=== PATIENT | female | born 1945 | race Caucasian/White ===

== ENCOUNTER 2016-07-30 09:43 | Emergency (ER) | payer OTHER ==
[~2016-07-30] VITALS: Ht 160 cm; Wt 89.0 kg
[~2016-07-30 09:43] MED LIST: ADVIN25/60 INH; ALBU1AER9 INH; CITA40TA4 PO; CZR50 PO; FLNIN/ NAE; HYDR25TA5 PO; LEVO150T9 PO; SIMV-151 PO; TNR25 PO
[2016-07-30 09:46] VITALS: TEMP 36.9; Ht 160 cm; Wt 89.0 kg
[2016-07-30] MEDS ORDERED: ACETAMINOPHEN 325 MG TAB PO STA (09:55)
--- NOTE | 2016-07-30 09:59 | EMERGENCY ROOM VISIT NOTE ---
History Report prepared by Justa: Vivi Dos Santos Under the Supervision of: Dr. Nino Alanis M.D. First contact with patient: 09:49 Chief Complaint: ABDOMINAL PAIN Stated Complaint: LOWER RIGHT ABDOMEN PAIN History of Present Illness The patient is a 71 year old female who presents to the Emergency Room with complaints of worsening lower right sided abdominal pain beginning almost 2 months prior to arrival. The patient states that the second week in June she was outside pruning when she moved and felt pain in her lower right side of the abdomen radiating into the groin. The patient states that movement worsens her pain. She states that getting out of bed in the mornings is the most painful. She notes that nothing helps to alleviate her pain. The patient also had back pain that only lasted for a few days before it resolved. The patient is having normal bowel movements. She denies urinary symptoms or vaginal discharge. Source of History: patient Onset: about 2 months [employer] Position: abdomen (RLQ) Timing: worsening Associated Symptoms: + back pain, No urinary symptoms Note: The patient is experiencing normal bowel movements. She denies vaginal discharge. Review of Systems All systems have been listed, reviewed, and are negative other than those previously mentioned. Please see Additional Medical History Sheet. Past Medical & Surgical Medical Problems: (1) Hypertension Nos Family History Cancer Social History Smoking Status: Never Smoker Alcohol Use: none Marital Status: Housing Status: lives with significant other Occupation Status: retired Current/Historical Medications Scheduled Atenolol (Atenolol), 25 MG PO DAILY Hydrochlorothiazide (Hydrochlorothiazide), 25 MG PO DAILY Levothyroxine Sodium (Levothyroxine Sodium), 150 MCG PO DAILY Losartan Potassium (Losartan Potassium), 50 MG PO DAILY Simvastatin (Simvastatin), 20 MG PO DAILY Scheduled PRN Albuterol Hfa (Ventolin Hfa), 2 PUFFS INH UD PRN for SOB/Wheezing Fluticasone Prop/Salmeterol (Advair Diskus 250/50 60 Dose), 1 PUFF INH BID PRN for SOB/Wheezing Fluticasone Propionate (Fluticasone Propionate), 2 SPRAYS REAGAN DAILY PRN for ALLERGIES Ibuprofen Tab (Motrin), 600 MG PO Q6H PRN for Pain Allergies Coded Allergies: Iodinated Contrast Media (Verified Allergy, Unknown, ., 07/30/16) Oxycodone (Verified Allergy, Unknown, ., 07/30/16) ABLE TO TAKE TYLENOL Physical Exam Vital Signs Date Time Temp Pulse Resp B/P (MAP) Pulse Ox O2 Delivery O2 Flow Rate FiO2 07/30/16 12:01 62 20 118/65 96 Room Air 07/30/16 11:16 52 20 133/66 98 Room Air 07/30/16 09:46 36.9 79 22 176/81 96 Room Air Physical Exam GENERAL: Patient awake, alert, oriented x 3. Patient follows commands. Patient does not appear toxic. Patient is adequately hydrated and well- nourished. SKIN: No erythema, pallor, cyanosis or rash HEENT: Normal head, pupils equal, reactive to light and accommodation. LUNGS: Clear to auscultation. No wheezes, no rales, no rhonchi. HEART: No murmurs. No gallops. No rubs ABDOMEN: Vague tenderness to right lower quadrant, no hernia palpated. Patient does not have acute abdomen. No masses, no rebound, no hepatomegaly or splenomegaly. BACK: Tender proximally L2-L3 into right perivertebral area. No ecchymosis, no signs of trauma, no deformity seen. EXTREMITIES: Straight leg raise negative bilaterally. Motor sensory circulatory function intact distally. No signs of trauma. No pedal or pretibial edema. No calf or thigh tenderness. NEUROLOGIC: Cranial nerves II-XII within normal limits. No gross motor sensory function deficits. Medical Decision & Procedures ER Provider Diagnostic Interpretation: Radiology results as stated below per my review and radiologist interpretation: Limited abdominal ultrasound ABDOMEN FOR HERNIA CLINICAL HISTORY: RLQ PAIN PAST APPY AND OOPHORECTOMY HYSTERECTOMY TECHNIQUE: Ultrasound COMPARISON STUDY: None FINDINGS: No evidence for hernia. Abdominal wall appears to be intact. IMPRESSION: Negative study. No evidence for hernia. Electronically signed by: Andrzej Mclean M.D. 07/30/2016 10:58 AM Dictated Date/Time: 07/30/2016 10:[address] DOSE: 1053.50 mGy.cm HISTORY: Pain RIGHT SIDED LUMBAR PAIN TECHNIQUE: Multiaxial CT images of the lumbar spine were performed and reformatted in the sagittal and coronal plane without the use of contrast. COMPARISON: None. FINDINGS: No evidence for compression deformity. Degenerative disc change throughout. Degenerative change posterior elements. L1-L2: Moderate multifactorial narrowing of the spinal canal. Moderate narrowing of the neuroforamina bilaterally. L2 L3. Broad-based bulging disc. L3-L4. Mild broad-based bulging disc. L4-L5: Significant multifactorial narrowing of spinal canal. Subtle grade 1 anterolisthesis of L4 and L5 secondary to degenerative changes of posterior elements. L5-S1 probable right posterior disc herniation. Gas containing disc component on a degenerative basis. Moderate narrowing of the neuroforamina bilaterally. IMPRESSION: 1. No acute process. 2. Degenerative changes throughout. 3. Multifactorial narrowing of the spinal canal at L4-L5 and L1-L2. 4. Probable right posterior disc herniation L5-S1 Electronically signed by: Andrzej Mclean M.D. 07/30/2016 10:37 AM Dictated Date/Time: 07/30/2016 10:33 AM Laboratory Results 07/30/16 10:12 Red Blood Count 4.38, Mean Corpuscular Volume 90.6, Mean Corpuscular Hemoglobin 29.5, Mean Corpuscular Hemoglobin Concent 32.5, Mean Platelet Volume 10.6, Neutrophils (%) (Auto) 69.9, Lymphocytes (%) (Auto) 18.6, Monocytes (%) (Auto) 9.8, Eosinophils (%) (Auto) 1.3, Basophils (%) (Auto) 0.2, Neutrophils # (Auto) 3.64, Lymphocytes # (Auto) 0.97, Monocytes # (Auto) 0.51, Eosinophils # (Auto) 0.07, Basophils # (Auto) 0.01 07/30/16 10:12 Test 07/30/16 10:12 07/30/16 11:10 White Blood Count 5.21 K/uL (4.8-10.8) Red Blood Count 4.38 M/uL (4.2-5.4) Hemoglobin 12.9 g/dL (12.0-16.0) Hematocrit 39.7 % (37-47) Mean Corpuscular Volume 90.6 fL (80-100) Mean Corpuscular Hemoglobin 29.5 pg (25-34) Mean Corpuscular Hemoglobin Concent 32.5 g/dl (32-36) Platelet Count 103 K/uL (130-400) Mean Platelet Volume 10.6 fL (7.4-10.4) Neutrophils (%) (Auto) 69.9 % Lymphocytes (%) (Auto) 18.6 % Monocytes (%) (Auto) 9.8 % Eosinophils (%) (Auto) 1.3 % Basophils (%) (Auto) 0.2 % Neutrophils # (Auto) 3.64 K/uL (1.4-6.5) Lymphocytes # (Auto) 0.97 K/uL (1.2-3.4) Monocytes # (Auto) 0.51 K/uL (0.11-0.59) Eosinophils # (Auto) 0.07 K/uL (0-0.5) Basophils # (Auto) 0.01 K/uL (0-0.2) RDW Standard Deviation 46.3 fL (36.4-46.3) RDW Coefficient of Variation 13.9 % (11.5-14.5) Immature Granulocyte % (Auto) 0.2 % Immature Granulocyte # (Auto) 0.01 K/uL (0.00-0.02) Platelet Estimate DECREASED Anion Gap 8.0 mmol/L (3-11) Est Creatinine Clear Calc Drug Dose 65.5 ml/min Estimated GFR () 83.5 Estimated GFR (Non- 72.1 BUN/Creatinine Ratio 23.8 (10-20) Calcium Level 8.9 mg/dl (8.5-10.1) Urine Color YELLOW Urine Appearance CLEAR (CLEAR) Urine pH 6.5 (4.5-7.5) Urine Specific [place] 1.018 (1.000-1.030) Urine Protein NEG (NEG) Urine Glucose (UA) NEG (NEG) Urine Ketones NEG (NEG) Urine Occult Blood NEG (NEG) Urine Nitrite NEG (NEG) Urine Bilirubin NEG (NEG) Urine Urobilinogen NEG (NEG) Urine Leukocyte Esterase SMALL (NEG) Urine WBC (Auto) 1-5 /hpf (0-5) Urine RBC (Auto) 0-4 /hpf (0-4) Urine Hyaline Casts (Auto) 0 /lpf (0-5) Urine Epithelial Cells (Auto) 20-30 /lpf (0-5) Urine Bacteria (Auto) NEG (NEG) Laboratory results as stated above per my review. Medications Administered Medications (Trade) Dose Ordered Sig/Rock Route Start Time Stop Time Status Last Admin Dose Admin Acetaminophen (Tylenol Tab) 1,000 mg STK-MED ONCE PO 07/30/16 10:02 07/30/16 10:03 DC 07/30/16 10:05 1,000 MG Ibuprofen (Motrin Tab) 600 mg NOW STAT PO 07/30/16 12:24 07/30/16 12:25 DC 07/30/16 12:30 600 MG Ibuprofen (Ibuprofen 600mg Home Pack) 1 homepack UD ONCE PO 07/30/16 12:30 07/30/16 12:31 DC 07/30/16 12:30 1 HOMEPACK ED Course 0950: Past medical records reviewed. The patient was evaluated in room A12. A complete history and physical examination was performed. 0955: Tylenol Tab 1,000 mg PO. 1219: I checked on the patient and explained her test results. She would like to go home. 1224: Motrin Tab 600 mg PO. 1230: Ibuprofen 600 mg Home Pack 1 homepack PO. 1232: Upon reevaluation, the patient appeared to have improvement of her symptoms. I discussed today's findings with her. She verbalized agreement of the treatment plan. She was discharged home. Medical Decision Nurses notes reviewed. Medical history sheet reviewed. Differential diagnosis includes but is not limited to: femoral/inguinal hernia, musculoskeletal strain , degenerative joint disease, sciatica. Medication Reconciliation: I attest that I have personally reviewed the patient' s current medication list. Blood pressure Screening: Patient was found to have normal blood pressure on screening and does not require follow up. Patient was here initially complaining of pain over her right lower quadrant of her abdomen. On examination of her back she has point tenderness over the right side of her lumbar spine. Ultrasound of the abdomen does not reveal hernia nor can I feel one on exam. CT of her lumbar spine reveals significant degenerative changes. I believe the pain she is experiencing both in her back and abdomen are from radicular pain from that area. The patient was started on ibuprofen and she will continue that medication at home. She is to follow-up with her family physician within the next 7 days. The patient was encouraged to apply heat intermittently to her back. She was encouraged to avoid any lifting or straining. Impression Primary Impression: Lumbar radiculopathy Scribe Attestation The scribe's documentation has been prepared under my direction and personally reviewed by me in its entirety. I confirm that the note above accurately reflects all work, treatment, procedures, and medical decision making performed by me. Departure Information Dispostion Home / Self-Care Prescriptions Ibuprofen Tab (MOTRIN) 600 Mg Tab 600 MG PO Q6H Y for Pain, #30 TAB Prov: Nino Alanis M.D. 07/30/16 Referrals Tita Harris D.O. (PCP) Forms HOME CARE DOCUMENTATION FORM, IMPORTANT VISIT INFORMATION Patient Instructions My [facility] Additional Instructions 600 mg of ibuprofen every 6 hours until pain has resolved. Avoid any heavy lifting for the next 2 weeks. Apply heat intermittently to your lower back. Follow-up with your family physician this coming week.
[2016-07-30] MEDS ORDERED: ACETAMINOPHEN 500 MG TAB PO ONE (10:02)
[2016-07-30 10:37] LABS: BUN/CREATININE RATIO 23.8 (10-20); CALCIUM 8.9 mg/dl (8.5-10.1); CREATININE 0.81 mg/dl (0.60-1.20); POTASSIUM 3.8 mmol/L (3.5-5.1)
--- NOTE | 2016-07-30 10:39 | DIAGNOSTIC IMAGING REPORT ---
LUMBAR SPINE CT CT DOSE: 1053.50 mGy.cm HISTORY: Pain RIGHT SIDED LUMBAR PAIN TECHNIQUE: Multiaxial CT images of the lumbar spine were performed and reformatted in the sagittal and coronal plane without the use of contrast. COMPARISON: None. FINDINGS: No evidence for compression deformity. Degenerative disc change throughout. Degenerative change posterior elements. L1-L2: Moderate multifactorial narrowing of the spinal canal. Moderate narrowing of the neuroforamina bilaterally. L2 L3. Broad-based bulging disc. L3-L4. Mild broad-based bulging disc. L4-L5: Significant multifactorial narrowing of spinal canal. Subtle grade 1 anterolisthesis of L4 and L5 secondary to degenerative changes of posterior elements. L5-S1 probable right posterior disc herniation. Gas containing disc component on a degenerative basis. Moderate narrowing of the neuroforamina bilaterally. IMPRESSION: 1. No acute process. 2. Degenerative changes throughout. 3. Multifactorial narrowing of the spinal canal at L4-L5 and L1-L2. 4. Probable right posterior disc herniation L5-S1 Electronically signed by: Andrzej Mclean M.D. 07/30/2016 10:37 AM Dictated Date/Time: 07/30/2016 10:33 AM
[2016-07-30 10:54] LABS: HEMATOCRIT 39.7 % (37-47); MEAN CELL VOLUME 90.6 fL (80-100); MEAN CORPUSCULAR HEMOGLOBIN 29.5 pg (25-34); MEAN CORPUSCULAR HGB CONC 32.5 g/dl (32-36); MEAN PLATELET VOLUME 10.6 fL (7.4-10.4); PLATELET COUNT 103 K/uL (130-400); RED BLOOD COUNT 4.38 M/uL (4.2-5.4); WHITE BLOOD COUNT 5.21 K/uL (4.8-10.8)
[2016-07-30 10:55] LABS: BASO % 0.2 %; BASO ABS # 0.01 K/uL (0-0.2); COMPLETE YES; EOS % 1.3 %; IG% 0.2 %; LYMPH % 18.6 %; LYMPH ABS # 0.97 K/uL (1.2-3.4); MONO % 9.8 %; NEUT % 69.9 %; PLT ESTIMATE DECREASED
[2016-07-30] MEDS ORDERED: VNTHFA/IN INH (10:59)
--- NOTE | 2016-07-30 10:59 | DIAGNOSTIC IMAGING REPORT ---
Limited abdominal ultrasound ABDOMEN FOR HERNIA CLINICAL HISTORY: RLQ PAIN PAST APPY AND OOPHORECTOMY HYSTERECTOMY TECHNIQUE: Ultrasound COMPARISON STUDY: None FINDINGS: No evidence for hernia. Abdominal wall appears to be intact. IMPRESSION: Negative study. No evidence for hernia. Electronically signed by: Andrzej Mclean M.D. 07/30/2016 10:58 AM Dictated Date/Time: 07/30/2016 10:57 AM
[2016-07-30 11:34] LABS: URINE APPEARANCE CLEAR (CLEAR); URINE BILIRUBIN NEG (NEG); URINE COLOR YELLOW; URINE EPITHELIAL CELL AUTO 20-30 /lpf (0-5); URINE NITRITE NEG (NEG); URINE PH 6.5 (4.5-7.5); URINE SPECIFIC GRAVITY 1.018 (1.000-1.030); UROBILINOGEN NEG (NEG); ZZUR CULT IF INDIC CLEAN CATCH NO
[2016-07-30 11:44] LABS: MANUAL MICROSCOPIC REQUIRED? NO; REVIEW REQ? NO
[2016-07-30 12:01] VITALS: BP 118/65; PULSE 62; O2SAT 96
[2016-07-30] MEDS ORDERED: IBUPROFEN 600 MG TAB PO STA (12:24)
[2016-07-30] MEDS ORDERED: IBUP-1427 PO (12:28)
[2016-07-30] MEDS ORDERED: MOTRIN HOME PACK 600 MG (4)BTL PO ONE (12:30)
== END 2016-07-30 12:41 | disposition home or self-care (01) ==
LOC: C.EDB 09:44 → C.EDA 12:41
DX: M54.16 Radiculopathy, lumbar region (principal); I10 Essential (primary) hypertension; Z79.899 Other long term (current) drug therapy; Z88.5 Allergy status to narcotic agent; Z91.041 Radiographic dye allergy status; Z80.9 Family history of malignant neoplasm, unspecified

== ENCOUNTER 2023-04-25 11:23 | Inpatient (IN) ==
[2023-04-25 12:17] LABS: Basophils # (auto) 0.01 K/uL (0.00-0.20); Basophils % (auto) 0.2 %; Eosinophils # (auto) 0.02 K/uL (0.00-0.50); Eosinophils % (auto) 0.3 %; Hematocrit (blood only) 35.6 % (37.0-47.0); Hemoglobin 12.8 g/dl (12.0-16.0); Immature Granulocytes # (auto) 0.03 K/uL (0.01-0.20); Immature Granulocytes % (auto) 0.5 %; Lymphocytes # (auto) 0.78 K/uL (1.20-3.40); Lymphocytes % (auto) 11.9 %; Mean Corpuscular Hemoglobin 31.6 pg (25.0-34.0); Mean Corpuscular Volume 87.9 fL (80.0-100.0); Mean Platelet Volume 9.8 fL (9.4-12.4); Monocytes # (auto) 0.49 K/uL (0.11-0.59); Monocytes % (auto) 7.5 %; Neutrophils # (auto) 5.22 K/uL (1.40-6.50); Neutrophils % (auto) 79.6 %; Platelet Count 116 K/uL (130-400); RDW Coefficient of Variation 17.2 % (11.5-14.5); RDW Standard Deviation 55.2 fL (36.4-46.3); Red Blood Count 4.05 M/uL (4.20-5.40); White Blood Count 6.55 K/ul (4.8-10.8)
[2023-04-25 12:32] LABS: Alanine Aminotransferase 17 U/L (7-52); Albumin Globulin Ratio 0.9 (0.9-2); Albumin Level 3.2 gm/dl (3.4-5.0); Alkaline Phosphatase 67 U/L (34-104); Anion Gap 14 (3-11); Aspartate Aminotransferase 29 U/L (13-39); BUN Creatinine Ratio 21.2 (10-20); Bilirubin,Total 1.8 mg/dl (0.2-1.0); Blood Urea Nitrogen 40 mg/dl (6-23); Calcium 8.9 mg/dl (8.6-10.3); Carbon Dioxide 27 mmol/L (21-32); Chloride 91 mmol/L (98-107); Est GFR (African American) 28.7 ml/min; Est GFR (Non-African American) 24.8 ml/min; Globulin 3.5 gm/dl (2.5-4.0); Glucose 168 mg/dl (70-99(Fasting)); Sodium 132 mmol/L (136-145); Total Protein 6.7 gm/dl (6.0-8.3)
[2023-04-25 12:38] LABS: Troponin I High Sensitivity 21.1 pg/ml (0-14)
[2023-04-25 12:45] LABS: INR 1.1 (0.9-1.1); Partial Thromboplastin Time 28 Seconds (21-31)
--- NOTE | 2023-04-25 13:04 | XRay Report ---
XR chest 1V not portable CLINICAL HISTORY: Chest pain, nonspecific TECHNIQUE: Single frontal radiograph of the chest was obtained. Comparison: Comparison is made to chest radiograph 02/15/2022 FINDINGS: No lines and tubes are seen. Calcified aortic knob is seen. The lungs are clear. No evidence of pleur al effusion or pneumothorax. IMPRESSION: No acute chest disease. ACT 112: Negative or not required by law. Electronically signed by: Bubba Cortez M.D. 04/25/2023 1:02 PM
--- NOTE | 2023-04-25 14:14 | Emergency Department Note ---
Impression & Plan BLAYNE (acute kidney injury), Acute dehydration, Acute hypokalemia, Elevated troponin, Acute hypotension ED Provider Note NAME: OPAL JAMES AGE: 77 SEX: F : 1945 ARRIVES VIA: Walk-In INFORMANT: Patient, Daughter ED PROVIDER(S): Timoteo Quinn DO CHIEF COMPLAINT: Weakness HPI: Patient is a 77-year-old female pleasantly demented with a past medical history of cirrhosis and diabetes that presents to the ER for lightheadedness associated with not eating and drinking. She complained of some chest pain today and was referred in by her PCP. Patient denies any headache or change in vision. No chest pain currently. No belly pain, nausea, vomiting, or diarrhea. No dysuria, urgency, or frequency. No other exacerbating or remitting factors. Entire history is obtained from daughter who is present at bedside. ADDITIONAL HISTORY OBTAINED: Per HPI Chronic Medical/Social Conditions Affecting Care: Per HPI PAST MEDICAL HISTORY:See Below PAST SURGICAL HISTORY:See Below FAMILY HISTORY:See Below SOCIAL HISTORY:See Below HOME MEDICATIONS:See Below ALLERGIES:See Below VITALS:See Below PHYSICAL EXAMINATION: GENERAL: Sitting up in bed, alert, well appearing, well nourished, no distress, non-toxic EYE EXAM: normal conjunctiva. PERRL and EOM's grossly intact. OROPHARYNX: no exudate, no erythema, lips, buccal mucosa, and tongue normal and mucous membranes are moist NECK: supple, no nuchal rigidity, no adenopathy, non-tender LUNGS: Clear to auscultation. Normal chest wall mechanics HEART: no murmurs, S1 normal and S2 normal ABDOMEN: abdomen soft, non-tender, normo-active bowel sounds, no masses, no rebound or guarding. UPPER EXTREMITIES: upper extremities are grossly normal. LOWER EXTREMITIES: Faint pitting edema in the lower extremities NEURO EXAM: Normal sensorium, cranial nerves II-XII intact, normal speech, no weakness of arms, no weakness of legs. MEDICAL DECISION MAKING: Patient is a 77-year-old female who presents the ER for the above-stated complaint. IV was established blood was obtained. Labs show no significant leukocytosis or anemia. Mild thrombocytopenia at 116. BMP with a hypokalemia 3.0 and an BLAYNE with creatinine 1.9 up from a baseline of 0.9. Bilirubin was slightly elevated at 1.8. LFTs were unremarkable. Troponin was elevated in the 20s. Patient was hypotensive initially was given IV fluid. She had mild pitting edema with her cirrhosis I do favor she was intravascularly dry. She is updated bedside. Discussed case with her daughter who gives majority of the history at bedside. Discussed with the hospitalist for further evaluation management treatment. Hospitalist did request a CT of the abdomen pelvis which was was performed. Consults/Care Managements Discussions: Per [facility] Triage Nursing notes reviewed. Limited review of prior medical records performed Vital Signs: reviewed and remarkable for hypotension Differential diagnosis: Infection, dehydration, metabolic abnormality, hypo/hyperglycemia, electrolyte disturbance, anemia, hypoxia, cardiac sources, intracerebral event, toxicologic, neurologic, as well as other pathologies. ER treatment provided: See below Diagnostics interpreted by me include EKG and cardiac monitoring as listed below: -Cardiac Monitoring: An order was placed for continuous cardiac monitoring. The monitor shows a rate of 70 with sinus rhythm. -ECG: Sinus rhythm rate 84 Left axis No PVCs QTc 420 -Laboratory studies:Interpreted by me as stated above in MDM and shown below. Imaging studies: Xrays: As interpreted by me: Portable AP upright 1 view of the chest shows no focal infiltrate CTs show: CT abdomen pelvis shows cirrhosis with ascites Procedures:none Critical Care: None Past Med/Surg History Medical History Asthma NO INHALER USE X 2 YRS Bronchitis Chest pain (11/16/13) NO RECENT ISSUES Colon polyps Diabetes mellitus, type 2 Elevated d-dimer Hepatic encephalopathy Hypothyroidism Pneumonia LAST TIME 2 YRS AGO Right foot pain Surgical History H/O: hysterectomy History of total bilateral knee replacement Hx of appendectomy S/P lumpectomy, left breast BENIGN PER PT Family History Father Colorectal cancer Family history of diabetes mellitus Social History Smoking Status: Never smoker Second Hand Exposure: No; Do You Dip or Chew Tobacco: No; Hx Alcohol Use: No Hx Substance Use: No Preferred Language: Luxembourgish Communication Ability: Effective Visual Impairment: No Limitations Hearing Ability: Normal Lei Maker Required: No Beliefs That Will Affect Care: None marital status: Current Living Situation: Spouse current occupational status: retired Other Information That Helps Us Care for You: No Feels Safe at Home: Yes Safety Concerns: Feels Safe At This Time and Afraid for Self Assistive Devices: Glasses Allergies Allergies Allergy/AdvReac Type Severity Reaction Status Date / Time Iodinated Contrast Media Allergy Intermediate Hives Verified 04/25/23 15:23 oxycodone Allergy Unknown CAN'T Verified 04/25/23 15:23 REMEMBER Home Meds Home Medications Medication Instructions Recorded Confirmed losartan 50 mg tablet 25 mg PO QAM 07/15/19 04/25/23 metformin 500 mg tablet 1,000 mg PO BID 07/15/19 04/25/23 clindamycin phosphate 1 % topical 1 applic topical BID PRN AFFECTED 04/25/23 04/25/23 swab SKIN clotrimazole 1 % vaginal cream 1 appful vaginal HS 04/25/23 04/25/23 cyanocobalamin (vitamin B-12) 1,000 mcg PO DAILY 04/25/23 04/25/23 1,000 mcg tablet (Vitamin B-12) donepezil 5 mg tablet 5 mg PO QAM 04/25/23 04/25/23 empagliflozin 25 mg tablet 25 mg PO QAM 04/25/23 04/25/23 (Jardiance) lactulose 10 gram/15 mL oral 30 ml PO BID 04/25/23 04/25/23 solution levothyroxine 150 mcg tablet 150 mcg PO DAILYBB 04/25/23 04/25/23 nutrition tx glu 1 ea PO BIDM 04/25/23 04/25/23 intol,lac-free,soy-fiber 0.04 gram-1 kcal/mL liquid (Glucerna 1 Ezequiel) ondansetron 4 mg disintegrating 4 mg translingual Q12H PRN 04/25/23 04/25/23 tablet NAUSEA/VOMITING pantoprazole 20 mg tablet,delayed 20 mg PO BID 04/25/23 04/25/23 release spironolactone 50 mg tablet 50 mg PO QAM 04/25/23 04/25/23 thiamine HCl (vitamin B1) 100 mg 100 mg PO QAM 04/25/23 04/25/23 tablet (Vitamin B-1) torsemide 20 mg tablet 20 mg PO BID 04/25/23 04/25/23 trazodone 50 mg tablet 50 mg PO HS 04/25/23 04/25/23 Results & Data (ED) Vital Signs Vital Signs - 24 hr 04/25/23 11:26 04/25/23 14:00 04/25/23 14:00 Temperature 36.6 C Temperature Source Temporal Artery Scan Pulse Rate 68 78 Pulse Rate from SpO2 Sensor 76 Respiratory Rate 20 14 Respiratory Effort / Characteristics Non-Labored Respiratory Depth Normal Blood Pressure 90/69 L 102/68 Blood Pressure Mean 76 77 Pulse Oximetry 98 99 Oxygen Delivery Method Room Air Sepsis Recent Fever Within 48 Hours No Sepsis New/Unexplained Change in Mental Status No Sepsis Action Taken by Nursing No Action Required 04/25/23 14:11 Temperature Temperature Source Pulse Rate 75 Pulse Rate from SpO2 Sensor Respiratory Rate Respiratory Effort / Characteristics Respiratory Depth Blood Pressure Blood Pressure Mean Pulse Oximetry Oxygen Delivery Method Sepsis Recent Fever Within 48 Hours Sepsis New/Unexplained Change in Mental Status Sepsis Action Taken by Nursing Laboratory Data 04/25/23 11:40 04/25/23 11:40 Lab Results 04/25/23 04/25/23 Range/Units 11:40 14:08 WBC 6.55 (4.8-10.8) K/ul RBC 4.05 L (4.20-5.40) M/uL Hgb 12.8 (12.0-16.0) g/dl Hct 35.6 L (37.0-47.0) % MCV 87.9 (80.0-100.0) fL MCH 31.6 (25.0-34.0) pg MCHC 36.0 (32.0-36.0) g/dL RDW Std Deviation 55.2 H (36.4-46.3) fL RDW Coeff of [place] 17.2 H (11.5-14.5) % Plt Count 116 L (130-400) K/uL MPV 9.8 (9.4-12.4) fL Immature Gran % (Auto) 0.5 % Neut % (Auto) 79.6 % Lymph % (Auto) 11.9 % [place] % (Auto) 7.5 % Eos % (Auto) 0.3 % Baso % (Auto) 0.2 % Neut # (Auto) 5.22 (1.40-6.50) K/uL Lymph # (Auto) 0.78 L (1.20-3.40) K/uL [place] # (Auto) 0.49 (0.11-0.59) K/uL Eos # (Auto) 0.02 (0.00-0.50) K/uL Baso # (Auto) 0.01 (0.00-0.20) K/uL Immature Gran # (Auto) 0.03 (0.01-0.20) K/uL PT 12.0 (9.0-12.0) Seconds INR 1.1 (0.9-1.1) APTT 28 (21-31) Seconds PTT Ratio 1.0 Sodium 132 L (136-145) mmol/L Potassium 3.0 L (3.5-5.1) mmol/L Chloride 91 L (98-107) mmol/L Carbon Dioxide 27 (21-32) mmol/L Anion Gap 14 H (3-11) BUN 40 H (6-23) mg/dl Creatinine 1.89 H (0.6-1.2) mg/dl Est Cr Clr Drug Dosing Not Reportable Est GFR ( Amer) 28.7 ml/min Est GFR (Non-Af Amer) 24.8 ml/min BUN/Creatinine Ratio 21.2 H (10-20) Glucose 168 H (70-99(Fasting)) mg/dl Calcium 8.9 (8.6-10.3) mg/dl Total Bilirubin 1.8 H (0.2-1.0) mg/dl AST 29 (13-39) U/L ALT 17 (7-52) U/L Alkaline Phosphatase 67 (34-104) U/L Troponin I High Sens 21.1 H 22.2 H (0-14) pg/ml B-Natriuretic Peptide 100 (0-100) pg/ml Total Protein 6.7 (6.0-8.3) gm/dl Albumin 3.2 L (3.4-5.0) gm/dl Globulin 3.5 (2.5-4.0) gm/dl Albumin/Globulin Ratio 0.9 (0.9-2) Administered Medications Discontinued Medications Sodium Chloride (Nss) 500 mls @ 999 mls/hr IV .Q31M ONE Stop: 04/25/23 14:44 Last Infusion: 04/25/23 14:58 Dose: Infused Documented By: Admin: 04/25/23 14:25 Dose: 999 mls/hr Documented By: NANCY Lactulose (Lactulose Syrup 30 Gm/45 Ml Udp) 30 gm PO NOW STA Stop: 04/25/23 15:33 Last Admin: 04/25/23 16:11 Dose: 30 gm Documented By: JO Potassium Chloride (Potassium Chloride Crtab 20 Meq Tabcr) 20 meq PO NOW STA Stop: 04/25/23 14:15 Last Admin: 04/25/23 14:25 Dose: 20 meq Documented By: NANCY Potassium Chloride (Potassium Chloride Crtab 20 Meq Tabcr) 40 meq PO NOW STA Stop: 04/25/23 15:34 Last Admin: 04/25/23 16:14 Dose: 40 meq Documented By: BT Imaging Data Radiologist's Impression: Chest X-Ray 04/25/23 11:29 XR chest 1V not portable CLINICAL HISTORY: Chest pain, nonspecific TECHNIQUE: Single frontal radiograph of the chest was obtained. Comparison: Comparison is made to chest radiograph 02/15/2022 FINDINGS: No lines and tubes are seen. Calcified aortic knob is seen. The lungs are clear. No evidence of pleural effusion or pneumothorax. IMPRESSION: No acute chest disease. ACT 112: Negative or not required by law. Electronically signed by: Bubba Cortez M.D. 04/25/2023 1:02 PM Abdomen/Pelvis CT 04/25/23 14:31 CT abd pelvis wo con CLINICAL HISTORY: per internal medicine request not eating TECHNIQUE: Helical axial images of the abdomen and pelvis were obtained. Automated dose lowering techniques and/or adjustment according to patient size were utilized for this exam. This exam was performed without intravenous contrast. CT DOSE: 618.98 mGy.cm COMPARISON: Comparison is made to CT abdomen pelvis 10/07/2019 FINDINGS: Lower chest: No acute abnormality. Liver: Nodular contour of the liver is seen compatible with cirrhosis. Recanalized umbilical vein is noted. Gallbladder and biliary tree: No calcified gallstones. Normal caliber wall. No intra- or extrahepatic biliary ductal dilation. Pancreas: Unremarkable, no focal lesions. Spleen: Splenomegaly is noted, the spleen measures 14 cm. Splenules are noted. Adrenals: Unremarkable. Kidneys and ureters: Unremarkable. Bladder: Bladder wall thickening is seen. Reproductive organs: Patient is status post hysterectomy. Bowel: There is a small hiatal hernia. Lymph nodes Retroperitoneal: Unremarkable. Pelvic: Unremarkable. Mesenteric: Unremarkable. Peritoneum: Moderate ascites is seen. Vessels: Atherosclerotic calcifications are seen. Perigastric varices are seen. Abdominal wall: Unremarkable. Bones: Degenerative changes in the visualized spine. Stable sclerotic lesion in the right pubic symphysis. IMPRESSION: Cirrhosis with moderate ascites and prominent collaterals compatible with portal hypertension. Splenomegaly is seen. Otherwise no acute abnormalities are seen. ACT 112: Negative or not required by law. Electronically signed by: Bubba Cortez M.D. 04/25/2023 3:21 PM Discharge Plan Visit Data Chief Complaint: Chest Pain Stated Complaint: CHEST PAINS, RETAINING FLUID, WEIGHT LOSS, REF BY ED Provider: Timoteo Quinn Discharge Problem: BLAYNE (acute kidney injury), Acute dehydration, Acute hypokalemia, Elevated troponin, Acute hypotension Patient Disposition: Admitted As Inpatient Discharge Instructions Interventions: ED Discharge Assessment Last Done: 04/25/23 15:58
[2023-04-25] MEDS: SODIUM CHLORIDE 0.9% 500 ML IV ONE (14:25)
[2023-04-25] MEDS: POTASSIUM CHLORIDE CRTAB 20 MEQ TABCR PO STA ×2 (14:25→16:14)
--- NOTE | 2023-04-25 14:35 | History & Physical Report ---
Date of Service April 25, 2023 Assessment & Plan (1) Cirrhosis: (2) Esophageal varices: (3) Hypertension: (4) Hyperlipidemia: (5) Hypothyroidism: (6) Diabetes: Plan: BLAYNE WALSH Cirrhosis Lightheadedness and dizziness - The patient was seen and examined this morning. Patient reports feeling well creatinine of 1.89, impaired to 0.58 baseline, on review of outpatient epic records she was seen about 2 weeks ago by GI. Follows with [email or web address] as outpatient - Volume overload in February, diuretic was changed at that time from furosemide to torsemide 20mg BID, continuing spironolactone 50 mg daily -- hold diuretics today - Taking lactulose 30g daily and titrating for 3-5 bowel movements daily, maybe is having 1-2 daily - Check ammonia, not yet obtained - Lactulose 30 mg PO ordered, if unable to take PO then will need to use lactulose enema Last EGD: 01/202323 grade II esophageal varices, gastritis (no Hpylori, intestinal metaplasia, dysplasia). Hold Nadolol given light headedness. - Last Colonoscopy: 07/23/2019 colon polyp (tubular adenoma), sigmoid diverticulosis, int hemorrhoids. She would like to defer repeat screening colonoscopies. - Decreased po intake like contributing to BLAYNE along with diuretic use - Today MELD score of 16 likely due to BLAYNE, previously was 8 - GI consulted - appreciate recs re consider therapeutic tap if ascites able to be drained - Consult nephrology with BLAYNE and peripheral edema, ascites and bumped Cr. today - Renally reduce meds, avoid nephrotoxins - Coag: INR 1.1, plt 116 - Trend INR daily with coags - Does not appear to have infectious signs, no abd complaints, no leukocytosis, afebrile, not concerned at this time for SBP. HTN HLD - Chronic, stable, BP is borderline low likely due to above - Hold spironolactone and torsemide today DM II - Hold Jardiance and glipizide -ISS with Accu-Cheks ACHS -A1c with a.m. labs Hypokalemia -Potassium 3.6 on admission, given 20 mEq in the ER, will add additional 40 meq po, trend am labs Dementia - Cont aricept (started about 3 weeks ago), can consider addition of zyprexa 2.5 HS if she has worsening sx of ing - Can consider remeron if continue poor po appetite, allow diet DVT ppx: teds, scds Lines: 1 PIV FEN/GI: received 1 L NSS, no further fluids, allow HH diet CODE: DNR/DNI -discussed with the patient and her daughter at bedside Dispo: From home, likely to remain in the hospital x 1-2 days A total of 77 minutes were spent with greater than 50% of that time face to face with the patient, personally reviewing all current laboratories, imaging studies, past medication reconciliation, outpatient chart review, and discussion with specialists to collaborate care for the patient with attending. Please see attending documentation for corrections and/or additions. History of Present Illness Chief Complaint: Lightheadedness and dizziness Primary Care Provider: Tita Harris, This is a 77-year-old female with PMHx of cirrhosis, esophageal varices with history of hepatic encephalopathy, DM type II, HTN, HLD, hypothyroidism who presents to the hospital with worsening lightheadedness and dizziness in the past 2 days. Daughter Joy, at beside supplies the majority of the history. The patient has underlying dementia. Pt has had decreased intake for what appears about 2 weeks, and there was also concern for visual hallucinations. Daughter states due to nausea, she hasn't been able to take her medications quite as well as normal. She is loosing weight recently, about 25 lbs recently. Pt admits to having fluid in her belly, denies any pain in stomach, but does feel bloated. Pt is not urinating much at all, she feels like she needs to go. Visual hallucinations have been worsening in the past 3 weeks. She is having bowel movements about 1-2 x per day, compared to 3-5 per day. Today a nurse say her at home and per [facility] there was concern for detecting ketones on breath today and was asked to come in to the office. Pt has presented to ER after this. She is found to have elevated creatinine at 1.89, compared to her baseline of 0.56. Allergies Allergy/AdvReac Type Severity Reaction Status Date / Time Iodinated Contrast Media Allergy Intermediate Hives Verified 04/25/23 15:23 oxycodone Allergy Unknown CAN'T Verified 04/25/23 15:23 REMEMBER Home Medications Medication Instructions Recorded Confirmed Type losartan 50 mg tablet 25 mg PO QAM 07/15/19 04/25/23 History metformin 500 mg tablet 1,000 mg PO BID 07/15/19 04/25/23 History clindamycin phosphate 1 % topical 1 applic topical BID PRN AFFECTED 04/25/23 04/25/23 History swab SKIN clotrimazole 1 % vaginal cream 1 appful vaginal HS 04/25/23 04/25/23 History cyanocobalamin (vitamin B-12) 1,000 mcg PO DAILY 04/25/23 04/25/23 History 1,000 mcg tablet (Vitamin B-12) donepezil 5 mg tablet 5 mg PO QAM 04/25/23 04/25/23 History empagliflozin 25 mg tablet 25 mg PO QAM 04/25/23 04/25/23 History (Jardiance) lactulose 10 gram/15 mL oral 30 ml PO BID 04/25/23 04/25/23 History solution levothyroxine 150 mcg tablet 150 mcg PO DAILYBB 04/25/23 04/25/23 History nutrition tx glu 1 ea PO BIDM 04/25/23 04/25/23 History intol,lac-free,soy-fiber 0.04 gram-1 kcal/mL liquid (Glucerna 1 Ezequiel) ondansetron 4 mg disintegrating 4 mg translingual Q12H PRN 04/25/23 04/25/23 History tablet NAUSEA/VOMITING pantoprazole 20 mg tablet,delayed 20 mg PO BID 04/25/23 04/25/23 History release spironolactone 50 mg tablet 50 mg PO QAM 04/25/23 04/25/23 History thiamine HCl (vitamin B1) 100 mg 100 mg PO QAM 04/25/23 04/25/23 History tablet (Vitamin B-1) torsemide 20 mg tablet 20 mg PO BID 04/25/23 04/25/23 History trazodone 50 mg tablet 50 mg PO HS 04/25/23 04/25/23 History Past Med/Surg History Medical History Asthma NO INHALER USE X 2 YRS Bronchitis Chest pain (11/16/13) NO RECENT ISSUES Colon polyps Diabetes mellitus, type 2 Elevated d-dimer Hepatic encephalopathy Hypothyroidism Pneumonia LAST TIME 2 YRS AGO Right foot pain Surgical History H/O: hysterectomy History of total bilateral knee replacement Hx of appendectomy S/P lumpectomy, left breast BENIGN PER PT Family History Father Colorectal cancer Family history of diabetes mellitus Social History Smoking Status: Never smoker Second Hand Exposure: No; Do You Dip or Chew Tobacco: No; Hx Alcohol Use: No Hx Substance Use: No Preferred Language: Kazakh Communication Ability: Effective Visual Impairment: No Limitations Hearing Ability: Normal Carbonation Equipment Tender Required: No Beliefs That Will Affect Care: None marital status: Current Living Situation: Spouse current occupational status: retired Other Information That Helps Us Care for You: No Feels Safe at Home: Yes Safety Concerns: Feels Safe At This Time and Afraid for Self Assistive Devices: Glasses Review of Systems Review of Systems: Constitutional: No fever, sweats or chills Eyes: No diplopia, no worsening or blurred vision ENT: normal hearing, no trouble swallowing Respiratory: No cough, sputum, dyspnea at rest or on exertion Cardiovascular: No chest pain, tightness or palpitations Abdomen: No pain, nausea, vomiting, + bloating, no diarrhea or constipation Musculoskeletal: No joint pain, calf pain, + sometimes has swelling in her feet Neurologic: No weakness, numbness/tingling, or balance problems, + visual hallucinations Psychiatric: No anxiety or depression Skin: No rash or itch Physical Exam Physical Exam: General: awake, alert, is looking about the room as if there are things on the ceiling, no apparent distress Head: Normocephalic, atraumatic ENT: PERRL, EOMI, no pharyngeal exudate, mucous membranes moist Chest: Clear to auscultation, on room air, no adventitious breath sounds Cardiac: Regular rate and rhythm, soft systolic murmur, no JVD, normal peripheral pulses, good capillary refill Abdominal: NABS x 4 quadrants, soft, + moderately distended, + fluid wave, nontender to palpation, no rebound or guarding Extremities: Normal inspection, 3+ peripheral edema , no erythema, calfs nontender to palpation Psych: Normal mood and affect Neuro: AAO x 3, cannot recall specific events from earlier today, denies visual hallucinations, strength intact bilaterally and rated 5/5, no motor deficits, speech is clear, no peripheral sensory deficits Results & Data Results & Data Vital Signs (Past 12 Hours) Vital Signs Temp Pulse Resp BP Pulse Ox O2 Del Method 04/25/23 14:11 75 04/25/23 14:00 78 14 99 04/25/23 14:00 102/68 04/25/23 11:26 36.6 C 68 20 90/69 L 98 Room Air Laboratory Results 04/25/23 11:40 WBC 6.55 RBC 4.05 L Hgb 12.8 Hct 35.6 L MCV 87.9 MCH 31.6 MCHC 36.0 RDW Std Deviation 55.2 H RDW Coeff of Col[place] 17.2 H Plt Count 116 L MPV 9.8 Immature Gran % (Auto) 0.5 Neut % (Auto) 79.6 Lymph % (Auto) 11.9 [place] % (Auto) 7.5 Eos % (Auto) 0.3 Baso % (Auto) 0.2 Neut # (Auto) 5.22 Lymph # (Auto) 0.78 L [place] # (Auto) 0.49 Eos # (Auto) 0.02 Baso # (Auto) 0.01 Immature Gran # (Auto) 0.03 PT 12.0 INR 1.1 APTT 28 PTT Ratio 1.0 Sodium 132 L Potassium 3.0 L Chloride 91 L Carbon Dioxide 27 Anion Gap 14 H BUN 40 H Creatinine 1.89 H Est Cr Clr Drug Dosing Not Reportable Est GFR ( Amer) 28.7 Est GFR (Non-Af Amer) 24.8 BUN/Creatinine Ratio 21.2 H Glucose 168 H Calcium 8.9 Total Bilirubin 1.8 H AST 29 ALT 17 Alkaline Phosphatase 67 Troponin I High Sens 21.1 H B-Natriuretic Peptide 100 Total Protein 6.7 Albumin 3.2 L Globulin 3.5 Albumin/Globulin Ratio 0.9 Diagnostic Findings Chest X-Ray 04/25/23 11:29 XR chest 1V not portable CLINICAL HISTORY: Chest pain, nonspecific TECHNIQUE: Single frontal radiograph of the chest was obtained. Comparison: Comparison is made to chest radiograph 02/15/2022 FINDINGS: No lines and tubes are seen. Calcified aortic knob is seen. The lungs are clear. No evidence of pleural effusion or pneumothorax. IMPRESSION: No acute chest disease. ACT 112: Negative or not required by law. Electronically signed by: Bubba Cortez M.D. 04/25/2023 1:02 PM Code Status & VTE Plan Code Status DNR/DNI Supervising Physician Co-Signing Physician Notes I have seen and discussed the case with the collaborating advanced practitioner. I agree with the above H&P. I have reviewed and confirmed the patients medical history, the findings on physical examination, and the patients diagnosis and treatment plan with Irina CORRALES and agree with the information documented. In short, Ms.Donna Rehana Kennedy is a 77 year old female w hx of WALSH vs cryptogenic cirrhosis, complicated by hx of Grade II esophageal varices , hepatic encephalopathy, ascites and edema who is admitted for BLAYNE and signs of decompensated cirrhosis. Per OP records, "Patient had volume overload in February. Diuretics changed from furosemide to torsemide. Still taking spironolactone. She is complaining of nausea. States that Remeron is discontinued, switched to trazodone but she has still not sleeping. Appetite is low, losing weight. Given her nausea she has not taking her nighttime lactulose, having about 1-2 bowel movements a day. Denies any dark tarry stools or rectal bleeding." However, over course of last 3 weeks patient with poor intake, worsening abdominal swelling, and notable edema in lower extremities. This has been accompanied by hallucinations and delirium. Denies any bleeding or other acute concerns. Reports hesitancy with lactulose. GENERAL APPEARANCE: AxOx2, pleasantly delirious woman, redirectable, but notably confused about details of last few weeks, no acute distress. HEENT: NC, AT. MMM. EOMI, clear conjunctiva, oropharynx clear. NECK: Supple without lymphadenopathy. No stiffness or restricted ROM. HEART: Normal rate and regular rhythm, ALETA LUNGS: CTAB, moving air well. No crackles or wheezes are heard. ABDOMEN: distended, fluid shift noted BACK: No CVAT, no obvious deformity. EXTREMITIES: Without cyanosis, clubbing. 3+ pitting edema of BLE up to knees NEUROLOGICAL: Grossly nonfocal. Alert and oriented, moving all 4 extremities. CN not formally tested but appear grossly intact Skin: Warm and dry without any rash. #BLAYNE on CKD II - Cr 1.86 on admission (baseline Cr:0.5) - Suspect dehydration and medication induced, kidneys unremarkable on CT - s/p 1 L of IVF, f/u repeat Cr - No recent contrast or offending medications - Strict I/Os, monitor UOP - Renal dose med, avoid nephrotoxins #Cirrhosis 2/2 WALSH, decompensated - History of decompensation:, hepatic encephalopathy/varices/ascites - MELD-Na: 16 on admission - Last EGD 01/202323 grade II esophageal varices, gastritis (no H pylori, intestinal metaplasia, dysplasia). Nadolol held historically given light headedness. -Last Colonoscopy: 07/23/2019 colon polyp (tubular adenoma), sigmoid diverticulosis, int hemorrhoids. She would like to defer repeat screening colonoscopies. - PSE: No evidence of HE on exam, c/w lactulose (titrated to 3-4BM / day) - Ascites: c/w home Torsemide 20 BID, Ozzie 50 daily - Coag: INR 1.1, plt 116 - SBP: start Rocephin ppx iso elevated Cr, hyponatremia, moderate ascites - EV: No evidence of GIB presently, close monitoring - on pantoprazole for PPx at home, will continue - Daily CMP + INR to calculate MELD; low Na diet - GI consult and Nephrology consult - Hold diuretics Spironolactone 50mg and Torsemide 20mg bid - Ammonia 18 I spent a total of 35 minutes coordinating, documenting, and providing care for this patient excluding time spent in the performance of separately billed services. All of the aforementioned completed outside of collaborating with the assigned advanced practitioner for a full treatment plan. I have reviewed the advanced practitioner's documentation, and I agree with, and take responsibility for the plan of care
--- NOTE | 2023-04-25 15:23 | CT Scan Report ---
CT abd pelvis wo con CLINICAL HISTORY: per internal medicine request not eating TECHNIQUE: Helical axial images of the abdomen and pelvis were obtained. Automated dose lowering tech niques and/or adjustment according to patient size were utilized for this exam. This exam was perfor med without intravenous contrast. CT DOSE: 618.98 mGy.cm COMPARISON: Comparison is made to CT abdomen pelvis 10/07/2019 FINDINGS: Lower chest: No acute abnormality. Liver: Nodular contour of the liver is seen compatible with cirrhosis. Recanalized umbilical vein is noted. Gallbladder and biliary tree: No calcified gallstones. Normal caliber wall. No intra- or extrahepatic biliary ductal dilation. Pancreas: Unremarkable, no focal lesions. Spleen: Splenomegaly is noted, the spleen measures 14 cm. Splenules are noted. Adrenals: Unremarkable. Kidneys and ureters: Unremarkable. Bladder: Bladder wall thickening is seen. Reproductive organs: Patient is status post hysterectomy. Bowel: There is a small hiatal hernia. Lymph nodes Retroperitoneal: Unremarkable. Pelvic: Unremarkable. Mesenteric: Unremarkable. Peritoneum: Moderate ascites is seen. Vessels: Atherosclerotic calcifications are seen. Perigastric varices are seen. Abdominal wall: Unremarkable. Bones: Degenerative changes in the visualized spine. Stable sclerotic lesion in the right pubic symph ysis. IMPRESSION: Cirrhosis with moderate ascites and prominent collaterals compatible with portal hypertension. Spleno megaly is seen. Otherwise no acute abnormalities are seen. ACT 112: Negative or not required by law. Electronically signed by: Bubba Cortez M.D. 04/25/2023 3:21 PM
[2023-04-25] MEDS ORDERED: CARBOHYDRATES FOR HYPOGLYCEMIA PO PRN (16:01)
[2023-04-25] MEDS ORDERED: DEXTROSE 50% 50 ML SYRINGE IV PRN (16:01)
[2023-04-25] MEDS ORDERED: ONDANSETRON INJ 2 MG/ML 2 ML VIAL IV PRN (16:01)
[2023-04-25] MEDS ORDERED: GLUCOSE 40% GEL 15 GM TUBE PO PRN (16:01)
[2023-04-25] MEDS ORDERED: GLUCOSE 10 TAB/TUBE PO PRN (16:01)
[2023-04-25] MEDS ORDERED: GLUCAGON FOR INJ 1 MG VIAL SQ PRN (16:01)
[2023-04-25] MEDS: LACTULOSE SYRUP 30 GM/45 ML UDP PO STA (16:11)
--- NOTE | 2023-04-25 16:51 | Electrocardiogram Report ---
Test Reason : Blood Pressure : / mmHG Vent. Rate : 084 BPM Atrial Rate : 084 BPM P-R Int : 140 ms QRS Dur : 088 ms QT Int : 356 ms P-R-T Axes : 038 -15 115 degrees QTc Int : 420 ms Sinus rhythm with Premature atrial complexes Poor R wave progression, consider anterior OK vs. lead placement vs. LVH Abnormal ECG When compared with ECG of 15-FEB-2022 08:58, Premature atrial complexes are now Present QRS duration has decreased QT has shortened Confirmed by Wiley Butt ([id number]) on 04/25/2023 4:50:47 PM Referred By: Confirmed By:Anmol Butt
[2023-04-25] MEDS ORDERED: OLANZAPINE 2.5 MG TAB PO PRN (17:04)
[2023-04-25] MEDS: DONEPEZIL HCL 5 MG TAB PO SCH (17:43)
[2023-04-25] MEDS: INSULIN ASPART PER UNIT CHARGE SC SCH (17:43)
[2023-04-25] MEDS: cefTRIAXone SODIUM 1,000 MG in DEXTROSE 5 % MINI-B 50 ML IV SCH (17:48)
[2023-04-25] MEDS: LACTULOSE 200GM/700ML WTR ENEMA PR SCH (20:19)
[2023-04-25] MEDS: CLOTRIMAZOLE VAGINAL CR 7 APPLN/45 GM TUBE PV SCH (21:47)
[2023-04-25] MEDS: PANTOprazole 40 MG TAB PO SCH (21:48)
[2023-04-25] MEDS: LACTULOSE SYRUP 20 GM/30 ML UDC PO SCH (21:48)
[2023-04-25] MEDS: traZODone HCL 50 MG TAB PO SCH (21:50)
[2023-04-25 23:30] LABS: Appearance Urine Clear (Clear); Bilirubin Urine Negative (Negative); Blood Urine Negative (Negative); Color Urine Dark Yellow; Glucose Urine UA 3+ (Negative); Ketones Urine Trace (Negative); Leukocyte Esterase Urine Negative (Negative); Nitrite Urine Negative (Negative); Protein Urine Negative (Negative); Specific Gravity Urine 1.016 (1.000-1.030); Urobilinogen Urine Negative (Negative)
--- OUTSIDE RECORDS SUMMARY | 2023-04-26 | External Medical Summary | Summary of Care ---
Author Name Unknown Organization [facility] Address [address] [facility] [place] [address] Phone [phone] Care Team Providers Care Sprinkler Installer Name Role Phone Tita Harris DO Primary Care Provider + [phone] Reason for Visit * Reason Comments Follow Up Follow up appt. Pt i s having nausea which is causing her weight loss, bowels are not moving as often as before, pt is refusing to drink lactulose. Encounter Details Date Type Department Care Team (Late st Contact Info) Description 04/13/2023 10:30 AM EST Office Visit Gastroenterology, [facility] [address] [place] [id number] Eda Mobley CRNP [address] [place] [address] WALSH (nonalcoholic steatohepatitis)*; Other cirrhosis of liver (HCC) Allergies Active Allergy Reactions Criticality Noted Date Comments Iodinated Contrast Media 04/16/1997 Levofloxacin In D5w Other (Please comment) 05/06 Seeing things Oxycodone-Acetaminophe n Neuro complications (Please comment) 02/29/2012 Nightmares, hearing and seeing things. documented as of this encounter (statuses as of 04/13/2023) Medications Medication Sig Dispensed Refills Start Date End Date Status zoster vac recomb adjuvanted (SHINGRIX) 50 MCG/0.5ML injectionIndications :Need for vaccination for zoster Inject 0.5 mL into a large muscle now and repeat dose in 60 to 180 days 1 Each 1 02/20/2019 Active SnacksquareTouch Verio Flex System w/Device Kit Use as directed . To test BG once daily. Dx. e11.9 1 Kit 3 05/23/2021 Active Premarin 0.625 MG/GM Vaginal Cream (Estrogens, Conjugated)Indicatio ns:Postmenopausal atrophic vaginitis Administer into the vagina 0.5 g before bedtime. As directed.. 42.5 g 5 08/04/2021 Active Additional Information Patient not taking.Reported on 03/26/2023 Lactulose 10 GM/15ML Oral Solution (Constulose) Take 30 mL by mouth in the morning and 30 mL before bedtime. 5400 mL 3 02/22/2022 Active Losartan Potassium 50 MG Oral Tablet (Cozaar)Indications: HTN, goal below 130/80 Take 0.5 Tablets by mouth in the morning. 90 Tablet 3 05/17/2022 Active Sn[employer] UltraSoft LancetsIndications:T ype 2 diabetes mellitus with hemoglobin A1c goal of less than 7.0% ([facility]) Use once daily to check blood sugar. E11.9 100 Each 5 07/26/2022 Active SnacksquareTouch Delica Lancets 33G Use once daily to check blood sugar. E11.9 100 Each 3 07/31/2022 Active Clotrimazole 1 % Vaginal CreamIndications:Vag inal itching Apply to external vulva at bedtime x 7 days 45 g 0 08/28/2022 Active Additional Information Patient not taking.Reported on 02/08/2023 Levothyroxine Sodium 150 MCG Oral Tablet (Levoxyl) Take 1 Tablet by mouth in the morning. (at least 30 min prior to breakfast or other meds). 30 Tablet 11 09/08/2022 Active SnacksquareTouch Verio In Vitro Strip (Glucose Blood)Indications:Ty pe 2 diabetes mellitus with hemoglobin A1c goal of less than 7.0% ([facility]),Type 2 diabetes mellitus without complication, without long-term current use of insulin ([facility]) USE TO CHECK GLUCOSE ONCE DAILY 150 Strip 3 09/22/2022 Active Pantoprazole Sodium 20 MG Oral Tablet Delayed Release (Protonix)Indication s:Gastrointestinal hemorrhage associated with gastritis, unspecified gastritis type TAKE 1 TABLET BY MOUTH TWICE DAILY every morning and before bedtime 60 Tablet 5 12/10/2022 Active Clindamycin Phosphate 1 % External SwabIndications:Scal p lesion Apply topically to affected area 2 times a day. To affected area of skin. 60 Each 11 01/12/2023 Active Vitamin B-1 100 MG Oral Tablet Take 1 Tablet by mouth in the morning. 0 Active metFORMIN HCl ER 500 MG Oral Tablet Extended Release 24 Hour (Glucophage XR)Indications:Type 2 diabetes mellitus with hemoglobin A1c goal of less than 7.0% (HCC) TAKE 2 TABLETS BY MOUTH TWICE DAILY WITH FOODS 360 Tablet 3 02/07/2023 Active Jardiance 25 MG Oral Tablet (Empagliflozin)Indic ations:Type 2 diabetes mellitus with hemoglobin A1c goal of less than 7.0% (HCC) TAKE ONE TABLET BY MOUTH IN THE MORNING 90 Tablet 3 02/07/2023 Active Torsemide 20 MG Oral Tablet (Demadex) Take 1 Tablet by mouth in the morning and 1 Tablet in the evening. 60 Tablet 5 02/08/2023 Active traZODone HCl 50 MG Oral Tablet (Desyrel) Take 1 Tablet by mouth at bedtime. 30 Tablet 5 02/22/2023 Active Additional Information Patient not taking.Reported on 04/13/2023 Spironolactone 50 MG Oral Tablet (Aldactone) TAKE 1 TABLET BY MOUTH EVERY MORNING 90 Tablet 1 03/05/2023 Active Vitamin B-12 1000 MCG Oral Tablet (Cyanocobalamin) TAKE 1 TABLET BY MOUTH ONCE DAILY 90 Tablet 2 03/19/2023 Active Donepezil HCl 5 MG Oral Tablet (Aricept) Take 1 Tablet by mouth in the morning. Take with largest meal of the day.. 90 Tablet 5 03/19/2023 Active Glucerna 1.0 Ezequiel Oral Liquid 1 bottle (240mL) as meal supplement twice daily by mouth 1500 mL 6 04/13/2023 Active Ondansetron 4 MG Oral Tablet Disintegrating (Zofran) Place 1 Tablet on tongue every 12 hours as needed for Nausea. dissolve on tongue. 60 Tablet 1 04/13/2023 Active documented as of this encounter (statuses as of 04/13/2023) Active Problems Problem Noted Date Diagnosed Date Protein-calorie malnutrition 02/22/2023 Cirrhosis of liver 02/12/2023 Dementia of the Alzheimer's type, with late onset, uncomplicated 02/08/2023 Hepatic encephalopathy 09/22/2022 Asthma, non-allergic 01/03/2018 Reactive airway disease that is not asthma 06/26 Mild episode of recurrent major depressive disor ronaldo 12/24/2016 Thrombocytopenia 11/03/2016 Type 2 diabetes mellitus wit h hemoglobin A1c goal of less than 7.0% 01/26/2016 Other specified hypothyroidism 01/14/2016 HTN, goal below 140/90 04/21/2014 Spinal stenosis of lumbar region 03/27/2012 S/P BILATERAL TKA- DJD, BILATERAL KNEES 10/18/19 07 Other chronic nonalcoholic liver disease 995 Overview: Fatty infiltration of liver on CT Dyslipidemia, goal LDL below 100 Degeneration of thoracic intervertebral disc documented as of this encounter (statuses as of 04/13/2023) Resolved Problems Problem Noted Date Diagnosed Date Resolved Date Otalgia 03/17/2015 08/01/2016 Dysfunction of eustachian tube 03/17/2015 08/01/2016 Viral URI with cough 03/17/2015 017 Asthma, moderate persistent 03/17/2015 06/26/2017 HTN, goal below 150/90 04/21/201408/01 Osteoarthritis of foot 01/27/201311/03 Lumbar disc herniation with radiculopathy 03/27/2012 11/03/2016 Knee pain, right 03/14/2012 08/01/2016 Cellulitis of knee, right 03/14/2012 S/P revision of total knee 03/14/2012 0 08/01/2016 Hypothyroidism 02/19/2012 08/01/2016 Severe obesity with body mas s index (BMI) of 35.0 to 39.9 with serious comorbidity 01/04/2012 Overview: bmi= 37.05 01/04/12 ICD-10 update of inactive diagnosis Routine medical exam 01/04/2012 017 LVH (left ventricular hypertrophy) 01/04/2012 08/03/2016 Chronic rhinitis 01/04/2012 03/17/2015 Snoring 09/18/2011 08/01/2016 Overview: ICD-10 update of inactive term Chronic rhinitis 09/18/2011 08/01/2016 Esophageal reflux 09/18/2011 11/03/2016 Pharyngitis, chronic 09/18/2011 017 TMJ (temporomandibular joint disorder) 09/18/2011 11/03/2016 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11/03 Recurrent sinusitis 09/18/2011 08/02/19 17 Chronic headaches 09/18/2011 08/01/2016 PND (post-nasal drip) 09/18/20112016 Congenital pit, 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/18/2011 11/03/2016 Need for shingles vaccine 08/22/2011 Pituitary microadenoma 06/26/201112/26 Pituitary microadenoma 02/27/201101/03 HTN, goal below 130/80 08/23/200904/21 Dyslipidemia, goal LDL below 100 08/23/2009 01/03/2018 OBESITY, BMI 30-34 (SEE ACTUAL BMI) 04/29/2009 08/01/2016 Overview: Per Obesity Taxonomy Benign neoplasm of colon 09/09/2008 Overview: benign/repeat colonoscopy in 10 yrs Benign neoplasm of colon 09/09/2008 Overview: benign/repeat colonoscopy in 10 yrs MORBID OBESITY, BMI= 40.03 06/22/08 06/22/2008 08/01/2016 [facility] BEHAV BLAYNE SKIN, LEFT SHOULDER 06/22/2008 01/04/2012 Other seborrheic keratosis 06/22/2008 1 03/05/2011 Actinic keratosis 06/22/2008 01/04/2012 DJD, BILATERAL KNEES, L>R 07/17/2006 INT DERANGEMENT KNEE, RIGHT 07/17/2006 01/04/2012 DEQUERVAIN'S TENOSYNOVITIS, LEFT 07/17/2006 11/03/2016 LVH (LEFT VENTRICULAR HYPERTROPHY) 10/23/2005 01/04/2012 PAIN IN LIMB, BILATERAL FEET 12/19/2004 01/04/2012 SKIN SENSATION DISTURB 12/19/200401/03 OBESITY, UNSPECIFIED 12/19/2004 010 Overview: Per Obesity Taxonomy PROPHY. VACCINATION AGAINST STREPTOCOCCUS PNEUMONIAE 09/16/2003 01/04/2012 TETANUS-DIPTHERIA (TD), (DT) 09/16/2003 01/04/2012 Menopause 09/16/2003 01/04/2012 Major depressive disorder 09/16/2003 Overview: ICD-10 update of inactive term Major depressive disorder 11/20/2002 Overview: ICD-10 update of inactive term CARPAL TUNNEL SYNDROME- BILA TERAL, S/P SURGERY 11/20/2002 01/04/2012 Hyperpotassemia 11/20/2002 01/04/2012 Need for influenza vaccination 11/20/2002 01/04/2012 CARPAL TUNNEL SYNDROME- BILATERAL 08/26/2002 01/04/2012 Allergic rhinitis 07/16/2002 01/04/2012 DYSFUNCT EUSTACHIAN TUBE 07/16/2002 Cough 07/16/2002 01/04/2012 NUBMNESS AT NIGHT, BILATERAL ARMS 07/16/2002 01/04/2012 ROUTINE MEDICAL EXAM 07/16/2002 012 Screening for malignant neoplasm of breast 07/16/2002 04/15/2008 Overview: Resolved per Screening Diagnosis Protocol #6 SCREEN MAL NEOP-RECTUM 07/16/200204/15 Overview: Resolved per Screening Diagnosis Protocol #6 FAMILY HX-GI MALIGNANCY 07/16/200212/07 Dyslipidemia, goal to be determined 07/16/2002 01/04/2012 FATTY LIVER 07/16/2002 01/04/2012 Bacterial pneumonia 12/25/1997 03/08/18 99 Family history of colon cancer 05/27/1997 11/03/2016 Hemorrhage of rectum and anus 05/27/1997 01/04/2012 Thrombosed external hemorrhoids 05/27/1997 01/04/2012 Hypothyroidism 01/04/2012 HTN, goal below 140/90 08/23 STRESS REACT, EMOTIONAL 12/07 Need for prophylactic hormon e replacement therapy (postmenopausal) 01/04/2012 EXT ASTHMA W-O STAT ASTH HTN, goal below 140/90 01/03 Obesity, BMI not known 08/01 Stress reaction, emotional 0 11/03/2016 Need for prophylactic hormon e replacement therapy (postmenopausal) 08/01/2016 Asthma, allergic 11/03/2016 Menopause 11/03/2016 DM (diabetes mellitus) 09/19 documented as of this encounter (statuses as of 04/13/2023) Immunizations Name Administration Dates Next Due Pneumococcal Conjugate Vacc, 13 Valent (Prevnar) 04/22/2015 Pneumococcal Polysaccharide PPV23 (Pneumovax) 06/09/2013 Season Influenza, Quad, PF, Adjuvanted, 65+ Yrs, IM (FLUAD) 10/17/2019 Seasonal Influenza, PF, 6 M & above, IM , (FluLaval or Fluzone) 11/27/2017 Seasonal Influenza, Quadriva lent Hd (Fluzone Hd) 12/13/2022,11/08/2020 Seasonal Influenza, Quadriva lent, No Preserve, IM 12/22/2015,11/09/2014 Seasonal Influenza, Split, I IV3, With Preserve, Inj 12/08/2013,10/30/2012,11/17/2011,10/07,11/05/2009,10/26/2008,12/03/19 08,02/27/2007,11/16/2005 12/08/2014 Seasonal Influenza, Trivalen t, Adjuvanted, 65+ yrs 12/09/2018 Seasonal Influenza, Trivalen t, High Dose, No Preserve, IM 10/12/2016 TDAP (age 10 and older)(Boostrix) 11/03/2016 Varicella Zoster Vaccine (Adult) 09/18/2011 documented as of this encounter Social History Tobacco Use Types Packs/Day Years Used Date Smoking Tobacco: Never Passive Smoke Exposure: Never Smokeless Tobacco: Never Alcohol Use Standard Drinks/Week Comments No 0 (1 standard drink = 0.6 oz pur e alcohol) PHQ-2 Answer Date Recorded PHQ-2 Score 1 08/19/2019 Hunger Vital Sign Answer Date Recorded Within the past 12 months, y ou worried that your food would run out before you got the money to buy more. Never true 08/14/19 21 Within the past 12 months, t he food you bought just didn't last and you didn't have money to get more. Never true 08/13/2020 Sex and Gender Information Value Date Recorded Sex Assigned at Female 08/19/2019 12:37 PM EDT Gender Identity Female 08/19/2019 12:37 PM EDT Sexual Orientation Not on file Job Start Date Occupation Industry Not on file Not on file Not on file documented as of this encounter Last Filed Vital Signs Vital Sign Reading Time Taken Comments Blood Pressure 104/62 04/13/2023 10:15 AM EST Pulse 72 04/13/2023 10:15 AM EST Temperature 36.5 C (97.7 F) 04/13/2023 1 0:15 AM EST Respiratory Rate - - Oxygen Saturation - - Inhaled Oxygen Concentration - - Weight 54.3 kg (119 lb 11.2 oz) 024 10:15 AM EST Height - - Body Mass Index 21.21 01/19/2023 8:59 AM EST documented in this encounter Progress Notes * Eda Mobley CRNP - 04/13/2023 10:22 AM EST DATE OF SERVICE: 04/13/23 REFERRING PHYSICIAN: Tita Harris DO CC: F/U WALSH cirrhosis HPI: 04/13/23: Patient had volume overload in February. Diuretics changed from furosemide to torsemide. Still taking spironolactone. She is complaining of nausea. States that Remeron is discontinued, switched to trazodone but she has still not sleeping. Appetite is low, losing weight. Given her nausea she has not taking her nighttime lactulose, having about 1-2 bowel movements a day. Denies any dark tarry stools or rectal bleeding. 12/13/22: Pt reports she's having increased problems remembering things. feels that it is due to her dementia. Denies any headaches, but still get lightheadedness. Denies any falls. No chest pain, shortness of breath, abdominal pain or bloating, bowels move about 4-5 times daily without anyrectal bleeding. No leg swelling. 09/11/22: Woke up this AM and noticed bilateral leg swelling L>R wo warmth, erythema and pain. May have some potato chips over the weekend. Didn't miss diuretic dose. Denies lightheadedness, dizziness, falls. Denies any abdominal pain, nausea or vomiting. Bowels move at least twice a day withoutany dark tarry stools or rectal bleeding. 06/08/22: Patient slipped while getting coins in the washing machine and fell against the side of the washing machine on her right rib and right upper quadrant abdominal area. Having tenderness on the right side. No bruising. Couple of scratches on skin. She is not sleeping very well. Despite taking Remeron 15 mg q.h.s.. Having some dizziness, no chest pain or shortness of breath, no abdominal pain, nausea or vomiting. Bowels are moving at least 4-5 times daily with stools being black in color and pebble like. No rectal bleeding. 03/09/22: Patient was scheduled to have ultrasound-guided paracenteses, went to [facility] 03/01/2022 but found to have small volume ascites which was not sufficient for paracentesis. Since increasing her diuretics to furosemide 40 mg daily, spironolactone 100 mg daily she felt that her legs and abdomen are less swollen. Noted that she is down 30 lb since her last visit about 2 weeks ago. Renal functionand electrolytes stable. Denies any abdominal pain, nausea, vomiting. Bowels are moving 3 times a day without rectal bleeding. 02/24/22: Pt forgot to take her diuretics for 1-2 weeks. Went to [facility] w abd distension, leg edema and weight gain. Diuretics restarted, states still having abd distension but better. Scratching on legs, back, scalp. May have some open sores on legs w weeping fluid. Bowels move 2x a day wo rectal bleeding. 10/18/21: Patient's main complaint today is worsening memory changes, sleep pattern disruptions. For example she create meals even when she has the recipe books in front of her. She has some lightheadedness at times. Also finds herself stumbling when she walks. She denies any confusion, dizziness, also no chest pain, shortness of breath, abdominal pain. Stools are loose and dark in color, but notliquid tar like. No rectal bleeding. No leg swelling 06/09/21: Pt returns for f/u accompanied by daughter Brittany. She is c/o intermittent confusion/forgetfullness, dizziness, no falling or vertigo. Denies CP, SOB, abd pain, n/v. Bowels move 3-4x a day,stools soft, dark in color to sometimes black but no rectal bleeding. No leg edema. 11/08/20: Pt reports having black soft stools for a while now. Mid abd discomfort at times. No n/v,rectal bleeding. Denies any jaundice, abd distension, leg swelling as well. Bowels move 3-5x a day on Lactulose. Denies NSAIDs, Peptobismol, iron supplement 04/07/2020: Pt denies major illness or hospitalization since last seen. She notices increased forgetfulness but also relates it to being busy with who has leukemia. She denies falling, losing balance, CP, SOB, abd pain, distension, n/v, leg swelling. BM moves 4x a day w/o Lactulose. Denies GI bleeding. 01/08/2020: Naz Kennedy is a 74 year old female referred by Tita Harris DO for management of WALSH cirrhosis. She was previously seen by [facility] for WALSH vs cryptogenic cirrhosis (last clinic visit with Dr. Cleary 11/06/2019), however would like to consolidate care to [facility] [place] [place] by [facility]. She doeshave hx of esophageal varices seen in recent EGD and hepatic encephalopathy. Reports unable to afford Xifaxan (costs >$800/month). Her Nadolol was held by PCP due to low HR in the past. Today HR is 66. She denies fever, chills, falls, CP, SOB. Does c/o "burning sensation" in mid chest. + mild bloating, denies hx of ascites accumulation. Bowels move daily w/o rectal bleeding or black tarry stools. No edema on legs. EGD 07/2019 (Dr. Mo Cleary): Grade II varices, gastritis Colonoscopy 07/2019 (Dr. Mo cleary): Tubular adenoma colon polyp, diverticulosis, int hemorrhoids Past Medical History: Diagnosis Date Asthma, allergic Benign neoplasm of colon 09/09/08 benign/repeat colonoscopy in 10 yrs Degeneration of thoracic intervertebral disc DM (diabetes mellitus) (HCC) Dyslipidemia, goal LDL below 100 HTN, goal below 130/80 1997 Hypothyroidism Menopause Need for prophylactic hormone replacement therapy (postmenopausal) Obesity, BMI not known Other chronic nonalcoholic liver disease 07/18/94 Fatty infiltration of liver on CT Pilonidal cyst Stress reaction, emotional Family History Problem Relation Age of Onset Heart Disorder Mother angioplasty Cancer Mother skin Hypertension Mother Mental Disorder Mother suspected AD Eye Problems Mother Cancer Father colon ca- age 48-50 Diabetes Father Hypertension Father Cancer Grandmother (Maternal) cervical ca Diabetes Grandmother (Paternal) Stroke None Arthritis Sister Thyroid Disorder Sister Obesity Sister Past Surgical History: Procedure Laterality Date ARTHROPLASTY KNEE TOTAL 2006 bilateral- Dr Guadarrama CARPAL TUNNEL SURGERY 10/14/02 Carpal Tunnel repair- left CARPAL TUNNEL SURGERY 10/28/02 Carpal Tunnel repair- right COLONOSCOPY THRU STOMA, W/BIOPSY Dr Amaro COLONOSCOPY W/ BIOPSY (RECTUM) 09/09/08 benign/repeat colonoscopy in 10 yrs EGD, FLEXIBLE, DIAGNOSTIC 01/19/2023 ESOPHAGOGASTRODUODENOSCOPY (EGD), FLEXIBLE, TRANSORAL, DIAGNOSTIC performed by Chris Pagan MD at ENDOSCOPY [facility] INFORMATION 01/16 Dr Guadarrama-- revision of right knee KNEE ARTHROSCOPY/MENISCECTOMY 2000 Knee Scope,Med/Lat Menisectomy- Thierry KNEE ARTHROSCOPY/MENISCUS REPAIR 1999 Knee Scope,Med+Lat Menis Repair- Dr Guadarrama REMOVAL OF APPENDIX 1974 Appendectomy- [place] on vacation REMOVAL OF OVARY(S) Oophrectomy,Bilat--ovarian cyst, lysis of adhesions--Dr. Padilla SLEEP STUDY, W/O CPAP negative apnea TOTAL HYSTERECTOMY Hysterectomy, Abdominal--leiomyomata Social History Tobacco Use Smoking status: Never Passive exposure: Never Smokeless tobacco: Never Vaping Use Vaping Use: Never used Substance Use Topics Alcohol use: No Drug use: No Review of patient's allergies indicates: Allergen Reactions Iodinated Contrast Media Levaquin [Levofloxacin In D5w] Other (Please comment) Seeing things Percocet [Oxycodone-Acetaminophen] Neuro complications (Please comment) Nightmares, hearing and seeing things. Current Outpatient Medications Medication Sig Dispense Refill zoster vac recomb adjuvanted (SHINGRIX) 50 MCG/0.5ML injection Inject 0.5 mL into a large muscle now and repeat dose in 60 to 180 days 1 Each 1 Everfi Flex System w/Device Kit Use as directed . To test BG once daily. Dx. e11.9 1 Kit 3 Lactulose 10 GM/15ML Oral Solution (Constulose) Take 30 mL by mouth in the morning and 30 mL beforebedtime. 5400 mL 3 Losartan Potassium 50 MG Oral Tablet (Cozaar) Take 0.5 Tablets by mouth in the morning. 90 Tablet 3 OneTouch UltraSoft Lancets Use once daily to check blood sugar. E11.9 100 Each 5 OneTouch Delica Lancets 33G Use once daily to check blood sugar. E11.9 100 Each 3 Levothyroxine Sodium 150 MCG Oral Tablet (Levoxyl) Take 1 Tablet by mouth in the morning. (at least30 min prior to breakfast or other meds). 30 Tablet 11 OneTouch Verio In Vitro Strip (Glucose Blood) USE TO CHECK GLUCOSE ONCE DAILY 150 Strip 3 Pantoprazole Sodium 20 MG Oral Tablet Delayed Release (Protonix) TAKE 1 TABLET BY MOUTH TWICE DAILYevery morning and before bedtime 60 Tablet 5 Clindamycin Phosphate 1 % External Swab Apply topically to affected area 2 times a day. To affectedarea of skin. 60 Each 11 Vitamin B-1 100 MG Oral Tablet Take 1 Tablet by mouth in the morning. metFORMIN HCl ER 500 MG Oral Tablet Extended Release 24 Hour (Glucophage XR) TAKE 2 TABLETS BY MOUTH TWICE DAILY WITH FOODS 360 Tablet 3 Jardiance 25 MG Oral Tablet (Empagliflozin) TAKE ONE TABLET BY MOUTH IN THE MORNING 90 Tablet 3 Torsemide 20 MG Oral Tablet (Demadex) Take 1 Tablet by mouth in the morning and 1 Tablet in the evening. 60 Tablet 5 Spironolactone 50 MG Oral Tablet (Aldactone) TAKE 1 TABLET BY MOUTH EVERY MORNING 90 Tablet 1 Vitamin B-12 1000 MCG Oral Tablet (Cyanocobalamin) TAKE 1 TABLET BY MOUTH ONCE DAILY 90 Tablet 2 Donepezil HCl 5 MG Oral Tablet (Aricept) Take 1 Tablet by mouth in the morning. Take with largest meal of the day.. 90 Tablet 5 Premarin 0.625 MG/GM Vaginal Cream (Estrogens, Conjugated) Administer into the vagina 0.5 g before bedtime. As directed.. (Patient not taking: Reported on 03/26/2023) 42.5 g 5 Clotrimazole 1 % Vaginal Cream Apply to external vulva at bedtime x 7 days (Patient not taking: Reported on 02/08/2023) 45 g 0 traZODone HCl 50 MG Oral Tablet (Desyrel) Take 1 Tablet by mouth at bedtime. (Patient not taking: Reported on 04/13/2023) 30 Tablet 5 No current facility-administered medications for this visit. REVIEW OF SYSTEMS: See HPI above; All other findings negative. EXAM: Filed Vitals: 04/13/23 1015 BP: 104/62 Pulse: 72 Temp: 36.5 C (97.7 F) TempSrc: Temporal Artery Weight: 54.3 kg (119 lb 11.2 oz) GENERAL: Well developed and well nourished in no acute distress. SKIN: No rashes, ulcers, jaundice or spider angiomata. HEENT: Normocephalic, sclera clear. NECK: Supple, trachea midline, no JVD, no cervical lymphadenopathy LUNGS: Clear to auscultation bilaterally, no respiratory distress or accessory muscles used. HEART: Regular rate & rhythm, no murmurs and no gallops. ABDOMEN: Normal bowel sounds, non distended, non tender EXTREMITIES: No palmar erythema, no edema, no skin discoloration, no clubbing, no cyanosis. NEURO: No lateralizing findings. Sensory/Motor grossly normal. 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 MELD 8. - Zofran 4mg ODT q12hrs prn n/v - Continue diuretics Spironolactone 50mg and Torsemide 20mg bid - 2g Na diet - Lactulose 30g daily (titrate for goal BM 3-5x a day). - MELD labs q3-6months. - Last EGD: 01/202323 grade II esophageal varices, gastritis (no Hpylori, intestinal metaplasia, dysplasia). Hold Nadolol given light headedness. - Last Colonoscopy: 07/23/2019 colon polyp (tubular adenoma), sigmoid diverticulosis, int hemorrhoids. She would like to defer repeat screening colonoscopies. - Hep A immunity: not immune, pt wants to defer vaccination - Hep B immunity: not immune, pt wants to defer vaccination - HCC screening [id number] (u/s; AFP) -> had CT abd/pelvis wo contrast 02/2023 - Encouraged to abstain from ETOH, illicit drugs, APAP no more than 2g daily I spent a total of 30 minutes on the date of service in review of patient's record, and previously obtained information in person and appropriate medical visit, discussion and education of plan, withpatient and/or caregiver, placing orders for tests/referral/procedures as medically necessary and documentation of pertinent clinical information in patient's medical records for their visit today. RETURN TO CLINIC: 1 months or sooner [facility] Nursing Notes * Joana Brown MED ASSIST - 04/13/2023 10:17 AM EST Patient identified by wristband. Parent verified patient's name, birthdate, surgeon, allergies, procedure & laterality Chief Complaint Patient presents with Follow Up Follow up appt. Pt is having nausea which is causing her weight loss, bowels are not moving as often as before, pt is refusing to drink lactulose. documented in this encounter Plan of Treatment Upcoming Encounters Date Type Department Care Team (Late st Contact Info) Description 05/09/2023 9:10 AM EDT Office Visit [facility] [address] [place] [phone] Tita Harris, [address] [place] [address] 05/30/2023 2:30 PM EDT Office Visit Gastroenterology, [facility] [address] [address] Eda Mobley CRNP [address] [address] 11/20/2023 11:00 AM EDT Office Visit [facility] [address] [facility] [address] Christine Cassidy PA-C [address] [facility] [address] [address] [place] [address] Health Maintenance Due Date Last Done Comments Hepatitis B (1 of 3 - Risk 3-dose series) 2003 Zoster Vaccines (2 of 3) 11/13/2011 09/18/2011 DXA Scan 11/26/2016 11/27/2011, 11/06, 08/10/2008, Additional history exists Depression Screening 08/18/2020 08/19/2019 COVID-19 Vaccine ( season) 2022 04/16/2020, 03/26/2020 Diabetic Foot Exam 05/18/2023 05/17/2022, 0 04/08/2021, 04/09/2020, Additional history exists Diabetic Eye Exam 05/27/2023 05/26/2022, , 05/26/2022, Additional history exists HbA1c 07/14/2023 01/12/2023, 08/05, 2022, Additional history exists Albumin/Creatinine Ratio 08/16/2023 023, 04/08/2021, 01/26/2016 GFR 03/26/2024 03/26/2023, 02/05, 02/08/2023, Additional history exists TSH 03/26/2024 03/26/2023, 08/05, 08/04/2021, Additional history exists DTaP,Tdap,and Td Vaccines (2 - Td or Tdap) 11/03/2026 11/03/2016, 09/16/2003, 08/11/1993 Hepatitis C Screening Completed 08/17/2014 Pneumococcal Vaccine: 65+ Years Completed 04/22/2015, 06/09/2013, 09/16/2003, Additional history exists Influenza Vaccine (FLU shot) Completed 09/2022, 11/08/2020, 10/17/2019, Additional history exists GARDASIL-HPV IMMUNIZATION SERIES Aged Out No longer eligible based on patient's age to complete this topic MENINGOCOCCAL (MENACTRA/MENVEO) Aged Out No longer eligible based on patient's age to complete this topic documented as of this encounter Medical Devices Not on filedocumented as of this encounter Visit Diagnoses Diagnosis WALSH (nonalcoholic steatohepatitis)- Primary Other chronic nonalcoholic liver disease Other cirrhosis of liver (HCC) documented in this encounter Care Teams Sprinkler Installer Relationship Specialty Start Date End Date Tita Harris DO [address] [place] [address] PCP - General Family Medicine 10/30/12 documented as of this encounter
--- OUTSIDE RECORDS SUMMARY | 2023-04-26 00:01 | External Medical Summary | Summary of Care ---
Author Name Unknown Organization [facility] Address [address] [facility] [place] [address] Phone [phone] Care Team Providers Care Insurance Biller Name Role Phone Tita Harris DO Primary Care Provider + [phone] Encounter Details Date Type Department Care Team (Late st Contact Info) Description 03/28/2023 Orders Only PATIENT PORTAL DO NOT DELETE THIS DEPT USED BY [place] [id number] Allergies Active Allergy Reactions Criticality Noted Date Comments Iodinated Contrast Media 04/16/1997 Levofloxacin In D5w Other (Please comment) 05/06 Seeing things Oxycodone-Acetaminophe n Neuro complications (Please comment) 02/29/2012 Nightmares, hearing and seeing things. documented as of this encounter (statuses as of 03/28/2023) Medications Medication Sig Dispensed Refills Start Date End Date Status zoster vac recomb adjuvanted (SHINGRIX) 50 MCG/0.5ML injectionIndication s:Need for vaccination for zoster Inject 0.5 mL into a large muscle now and repeat dose in 60 to 180 days 1 Each 1 02/20/2019 Active Aquiris Verio Flex System w/Device Kit Use as directed . To test BG once daily. Dx. e11.9 1 Kit 3 05/23/2021 Active Premarin 0.625 MG/GM Vaginal Cream (Estrogens, Conjugated)Indicati ons:Postmenopausal atrophic vaginitis Administer into the vagina 0.5 g before bedtime. As directed.. 42.5 g 5 08/04/2021 Active Additional Information Patient not taking.Reported on 03/26/2023 Lactulose 10 GM/15ML Oral Solution (Constulose) Take 30 mL by mouth in the morning and 30 mL before bedtime. 5400 mL 3 02/22/2022 Active Losartan Potassium 50 MG Oral Tablet (Cozaar)Indications :HTN, goal below 130/80 Take 0.5 Tablets by mouth in the morning. 90 Tablet 3 05/17/2022 Active OneTouch UltraSoft LancetsIndications: Type 2 diabetes mellitus with hemoglobin A1c goal of less than 7.0% ([facility]) Use once daily to check blood sugar. E11.9 100 Each 5 07/26/2022 Active OneTouch Delica Lancets 33G Use once daily to check blood sugar. E11.9 100 Each 3 07/31/2022 Active Clotrimazole 1 % Vaginal CreamIndications:Va ginal itching Apply to external vulva at bedtime x 7 days 45 g 0 08/28/2022 Active Additional Information Patient not taking.Reported on 02/08/2023 Levothyroxine Sodium 150 MCG Oral Tablet (Levoxyl) Take 1 Tablet by mouth in the morning. (at least 30 min prior to breakfast or other meds). 30 Tablet 09/08/2022 Active OneTouch Verio In Vitro Strip (Glucose Blood)Indications:T ype 2 diabetes mellitus with hemoglobin A1c goal of less than 7.0% ([facility]),Type 2 diabetes mellitus without complication, without long-term current use of insulin ([facility]) USE TO CHECK GLUCOSE ONCE DAILY 150 Strip 3 09/22/2022 Active Pantoprazole Sodium 20 MG Oral Tablet Delayed Release (Protonix)Indicatio ns:Gastrointestinal hemorrhage associated with gastritis, unspecified gastritis type TAKE 1 TABLET BY MOUTH TWICE DAILY every morning and before bedtime 60 Tablet 5 12/10/2022 Active Clindamycin Phosphate 1 % External SwabIndications:Sca lp lesion Apply topically to affected area 2 times a day. To affected area of skin. 60 Each 01/12/2023 Active Vitamin B-1 100 MG Oral Tablet Take 1 Tablet by mouth in the morning. 0 Active metFORMIN HCl ER 500 MG Oral Tablet Extended Release 24 Hour (Glucophage XR)Indications:Type 2 diabetes mellitus with hemoglobin A1c goal of less than 7.0% ([facility]) TAKE 2 TABLETS BY MOUTH TWICE DAILY WITH FOODS 360 Tablet 3 02/07/2023 Active Jardiance 25 MG Oral Tablet (Empagliflozin)Stacia cations:Type 2 diabetes mellitus with hemoglobin A1c goal [...] at bedtime. 30 Tablet 5 02/22/2023 Active Spironolactone 50 MG Oral Tablet (Aldactone) TAKE [...] the day.. 90 Tablet 5 03/19/2023 Active documented as of this encounter (statuses as of 03/28/2023) Active Problems Problem Noted Date Diagnosed Date [...] as of this encounter (statuses as of 03/28/2023) Resolved Problems Problem Noted Date Diagnosed Date [...] as of this encounter (statuses as of 03/28/2023) Immunizations Name Administration Dates Next Due Pneumococcal [...] Influenza, Split, I IV3, With Preserve, Inj 12/08/2013,10/30/2012,11/17/2011,10/07,11/05/2009,10/26/2008,12/03/19,02/27/2007,11/16/2005 12/08/2014 Seasonal Influenza, Trivalen t, Adjuvanted, 65+ [...] on file documented as of this encounter Plan of Treatment Upcoming Encounters Date Type Department Care Team (Late st Contact Info) Description 04/13/2023 10:30 AM EST Office Visit Gastroenterology, [facility] [address] [address] Eda Mobley CRNP [address] [address] 05/07/2023 8:50 AM EDT Office Visit [facility] [place] [address] [place] [facility] [address] Tita Harris DO [address] [facility] [address] 11/20/2023 11:00 AM EDT Office Visit Neurology [facility] [place] [address] [facility] [place] [address] Christine Cassidy PA-C [address] [place] [address] Health Maintenance Due Date Last Done Comments [...] Not on filedocumented as of this encounter Care Teams Insurance Biller Relationship Specialty Start Date End Date Tita Harris DO [address] [place] [address] PCP - General Family Medicine 10/30/12 documented as of this encounter
--- OUTSIDE RECORDS SUMMARY | 2023-04-26 00:01 | External Medical Summary | Summary of Care ---
Author Name Unknown Organization [facility] Address [address] [facility] [place] [address] Phone [phone] Care Team Providers Care Primer Boxer Name Role Phone Tita Harris DO Primary Care Provider + [phone] Encounter Details Date Type Department Care Team (Late st Contact Info) Description 03/27/2023 Telephone [facility] [address] [place] [address] Cathy Son MD [address] [place] [address] Allergies Active Allergy Reactions Criticality Noted Date Comments Iodinated Contrast Media 04/16/1997 Levofloxacin In D5w Other (Please comment) 05/06 Seeing things Oxycodone-Acetaminophe n Neuro complications (Please comment) 02/29/2012 Nightmares, hearing and seeing things. documented as of this encounter (statuses as of 03/27/2023) Medications Medication Sig Dispensed Refills Start Date End Date Status zoster vac recomb adjuvanted (SHINGRIX) 50 MCG/0.5ML injectionIndication s:Need for vaccination for zoster Inject 0.5 mL into a large muscle now and repeat dose in 60 to 180 days 1 Each 1 02/20/2019 Active EVIIVOuch Verio Flex System w/Device Kit Use as [...] hemoglobin A1c goal of less than 7.0% ([facility]) Use once daily to check blood sugar. [...] other meds). 30 Tablet 11 09/08/2022 Active OneTouch Verio In Vitro Strip (Glucose Blood)Indications:T ype 2 diabetes mellitus with hemoglobin A1c goal of less than 7.0% ([facility]),Type 2 diabetes mellitus without complication, without long-term current use of insulin ([facility]) USE TO CHECK GLUCOSE ONCE DAILY 150 [...] as of this encounter (statuses as of 03/27/2023) Active Problems Problem Noted Date Diagnosed Date [...] as of this encounter (statuses as of 03/27/2023) Resolved Problems Problem Noted Date Diagnosed Date [...] update of inactive term CARPAL TUNNEL SYNDROME- SANDEEP GENAO, S/P SURGERY 11/20/2002 01/04/2012 Hyperpotassemia 11/20/2002 01/04/2012 [...] as of this encounter (statuses as of 03/27/2023) Immunizations Name Administration Dates Next Due Pneumococcal [...] on file documented as of this encounter Miscellaneous Notes * Telephone Encounter - Cathy Son MD - 03/27/2023 7:49 AM EST Her ammonia level was higher which will cause her confusion worse Is she taking lactulose 20 g bid currently ? If yes ,will need to increase dose to 30 g (45 mL) twice daily and repeat checking level in one week Thyroid function is slightly higher side but lower than last time test So will cont current dose and will repeat in 3 mo again documented in this encounter Plan of Treatment Upcoming Encounters Date Type Department Care Team (Late st Contact Info) Description 04/13/2023 10:30 AM EST Office Visit Gastroenterology, [facility] [address] [place] [address] Eda Mobley CRNP [address] [place] [address] 05/07/2023 8:50 AM EDT Office Visit [facility] [address] [place] [phone] Tita Harris DO [address] [place] [address] 11/20/2023 11:00 AM EDT Office Visit [facility] [address] [facility] [address] Christine Cassidy PA-C [address] [facility] [place] [address] Health Maintenance Due Date Last Done Comments [...] filedocumented as of this encounter Care Teams Primer Boxer Relationship Specialty Start Date End Date Tita Harris DO [address] [place] [facility] [place] [address] PCP - General Family Medicine 10/30/12 documented as of this encounter
--- OUTSIDE RECORDS SUMMARY | 2023-04-26 00:01 | External Medical Summary | Summary of Care ---
Author Name Unknown Organization [facility] Address [address] [facility] [place] [address] Phone [phone] Care Team Providers Care Support Services Coordinator Name Role Phone Tita Harris DO Primary Care Provider + [phone] Encounter Details Date Type Department Care Team (Late st Contact Info) Description 03/27/2023 Telephone [facility] [address] [place] [address] Cathy Son MD [address] [place] [address] Allergies Active Allergy Reactions Criticality [...] 180 days 1 Each 1 02/20/2019 Active CTSpaceuch Verio Flex System w/Device Kit Use as [...] hemoglobin A1c goal of less than 7.0% ([facility]) Use once daily to check blood [...] hemoglobin A1c goal of less than 7.0% ([facility]),Type 2 diabetes mellitus without complication, without long-term current use of insulin ([facility]) USE TO CHECK GLUCOSE ONCE DAILY [...] 03/27/2023) Immunizations Name Administration Dates Next Due Diptheria/Tetanus (Adult) 08/11/1993 PPD 08/26/2001, 0,10/02/1986,10/07 Pneumococcal Conjugate Vacc, 13 Valent (Prevnar) 04/22/2015 Pneumococcal Polysaccharide PPV23 (Pneumovax) 06/09/2013,09/16/2003,11/14/1995 Season Influenza, Quad, PF, Adjuvanted, 65+ Yrs, IM (FLUAD) 10/17/2019 Seasonal Influenza Virus Vac cine, Unspecified Formulation 11/14/1995,01/16/1995 Seasonal Influenza, PF, 6 M & above, IM , (FluLaval or Fluzone) 11/27/2017 Seasonal Influenza, Quadriva lent Hd (Fluzone Hd) 12/13/2022,11/08/2020 Seasonal Influenza, Quadriva lent, No Preserve, IM 12/22/2015,11/09/2014 Seasonal Influenza, Split, I IV3, With Preserve, Inj 12/08/2013,10/30/2012,11/17/2011,10/07,11/05/2009,10/26/2008,12/03/19 08,02/27/2007,11/16/2005,12/03/2001 12/08/2014 Seasonal Influenza, Trivalen t, Adjuvanted, 65+ yrs 12/09/2018 Seasonal Influenza, Trivalen t, High Dose, No Preserve, IM 10/12/2016 TB Lisha Test 08/26/1996,08/29/1991 TD - Tetanus/Diptheria (ADULT) 09/16/2003 0 09/15/2013 TDAP (age 10 and older)(Boostrix) 11/03/2016 Varicella [...] encounter Miscellaneous Notes * Telephone Encounter - Gianna Veloz LPN - 03/27/2023 2:36 PM EST I identified pt by name and , verified by family member. Pt has been informed of below message and verbalized understanding. * Telephone Encounter - Cathy Son MD [...] 04/13/2023 10:30 AM EST Office Visit Gastroenterology, [facility] [address] [facility] [place] [address] Eda Mobley CRNP [address] [place] [address] 05/07/2023 8:50 AM EDT Office Visit [facility] [address] [facility] [phone] Tita Harris DO [address] [facility] [address] 11/20/2023 11:00 AM EDT Office Visit [facility] [address] [facility] [address] Christine Cassidy PA-C [address] [facility] [address] [place] [address] Health Maintenance Due Date Last Done Comments Hepatitis B (1 of 3 - Risk 3-dose series) 2003 Zoster Vaccines (2 of 3) 11/13/2011 09/18/2011 DXA Scan 11/26/2016 11/27/2011, 11/06, 08/10/2008, Additional history exists Depression Screening 08/18/2020 08/19/2019 COVID-19 Vaccine (2022- season) 2022 04/16/2020, 03/26/2020 Diabetic Foot Exam [...] filedocumented as of this encounter Care Teams Support Services Coordinator Relationship Specialty Start Date End Date Tita Harris DO [address] [place] [address] PCP - General Family Medicine 10/30/12 documented as of this encounter
--- OUTSIDE RECORDS SUMMARY | 2023-04-26 00:01 | External Medical Summary ---
Author Name Unknown Address Unknown Organization K01:[facility] [address] [facility] [place] [address] Laboratory Report Ordering Provider Test Date Status ARASELI GRULLON 03/30/2023 14:10:45 Final Observation Date Value Abnormality Reference (Units ) Status Color of Urine by Auto 03/30/2023 14:10:45 Dark Yellow Colorless, Light Yellow, Yellow, Dark Yellow Final Clarity, Urine 03/30/2023 14:10:45 Cloudy Abnormal Clear Final Glucose [Mass/volume] in Urine by Automated test strip 03/30/2023 14:10:45 >=1000 Abnormal Negative (mg/dL) Final Bilirubin.total [Presence] in Urine by Automated test strip 03/30/2023 14:10:45 Negative Negative Final Ketones [Mass/volume] in Urine by Automated test strip 03/30/2023 14:10:45 15 Abnormal Negative (mg/dL) Final Specific gravity, Urine 03/30/2023 14:10:45 1.029 1.003-1.030 Final Hemoglobin [Presence] in Urine by Automated test strip 03/30/2023 14:10:45 Negative Negative Final pH, Urine 03/30/2023 14:10:45 5.5 5.0-7.5 (Units) Final Protein [Mass/volume] in Urine by Automated test strip 03/30/2023 14:10:45 Trace Abnormal Negative (mg/dL) Final Urobilinogen [Mass/volume] in Urine by Automated test strip 03/30/2023 14:10:45 Normal Normal (mg/dL) Final Nitrite [Presence] in Urine by Automated test strip 03/30/2023 14:10:45 Negative Negative Final Leukocyte esterase [Presence] in Urine by Automated test strip 03/30/2023 14:10:45 Small Abnormal Negative Final RBC, Urine 03/30/2023 14:10:45 0-2 0-2 (/HPF) Final WBC, Urine 03/30/2023 14:10:45 3-5 Abnormal 0-2 (/HPF) Final Bacteria [#/area] in Urine sediment by Microscopy high power field 03/30/2023 14:10:45 0-25 0-25 (/HPF) Final Performing Location [facility] [address] [facility] [address]
--- OUTSIDE RECORDS SUMMARY | 2023-04-26 00:01 | External Medical Summary ---
Author Name Unknown Address Unknown Organization K01:[facility] [place] [address] [place] [address] Laboratory Report Ordering Provider Test Date Status ARASELI GRULLON 03/30/2023 14:10:45 Final Observation Date Value Abnormality Reference (Units) Status Bacteria identified in Specimen by Culture 03/30/2023 14:10:45 No significant growth Final Test: Culture, Urine, Quant itative
Specimen Source: Urine, Unspecified
Specimen Type: Urine
Specimen Date: 03/30/2023 2:10 PM
Result Date: 04/01/2023 7:15 AM
Result Status: Final result
Resulting Lab: [facility]
[address]
[place] [facility]

CULTURE

No significant growth

null Performing Location [facility] [place] - [address] [facility] [address]
--- OUTSIDE RECORDS SUMMARY | 2023-04-26 00:01 | External Medical Summary | Summary of Care ---
Author Name Unknown Organization [facility] Address [address] [facility] [place] [address] Phone [phone] Care Team Providers Care Oncology Navigator Name Role Phone RalphTita hairston Rehana DO Primary Care Provider + [phone] Reason for Visit * Reason Comments Outpatient Testing Encounter Details Date Type Department Care Team (Late st Contact Info) Description 03/30/2023 2:10 PM EST Laboratory Laboratory, [address] [address] St, Specimen Drop Off [address] [address] Confusion; LLQ pain Allergies Active Allergy Reactions Criticality Noted Date Comments Iodinated Contrast Media 04/16/1997 Levofloxacin In D5w Other (Please comment) 05/06 Seeing things Oxycodone-Acetaminophe n Neuro complications (Please comment) 02/29/2012 Nightmares, hearing and seeing things. documented as of this encounter (statuses as of 03/30/2023) Medications Medication Sig Dispensed Refills Start Date End Date Status zoster vac recomb adjuvanted (SHINGRIX) 50 MCG/0.5ML injectionIndication s:Need for vaccination for zoster Inject 0.5 mL into a large muscle now and repeat dose in 60 to 180 days 1 Each 1 02/20/2019 Active PolyServe Flex System w/Device Kit Use as directed [...] A1c goal of less than 7.0% ([facility]) Use once daily to check blood sugar. [...] A1c goal of less than 7.0% ([facility]),Type 2 diabetes mellitus without complication, without long-term current use of insulin ([facility]) USE TO CHECK GLUCOSE ONCE DAILY 150 [...] as of this encounter (statuses as of 03/30/2023) Active Problems Problem Noted Date Diagnosed Date [...] as of this encounter (statuses as of 03/30/2023) Resolved Problems Problem Noted Date Diagnosed Date [...] as of this encounter (statuses as of 03/30/2023) Immunizations Name Administration Dates Next Due Pneumococcal [...] 04/13/2023 10:30 AM EST Office Visit Gastroenterology, [facility] [address] [address] Eda Mobley, [place] [address] [place] [address] 05/07/2023 8:50 AM EDT Office Visit [facility] [address] [place] [facility] [phone] Tita Harris DO [address] [place] [facility] [address] 11/20/2023 11:00 AM EDT Office Visit Neurology [facility] [address] [place] [address] Christine Cassidy PA-C [address] [facility] [place] [address] Pending Results Name Type Priority Associated Diagnoses Date /Time URINALYSIS, REFLEX TO MICROSCOPIC Lab Routine Confusion LLQ pain 03/30/2023 2:10 PM EST Health Maintenance Due Date Last Done Comments [...] as of this encounter Visit Diagnoses Diagnosis Confusion Unspecified psychosis LLQ pain Abdominal pain, left lower quadrant documented in this encounter Care Teams Oncology Navigator Relationship Specialty Start Date End Date Tita Harris DO [address] [place] [address] PCP - General Family Medicine 10/30/12 documented as of this encounter
--- OUTSIDE RECORDS SUMMARY | 2023-04-26 00:02 | External Medical Summary | Summary of Care ---
Author Name Unknown Organization [facility] Address [address] [facility] [place] [address] Phone [phone] Care Team Providers Care Maple Products Maker Name Role Phone RalphTita hairston Rehana FLOWERS Primary Care Provider + [phone] Reason for Visit * Reason Comments Outpatient Testing Encounter Details Date Type Department Care Team (Late st Contact Info) Description 03/26/2023 11:20 AM EST Laboratory Laboratory, [place] [address] [place] [address] [place], Laboratory [address] [place] [address] Cirrhosis of liver with ascites, unspecified hepatic cirrhosis type (HCC); Hepatic encephalopathy (HCC); Calf pain, unspecified laterality; Confusion; Hypothyroidism, unspecified type Allergies Active Allergy Reactions Criticality Noted Date Comments Iodinated Contrast Media 04/16/1997 Levofloxacin In D5w Other (Please comment) 05/06 Seeing things Oxycodone-Acetaminophe n Neuro complications (Please comment) 02/29/2012 Nightmares, hearing and seeing things. documented as of this encounter (statuses as of 03/26/2023) Medications Medication Sig Dispensed Refills Start Date End Date Status zoster vac recomb adjuvanted (SHINGRIX) 50 MCG/0.5ML injectionIndication s:Need for vaccination for zoster Inject 0.5 mL into a large muscle now and repeat dose in 60 to 180 days 1 Each 1 02/20/2019 Active DreamBox LearningTouch Verio Flex System w/Device Kit Use as [...] hemoglobin A1c goal of less than 7.0% ([facility]) Use once daily to check blood sugar. E11.9 100 Each 5 07/26/2022 Active DreamBox LearningTouch Delica Lancets 33G Use once daily to [...] hemoglobin A1c goal of less than 7.0% ([facility]),Type 2 diabetes mellitus without complication, without long-term current use of insulin ([facility]) USE TO CHECK GLUCOSE ONCE DAILY [...] as of this encounter (statuses as of 03/26/2023) Active Problems Problem Noted Date Diagnosed Date [...] as of this encounter (statuses as of 03/26/2023) Resolved Problems Problem Noted Date Diagnosed Date [...] as of this encounter (statuses as of 03/26/2023) Immunizations Name Administration Dates Next Due Pneumococcal [...] 04/13/2023 10:30 AM EST Office Visit Gastroenterology, [facility] [address] [place] [address] Eda Mobley CRNP [address] [place] [address] 05/07/2023 8:50 AM EDT Office Visit [facility] [address] [facility] [place] [phone] Tita Harris DO [address] [facility] [place] [address] 11/20/2023 11:00 AM EDT Office Visit [facility] [address] [facility] [address] Christine Cassidy PA-C [address] [facility] [place] [address] Pending Results Name Type Priority Associated Diagnoses Date /Time COMPREHENSIVE METABOLIC PANEL Lab Routine Cirrhosis of liver with ascites, unspecified hepatic cirrhosis type (HCC) 03/26/2023 11:09 AM EST BNP, NT-PRO Lab Routine Cirrhosis of liver with ascites, unspecified hepatic cirrhosis type (HCC) 03/26/2023 11:09 AM EST CBC WITH WBC DIFFERENTIAL Lab Routine Cirrhosis of liver with ascites, unspecified hepatic cirrhosis type (HCC) 03/26/2023 11:09 AM EST AMMONIA Lab Routine Hepatic encephalopathy (HCC) Cirrhosis of liver with ascites, unspecified hepatic cirrhosis type (HCC) 03/26/2023 11:09 AM EST MAGNESIUM Lab Routine Calf pain, unspecified laterality 03/26/2023 11:09 AM EST TSH WITH FREE T4 IF INDICATED Lab Routine Confusion Hypothyroidism, unspecified type 03/26/2023 11:09 AM EST CBC Lab Routine Cirrhosis of liver with ascites, unspecified hepatic cirrhosis type (HCC) 03/26/2023 11:09 AM EST DIFFERENTIAL, AUTOMATED Lab Routine Cirrhosis of liver with ascites, unspecified hepatic cirrhosis type (HCC) 03/26/2023 11:09 AM EST Health Maintenance Due Date Last Done [...] exists Albumin/Creatinine Ratio 08/16/2023 023, 04/08/2021, 01/26/2016 TSH 08/16/2023 08/15/2022, 07/08, 04/08/2021, Additional history exists GFR 02/23/2024 02/22/2023, 05/2023, 01/12/2023, Additional history exists DTaP,Tdap,and Td Vaccines (2 [...] as of this encounter Visit Diagnoses Diagnosis Cirrhosis of liver with ascites, unspecified hepatic cirrhosis type (HCC) Hepatic encephalopathy (HCC) Hepatic encephalopathy Calf pain, unspecified laterality Confusion Unspecified psychosis Hypothyroidism, unspecified type documented in this encounter Care Teams Maple Products Maker Relationship Specialty Start Date End Date Tita Harris DO [address] [place] [address] PCP - General Family Medicine 10/30/12 documented as of this encounter
--- OUTSIDE RECORDS SUMMARY | 2023-04-26 00:02 | External Medical Summary ---
Author Name Unknown Address Unknown Organization K01:[facility] [address] [facility] [place] [address] Laboratory Report Ordering Provider Test Date Status ARASELI GRULLON 03/26/2023 11:09:07 Final Observation Date Value Abnormality Reference (Units ) Status SYNC LEUKOCYTES IN BLOOD BY AUTOMATED COUNT 03/26/2023 11:09:07 8.74 4.00-10.80 (K/uL) Final Segs 03/26/2023 11:09:07 78.6 Above high normal 40.0-75.0 (%) Final Lymphs % 03/26/2023 11:09:07 12.6 Below low normal 18.0-42.0 (%) Final Monos 03/26/2023 11:09:07 7.9 1.0-11.0 (%) Final Eosinophils 03/26/2023 11:09:07 0.1 0.0-6.0 (%) Final Basos 03/26/2023 11:09:07 0.3 0.0-2.0 (%) Final Immature Granulocyte, Percent 03/26/2023 11:09:07 0.5 0.0-2.0 (%) Final Absolute Segs 03/26/2023 11:09:07 6.87 1.80-7.70 (K/uL) Final Lymphs, absolute 03/26/2023 11:09:07 1.10 1.00-4.80 (K/ul) Final Monos, Abs 03/26/2023 11:09:07 0.69 0.00-1.10 (K/uL) Final Eos, Abs 03/26/2023 11:09:07 0.01 0.00-0.70 (K/uL) Final Basos, Abs 03/26/2023 11:09:07 0.03 0.00-0.20 (K/uL) Final Immature Granulocytes, Number 03/26/2023 11:09:07 0.04 0.00-0.20 (K/uL) Final Performing Location LABORATORY [facility] - [address] [facility] [address]
--- OUTSIDE RECORDS SUMMARY | 2023-04-26 00:02 | External Medical Summary | Summary of Care ---
Author Name Unknown Organization [facility] Address [address] [facility] [place] [address] Phone [phone] Care Team Providers Care Fabricating Machine Operator Name Role Phone StevenTita Rehana FLOWERS Primary Care Provider + [phone] Reason for Visit * Reason Comments Acute Dizziness, cramp/kristy n in cafe ( not sure which one), nausea always, but has gotten worse over the last three days. Increases confusing (donepezil) seems to be increasing fast per pt's daughter Encounter Details Date Type Department Care Team (Latest Contact Info) Description 03/26/2023 10:00 AM EST Office Visit [facility] [address] [place] [address] Cathy Son MD [address] [place] [address] Confusion*; Dementia of the Alzheimer's type, with late onset, uncomplicated (HCC); Hepatic encephalopathy (HCC); Cirrhosis of liver with ascites, unspecified hepatic cirrhosis type (HCC); Calf pain, unspecified laterality; LLQ pain; Hypothyroidism, unspecified type; Dizziness Allergies Active Allergy Reactions Criticality Noted Date Comments Iodinated Contrast Media 04/16/1997 Levofloxacin In D5w Other (Please comment) 05/06 Seeing things Oxycodone-Acetaminophe n Neuro complications (Please comment) 02/29/2012 Nightmares, hearing and seeing things. documented as of this encounter (statuses as of 03/26/2023) Medications Medication Sig Dispensed Refills Start Date End Date Status zoster vac recomb adjuvanted (SHINGRIX) 50 MCG/0.5ML injectionIndicat ions:Need for vaccination for zoster Inject 0.5 mL into a large muscle now and repeat dose in 60 to 180 days 1 Each 1 02/20/2019 Active Shiny MediaTouch Verio Flex System w/Device Kit Use as directed . To test BG once daily. Dx. e11.9 1 Kit 3 05/23/2021 Active Premarin 0.625 MG/GM Vaginal Cream (Estrogens, Conjugated)Indic ations:Postmenop ausal atrophic vaginitis Administer into the vagina 0.5 g before bedtime. As directed.. 42.5 g 5 08/04/2021 Active Additional Information Patient not taking.Reported on 03/26/2023 Lactulose 10 GM/15ML Oral Solution (Constulose) Take 30 mL by mouth in the morning and 30 mL before bedtime. 5400 mL 3 02/22/2022 Active Losartan Potassium 50 MG Oral Tablet (Cozaar)Indicati ons:HTN, goal below 130/80 Take 0.5 Tablets by mouth in the morning. 90 Tablet 3 05/17/2022 Active OneTouch UltraSoft LancetsIndicatio ns:Type 2 diabetes mellitus with hemoglobin A1c goal of less than 7.0% ([facility]) Use once daily to check blood sugar. E11.9 100 Each 5 07/26/2022 Active OneTouch Delica Lancets 33G Use once daily to check blood sugar. E11.9 100 Each 3 07/31/2022 Active Clotrimazole 1 % Vaginal CreamIndications :Vaginal itching Apply to external vulva at bedtime x 7 days 45 g 0 08/28/2022 Active Additional Information Patient not taking.Reported on 02/08/2023 Levothyroxine Sodium 150 MCG Oral Tablet (Levoxyl) Take 1 Tablet by mouth in the morning. (at least 30 min prior to breakfast or other meds). 30 Tablet 11 09/08/2022 Active OneTouch Verio In Vitro Strip (Glucose Blood)Indication s:Type 2 diabetes mellitus with hemoglobin A1c goal of less than 7.0% (HCC),Type 2 diabetes mellitus without complication, without long-term current use of insulin (HCC) USE TO CHECK GLUCOSE ONCE DAILY 150 Strip 3 09/22/2022 Active Pantoprazole Sodium 20 MG Oral Tablet Delayed Release (Protonix)Indica tions:Gastrointe stinal hemorrhage associated with gastritis, unspecified gastritis type TAKE 1 TABLET BY MOUTH TWICE DAILY every morning and before bedtime 60 Tablet 5 12/10/2022 Active Clindamycin Phosphate 1 % External SwabIndications: Scalp lesion Apply topically to affected area 2 times a day. To affected area of skin. 60 Each 11 01/12/2023 Active Vitamin B-1 100 MG Oral Tablet Take 1 Tablet by mouth in the morning. 0 Active metFORMIN HCl ER 500 MG Oral Tablet Extended Release 24 Hour (Glucophage XR)Indications:T ype 2 diabetes mellitus with hemoglobin A1c goal of less than 7.0% (HCC) TAKE 2 TABLETS BY MOUTH TWICE DAILY WITH FOODS 360 Tablet 3 02/07/2023 Active Jardiance 25 MG Oral Tablet (Empagliflozin)I ndications:Type 2 diabetes mellitus with hemoglobin A1c goal [...] the day.. 90 Tablet 5 03/19/2023 Active Albumin Human 25 % Intravenous Solution Infuse 50g IV before and 50g IV after paracentesis May administer at rate of 100ml/hr 50 mL 0 02/24/2022 03/26/19 24 Discontinued Chlorhexidine Gluconate 4 % External Liquid (Hibiclens)Indic ations:Neuroderm atitis,Staph infection Apply to scalp, upper shoulders, and back daily 120 mL 0 09/22/2022 03/26/19 24 Discontinued documented as of this encounter (statuses as [...] Sign Reading Time Taken Comments Blood Pressure 106/58 03/26/2023 10:13 AM EST Pulse 84 03/26/2023 10:13 AM EST Temperature 36.5 C (97.7 F) 03/26/2023 10:[address] Respiratory Rate 16 03/26/2023 10:13 AM EST Oxygen Saturation 100% 03/26/2023 10:13 AM EST Inhaled Oxygen Concentration - - Weight 55.6 kg (122 lb 8 oz) 03/26/2023 10:13 AM EST Height - - Body Mass Index 21.71 01/19/2023 8:59 AM EST documented in this encounter Progress Notes * Cathy Son MD - 03/26/2023 10:41 AM EST Images from the original note were not included. Subjective Naz Kennedy is a 77 year old female. Chief Complaint Patient presents with Acute Dizziness, cramp/pain in cafe ( not sure which one), nausea always, but has gotten worse over the last three days. Increases confusing (donepezil) seems to be increasing fast per pt's daughter HPI: Here for one mo f/u on her medical problems Liver cirrhosis, with hepatic encephalopathy, dementia , Type 2 DM , And also increasing confusion, LLQ pain , will rule out UTI too Taking lactulose twice daily since ammonia level was high Dizziness on standing, low BP Taking spironolactone daily and torsemide prn Taking aricept 5 mg for dementia now HTN, taking losartan 25 mg daily Advised to keep compression stockings Should use a walker or cane due to unstable gait Weight loss with muscle mass loss which aggravate her strength too Known hypothyroidism, taking med Needs to f/u lab Type 2 DM, last hba1c 7.1 Taking meds [facility] Mild depression , stable PMH: Patient Active Problem List Diagnosis Code S/P BILATERAL TKA- DJD, 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 Dyslipidemia, goal LDL below 100 E78.5 Other chronic nonalcoholic liver disease K76.89 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 Spinal stenosis of lumbar region M48.061 HTN, goal below 140/90 I10 Other specified hypothyroidism E03.8 Type 2 diabetes mellitus with hemoglobin A1c goal of less than 7.0% (HCC) E11.9 Thrombocytopenia (HCC) D69.6 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 60 Tablet 5 traZODone HCl 50 MG Oral Tablet (Desyrel) Take 1 Tablet by mouth at bedtime. 30 Tablet 5 Spironolactone 50 MG Oral Tablet (Aldactone) TAKE 1 TABLET BY MOUTH EVERY MORNING 90 Tablet 1 Vitamin B-12 1000 MCG Oral Tablet (Cyanocobalamin) TAKE 1 TABLET BY MOUTH ONCE DAILY 90 Tablet 2 Donepezil HCl 5 MG Oral Tablet (Aricept) Take 1 Tablet by mouth in the morning. Take with largest meal of the day.. 90 Tablet 5 zoster vac recomb adjuvanted (SHINGRIX) 50 MCG/0.5ML injection Inject 0.5 mL into a large muscle now and repeat dose in 60 to 180 days 1 Each 1 Premarin 0.625 MG/GM Vaginal Cream (Estrogens, Conjugated) Administer into the vagina 0.5 g before bedtime. As directed.. (Patient not taking: Reported on 03/26/2023) 42.5 g 5 Clotrimazole 1 % Vaginal Cream Apply to external vulva at bedtime x 7 days (Patient not taking: Reported on 02/08/2023) 45 g 0 No current facility-administered medications for this visit. Past Medical History: Diagnosis Date Asthma, allergic [...] on CT Pilonidal cyst Stress reaction, emotional Past Surgical History: Procedure Laterality Date ARTHROPLASTY KNEE TOTAL 2005 bilateral- Dr Guadarrama CARPAL TUNNEL SURGERY 10/14/02 Carpal Tunnel repair- left CARPAL TUNNEL SURGERY 10/28/02 Carpal Tunnel repair- right COLONOSCOPY THRU STOMA, W/BIOPSY Dr Amrao COLONOSCOPY W/ BIOPSY (RECTUM) 09/09/08 benign/repeat colonoscopy in 10 yrs EGD, FLEXIBLE, DIAGNOSTIC 01/19/2023 ESOPHAGOGASTRODUODENOSCOPY (EGD), FLEXIBLE, TRANSORAL, DIAGNOSTIC performed by Chris Pagan MD at ENDOSCOPY [facility] INFORMATION 01/16 Dr Guadarrama-- revision of right knee KNEE ARTHROSCOPY/MENISCECTOMY 2000 Knee Scope,Med/Lat Menisectomy- Thierry KNEE ARTHROSCOPY/MENISCUS REPAIR 1999 Knee Scope,Med+Lat Menis Repair- Dr Guadarrama REMOVAL OF APPENDIX 1974 Appendectomy- [place] on vacation REMOVAL OF OVARY(S) Oophrectomy,Bilat--ovarian cyst, lysis of adhesions--Dr. Padilla SLEEP STUDY, W/O CPAP negative apnea TOTAL HYSTERECTOMY Hysterectomy, Abdominal--leiomyomata Review of patient's allergies indicates: Allergen Reactions Iodinated Contrast Media Levaquin [Levofloxacin In D5w] Other (Please comment) Seeing things Percocet [Oxycodone-Acetaminophen] Neuro complications (Please comment) Nightmares, hearing and seeing things. Family History Problem Relation Age of Onset Heart Disorder Mother angioplasty Cancer Mother skin Hypertension Mother Mental Disorder Mother suspected AD Eye Problems Mother Cancer Father colon ca- age 48-50 Diabetes Father Hypertension Father Cancer Grandmother (Maternal) cervical ca Diabetes Grandmother (Paternal) Stroke None Arthritis Sister Thyroid Disorder Sister Obesity Sister Family Status Relation Status Mo Fa MGMA (Not Specified) PGMA (Not Specified) NONE (Not Specified) Sis (Not Specified) Sis (Not Specified) Sis (Not Specified) Social History Socioeconomic History Marital status: Spouse name: Perez Number of children: 4 Years of education: Not on file Highest education level: Not on file Occupational History Employer: [employer] Tobacco Use Smoking status: Never Passive exposure: Never Smokeless tobacco: Never Vaping Use Vaping Use: Never used Substance and Sexual Activity Alcohol use: No Drug use: No Sexual activity: Yes Partners: Male Comment: no problems Other Topics Concern Not on file 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 07/04/62 4 children 7 gc 0 ggc pet- bichon- Gianna, peekapoo- Audiometric Technician Social Determinants of Health Financial Resource Strain: Not on file Food Insecurity: No Food Insecurity (08/13/2020) Hunger Vital Sign Worried About Running Out of Food in the Last Year: Never true Ran Out of Food in the Last Year: Never true Transportation Needs: Not on file Physical Activity: Not on file Stress: Not on file Social Connections: Not on file Intimate Partner Violence: Not on file Housing Stability: Not on file Review of Systems Constitutional: Positive for activity change (worse dizziness on standing) and fatigue. Negative for appetite change, chills, diaphoresis, fever and unexpected weight change. HENT: Negative for congestion and hearing loss. Eyes: Negative for visual disturbance. Respiratory: Negative for cough, chest tightness and shortness of breath. Cardiovascular: Negative for chest pain, palpitations and leg swelling. Gastrointestinal: Positive for abdominal pain (Lower , lt), diarrhea and nausea. Negative for abdominal distention, blood in stool, constipation and vomiting. Musculoskeletal: Myalgias: calf pain but does not recall which leg. Neurological: Positive for dizziness, weakness (general) and light-headedness. Negative for tremorsand headaches. Psychiatric/Behavioral: Positive for dysphoric mood and sleep disturbance. Negative for agitation and behavioral problems. The patient is nervous/anxious. Dementia Objective BP 106/58 | Pulse 84 | Temp 36.5 C (97.7 F) (Infrared ) | Resp 16 | Wt 55.6 kg (122 lb 8 oz) | SpO2 100% | BMI 21.71 kg/m | BSA 1.57 m Physical Exam Constitutional: General: She is not in acute distress. Appearance: Normal appearance. She is not ill-appearing, toxic-appearing or diaphoretic. Comments: Cachetic HENT: Head: Normocephalic and atraumatic. Nose: Nose normal. Eyes: Extraocular Movements: Extraocular movements intact. Cardiovascular: Rate and Rhythm: Normal rate and regular rhythm. Pulses: Normal pulses. Heart sounds: Murmur heard. Pulmonary: Effort: Pulmonary effort is normal. No respiratory distress. Breath sounds: Normal breath sounds. No stridor. No wheezing, rhonchi or rales. Chest: Chest wall: No tenderness. Abdominal: General: There is distension (mild). Palpations: Abdomen is soft. Tenderness: There is abdominal tenderness. There is no guarding or rebound. Musculoskeletal: General: No tenderness. Right lower leg: No edema. Left lower leg: No edema. Skin: Coloration: Skin is not jaundiced. Findings: Bruising present. Comments: Skin sores from scratching on face Neurological: General: No focal deficit present. Mental Status: She is alert. She is disoriented. Motor: Weakness (general) present. Psychiatric: Behavior: Behavior normal. Comments: Midl depression ASSESSMENT/PLAN: Confusion (Primary) - CULTURE, URINE, QUANTITATIVE - URINALYSIS, REFLEX TO MICROSCOPIC; Future; Expected date: 03/26/2023 - TSH WITH FREE T4 IF INDICATED; Future; Expected date: 03/26/2023 Dementia of the Alzheimer's type, with late onset, uncomplicated (HCC) Hepatic encephalopathy (HCC) - AMMONIA; Future; Expected date: 03/26/2023 - COMPREHENSIVE METABOLIC PANEL; Future; Expected date: 03/26/2023 Cirrhosis of liver with ascites, unspecified hepatic cirrhosis type (HCC) - AMMONIA; Future; Expected date: 03/26/2023 - COMPREHENSIVE METABOLIC PANEL; Future; Expected date: 03/26/2023 Calf pain, unspecified laterality - MAGNESIUM; Future; Expected date: 03/26/2023 - CBC WITH WBC DIFFERENTIAL; Future; Expected date: 03/26/2023 LLQ pain - CULTURE, URINE, QUANTITATIVE - URINALYSIS, REFLEX TO MICROSCOPIC; Future; Expected date: 03/26/2023 - XR ABDOMEN 1 VIEW Hypothyroidism, unspecified type - TSH WITH FREE T4 IF INDICATED; Future; Expected date: 03/26/2023 Dizziness F/u urine blood tests KUB Cont current meds Consider brain MRI if dizziness confusion gets worse ? Cathy Son MD documented in this encounter Nursing Notes * Ashley Mayfield LPN - 03/26/2023 10:10 AM EST Chief Complaint Patient presents with Acute Dizziness, cramp/pain in cafe ( not sure which one), nausea always, but has gotten worse over the last three days. Increases confusing (donepezil) seems to be increasing fast per pt's daughter documented in this encounter Plan of Treatment Upcoming Encounters Date Type Department Care Team (Late st Contact Info) Description 03/26/2023 11:20 AM EST Laboratory Laboratory, [place] [address] [facility] [place] [id number] [place], Laboratory [address] [place] [facility] [place] [address] Arrived 04/13/2023 10:30 AM EST Office Visit Gastroenterology, [facility] [address] [facility] [place] [address] Eda Mob[facility] CR[facility] [place] [address] 05/07/2023 8:50 AM EDT Office Visit Family Practice, [place] [address] [facility] [place] [id number] Tita Harris, [address] [facility] [place] [address] 11/20/2023 11:00 AM EDT Office Visit Neurology [facility] [address] [facility] [place] [address] Christine Cassidy PA-C [address] [facility] [place] [address] Scheduled Orders Name Type Priority Associated Diagnoses Orde r Schedule AMMONIA Lab Routine Hepatic encephalopathy (HCC) Cirrhosis of liver with ascites, unspecified hepatic cirrhosis type (HCC) Expected: 03/26/2023, Expires: 03/26/2024 COMPREHENSIVE METABOLIC PANEL Lab Routine Hepatic encephalopathy (HCC) Cirrhosis of liver with ascites, unspecified hepatic cirrhosis type (HCC) Expected: 03/26/2023 (Approximate), Expires: 03/25/2024 MAGNESIUM Lab Routine Calf pain, unspecified laterality Expected: 03/26/2023 (Approximate), Expires: 03/25/2024 CBC WITH WBC DIFFERENTIAL Lab Routine Calf pain, unspecified laterality Expected: 03/26/2023 (Approximate), Expires: 03/26/2024 CULTURE, URINE, QUANTITATIVE Lab Routine Confusion LLQ pain Ordered: 03/26/2023 URINALYSIS, REFLEX TO MICROSCOPIC Lab Routine Confusion LLQ pain Expected: 03/26/2023, Expires: 03/26/2024 TSH WITH FREE T4 IF INDICATED Lab Routine Confusion Hypothyroidism, unspecified type Expected: 03/26/2023 (Approximate), Expires: 03/25/2024 XR ABDOMEN 1 VIEW Medical Imaging Routine LLQ pain Ordered: 03/26/2023 Health Maintenance Due Date Last Done Comments [...] 05/26/2022, Additional history exists HbA1c 07/14/2023 01/12/2023, 0702/2022, 2022, Additional history exists Albumin/Creatinine Ratio 08/16/2023 [...] as of this encounter Visit Diagnoses Diagnosis Confusion- Primary Unspecified psychosis Dementia of the Alzheimer's type, with late onset, uncomplicated (HCC) Alzheimer's disease Hepatic encephalopathy (HCC) Hepatic encephalopathy Cirrhosis of liver with ascites, unspecified hepatic cirrhosis type (HCC) Calf pain, unspecified laterality LLQ pain Abdominal pain, left lower quadrant Hypothyroidism, unspecified type Dizziness Dizziness and giddiness documented in this encounter Care Teams Fabricating Machine Operator Relationship Specialty Start Date End Date Tita Harris DO [address] [place] [address] PCP - General Family Medicine 10/30/12 documented as of this encounter"
--- OUTSIDE RECORDS SUMMARY | 2023-04-26 00:02 | External Medical Summary ---
Author Name Unknown Address Unknown Organization K01:[facility] - [address] [place] [address] Laboratory Report Ordering Provider Test Date Status ARASELI GRULLON 03/26/2023 11:09:07 Final Observation Date Value Abnormality Reference (Units ) Status Magnesium 03/26/2023 11:09:07 2.2 1.5-2.6 (m g/dL) Final Performing Location [facility] - [address] [place] [address]
--- OUTSIDE RECORDS SUMMARY | 2023-04-26 00:02 | External Medical Summary ---
Author Name Unknown Address Unknown Organization [id number]:[facility] [place] - [address] [facility] [place] [address] Laboratory Report Ordering Provider Test Date Status ARASELI GRULLON 03/26/2023 11:09:07 Final Observation Date Value Abnormality Reference (Units ) Status BUN 03/26/2023 11:09:07 26 Above high normal 6-20 (mg/dL) Final Creatinine 03/26/2023 11:09:07 1.0 0.5-1.0 (mg/dL) Final Glomerular filtration rate/1.73 sq M.predicted [Volume Rate/Area] in Serum, Plasma or Blood by Creatinine-based formula (CKD-EPI) 03/26/2023 11:09:07 58 Below low normal >=60 (mL/min) Final eGFR is calculated based on the CKD-EPI 2020 equation SODIUM 03/26/2023 11:09:07 135 135-146 (m mol/L) Final Potassium 03/26/2023 11:09:07 4.1 3.5-5.1 (m mol/L) Final Cl 03/26/2023 11:09:07 95 Below low normal 98- 107 (mmol/L) Final CO2 03/26/2023 11:09:07 20 Below low normal 22- 32 (mmol/L) Final Anion gap 03/26/2023 11:09:07 20 Above high normal 7- 15 (mmol/L) Final Glucose 03/26/2023 11:09:07 200 Above high normal 70 -120 (mg/dL) Final Albumin 03/26/2023 11:09:07 3.5 Below low normal 3.8 -5.0 (g/dL) Final AST (Aspartate aminotransferase) 03/26/2023 11:09:07 24 10-35 (U/L) Fin al Alk Phos 03/26/2023 11:09:07 71 35-130 (U/ L) Final Bilirubin, Total 03/26/2023 11:09:07 1.6 Above high no rmal <=1.2 (mg/dL) Final Calcium 03/26/2023 11:09:07 9.3 8.4-10.2 ( mg/dL) Final Protein 03/26/2023 11:09:07 6.5 6.0-8.3 (g /dL) Final ALT (Alanine aminotransferase) 03/26/2023 11:09:07 21 10-35 (U/L) Phillip chang Performing Location [facility] [place] - [address] [facility] [address]
--- OUTSIDE RECORDS SUMMARY | 2023-04-26 00:02 | External Medical Summary ---
Author Name Unknown Address Unknown Organization [id number]:[facility] [place] [facility] [place] [address] [facility] [address] Laboratory Report Ordering Provider Test Date Status ARASELI GRULLON 03/26/2023 11:09:07 Final Observation Date Value Abnormality Reference (Units ) Status WBC, Total 03/26/2023 11:09:07 8.74 4.00-10.80 (K/uL) Final RBC 03/26/2023 11:09:07 4.27 3.85-5.15 (M/uL) Final Hemoglobin 03/26/2023 11:09:07 13.3 12.0-15.3 (g/dL) Final HCT 03/26/2023 11:09:07 40.8 36.0-45.2 (%) Final MCV 03/26/2023 11:09:07 95.6 81.5-97.5 (fL) Final MCH 03/26/2023 11:09:07 31.1 27.0-34.0 (pg) Final MCHC 03/26/2023 11:09:07 32.6 32.0-36.0 (g/dL) Final RDW 03/26/2023 11:09:07 17.1 11.5-15.5 (%) Final Platelets 03/26/2023 11:09:07 151 140-400 (K/uL) Final MPV 03/26/2023 11:09:07 11.1 6.6-11.1 (fL) Final Nucleated erythrocytes/100 leukocytes [Ratio] in Blood by Automated count 03/26/2023 11:09:07 0 <=0 (/100 WBCs) Final Performing [place] [facility] [place] [address] [place] [address]
--- OUTSIDE RECORDS SUMMARY | 2023-04-26 00:02 | External Medical Summary ---
Author Name Unknown Address Unknown Organization [id number]:[facility] [place] - [address] [place] [address] Laboratory Report Ordering Provider Test Date Status ARASELI GRULLON 03/26/2023 11:09:07 Final Observation Date Value Abnormality Reference (Units ) Status TSH 03/26/2023 11:09:07 0.14 Below low normal 0.2 7-4.20 (uIU/mL) Final Performing Location [facility] [place] - [address] [place] [address]
--- OUTSIDE RECORDS SUMMARY | 2023-04-26 00:02 | External Medical Summary ---
Author Name Unknown Address Unknown Organization K01:[facility] - [address] [place] [address] Laboratory Report Ordering Provider Test Date Status MARKINDIRAARASELI 03/26/2023 11:09:07 Final Observation Date Value Abnormality Reference (Units ) Status Ammonia 03/26/2023 11:09:07 59 Above high normal 11 -35 (umol/L) Final Performing Location [facility] - [address] [place] [address]
--- OUTSIDE RECORDS SUMMARY | 2023-04-26 00:03 | External Medical Summary | Summary of Care ---
Author Name Unknown Organization [facility] Address [address] [facility] [place] [address] Phone [phone] Care Team Providers Care Advertising Clerk Name Role Phone Tita Harris Rehana FLOWERS Primary Care Provider [phone] Reason for Referral * Precert (Within 24 hrs (call dept; emergent)) - Authorized Specialty Diagnoses / Procedures Referred By Contac t Referred To Contact Radiology Diagnoses Cirrhosis of liver with ascites, unspecified hepatic cirrhosis type (HCC) Generalized weakness Leg swelling SOB (shortness of breath) Procedures CT ABD/PELVIS WO IV/ORAL CONTRAST Cathy Son MD [address] [place] [facility] [place] [address] Referral ID Status Reason Start Date Expiration Date V isits Requested Visits Authorized [id number] Authorized 02/08/2023 999 999 Reason for Visit * Reason Comments Acute Abdomen swelling and both legs are swellingPt has dizziness, lightheadedness Doesn't sleep at night Pt states "I'm not me." Encounter Details Date Type Department Care Team (Latest Contact Info) Description 02/08/2023 3:00 PM EST Office Visit [facility] [address] [place] [phone] Cathy Son MD [address] [place] [address] Cirrhosis of liver with ascites, unspecified hepatic cirrhosis type (HCC)*; Hepatic encephalopathy (HCC); Thrombocytopenia (HCC); Type 2 diabetes mellitus with hemoglobin A1c goal of less than 7.0% (HCC); Mild episode of recurrent major depressive disorder (HCC); Dementia of the Alzheimer's type, with late onset, uncomplicated (HCC); Generalized weakness; Leg swelling; SOB (shortness of breath) Allergies Active Allergy Reactions Criticality Noted Date Comments Iodinated Contrast Media 04/16/1997 Levofloxacin In D5w Other (Please comment) 05/06 Seeing things Oxycodone-Acetaminophe n Neuro complications (Please comment) 02/29/2012 Nightmares, hearing and seeing things. documented as of this encounter (statuses as of 02/27/2023) Medications Medication Sig Dispensed Refills Start Date End Date Status zoster vac recomb adjuvanted (SHINGRIX) 50 MCG/0.5ML injectionIndicatio ns:Need for vaccination for zoster Inject 0.5 mL into a large muscle now and repeat dose in 60 to 180 days 1 Each 1 0 Active [employer] Verio Flex System w/Device Kit Use as directed . To test BG once daily. Dx. e11.9 1 Kit 3 2 Active Premarin 0.625 MG/GM Vaginal Cream (Estrogens, Conjugated)Indicat ions:Postmenopausa l atrophic vaginitis Administer into the vagina 0.5 g before bedtime. As directed.. 42.5 g 5 2 Active Lactulose 10 GM/15ML Oral Solution (Constulose) Take 30 mL by mouth in the morning and 30 mL before bedtime. 5400 mL 3 3 Active Albumin Human 25 % Intravenous Solution Infuse 50g IV before and 50g IV after paracentesis May administer at rate of 100ml/hr 50 mL 0 3 Active Additional Information Patient not taking.Reported on 09/11/2022 Losartan Potassium 50 MG Oral Tablet (Cozaar)Indication s:HTN, goal below 130/80 Take 0.5 Tablets by mouth in the morning. 90 Tablet 3 3 Active OneTouch UltraSoft LancetsIndications :Type 2 diabetes mellitus with hemoglobin A1c goal of less than 7.0% ([facility]) Use once daily to check blood sugar. E11.9 100 Each 5 3 Active OneTouch Delica Lancets 33G Use once daily to check blood sugar. E11.9 100 Each 3 3 Active Clotrimazole 1 % Vaginal CreamIndications:V aginal itching Apply to external vulva at bedtime x 7 days 45 g 0 3 Active Additional Information Patient not taking.Reported on 02/08/2023 Levothyroxine Sodium 150 MCG Oral Tablet (Levoxyl) Take 1 Tablet by mouth in the morning. (at least 30 min prior to breakfast or other meds). 30 Tablet 11 3 Active Spironolactone 50 MG Oral Tablet (Aldactone) Take 1 Tablet by mouth in the morning. 90 Tablet 1 3 Active OneTouch Verio In Vitro Strip (Glucose Blood)Indications: Type 2 diabetes mellitus with hemoglobin A1c goal of less than 7.0% ([facility]),Type 2 diabetes mellitus without complication, without long-term current use of insulin ([facility]) USE TO CHECK GLUCOSE ONCE DAILY 150 Strip 3 3 Active Chlorhexidine Gluconate 4 % External Liquid (Hibiclens)Indicat ions:Neurodermatit is,Staph infection Apply to scalp, upper shoulders, and back daily 120 mL 0 3 Active Vitamin B-12 1000 MCG Oral Tablet (Cyanocobalamin) TAKE 1 TABLET BY MOUTH ONCE DAILY 90 Tablet 0 3 Active Pantoprazole Sodium 20 MG Oral Tablet Delayed Release (Protonix)Indicati ons:Gastrointestin al hemorrhage associated with gastritis, unspecified gastritis type TAKE 1 TABLET BY MOUTH TWICE DAILY every morning and before bedtime 60 Tablet 5 3 Active Clindamycin Phosphate 1 % External SwabIndications:Sc alp lesion Apply topically to affected area 2 times a day. To affected area of skin. 60 Each 11 3 Active Vitamin B-1 100 MG Oral Tablet Take 1 Tablet by mouth in the morning. 0 Active metFORMIN HCl ER 500 MG Oral Tablet Extended Release 24 Hour (Glucophage XR)Indications:Typ e 2 diabetes mellitus with hemoglobin A1c goal of less than 7.0% ([facility]) TAKE 2 TABLETS BY MOUTH TWICE DAILY WITH FOODS 360 Tablet 3 4 Active Jardiance 25 MG Oral Tablet (Empagliflozin)Ind ications:Type 2 diabetes mellitus with hemoglobin A1c goal of less than 7.0% (HCC) TAKE ONE TABLET BY MOUTH IN THE MORNING 90 Tablet 3 4 Active Torsemide 20 MG Oral Tablet (Demadex) Take 1 Tablet by mouth in the morning and 1 Tablet in the evening. 60 Tablet 5 4 Active Triamcinolone Acetonide 0.1 % External Ointment (Aristocort)Indica tions:Skin infection Apply topically to affected area 2 times a day. To affected area. 15 g 5 3 02/22/19 24 Discontinued Donepezil HCl 5 MG Oral Tablet (Aricept)Indicatio ns:Dementia of the Alzheimer's type, with late onset, uncomplicated (HCC) TAKE 1 TABLET BY MOUTH EVERY MORNING with the largest meal of the day 90 Tablet 1 3 02/22/19 24 Discontinued Furosemide 20 MG Oral Tablet (Lasix) TAKE ONE TABLET BY MOUTH EVERY MORNING 30 Tablet 0 3 02/08/19 24 Discontinued Mirtazapine 45 MG Oral Tablet (Remeron)Indicatio ns:Insomnia, unspecified type,Dementia of the Alzheimer's type, with late onset, uncomplicated (HCC) TAKE 1 TABLET BY MOUTH AT BEDTIME 30 Tablet 0 3 02/12/19 24 Discontinued documented as of this encounter (statuses as of 02/27/2023) Active Problems Problem Noted Date Diagnosed Date [...] as of this encounter (statuses as of 02/27/2023) Resolved Problems Problem Noted Date Diagnosed Date [...] as of this encounter (statuses as of 02/27/2023) Immunizations Name Administration Dates Next Due Pneumococcal [...] Sign Reading Time Taken Comments Blood Pressure 98/58 02/08/2023 3:17 PM EST Pulse 79 02/08/2023 3:17 PM EST Temperature 36.1 C (97 F) 02/08/2023 3:17 PM EST Respiratory Rate 18 02/08/2023 3:17 PM EST Oxygen Saturation 98% 02/08/2023 3:17 PM EST Inhaled Oxygen Concentration - - Weight 60.8 kg (134 lb) 02/08/2023 3:17 PM EST Height - - Body Mass Index 23.74 01/19/2023 8:59 AM EST documented in this encounter Progress Notes * Cathy Son MD - 02/08/2023 3:53 PM EST Subjective Naz Kennedy is a 77 year old female. Chief Complaint Patient presents with Acute Abdomen swelling and both legs are swelling Pt has dizziness, lightheadedness Doesn't sleep at night Pt states "I'm not me." HPI: Here for abd swelling, known liver cirrhosis with ascites and B/L worse legs swelling, Also c/o dizziness, weakness, not well feeling for a week Denies fever, abd pain , dysuria , hematuria Hx of hepatic encephalopathy, taking lactulose Thrombocytopenia, liver cirrhosis, stable Came with her family Has been taking lasix 40 mg and aldactone 50 mg Also taking losartan for HTN , type 2 DM For type 2 DM , taking jardiance, metformin Last hba1c 7.1 in Jan Hypothyroidism, taking med , f/u with PCP Was hyperthyroid, dose was adjusted by PCP in sep Dementia, taking med Depression anxiety insomnia, current taking med PMH: Patient Active Problem List Diagnosis Code [...] G30.1, F02.80 Cirrhosis of liver (HCC) K74.60 Current Outpatient Medications Medication Sig Dispense Refill [employer] Verio Flex System w/Device Kit Use as directed . To test BG once daily. Dx. e11.9 1 Kit 3 Premarin 0.625 MG/GM Vaginal Cream (Estrogens, Conjugated) Administer into the vagina 0.5 g before bedtime. As directed.. 42.5 g 5 Lactulose 10 GM/15ML Oral Solution (Constulose) Take [...] breakfast or other meds). 30 Tablet 11 Spironolactone 50 MG Oral Tablet (Aldactone) Take 1 Tablet by mouth in the morning. 90 Tablet 1 OneTrueFanTouch Verio In Vitro Strip (Glucose Blood) USE TO CHECK GLUCOSE ONCE DAILY 150 Strip 3 Chlorhexidine Gluconate 4 % External Liquid (Hibiclens) Apply to scalp, upper shoulders, and back daily 120 mL 0 Vitamin B-12 1000 MCG Oral Tablet (Cyanocobalamin) TAKE 1 TABLET BY MOUTH ONCE DAILY 90 Tablet 0 Pantoprazole Sodium 20 MG Oral Tablet Delayed Release (Protonix) TAKE 1 TABLET BY MOUTH TWICE DAILYevery morning and before bedtime 60 Tablet 5 Clindamycin Phosphate 1 % External Swab Apply topically to affected area 2 times a day. To affectedarea of skin. 60 Each 11 metFORMIN HCl ER 500 MG Oral Tablet [...] Tablet in the evening. 60 Tablet 5 zoster vac recomb adjuvanted (SHINGRIX) 50 MCG/0.5ML injection Inject 0.5 mL into a large muscle now and repeat dose in 60 to 180 days 1 Each 1 Albumin Human 25 % Intravenous Solution Infuse 50g IV before and 50g IV after paracentesis May administer at rate of 100ml/hr (Patient not taking: Reported on 09/11/2022) 50 mL 0 Triamcinolone Acetonide 0.1 % External Ointment (Aristocort) Apply topically to affected area 2 times a day. To affected area. (Patient not taking: Reported on 09/11/2022) 15 g 5 Clotrimazole 1 % Vaginal Cream Apply to external vulva at bedtime x 7 days (Patient not taking: Reported on 02/08/2023) 45 g 0 Donepezil HCl 5 MG Oral Tablet (Aricept) TAKE 1 TABLET BY MOUTH EVERY MORNING with the largest mealof the day (Patient not taking: Reported on 11/22/2022) 90 Tablet 1 Vitamin B-1 100 MG Oral Tablet Take 1 Tablet by mouth in the morning. Mirtazapine 45 MG Oral Tablet (Remeron) TAKE 1 TABLET BY MOUTH AT BEDTIME 30 Tablet 0 No current facility-administered medications for this [...] performed by Chris Pagan MD at [facility] INFORMATION 01/16 Dr Guadarrama-- revision of right knee KNEE ARTHROSCOPY/MENISCECTOMY 2000 Knee Scope,Med/Lat Menisectomy- Thierry KNEE ARTHROSCOPY/MENISCUS REPAIR 1999 Knee Scope,Med+Lat Menis Repair- Dr Roeshot REMOVAL OF APPENDIX 1974 Appendectomy- Kamryn on vacation REMOVAL OF OVARY(S) Oophrectomy,Bilat--ovarian cyst, [...] level: Not on file Occupational History Employer: [email or web address] RE[employer] Tobacco Use Smoking status: Never Passive exposure: Never Smokeless tobacco: Never Vaping Use Vaping Use: Never used Substance and Sexual Activity Alcohol use: No Drug use: No Sexual activity: Yes Partners: Male Comment: no problems Other Topics Concern Not on file 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 Negative for chills, diaphoresis, fever and unexpected weight change. Eyes: Negative for visual disturbance. Respiratory: Positive for shortness of breath (on exertion). Negative for cough, chest tightness and wheezing. Cardiovascular: Positive for leg swelling. Negative for chest pain and palpitations. Gastrointestinal: Positive for abdominal distention. Negative for abdominal pain, nausea and vomiting. Endocrine: Negative. Genitourinary: Negative for difficulty urinating, dysuria, frequency and hematuria. Neurological: Positive for dizziness, weakness (general), light-headedness and headaches. Negative for tremors, seizures, syncope and speech difficulty. Hematological: Negative for adenopathy. Psychiatric/Behavioral: Positive for dysphoric mood and sleep disturbance. Negative for agitation, behavioral problems and confusion. The patient is nervous/anxious. Objective BP 98/58 | Pulse 79 | Temp 36.1 C (97 F) (Infrared ) | Resp 18 | Wt 60.8 kg (134 lb) | SpO2 98%| BMI 23.74 kg/m | BSA 1.64 m Physical Exam Constitutional: General: She is not in acute distress. Appearance: She is not ill-appearing, toxic-appearing or diaphoretic. Comments: Cachetic HENT: Head: Normocephalic and atraumatic. Nose: Nose normal. Eyes: Extraocular Movements: Extraocular movements intact. Cardiovascular: Rate and Rhythm: Normal rate and regular rhythm. Pulses: Normal pulses. Heart sounds: Normal heart sounds. Pulmonary: Effort: Pulmonary effort is normal. No respiratory distress. Breath sounds: No stridor. Rales present. No wheezing or rhonchi. Chest: Chest wall: No tenderness. Abdominal: General: There is distension (fluid). Tenderness: There is no abdominal tenderness. Musculoskeletal: Right lower leg: Edema present. Left lower leg: Edema present. Neurological: General: No focal deficit present. Mental Status: She is alert and oriented to person, place, and time. Psychiatric: Behavior: Behavior normal. Comments: Mild anxiety ASSESSMENT/PLAN: Cirrhosis of liver with ascites, unspecified hepatic cirrhosis type (HCC) (Primary) - BNP, NT-PRO; Future; Expected date: 02/08/2023 - CBC WITH WBC DIFFERENTIAL; Future; Expected date: 02/08/2023 - COMPREHENSIVE METABOLIC PANEL; Future; Expected date: 02/08/2023 - AMMONIA; Future; Expected date: 02/08/2023 - CT ABD/PELVIS WO IV/ORAL CONTRAST Hepatic encephalopathy (HCC) Thrombocytopenia (HCC) Type 2 diabetes mellitus with hemoglobin A1c goal of less than 7.0% (HCC) Mild episode of recurrent major depressive disorder (HCC) Dementia of the Alzheimer's type, with late onset, uncomplicated (HCC) Generalized weakness - BNP, NT-PRO; Future; Expected date: 02/08/2023 - CBC WITH WBC DIFFERENTIAL; Future; Expected date: 02/08/2023 - URINALYSIS, REFLEX TO MICROSCOPIC; Future; Expected date: 02/08/2023 - CULTURE, URINE, QUANTITATIVE - COMPREHENSIVE METABOLIC PANEL; Future; Expected date: 02/08/2023 - AMMONIA; Future; Expected date: 02/08/2023 - CT ABD/PELVIS WO IV/ORAL CONTRAST Leg swelling - BNP, NT-PRO; Future; Expected date: 02/08/2023 - CBC WITH WBC DIFFERENTIAL; Future; Expected date: 02/08/2023 - COMPREHENSIVE METABOLIC PANEL; Future; Expected date: 02/08/2023 - AMMONIA; Future; Expected date: 02/08/2023 - CT ABD/PELVIS WO IV/ORAL CONTRAST SOB (shortness of breath) - BNP, NT-PRO; Future; Expected date: 02/08/2023 - CBC WITH WBC DIFFERENTIAL; Future; Expected date: 02/08/2023 - COMPREHENSIVE METABOLIC PANEL; Future; Expected date: 02/08/2023 - AMMONIA; Future; Expected date: 02/08/2023 - CT ABD/PELVIS WO IV/ORAL CONTRAST Other orders - Torsemide 20 MG Oral Tablet (Demadex); Take 1 Tablet by mouth in the morning and 1 Tablet in the evening. Check-out note: Schedule CT Blood urine test today Change to torsemide And observe , update me on Sunday F/u all the blood tests and CT Spent 40 min Cathy Son MD documented in this encounter Nursing Notes * Ashley Mayfield LPN - 02/08/2023 3:13 PM EST Chief Complaint Patient presents with Acute Abdomen swelling and both legs are swelling Pt has dizziness, lightheadedness Doesn't sleep at night Pt states "I'm not me." documented in this encounter Plan of Treatment Upcoming Encounters Date Type Department Care Team (Late st Contact Info) Description 03/26/2023 10:00 AM EST [facility] [place] [address] [facility] [phone] [facility] [address] [facility] [address] 04/13/2023 10:30 AM EST Office Visit Gastroenterology, [facility] [address] [place] [address] Eda Mobley CRNP [address] [place] [address] 05/07/2023 8:50 AM EDT Office Visit [facility] [address] [facility] [phone] Tita Harris DO [address] [facility] [address] 11/20/2023 11:00 AM EDT Office Visit Neu[facility] [address] [place] [address] Christine Cassidy PA-C [address] [facility] [place] [address] Health Maintenance Due Date Last Done Comments [...] Not on filedocumented as of this encounter Procedures Procedure Name Priority Date/Time Associated Diagnosis Comments CT ABD/PELVIS WO IV/ORAL CONTRAST STAT 02/09/2023 9:39 AM EST Cirrhosis of liver with ascites, unspecified hepatic cirrhosis type (HCC) Generalized weakness Leg swelling SOB (shortness of breath) CULTURE, URINE, QUANTITATIVE Routine 02/08/2023 4:43 PM EST Generalized weakness documented in this encounter Results * CT ABD/PELVIS WO IV/ORAL CONTRAST (02/09/2023 9:39 AM EST) Anatomical Region Laterality Modality Body, Abdomen, Pelvis Computed T omography 02/09/2023 10:0 1 AM EST Impressions 02/09/2023 9:59 AM EST IMPRESSION 1. Hepatic cirrhosis. Large recanalized umbilical vein. Mild splenomegaly. 2. Anasarca, body wall edema and moderate abdominal and pelvic free fluid. 3. Other incidental findings as detailed above. Narrative 02/09/2023 9:[address] ABD/PELVIS WO IV/ORAL CONTRAST-02/09/2023 9:39 am HISTORY abd distention, known cirrhosis, weakness, dizziness, SOB COMPARISON MRI abdomen dated 07/22/[address] abdomen and pelvis without IV or oral contrast. FINDINGS Lung bases: The heart is normal in size. Atherosclerotic calcifications of the coronary arteries are noted. There is mild distal esophageal wall thickening. There is a tiny nonspecific pulmonary nodule in the posterior left lower lobe measuring 0.4 cm (series 4, image 42). Abdomen/pelvis: The exam is limited without IV contrast. Findings consistent with hepatic cirrhosis are noted. The liver is otherwise not adequately evaluated without IV contrast. There is a large recanalized umbilical vein. There are no radiopaque gallstones. There is no biliary ductal dilation. The pancreas is grossly unremarkable. The spleen is enlarged measuring 13.6 cm craniocaudally. The adrenal glands are unremarkable. The kidneys are symmetric in size. There are no renal calculi or hydronephrosis. The bladder is partially distended, grossly unremarkable. The uterus is not seen. There are atherosclerotic calcifications of the abdominal aorta and bilateral iliac arteries. There is no abdominal aortic aneurysm. Anasarca, body wall edema and moderate abdominal and pelvic free fluid are noted. The stomach is partially distended and not adequately evaluated. There is no evidence of small bowel obstruction. There is no evidence of colitis. The colon is otherwise not adequately evaluated for masses or polyps on this exam. Bones: The bones are osteopenic. There are multi level degenerative changes of the visualized spine. Procedure Note Rossi Mario MD - 02/09/[address] ABD/PELVIS WO IV/ORAL CONTRAST-02/09/2023 9:39 am HISTORY abd distention, known cirrhosis, weakness, dizziness, SOB COMPARISON MRI abdomen dated 07/22/[address] abdomen and pelvis without IV or oral contrast. FINDINGS Lung bases: The heart is normal in size. Atherosclerotic calcificationsof the coronary arteries are noted. There is mild distal esophageal wallthickening. There is a tiny nonspecific pulmonary nodule in the posterior left lowerlobe measuring 0.4 cm (series 4, image 42). Abdomen/pelvis: The exam is limited without IV contrast. Findingsconsistent with hepatic cirrhosis are noted. The liver is otherwise notadequately evaluated without IV contrast. There is a large recanalizedumbilical vein. There are no radiopaque gallstones. There is no biliary ductaldilation. The pancreas is grossly unremarkable. The spleen is enlarged measuring 13.6 cm craniocaudally. The adrenal glands are unremarkable. The kidneys are symmetric in size. There are no renal calculi orhydronephrosis. The bladder is partially distended, grosslyunremarkable. The uterus is not seen. There are atherosclerotic calcifications of the abdominal aorta andbilateral iliac arteries. There is no abdominal aortic aneurysm. Anasarca, body wall edema and moderate abdominal and pelvic free fluid arenoted. The stomach is partially distended and not adequately evaluated. There isno evidence of small bowel obstruction. There is no evidence of colitis.The colon is otherwise not adequately evaluated for masses or polyps onthis exam. Bones: The bones are osteopenic. There are multi level degenerativechanges of the visualized spine. IMPRESSION IMPRESSION 1. Hepatic cirrhosis. Large recanalized umbilical vein. Mildsplenomegaly. 2. Anasarca, body wall edema and moderate abdominal and pelvic freefluid. 3. Other incidental findings as detailed above. Cathy Son MD RAD CT * CULTURE, URINE, QUANTITATIVE (02/08/2023 4:43 PM EST) Culture Growth No significant growth 02/09/2023 6:05 PM EST [facility] [facility] [place] Urine specimen / Unknown Non-blood Collection / Unknown 02/08/2023 4:43 PM EST 02/08/2023 4:43 PM EST Cathy Son MD LAB MICRO - GENERAL ORDERABLES [facility] [place] [address] [place] [address] * (ABNORMAL) URINALYSIS, REFLEX TO MICROSCOPIC (02/08/2023 4:43 PM EST) Color, Urine Light Yellow Colorless, Light Yellow, Yellow, Dark Yellow 02/08/2023 11:00 PM EST [facility] [place] Clarity, Urine Clear Clear 02/08/2023 11:00 PM EST [facility] [place] Glucose, Urine >=1000(A) Negative mg/dL 02/08/2023 11:00 PM EST [facility] [place] Bilirubin, Urine Negative Negative 02/08/2023 11:00 PM EST [facility] [place] [place] Ketone, Urine Negative Negative mg/dL 02/08/2023 11:00 PM EST [facility] [place] Specific [place], Urine 1.035(H) 1.003 - 1.030 02/08/2023 11:00 PM EST [facility] [place] Blood, Urine Negative Negative 02/08/2023 11:00 PM EST [facility] [place] [place] pH, Urine 6.5 5.0 - 7.5 Units 02/08/2023 11:00 PM EST [facility] [place] [place] Protein, Urine Negative Negative mg/dL 02/08/2023 11:00 PM EST [facility] [place] [place] Urobilinogen, Urine Normal Normal mg/dL 02/08/2023 11:00 PM EST [facility] [place] Nitrite, Urine Negative Negative 02/08/2023 11:00 PM EST [facility] [place] Esterase, Urine Negative Negative 11:00 PM EST [facility] [place] [place] Comment, Urine 02/08/2023 11:00 PM EST [facility] [place] Comment:Screen negative - Mi croscopic not performed. Urine Urine specimen / Unknown Non-blood Collection / Unknown 02/08/2023 4:43 PM EST 02/08/2023 4:43 PM EST Cathy Son MD LAB URINE ORDERABLES [facility] [place] [address] [place] [address] * AMMONIA (02/08/2023 4:33 PM EST) Ammonia 29 11 - 35 umol/L 02/08/2023 10:54 PM EST [facility] [place] [place] Blood Venous blood specimen / Unknown Venipuncture / Unknown 02/08/2023 4:33 PM EST 02/08/2023 4:33 PM EST Cathy Son MD LAB BLOOD ORDERABLES [facility] [address] [place] [address] * (ABNORMAL) COMPREHENSIVE METABOLIC PANEL (02/08/2023 4:33 PM EST) BUN 12 6 - 20 mg/dL 02/09/2023 1:47 AM EST [facility] Creatinine 0.5 0.5 - 1.0 mg/dL 02/09/2023 1:47 AM EST [facility] Estimated Glomerular Filtration Rate >90 >=60 mL/min 02/09/2023 1:47 AM EST [facility] Comment:eGFR is calculated b ased on the CKD-EPI 2020 equation Sodium 138 135 - 146 mmol/L 02/09/2023 1:47 AM EST [facility] Potassium 3.8 3.5 - 5.1 mmol/L 02/09/2023 1:47 AM EST [facility] Chloride 104 98 - 107 mmol/L 02/09/2023 1:47 AM EST [facility] CO2 24 22 - 32 mmol/L 02/09/2023 1:47 AM EST [facility] Anion Gap 10 7 - 15 mmol/L 02/09/2023 1:47 AM EST [facility] Glucose 188(H) 70 - 120 mg/dL 02/09/2023 1:47 AM EST [facility] Albumin 3.4(L) 3.8 - 5.0 g/dL 02/09/2023 1:47 AM EST [facility] AST 26 10 - 35 U/L 02/09/2023 1:47 AM EST [facility] Alkaline Phosphatase 97 35 - 130 U/L 02/09/2023 1:47 AM EST [facility] Bilirubin, Total 0.9 <=1.2 mg/dL 02/09/2023 1:47 AM EST [facility] Calcium 8.6 8.4 - 10.2 mg/dL 02/09/2023 1:47 AM EST [facility] Protein 6.5 6.0 - 8.3 g/dL 02/09/2023 1:47 AM EST [facility] ALT 23 10 - 35 U/L 02/09/2023 1:47 AM EST [place] [facility] [place] Venous blood specimen / Unknown Venipuncture / Unknown 02/08/2023 4:33 PM EST 02/08/2023 4:33 PM EST Cathy Son MD LAB BLOOD ORDERABLES Performing Organization Address [facility] de Phone Number LABORATORY [address] [address] * (ABNORMAL) BNP, NT-PRO (02/08/2023 4:33 PM EST) BNP, NT-Pro 303(H) <300 pg/mL 02/09/2023 1:47 AM EST [facility] [place] Venous blood specimen / Unknown Venipuncture / Unknown 02/08/2023 4:33 PM EST 02/08/2023 4:33 PM EST Narrative [facility] [place] 02/09/2023 1:47 AM EST Exclude Heart Failure: <300 pg/mL Diagnose Heart Failure: Age <50 yr: >450 pg/mL 50-75 yr: >900 pg/mL >75 yr: >1800 pg/mL GFR is 30-59 mL/min: >1200 pg/mL or Age-adjusted values GFR <30 mL/min: do not use, not reliable Prognostic threshold: 1000 pg/mL Cathy Son MD LAB BLOOD ORDERABLES Performing Organization Address [facility] de Phone Number LABORATORY [address] [address] documented in this encounter Visit Diagnoses Diagnosis Cirrhosis of liver with ascites, unspecified hepatic cirrhosis type (HCC)- Primary Hepatic encephalopathy (HCC) Hepatic encephalopathy Thrombocytopenia (HCC) Thrombocytopenia, unspecified Type 2 diabetes mellitus with hemoglobin A1c goal of less than 7.0% (HCC) Mild episode of recurrent major depressive disorder (HCC) Dementia of the Alzheimer's type, with late onset, uncomplicated (HCC) Alzheimer's disease Generalized weakness Other malaise and fatigue Leg swelling Swelling of limb SOB (shortness of breath) Shortness of breath documented in this encounter Care Teams Advertising Clerk Relationship Specialty Start Date End Date Tita Harris DO [address] [place] [address] PCP - General Family Medicine 10/30/12 documented as of this encounter
--- OUTSIDE RECORDS SUMMARY | 2023-04-26 00:03 | External Medical Summary ---
Author Name Unknown Address Unknown Organization K01:[facility] [place] [address] [place] [address] Laboratory Report Ordering Provider Test Date Status ARASELI GRULLON 03/26/2023 11:09:07 Final Observation Date Value Abnormality Reference (Units ) Status T4, Free 03/26/2023 11:09:07 1.8 Above high normal 0. 9-1.7 (ng/dL) Final Performing Location [facility] [address] [facility] [address]
--- OUTSIDE RECORDS SUMMARY | 2023-04-26 00:03 | External Medical Summary | Summary of Care ---
Author Name Unknown Organization [facility] Address [address] [facility] [place] [address] Phone [phone] Care Team Providers Care Open Tenter Operator Name Role Phone RalphTita hairston Rehana FLOWERS Primary Care Provider + [phone] Reason for Visit * Reason Comments Acute Hypotension and dizz iness since starting torsemide and feels tired and issues sleeping at night Encounter Details Date Type Department Care Team (Latest Contact Info) Description 02/22/2023 1:00 PM EST Office Visit [facility] [address] [place] [address] Cathy Son MD [address] [place] [address] Dizziness*; Cirrhosis of liver with ascites, unspecified hepatic cirrhosis type (HCC); Orthostatic hypotension; Dementia of the Alzheimer's type, with late onset, uncomplicated (HCC); Hepatic encephalopathy (HCC); Type 2 diabetes mellitus with hemoglobin A1c goal of less than 7.0% (HCC); Mild episode of recurrent major depressive disorder (HCC); Thrombocytopenia (HCC); Protein-calorie malnutrition, unspecified severity (HCC) Allergies Active Allergy Reactions Criticality Noted Date Comments Iodinated Contrast Media 04/16/1997 Levofloxacin In D5w Other (Please comment) 05/06 Seeing things Oxycodone-Acetaminophe n Neuro complications (Please comment) 02/29/2012 Nightmares, hearing and seeing things. documented as of this encounter (statuses as of 02/22/2023) Medications Medication Sig Dispensed Refills Start Date End Date Status zoster vac recomb adjuvanted (SHINGRIX) 50 MCG/0.5ML injectionIndicatio ns:Need for vaccination for zoster Inject 0.5 mL into a large muscle now and repeat dose in 60 to 180 days 1 Each 1 0 Active [place] ShuttleTouch Verio Flex System w/Device Kit Use as [...] hemoglobin A1c goal of less than 7.0% ([facility]) Use once daily to check blood sugar. [...] hemoglobin A1c goal of less than 7.0% ([facility]),Type 2 diabetes mellitus without complication, without long-term [...] the evening. 60 Tablet 5 4 Active Donepezil HCl 10 MG Oral Tablet (Aricept) Take 1 Tablet by mouth at bedtime. Take with largest meal of the day. 90 Tablet 3 4 Active traZODone HCl 50 MG Oral Tablet (Desyrel) Take 1 Tablet by mouth at bedtime. 30 Tablet 5 4 Active Triamcinolone Acetonide 0.1 [...] 90 Tablet 1 3 02/22/19 24 Discontinued Mirtazapine 45 MG Oral Tablet (Remeron)Indicatio ns:Insomnia, unspecified type,Dementia of the Alzheimer's type, with late onset, uncomplicated (HCC) TAKE 1 TABLET BY MOUTH AT BEDTIME 30 Tablet 0 4 02/22/19 24 Discontinued documented as of this encounter (statuses as of 02/22/2023) Active Problems Problem Noted Date Diagnosed Date [...] as of this encounter (statuses as of 02/22/2023) Resolved Problems Problem Noted Date Diagnosed Date [...] as of this encounter (statuses as of 02/22/2023) Immunizations Name Administration Dates Next Due Pneumococcal [...] Passive Smoke Exposure: Never Smokeless Tobacco: Never Tobacco Cessation:Counseling Given: Not Answered Alcohol Use Standard Drinks/Week Comments No 0 [...] Sign Reading Time Taken Comments Blood Pressure 100/62 02/22/2023 12:50 PM EST Pulse 84 02/22/2023 12:50 PM EST Temperature 36.3 C (97.3 F) 02/22/2023 1 2:50 PM EST Respiratory Rate 16 02/22/2023 12:5 0 PM EST Oxygen Saturation 98% 02/22/2023 12: 50 PM EST Inhaled Oxygen Concentration - - Weight 58.9 kg (129 lb 14.4 oz) 024 12:50 PM EST Height - - Body Mass Index 23.02 01/19/2023 8:59 AM EST documented in this encounter Progress Notes * Cathy Son MD - 02/22/2023 1:04 PM EST Subjective Naz Kennedy is a 77 year old female. Chief Complaint Patient presents with Acute Hypotension and dizziness since starting torsemide and feels tired and issues sleeping at night HPI: Here for recurrent dizziness, possible orthostatic hypotension with torsemide Was seen 2 wks ago for swelling legs, worse ascites with liver cirrhosis Changed to torsemide from furosemide which worked great but noticed low BP with dizziness Had cut down to daily use and today didn't take it Still dizziness but on standing BP was not showing typical orthostatic Discussed about holding on torsemide over wknd and continuing all other meds And compression stockings Type 2 DM , stable , last time 7.1 Taking meds Malnutrtion , muscle mass loss and also low albumin due to liver Hepatic encephalopathy, lactulose, stable , thrombocytopenia stable ( recent plt count was normal) Dementia ,has been on 5 mg aricept , will increase to 10 mg Known depression , chronic insomnia, anxiety , has been on remeron but not helping Denies significant depression mood, will try trazodone at first And might consider celexa or other depression med next time PMH: Patient Active Problem List Diagnosis Code [...] 60 to 180 days 1 Each 1 OneTouch Verio Flex System w/Device Kit Use as [...] mouth in the morning. 90 Tablet 1 [place] Sh[employer] Verio In Vitro Strip (Glucose Blood) USE [...] Tablet in the evening. 60 Tablet 5 Donepezil HCl 10 MG Oral Tablet (Aricept) Take 1 Tablet by mouth at bedtime. Take with largest mealof the day. 90 Tablet 3 traZODone HCl 50 MG Oral Tablet (Desyrel) Take 1 Tablet by mouth at bedtime. 30 Tablet 5 Albumin Human 25 % Intravenous Solution Infuse 50g IV before and 50g IV after paracentesis May administer at rate of 100ml/hr (Patient not taking: Reported on 09/11/2022) 50 mL 0 Clotrimazole 1 % Vaginal Cream Apply to [...] performed by Chris Pagan MD at ENDOSCOPY [facility] INFORMATION 01/16 Dr Guadarrama-- revision of right knee KNEE ARTHROSCOPY/MENISCECTOMY 2000 Knee Scope,Med/Lat Menisectomy- Thierry KNEE ARTHROSCOPY/MENISCUS REPAIR 1999 Knee Scope,Med+Lat Menis Repair- Dr Guadarrama REMOVAL OF APPENDIX 1974 Appendectomy- [place] on vacation REMOVAL OF OVARY(S) Oophrectomy,Bilat--ovarian cyst, [...] level: Not on file Occupational History Employer: [employer] [place] Tobacco Use Smoking status: Never Passive exposure: Never Smokeless tobacco: Never Vaping Use Vaping Use: Never used Substance and Sexual Activity Alcohol use: No Drug use: No Sexual activity: Yes Partners: Male Comment: no problems Other Topics Concern Not on file 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 Negative for appetite change, chills, diaphoresis, fever and unexpected weight change. HENT: Negative for congestion. Respiratory: Negative for cough, chest tightness, shortness of breath and wheezing. Cardiovascular: Negative for chest pain, palpitations and leg swelling. Gastrointestinal: Negative for abdominal distention, abdominal pain, constipation, diarrhea, nauseaand vomiting. Endocrine: Negative. Musculoskeletal: Positive for gait problem. Skin: Negative for pallor and rash. Neurological: Positive for dizziness and light-headedness. Negative for numbness and headaches. Psychiatric/Behavioral: Positive for dysphoric mood (mild) and sleep disturbance. Negative for agitation and behavioral problems. The patient is nervous/anxious. Objective BP 100/62 | Pulse 84 | Temp 36.3 C (97.3 F) | Resp 16 | Wt 58.9 kg (129 lb 14.4 oz) | SpO2 98% | BMI 23.02 kg/m | BSA 1.62 m Physical Exam Constitutional: General: She is not in acute distress. Appearance: Normal appearance. She is not ill-appearing, toxic-appearing or diaphoretic. HENT: Head: Normocephalic and atraumatic. Nose: Nose normal. Eyes: Extraocular Movements: Extraocular movements intact. Cardiovascular: Rate and Rhythm: Normal rate and regular rhythm. Pulses: Normal pulses. Heart sounds: Murmur heard. Pulmonary: Effort: Pulmonary effort is normal. No respiratory distress. Breath sounds: Normal breath sounds. No stridor. No wheezing, rhonchi or rales. Chest: Chest wall: No tenderness. Musculoskeletal: Right lower leg: No edema. Left lower leg: No edema. Neurological: General: No focal deficit present. Mental Status: She is alert and oriented to person, place, and time. Psychiatric: Behavior: Behavior normal. ASSESSMENT/PLAN: Dizziness (Primary) - AMMONIA; Future; Expected date: 02/22/2023 - COMPREHENSIVE METABOLIC PANEL; Future; Expected date: 02/22/2023 - CBC WITH WBC DIFFERENTIAL; Future; Expected date: 02/22/2023 Cirrhosis of liver with ascites, unspecified hepatic cirrhosis type (HCC) - AMMONIA; Future; Expected date: 02/22/2023 - COMPREHENSIVE METABOLIC PANEL; Future; Expected date: 02/22/2023 - CBC WITH WBC DIFFERENTIAL; Future; Expected date: 02/22/2023 Orthostatic hypotension Dementia of the Alzheimer's type, with late onset, uncomplicated (HCC) Hepatic encephalopathy (HCC) Type 2 diabetes mellitus with hemoglobin A1c goal of less than 7.0% (HCC) Mild episode of recurrent major depressive disorder (HCC) Thrombocytopenia (HCC) Protein-calorie malnutrition, unspecified severity (HCC) Other orders - Donepezil HCl 10 MG Oral Tablet (Aricept); Take 1 Tablet by mouth at bedtime. Take with largest meal of the day. - traZODone HCl 50 MG Oral Tablet (Desyrel); Take 1 Tablet by mouth at bedtime. Follow Up: Return in about 1 month (around 03/25/2023) for Clinic Visit. | For: Clinic Visit Hold torsemide Compression stockings And update me on Sunday Will adjust torsemide And increase dose of aricept And trial trazodone Hold remeron Spent 40 min Cathy Son MD documented in this encounter Nursing Notes * Kristi Dang LPN - 02/22/2023 12:56 PM EST The patient has been properly identified by confirmation of name and date of . Chief Complaint Patient presents with Acute Hypotension and dizziness since starting torsemide and feels tired and issues sleeping at night documented in this encounter Plan of Treatment Upcoming Encounters Date Type Department Care Team (Late st Contact Info) Description 03/26/2023 10:00 AM EST Office [facility] [address] [id number] Cathy Son MD [address] [facility] [address] 04/13/2023 10:30 AM EST Office Visit Gastroenterology, [facility] [address] [facility] [facility] [place] [address] Eda Mobley CRNP [address] [facility] [place] [address] 05/07/2023 8:50 AM EDT Office Visit [facility] [address] [facility] [phone] Tita [place] [facility] [address] [facility] [address] 11/20/2023 11:00 AM EDT Office Visit Neurology [facility] [address] [address] [place] [address] Christine Cassidy PA-C [address] [place] [id number] Pending Results Name Type Priority Associated Diagnoses Date /Time AMMONIA Lab Routine Dizziness Cirrhosis of liver with ascites, unspecified hepatic cirrhosis type (HCC) 02/22/2023 1:54 PM EST COMPREHENSIVE METABOLIC PANEL Lab Routine Dizziness Cirrhosis of liver with ascites, unspecified hepatic cirrhosis type (HCC) 02/22/2023 1:54 PM EST CBC WITH WBC DIFFERENTIAL Lab Routine Dizziness Cirrhosis of liver with ascites, unspecified hepatic cirrhosis type (HCC) 02/22/2023 1:54 PM EST Scheduled Orders Name Type Priority Associated Diagnoses Orde r Schedule AMMONIA Lab Routine Dizziness Cirrhosis of liver with ascites, unspecified hepatic cirrhosis type (HCC) Expected: 02/22/2023, Expires: 02/23/2024 COMPREHENSIVE METABOLIC PANEL Lab Routine Dizziness Cirrhosis of liver with ascites, unspecified hepatic cirrhosis type (HCC) Expected: 02/22/2023 (Approximate), Expires: 02/22/2024 CBC WITH WBC DIFFERENTIAL Lab Routine Dizziness Cirrhosis of liver with ascites, unspecified hepatic cirrhosis type (HCC) Expected: 02/22/2023 (Approximate), Expires: 02/23/2024 Health Maintenance Due Date Last Done Comments [...] 08/16/2023 023, 04/08/2021, 01/26/2016 TSH 08/16/2023 08/15/2022, 06, 04/08/2021, Additional history exists GFR 02/09/2024 02/08/2023, 1209/2022, 12/13/2022, Additional history exists DTaP,Tdap,and Td Vaccines (2 [...] as of this encounter Visit Diagnoses Diagnosis Dizziness- Primary Dizziness and giddiness Cirrhosis of liver with ascites, unspecified hepatic cirrhosis type (HCC) Orthostatic hypotension Dementia of the Alzheimer's type, with late onset, uncomplicated (HCC) Alzheimer's disease Hepatic encephalopathy (HCC) Hepatic encephalopathy Type 2 diabetes mellitus with hemoglobin A1c goal of less than 7.0% (HCC) Mild episode of recurrent major depressive disorder (HCC) Thrombocytopenia (HCC) Thrombocytopenia, unspecified Protein-calorie malnutrition, unspecified severity (HCC) documented in this encounter Care Teams Open Tenter Operator Relationship Specialty Start Date End Date Tita Harris DO [address] [place] [address] PCP - General Family Medicine 10/30/12 documented as of this encounter"
--- OUTSIDE RECORDS SUMMARY | 2023-04-26 00:03 | External Medical Summary | Summary of Care ---
Author Name Unknown Organization [facility] Address [address] [facility] [place] [address] Phone [phone] Care Team Providers Care Carbon Coater Machine Operator Name Role Phone Steven Tita Rehana DO Primary Care Provider [phone] Reason for Visit * Reason Comments eRx-Medication Refill Encounter Details Date Type Department Care Team (Late st Contact Info) Description 03/13/2023 Refill Neurology [facility] [place] [address] [place] [address] Wally Palmer DO [address] [place] [address] Allergies Active Allergy Reactions Criticality Noted Date Comments Iodinated Contrast Media 04/16/1997 Levofloxacin In D5w Other (Please comment) 05/06 Seeing things Oxycodone-Acetaminophe n Neuro complications (Please comment) 02/29/2012 Nightmares, hearing and seeing things. documented as of this encounter (statuses as of 03/19/2023) Medications Medication Sig Dispensed Refills Start Date End Date Status zoster vac recomb adjuvanted (SHINGRIX) 50 MCG/0.5ML injectionIndicat ions:Need for vaccination for zoster Inject 0.5 mL into a large muscle now and repeat dose in 60 to 180 days 1 Each 1 02/20/2019 Active Vimessaio Flex System w/Device Kit Use as directed . To test BG once daily. Dx. e11.9 1 Kit 3 05/23/2021 Active Premarin 0.625 MG/GM Vaginal Cream (Estrogens, Conjugated)Indic ations:Postmenop ausal atrophic vaginitis Administer into the vagina 0.5 g before bedtime. As directed.. 42.5 g 5 08/04/2021 Active Lactulose 10 GM/15ML Oral Solution (Constulose) Take 30 mL by mouth in the morning and 30 mL before bedtime. 5400 mL 3 02/22/2022 Active Albumin Human 25 % Intravenous Solution Infuse 50g IV before and 50g IV after paracentesis May administer at rate of 100ml/hr 50 mL 0 02/24/2022 Active Additional Information Patient not taking.Reported on 09/11/2022 Losartan Potassium 50 MG Oral Tablet (Cozaar)Indicati ons:HTN, goal below 130/80 Take 0.5 Tablets by mouth in the morning. 90 Tablet 3 05/17/2022 Active OneTouch UltraSoft LancetsIndicatio ns:Type 2 diabetes mellitus with hemoglobin A1c goal of less than 7.0% ([facility]) Use once daily to check [...] goal of less than 7.0% ([facility]),Type 2 diabetes mellitus without complication, without long-term current use of insulin ([facility]) USE TO CHECK GLUCOSE ONCE DAILY 150 Strip 3 09/22/2022 Active Chlorhexidine Gluconate 4 % External Liquid (Hibiclens)Indic ations:Neuroderm atitis,Staph infection Apply to scalp, upper shoulders, and back daily 120 mL 0 09/22/2022 Active Pantoprazole Sodium 20 MG Oral [...] the evening. 60 Tablet 5 02/08/2023 Active Donepezil HCl 10 MG Oral Tablet (Aricept) Take 1 Tablet by mouth at bedtime. Take with largest meal of the day. 90 Tablet 3 02/22/2023 Active traZODone HCl 50 MG Oral Tablet (Desyrel) Take 1 Tablet by mouth at bedtime. 30 Tablet 5 02/22/2023 Active Spironolactone 50 MG Oral Tablet (Aldactone) TAKE 1 TABLET BY MOUTH EVERY MORNING 90 Tablet 1 03/05/2023 Active Vitamin B-12 1000 MCG Oral Tablet (Cyanocobalamin) TAKE 1 TABLET BY MOUTH ONCE DAILY 90 Tablet 2 03/19/2023 Active Vitamin B-12 1000 MCG Oral Tablet (Cyanocobalamin) TAKE 1 TABLET BY MOUTH ONCE DAILY 90 Tablet 0 12/08/2022 03/19/19 24 Discontinued documented as of this encounter (statuses as of 03/19/2023) Active Problems Problem Noted Date Diagnosed Date Protein-calorie malnutrition 02/22/2023 Cirrhosis of liver 02/12/2023 Dementia of the Alzheimer's type, with late onset, uncomplicated 02/08/2023 Hepatic encephalopathy 09/22/2022 Asthma, non-allergic 01/03/2018 Reactive airway disease that is not asthma 05/22 /2018 Mild episode of recurrent major depressive disor [...] as of this encounter (statuses as of 03/19/2023) Resolved Problems Problem Noted Date Diagnosed Date [...] as of this encounter (statuses as of 03/19/2023) Immunizations Name Administration Dates Next Due Pneumococcal [...] encounter Miscellaneous Notes * Telephone Encounter - Tonie Rubio PA-C - 03/19/2023 7:51 AM EST Signed Prescriptions: Disp Refills Vitamin B-12 1000 MCG Oral Tablet (Cyanoco*90 Tab*2 Sig: TAKE 1 TABLET BY MOUTH ONCE DAILY Authorizing Provider: TONIE RUBIO * Telephone Encounter - Interface, E-Rx Ss Inbound - 03/19/2023 6:02 AM EST Pending Prescriptions: Disp Refills Vitamin B-12 1000 MCG Oral Tablet (Cyanoco*90 Tab*2 Sig: TAKE 1 TABLET BY MOUTH ONCE DAILY * Telephone Encounter - Interface, E-Rx Ss Inbound - 03/17/2023 6:02 AM EST Pending Prescriptions: Disp Refills Vitamin B-12 1000 MCG Oral Tablet (Cyanoco*90 Tab*2 Sig: TAKE 1 TABLET BY MOUTH ONCE DAILY * Telephone Encounter - Laura Barroso LPN - 03/16/2023 8:29 AM ESTPending Prescriptions: Disp Refills Vitamin B-12 1000 MCG Oral Tablet (Cyanoco*90 Tab*2 Sig: TAKE 1 TABLET BY MOUTH ONCE DAILY * Telephone Encounter - Gloria Murphy, [facility] - 03/15/2023 4:37 PM ESTPending Prescriptions: Disp Refills Vitamin B-12 1000 MCG Oral Tablet (Cyanoco*90 Tab*2 Sig: TAKE 1 TABLET BY MOUTH ONCE DAILY * Telephone Encounter - Michelle Bird CPhT - 03/15/2023 9:57 AM ESTPending Prescriptions: Disp Refills Vitamin B-12 1000 MCG Oral Tablet [Pharmac*90 Tab*0 Sig: TAKE 1 TABLET BY MOUTH ONCE DAILY * Telephone Encounter - Michelle Bird CPhT - 03/15/2023 9:56 AM EST Did you pend patient's preferred pharmacy and medication before forwarding?yes Pharmacy: [id number] [address] Pending Prescriptions: Disp Refills Vitamin B-12 1000 MCG Oral Tablet (Cyanoc*90 Tab*0 Sig: TAKE 1 TABLET BY MOUTH ONCE DAILY Last Visit: 11/22/2022 (in office), Visit date not found (telemedicine) Next Visit: 11/20/2023 If no future appointments scheduled, and last appointment is greater than a year ago, please schedule patient for a follow-up appointment Last date the medication was ordered: 12.08.22 Is this request for a controlled substance?No Urine Drug Screen:No results found. However, due to the size of the patient record, not all encounters were searched. Please check Results Review for a complete set of results. Patient Phone Numbers Labs: Lab Results Component Value Date/Time CREAT 0.9 02/22/2023 01:54 PM CREAT 0.6 01/08/2020 10:29 AM CREAT 0.6 (L) 05/13/1996 09:30 AM POTASSIUM 3.8 02/22/2023 01:54 PM POTASSIUM 3.9 01/08/2020 10:29 AM POTASSIUM 4.4 05/13/1996 09:30 AM TSH 0.01 (L) 08/15/2022 10:02 AM TSH 0.14 (L) 03/17/2019 12:09 PM TSH 4.64 05/13/1996 09:30 AM LDLCALC 64 08/07/2018 11:30 AM LDLDIRECT NOT APPLICABLE 04/28/2013 10:00 AM ALT 24 02/22/2023 01:54 PM ALT 21 01/08/2020 10:29 AM ALT 55 (H) 05/13/1996 09:30 AM HGBA1C 7.1 (H) 01/12/2023 11:22 AM HGBA1C 7.7 (H) 02/20/2019 11:49 AM * Telephone Encounter - Interface, E-Rx Ss Inbound - 03/15/2023 6:01 AM EST Pending Prescriptions: Disp Refills Vitamin B-12 1000 MCG Oral Tablet [Pharmac*90 Tab*0 Sig: TAKE 1 TABLET BY MOUTH ONCE DAILY documented in this encounter Plan of Treatment Upcoming Encounters Date Type Department Care Team (Late st Contact Info) Description 03/26/2023 10:00 AM EST Office [facility] [address] [facility] [phone] Cathy Son [facility] [address] [facility] [address] 04/13/2023 10:30 AM EST Office Visit Gastroenterology, [facility] [address] [facility] [place] [address] Eda Mobley CRNP [address] [facility] [place] [address] 05/07/2023 8:50 AM EDT Office Visit [facility] [address] [facility] [phone] Tita Harris [facility] [address] [facility] [address] 11/20/2023 11:00 AM EDT Office Visit Neurology [facility] [address] [facility], [place] [phone] Christine Cassidy PA-C [address] [phone] Health Maintenance Due Date Last Done Comments Hepatitis B (1 of 3 - Risk 3-dose series) 2003 Zoster Vaccines (2 of 3) 11/13/2011 09/18/2011 DXA Scan 11/26/2016 11/27/2011, 11/06, 08/10/2008, Additional history exists Depression Screening 08/18/2020 08/19/2019 COVID-19 Vaccine (3 - 2022- season) 2022 04/16/2020, 03/26/2020 Diabetic Foot Exam [...] filedocumented as of this encounter Care Teams Carbon Coater Machine Operator Relationship Specialty Start Date End Date Tita Harris DO [address] [place] [address] PCP - General Family Medicine 10/30/12 documented as of this encounter
--- OUTSIDE RECORDS SUMMARY | 2023-04-26 00:03 | External Medical Summary | Summary of Care ---
Author Name Unknown Organization [facility] Address [address] [facility] [place] [address] Phone [phone] Care Team Providers Care Sales Specialist Name Role Phone Neal Harrisa Rehana DO Primary Care Provider [phone] Reason for Visit * Reason Comments eRx-Medication Refill Encounter Details Date Type Department Care Team (Late st Contact Info) Description 03/16/2023 Refill Neurology [facility] [place] [address] [place] [address] Wally Palmer DO [address] [place] [address] Insomnia, unspecified type; Dementia of the Alzheimer's type, with late onset, uncomplicated (HCC) Allergies Active Allergy Reactions Criticality Noted Date Comments Iodinated Contrast Media 04/16/1997 Levofloxacin In D5w Other (Please comment) 05/06 Seeing things Oxycodone-Acetaminophe n Neuro complications (Please comment) 02/29/2012 Nightmares, hearing and seeing things. documented as of this encounter (statuses as of 03/16/2023) Medications Medication Sig Dispensed Refills Start Date End Date Status zoster vac recomb adjuvanted (SHINGRIX) 50 MCG/0.5ML injectionIndicatio ns:Need for vaccination for zoster Inject 0.5 mL into a large muscle now and repeat dose in 60 to 180 days 1 Each 1 02/20/2019 Active Sharematic Flex System w/Device Kit Use as directed [...] 90 Tablet 3 05/17/2022 Active OneTouch UltraSoft LancetsIndications :Type 2 diabetes mellitus with hemoglobin A1c goal of less than 7.0% ([facility]) Use once daily to check blood sugar. E11.9 100 Each 5 07/26/2022 Active OneTouch Delica Lancets 33G Use once daily to check blood sugar. E11.9 100 Each 3 07/31/2022 Active Clotrimazole 1 % Vaginal CreamIndications:V aginal [...] goal of less than 7.0% ([facility]),Type 2 diabetes mellitus without complication, without long-term current use of insulin ([facility]) USE TO CHECK GLUCOSE ONCE DAILY 150 Strip 3 09/22/2022 Active Chlorhexidine Gluconate 4 % External Liquid (Hibiclens)Indicat ions:Neurodermatit is,Staph infection Apply to scalp, upper shoulders, and back daily 120 mL 0 09/22/2022 Active Vitamin B-12 1000 MCG Oral Tablet (Cyanocobalamin) TAKE 1 TABLET BY MOUTH ONCE DAILY 90 Tablet 0 12/08/2022 Active Pantoprazole Sodium 20 MG Oral Tablet Delayed Release (Protonix)Indicati ons:Gastrointestin al hemorrhage associated with gastritis, unspecified gastritis type TAKE 1 TABLET BY MOUTH TWICE DAILY every morning and before bedtime 60 Tablet 5 12/10/2022 Active Clindamycin Phosphate 1 % External SwabIndications:Sc [...] 02/07/2023 Active Jardiance 25 MG Oral Tablet (Empagliflozin)Ind [...] EVERY MORNING 90 Tablet 1 03/05/2023 Active documented as of this encounter (statuses as of 03/16/2023) Active Problems Problem Noted Date Diagnosed Date [...] as of this encounter (statuses as of 03/16/2023) Resolved Problems Problem Noted Date Diagnosed Date [...] as of this encounter (statuses as of 03/16/2023) Immunizations Name Administration Dates Next Due Pneumococcal [...] encounter Miscellaneous Notes * Telephone Encounter - Jose Aguayo RPh - 03/16/2023 11:45 AM ESTRefused Prescriptions: Disp Refills Mirtazapine 45 MG Oral Tablet (Remeron) 30 Tab*0 Sig: TAKE 1 TABLET BY MOUTH AT BEDTIMERefused By: Kathrin AGUAYO for Refusal: Course of treatment complete---- documented in this encounter Plan of Treatment Upcoming Encounters Date Type Department Care Team (Late st Contact Info) Description 03/26/2023 10:00 AM EST [facility] [place] [address] [facility] [phone] Cathy Son [facility] [address] [facility] [address] 04/13/2023 10:30 AM EST Office Visit Gastroenterology, [facility] [address] [place] [address] Eda Mobley CRNP [address] [address] 05/07/2023 8:50 AM EDT Office Visit [facility] [address] [facility] [phone] Tita Harris [facility] [address] [facility] [address] 11/20/2023 11:00 AM EDT Office Visit Neurology [facility] [place] [address] [facility] [address] Christine Cassidy PA-C [address] [place] [address] Health Maintenance Due Date Last Done Comments [...] 04/08/2021, Additional history exists GFR 02/23/2024 02/22/2023, 0105/2023, 01/12/2023, Additional history exists DTaP,Tdap,and Td Vaccines [...] as of this encounter Visit Diagnoses Diagnosis Insomnia, unspecified type Dementia of the Alzheimer's type, with late onset, uncomplicated (HCC) Alzheimer's disease documented in this encounter Care Teams Sales Specialist Relationship Specialty Start Date End Date Tita Harris DO [address] [place] [facility] [place] [address] PCP - General Family Medicine 10/30/12 documented as of this encounter
--- OUTSIDE RECORDS SUMMARY | 2023-04-26 00:03 | External Medical Summary | Summary of Care ---
Author Name Unknown Organization [facility] Address [address] [facility] [place] [address] Phone [phone] Care Team Providers Care Outpatient Case Manager Name Role Phone Neal Harrisa Rehana FLOWERS Primary Care Provider [phone] Reason for Visit * Reason Comments eRx-Medication Refill Encounter Details Date Type Department Care Team (Late st Contact Info) Description 03/04/2023 Refill Gastroenterology, [facility] [address] [place] [address] Eda Heart CRNP [address] [place] [address] Allergies Active Allergy Reactions Criticality Noted Date Comments Iodinated Contrast Media 04/16/1997 Levofloxacin In D5w Other (Please comment) 05/06 Seeing things Oxycodone-Acetaminophe n Neuro complications (Please comment) 02/29/2012 Nightmares, hearing and seeing things. documented as of this encounter (statuses as of 03/05/2023) Medications Medication Sig Dispensed Refills Start Date End Date Status zoster vac recomb adjuvanted (SHINGRIX) 50 MCG/0.5ML injectionIndicat ions:Need for vaccination for zoster Inject 0.5 mL into a large muscle now and repeat dose in 60 to 180 days 1 Each 1 02/20/2019 Active Next Step Living Flex System w/Device Kit Use as directed [...] hemoglobin A1c goal of less than 7.0% ([facility]) Use once daily to check blood sugar. [...] hemoglobin A1c goal of less than 7.0% ([facility]),Type 2 diabetes mellitus without complication, without long-term current use of insulin ([facility]) USE TO CHECK GLUCOSE ONCE DAILY 150 [...] EVERY MORNING 90 Tablet 1 03/05/2023 Active Spironolactone 50 MG Oral Tablet (Aldactone) Take 1 Tablet by mouth in the morning. 90 Tablet 1 09/11/2022 03/05/19 24 Discontinued documented as of this encounter (statuses as of 03/05/2023) Active Problems Problem Noted Date Diagnosed Date [...] as of this encounter (statuses as of 03/05/2023) Resolved Problems Problem Noted Date Diagnosed Date [...] as of this encounter (statuses as of 03/05/2023) Immunizations Name Administration Dates Next Due Pneumococcal [...] encounter Miscellaneous Notes * Telephone Encounter - Eda Heart CRNP - 03/05/2023 2:50 PM EST Signed Prescriptions: Disp Refills Spironolactone 50 MG Oral Tablet (Aldacton*90 Tab*1 Sig: TAKE 1 TABLET BY MOUTH EVERY MORNING Authorizing Provider: EDA HEART * Telephone Encounter - Reyes Sawyer [facility] - 03/05/2023 2:14 PM EST Pending Prescriptions: Disp Refills Spironolactone 50 MG Oral Tablet (Aldacton*90 Tab*1 Sig: TAKE 1 TABLET BY MOUTH EVERY MORNING * Telephone Encounter - Reyes Sawyer [facility] - 03/05/2023 2:11 PM EST [facility] is currently not authorized to approve refills for the pended medication(s) per refill protocol. Please approve if appropriate. Thank You, Reyes Sawyer, Pharm-D Clinical Pharmacist [facility] ([facility]) (Formerly [facility]) [phone] 03/05/2023, 2:11 PM Did you pend patient's preferred pharmacy and medication before forwarding?yes Pharmacy: [id number] [address] Pending Prescriptions: Disp Refills Spironolactone 50 MG Oral Tablet (Aldacto*90 Tab*1 Sig: TAKE 1 TABLET BY MOUTH EVERY MORNING Last Visit: 12/13/2022 (in office), Visit date not found (telemedicine) Next Visit: 04/13/2023 If no future appointments scheduled, and last appointment is greater than a year ago, please schedule patient for a follow-up appointment Last date the medication was ordered: 09/11/2022 Is this request for a controlled substance?No [...] AM HGBA1C 7.7 (H) 02/20/2019 11:49 AM documented in this encounter Plan of Treatment Upcoming Encounters Date Type Department Care Team (Late st Contact Info) Description 03/26/2023 10:00 AM EST Office [facility] [address] [facility] [phone] Cathy Son MD [address] [facility] [address] 04/13/2023 10:30 AM EST Office [facility], [facility] [place] [address] Eda Heart CRNP [address] [place] [address] 05/07/2023 8:50 AM EDT Office [facility] [address] [facility] [phone] Tita Harris DO [address] [facility] [address] 11/20/2023 11:00 AM EDT Office Visit Neurology [facility] [address] [place] [address] Christine Cassidy PA-C [address] [facility] [place] [address] Health Maintenance Due Date Last Done Comments [...] 04/08/2021, Additional history exists GFR 02/23/2024 02/22/2023, 0 05/2023, 01/12/2023, Additional history exists DTaP,Tdap,and Td [...] filedocumented as of this encounter Care Teams Outpatient Case Manager Relationship Specialty Start Date End Date Tita Harris DO [address] [place] [address] PCP - General Family Medicine 10/30/12 documented as of this encounter
--- OUTSIDE RECORDS SUMMARY | 2023-04-26 00:03 | External Medical Summary ---
Author Name Unknown Address Unknown Organization [id number]:[facility] [place] - [address] [address] Laboratory Report Ordering Provider Test Date Status ARASELI GRULLON 03/26/2023 11:09:07 Final Exclude Heart Failure: <300 pg/mL
Diagnose Heart Failure:
Age <50 yr: >450 pg/mL
50-75 yr: >900 pg/mL
>75 yr: >1800 pg/mL
GFR is 30-59 mL/min: >1200 pg/mL or Age- adjusted values
GFR <30 mL/min: do not use, not reliable

Prognostic threshold: 1000 pg/mL Observation Date Value Abnormality Reference (Units ) Status BNP, Pro-hormone 03/26/2023 11:09:07 369 Above high no rmal <300 (pg/mL) Final Performing Location [facility] – [place] - [facility] [address] [place] [address]
--- OUTSIDE RECORDS SUMMARY | 2023-04-26 00:04 | External Medical Summary | Summary of Care ---
Author Name Unknown Organization [facility] Address [address] [facility] [place] [address] Phone [phone] Care Team Providers Care Turnaround Planner Name Role Phone RalphTita hairston Rehana FLOWERS Primary Care Provider + [phone] Reason for Visit * Reason Comments Outpatient Testing Encounter Details Date Type Department Care Team (Late st Contact Info) Description 02/22/2023 1:50 PM EST Laboratory [facility], [facility] [address] [place] [address] [facility] [address] [place] [address] Dizziness; Cirrhosis of liver with ascites, unspecified hepatic cirrhosis type (HCC) Allergies Active Allergy Reactions Criticality Noted [...] 180 days 1 Each 1 02/20/2019 Active OneTouch Verio Flex System w/Device Kit Use [...] hemoglobin A1c goal of less than 7.0% ([facility]) Use once daily to check blood sugar. [...] other meds). 30 Tablet 11 09/08/2022 Active Spironolactone 50 MG Oral Tablet (Aldactone) Take 1 Tablet by mouth in the morning. 90 Tablet 1 09/11/2022 Active OneTouch Verio In Vitro Strip (Glucose Blood)Indications: Type 2 diabetes mellitus with hemoglobin A1c goal of less than 7.0% ([facility]),Type 2 diabetes mellitus without complication, without long-term current use of insulin ([facility]) USE TO CHECK GLUCOSE ONCE DAILY 150 [...] at bedtime. 30 Tablet 5 02/22/2023 Active documented as of this encounter (statuses [...] Description 03/26/2023 10:00 AM EST Office Visit [facility] [address] [place] [facility] [place] [phone] Cathy Son MD [address] [place] [address] 04/13/2023 10:30 AM EST Office Visit Gastroenterology, [facility] [address] [facility] [place] [address] Eda Mobley CRNP [address] [facility] [place] [address] 05/07/2023 8:50 AM EDT Office Visit [facility] [address] [facility] [phone] Tita Harris DO [address] [place] [address] 11/20/2023 11:00 AM EDT Office Visit Neurology [facility] [address] [place] [address] Christine Cassidy PA-C [address] [address] Pending Results Name Type Priority Associated Diagnoses [...] type (HCC) 02/22/2023 1:54 PM EST CBC Lab Routine Dizziness Cirrhosis of liver with ascites, unspecified hepatic cirrhosis type (HCC) 02/22/2023 1:54 PM EST DIFFERENTIAL, AUTOMATED Lab Routine Dizziness Cirrhosis of liver with ascites, unspecified hepatic cirrhosis type (HCC) 02/22/2023 1:54 PM EST Health Maintenance Due Date Last [...] 04/08/2021, Additional history exists GFR 02/09/2024 02/08/2023, 12/0 09/2022, 12/13/2022, Additional history exists DTaP,Tdap,and Td Vaccines [...] as of this encounter Visit Diagnoses Diagnosis Dizziness Dizziness and giddiness Cirrhosis of liver with ascites, unspecified hepatic cirrhosis type (HCC) documented in this encounter Care Teams Turnaround Planner Relationship Specialty Start Date End Date Tita Harris DO [address] [place] [address] PCP - General Family Medicine 10/30/12 documented as of this encounter
--- OUTSIDE RECORDS SUMMARY | 2023-04-26 00:04 | External Medical Summary | Summary of Care ---
Author Name Unknown Organization [facility] Address [address] [facility] [place] [address] Phone [phone] Care Team Providers Care Railway Traction Line Worker Name Role Phone Tita Harris DO Primary Care Provider [phone] Reason for Visit * Reason Onset Date Comments Test Results 01/30/2023 Encounter Details Date Type Department Care Team (Late st Contact Info) Description 01/30/2023 Telephone [facility] [address] [place] [address] Tita Harris [address] [place] [address] Test Results Allergies Active Allergy Reactions Criticality Noted Date Comments Iodinated Contrast Media 04/16/1997 Levofloxacin In D5w Other (Please comment) 05/06 Seeing things Oxycodone-Acetaminophe n Neuro complications (Please comment) 02/29/2012 Nightmares, hearing and seeing things. documented as of this encounter (statuses as of 02/14/2023) Medications Medication Sig Dispensed Refills Start Date End Date Status zoster vac recomb adjuvanted (SHINGRIX) 50 MCG/0.5ML injectionIndications :Need for vaccination for zoster Inject 0.5 mL into a large muscle now and repeat dose in 60 to 180 days 1 Each 1 02/20/2019 Active Additional Information Patient not taking.Reported on 01/16/2023 GonnaBe Verio Flex System w/Device Kit Use as [...] 09/11/2022 Losartan Potassium 50 MG Oral Tablet (Cozaar)Indications: HTN, goal below 130/80 Take 0.5 Tablets by mouth in the morning. 90 Tablet 3 05/17/2022 Active Triamcinolone Acetonide 0.1 % External Ointment (Aristocort)Indicati ons:Skin infection Apply topically to affected area 2 times a day. To affected area. 15 g 5 05/17/2022 Active Additional Information Patient not taking.Reported on 09/11/2022 Terabitzuch UltraSoft LancetsIndications:T ype 2 diabetes mellitus with hemoglobin A1c goal of less than 7.0% ([facility]) Use once daily to check blood sugar. E11.9 100 Each 5 07/26/2022 Active CloudmachTouch Delica Lancets 33G Use once daily to [...] Active OneTouch Verio In Vitro Strip (Glucose Blood)Indications:Ty pe 2 diabetes mellitus with hemoglobin A1c goal of less than 7.0% (HCC),Type 2 diabetes mellitus without complication, without long-term current use of insulin (HCC) USE TO CHECK GLUCOSE ONCE DAILY 150 Strip 3 09/22/2022 Active Chlorhexidine Gluconate 4 % External Liquid (Hibiclens)Indicatio ns:Neurodermatitis,S taph infection Apply to scalp, upper shoulders, and back daily 120 mL 0 09/22/2022 Active Donepezil HCl 5 MG Oral Tablet (Aricept)Indications :Dementia of the Alzheimer's type, with late onset, uncomplicated (HCC) TAKE 1 TABLET BY MOUTH EVERY MORNING with the largest meal of the day 90 Tablet 1 11/11/2022 Active Additional Information Patient not taking.Reported on 11/22/2022 Vitamin B-12 1000 MCG Oral Tablet (Cyanocobalamin) [...] by mouth in the morning. 0 Active documented as of this encounter (statuses as of 02/14/2023) Active Problems Problem Noted Date Diagnosed Date Cirrhosis of liver 02/12/2023 Dementia of the [...] as of this encounter (statuses as of 02/14/2023) Resolved Problems Problem Noted Date Diagnosed Date [...] BMI= 40.03 06/22/08 06/22/2008 08/01/2016 [facility] SKIN, LEFT SHOULDER 06/22/2008 01/04/2012 Other seborrheic [...] as of this encounter (statuses as of 02/14/2023) Immunizations Name Administration Dates Next Due Pneumococcal [...] encounter Miscellaneous Notes * Telephone Encounter - Kristi Dang LPN - 01/30/2023 11:27 AM EST Spoke with daughter, she was given results and verbalized understanding. * Telephone Encounter - Dimitri Byrne LPN - 01/30/2023 10:05 AM EST ----- Message from Tita Harris DO sent at 01/27/2023 3:44 PM EST ----- Recent labwork has improved. Cont current meds. Results for orders placed or performed in visit on 01/12/23 -HEMOGLOBIN A1C: Result Value Ref Range Hemoglobin A1C 7.1 (H) 4.0 - 5.6 % Estimated Average Glucose 157 (H) <126 mg/dL -BASIC METABOLIC PANEL: Result Value Ref Range BUN 14 6 - 20 mg/dL Creatinine 0.6 0.5 - 1.0 mg/dL Estimated Glomerular Filtration Rate 90 >=60 mL/min Sodium 139 135 - 146 mmol/L Potassium 4.0 3.5 - 5.1 mmol/L Chloride 102 98 - 107 mmol/L CO2 26 22 - 32 mmol/L Anion Gap 11 7 - 15 mmol/L Glucose 138 (H) 70 - 120 mg/dL Calcium 8.9 8.4 - 10.2 mg/dL -CBC: Result Value Ref Range WBC 5.52 4.00 - 10.80 K/uL RBC 3.84 3.85 - 5.15 M/uL HGB 12.3 12.0 - 15.3 g/dL HCT 38.0 36.0 - 45.2 % MCV 99.0 81.5 - 97.5 fL MCH 32.0 27.0 - 34.0 pg MCHC 32.4 32.0 - 36.0 g/dL RDW 17.3 11.5 - 15.5 % PLT 131 (L) 140 - 400 K/uL MPV 11.1 6.6 - 11.1 fL nRBCs 0 <=0 /100 WBCs -VITAMIN B12: Result Value Ref Range Vitamin B12 1,015 232 - 1,245 pg/mL #Note: Due to a large number of results and/or encounters for the requested time period, some results have not been displayed. A complete set of results can be found in Results Review. documented in this encounter Plan of Treatment Upcoming Encounters Date Type Department Care Team (Late st Contact Info) Description 04/13/2023 10:30 AM EST Office Visit Gastroenterology, [facility] [address] [place] [address] Eda Mobley CRNP [address] [place] [address] 05/07/2023 8:50 AM EDT Office Visit [facility] [address] [place] [id number] Tita Harris DO [address] [facility] [place] [address] 11/20/2023 11:00 AM EDT Office Visit Neurology [facility] [address] [place] [facility] [place] [address] Christine Cassidy PA-C [address] [facility] [place] [address] Health Maintenance Due Date Last Done Comments [...] 08/15/2022, 07/08, 04/08/2021, Additional history exists GFR 02/09/2024 02/08/2023, [...] filedocumented as of this encounter Care Teams Railway Traction Line Worker Relationship Specialty Start Date End Date Tita Harris DO [address] [place] [address] PCP - General Family Medicine 10/30/12 documented as of this encounter
--- OUTSIDE RECORDS SUMMARY | 2023-04-26 00:04 | External Medical Summary ---
Author Name Unknown Address Unknown Organization K01:LABORATORY [facility] [place] - [address] [facility] [address] [place] [address] Laboratory Report Ordering Provider Test Date Status ARASELI GRULLON 02/22/2023 13:54:13 Final Observation Date Value Abnormality Reference (Units ) Status SYNC LEUKOCYTES IN BLOOD BY AUTOMATED COUNT 02/22/2023 13:54:13 8.77 4.00-10.80 (K/uL) Final Segs 02/22/2023 13:54:13 78.6 Above high normal 40.0-75.0 (%) Final Lymphs % 02/22/2023 13:54:13 11.3 Below low normal 18.0-42.0 (%) Final Monos 02/22/2023 13:54:13 8.6 1.0-11.0 (%) Final Eosinophils 02/22/2023 13:54:13 0.2 0.0-6.0 (%) Final Basos 02/22/2023 13:54:13 0.5 0.0-2.0 (%) Final Immature Granulocyte, Percent 02/22/2023 13:54:13 0.8 0.0-2.0 (%) Final Performing Location LABORATORY [facility] [place] - [address] [place] [address]
--- OUTSIDE RECORDS SUMMARY | 2023-04-26 00:04 | External Medical Summary ---
Author Name Unknown Address Unknown Organization K01:LABORATORY [facility] [place] - [address] [facility] [place] [address] Laboratory Report Ordering Provider Test Date Status ARASELI GRULLON 02/22/2023 13:54:13 Final Observation Date Value Abnormality Reference (Units ) Status BUN 02/22/2023 13:54:13 28 Above high normal 6-20 (mg/dL) Final Creatinine 02/22/2023 13:54:13 0.9 0.5-1.0 (mg/dL) Final Glomerular filtration rate/1.73 sq M.predicted [Volume Rate/Area] in Serum, Plasma or Blood by Creatinine-based formula (CKD-EPI) 02/22/2023 13:54:13 68 >=60 (mL/min) Final eGFR is calculated based on the CKD-EPI 2020 equation SODIUM 02/22/2023 13:54:13 132 Below low normal 135 -146 (mmol/L) Final Potassium 02/22/2023 13:54:13 3.8 3.5-5.1 (m mol/L) Final Cl 02/22/2023 13:54:13 91 Below low normal 98- 107 (mmol/L) Final CO2 02/22/2023 13:54:13 24 22-32 (mmo l/L) Final Anion gap 02/22/2023 13:54:13 17 Above high normal 7- 15 (mmol/L) Final Glucose 02/22/2023 13:54:13 236 Above high normal 70 -120 (mg/dL) Final Albumin 02/22/2023 13:54:13 3.6 Below low normal 3.8 -5.0 (g/dL) Final AST (Aspartate aminotransferase) 02/22/2023 13:54:13 26 10-35 (U/L) Fin al Alk Phos 02/22/2023 13:54:13 95 35-130 (U/ L) Final Bilirubin, Total 02/22/2023 13:54:13 0.7 <=1 .2 (mg/dL) Final Calcium 02/22/2023 13:54:13 9.0 8.4-10.2 ( mg/dL) Final Protein 02/22/2023 13:54:13 6.9 6.0-8.3 (g /dL) Final ALT (Alanine aminotransferase) 02/22/2023 13:54:13 24 10-35 (U/L) Phillip chang Performing Location LABORATORY [facility] [place] - [address] [facility] [address]
--- OUTSIDE RECORDS SUMMARY | 2023-04-26 00:04 | External Medical Summary ---
Author Name Unknown Address Unknown Organization K01:[place] [place] [facility][note 3] [address] [facility] [address] [facility] [address] Laboratory Report Ordering Provider Test Date Status ARASELI GRULLON 02/22/2023 13:54:13 Final Observation Date Value Abnormality Reference (Units ) Status WBC, Total 02/22/2023 13:54:13 8.77 4.00-10.8 0 (K/uL) Final RBC 02/22/2023 13:54:13 3.99 3.85-5.15 (M/uL) Final Hemoglobin 02/22/2023 13:54:13 12.5 12.0-15.3 (g/dL) Final HCT 02/22/2023 13:54:13 37.3 36.0-45.2 (%) Final MCV 02/22/2023 13:54:13 93.5 81.5-97.5 (fL) Final MCH 02/22/2023 13:54:13 31.3 27.0-34.0 (pg) Final MCHC 02/22/2023 13:54:13 33.5 32.0-36.0 (g/dL) Final RDW 02/22/2023 13:54:13 17.2 11.5-15.5 (%) Final Platelets 02/22/2023 13:54:13 149 140-400 (K /uL) Final MPV 02/22/2023 13:54:13 Final No result - abnormal platele t distribution. Nucleated erythrocytes/100 l eukocytes [Ratio] in Blood by Automated count 02/22/2023 13:54:13 0 <=0 (/100 WBCs) Final Performing Location [facility] [place] [address] [place] [address]
--- OUTSIDE RECORDS SUMMARY | 2023-04-26 00:04 | External Medical Summary | Summary of Care ---
Author Name Unknown Organization [facility] Address [address] [facility] [place] [address] Phone [phone] Care Team Providers Care Tower Operator Name Role Phone Neal Harrisa Rehana FLOWERS Primary Care Provider [phone] Reason for Visit * Reason Comments eRx-Medication Refill Encounter Details Date Type Department Care Team (Late st Contact Info) Description 02/10/2023 Refill Gastroenterology, [facility] [address] [place] [address] Joyce Bella CRNP [address] [place] [address] Allergies Active Allergy Reactions Criticality Noted Date Comments Iodinated Contrast Media 04/16/1997 Levofloxacin In D5w Other (Please comment) 05/06 Seeing things Oxycodone-Acetaminophe n Neuro complications (Please comment) 02/29/2012 Nightmares, hearing and seeing things. documented as of this encounter (statuses as of 02/13/2023) Medications Medication Sig Dispensed Refills Start Date End Date Status zoster vac recomb adjuvanted (SHINGRIX) 50 MCG/0.5ML injectionIndication s:Need for vaccination for zoster Inject 0.5 mL into a large muscle now and repeat dose in 60 to 180 days 1 Each 1 02/20/2019 Active Additional Information Patient not taking.Reported on 01/16/2023 OneTouch Verio Flex System w/Device Kit Use [...] 09/11/2022 Losartan Potassium 50 MG Oral Tablet (Cozaar)Indications :HTN, goal below 130/80 Take 0.5 Tablets by mouth in the morning. 90 Tablet 3 05/17/2022 Active Triamcinolone Acetonide 0.1 % External Ointment (Aristocort)Indicat ions:Skin infection Apply topically to affected area 2 times a day. To affected area. 15 g 5 05/17/2022 Active Additional Information Patient not taking.Reported on 09/11/2022 Scopix UltraSoft LancetsIndications: Type 2 diabetes mellitus with hemoglobin A1c goal of less than 7.0% ([facility]) Use once daily to check blood sugar. E11.9 100 Each 5 07/26/2022 Active EasyPaintTouch Delica Lancets 33G Use once daily to [...] the morning. 90 Tablet 1 09/11/2022 Active CancerGuide Diagnosticsio In Vitro Strip (Glucose Blood)Indications:T ype 2 diabetes mellitus with hemoglobin A1c goal of less than 7.0% (HCC),Type 2 diabetes mellitus without complication, without long-term current use of insulin (HCC) USE TO CHECK GLUCOSE ONCE DAILY 150 Strip 3 09/22/2022 Active Chlorhexidine Gluconate 4 % External Liquid (Hibiclens)Indicati ons:Neurodermatitis ,Staph infection Apply to scalp, upper shoulders, and back daily 120 mL 0 09/22/2022 Active Donepezil HCl 5 MG Oral Tablet (Aricept)Indication s:Dementia of the Alzheimer's type, with late onset, [...] the evening. 60 Tablet 5 02/08/2023 Active Mirtazapine 45 MG Oral Tablet (Remeron)Indication s:Insomnia, unspecified type,Dementia of the Alzheimer's type, with late onset, uncomplicated (HCC) TAKE 1 TABLET BY MOUTH AT BEDTIME 30 Tablet 0 02/12/2023 Active documented as of this encounter (statuses as of 02/13/2023) Active Problems Problem Noted Date Diagnosed Date [...] as of this encounter (statuses as of 02/13/2023) Resolved Problems Problem Noted Date Diagnosed Date [...] as of this encounter (statuses as of 02/13/2023) Immunizations Name Administration Dates Next Due Pneumococcal [...] encounter Miscellaneous Notes * Telephone Encounter - Amor Montoya RPh - 02/13/2023 10:09 AM ESTRefused Prescriptions: Disp Refills Furosemide 20 MG Oral Tablet (Lasix) 30 Tab*0 Sig: TAKE ONE TABLET BY MOUTH EVERY MORNINGRefused By: Spring MONTOYA for Refusal: Course of treatment complet e * Telephone Encounter - Baljit E-Rx Ss Inbound - 02/12/2023 6:10 AM EST Pending Prescriptions: Disp Refills Furosemide 20 MG Oral Tablet [Pharmacy Med*30 Tab*0 Sig: TAKE ONE TABLET BY MOUTH EVERY MORNING documented in this encounter Plan of Treatment Upcoming Encounters Date Type Department Care Team (Late st Contact Info) Description 04/13/2023 10:30 AM EST Office Visit Gastroenterology, [facility] [address] [place] [address] Eda Mobley CRNP [address] [place] [address] 05/07/2023 8:50 AM EDT [facility] [address] [facility] [phone] Tita Harris DO [address] [place] [facility] [address] 11/20/2023 11:00 AM EDT Office Visit [facility] [address] [facility] [address] Christine Cassidy PA-C [address] [facility] [place] [address] Health Maintenance Due Date Last Done Comments [...] filedocumented as of this encounter Care Teams Tower Operator Relationship Specialty Start Date End Date Tita Harris DO [address] [place] [address] PCP - General Family Medicine 10/30/12 documented as of this encounter
--- OUTSIDE RECORDS SUMMARY | 2023-04-26 00:04 | External Medical Summary | Summary of Care ---
Author Name Unknown Organization [facility] Address [address] [facility] [place] [address] Phone [phone] Care Team Providers Care Cross Roller Name Role Phone Neal Harrisa Rehana DO Primary Care Provider [phone] Reason for Visit * Reason Comments eRx-Medication Refill Encounter Details Date Type Department Care Team (Late st Contact Info) Description 02/10/2023 Refill Neurology [facility] [place] [address] [place] [address] Wally Odell DO [address] [place] [address] Insomnia, unspecified type; Dementia of the Alzheimer's type, with late onset, uncomplicated (HCC) Allergies Active Allergy Reactions Criticality Noted Date Comments Iodinated Contrast Media 04/16/1997 Levofloxacin In D5w Other (Please comment) 05/06 Seeing things Oxycodone-Acetaminophe n Neuro complications (Please comment) 02/29/2012 Nightmares, hearing and seeing things. documented as of this encounter (statuses as of 02/12/2023) Medications Medication Sig Dispensed Refills Start Date End Date Status zoster vac recomb adjuvanted (SHINGRIX) 50 MCG/0.5ML injectionIndicatio ns:Need for vaccination for zoster Inject 0.5 mL into a large muscle now and repeat dose in 60 to 180 days 1 Each 1 0 Active Additional Information Patient not taking.Reported on 01/16/2023 NeurolinkTouch Verio Flex System w/Device Kit Use as [...] the morning. 90 Tablet 3 3 Active Triamcinolone Acetonide 0.1 % External Ointment (Aristocort)Indica tions:Skin infection Apply topically to affected area 2 times a day. To affected area. 15 g 5 3 Active Additional Information Patient not taking.Reported on 09/11/2022 NeurolinkTouch UltraSoft LancetsIndications :Type 2 diabetes mellitus with hemoglobin A1c goal of less than 7.0% (HCC) Use once daily to check blood sugar. [...] hemoglobin A1c goal of less than 7.0% ([facility]),Type 2 diabetes mellitus without complication, without long-term current use of insulin (HCC) USE TO CHECK GLUCOSE ONCE DAILY 150 Strip 3 3 Active Chlorhexidine Gluconate 4 % External Liquid (Hibiclens)Indicat ions:Neurodermatit is,Staph infection Apply to scalp, upper shoulders, and back daily 120 mL 0 3 Active Donepezil HCl 5 MG Oral Tablet (Aricept)Indicatio ns:Dementia of the Alzheimer's type, with late onset, uncomplicated (HCC) TAKE 1 TABLET BY MOUTH EVERY MORNING with the largest meal of the day 90 Tablet 1 3 Active Additional Information Patient not taking.Reported [...] hemoglobin A1c goal of less than 7.0% ([facility]) TAKE ONE TABLET BY MOUTH IN THE MORNING 90 Tablet 3 4 Active Torsemide 20 MG Oral Tablet (Demadex) Take 1 Tablet by mouth in the morning and 1 Tablet in the evening. 60 Tablet 5 4 Active Mirtazapine 45 MG Oral Tablet (Remeron)Indicatio ns:Insomnia, unspecified type,Dementia of the Alzheimer's type, with late onset, uncomplicated (HCC) TAKE 1 TABLET BY MOUTH AT BEDTIME 30 Tablet 0 4 Active Mirtazapine 45 MG Oral Tablet (Remeron)Indicatio ns:Insomnia, unspecified type,Dementia of the Alzheimer's type, with late onset, uncomplicated (HCC) TAKE 1 TABLET BY MOUTH AT BEDTIME 30 Tablet 0 3 02/12/19 24 Discontinued documented as of this encounter (statuses as of 02/12/2023) Active Problems Problem Noted Date Diagnosed Date [...] as of this encounter (statuses as of 02/12/2023) Resolved Problems Problem Noted Date Diagnosed Date [...] as of this encounter (statuses as of 02/12/2023) Immunizations Name Administration Dates Next Due Pneumococcal [...] encounter Miscellaneous Notes * Telephone Encounter - Wally Odell DO - 02/12/2023 1:14 PM EST Signed Prescriptions: Disp Refills Mirtazapine 45 MG Oral Tablet (Remeron) 30 Tab*0 Sig: TAKE 1 TABLET BY MOUTH AT BEDTIME Authorizing Provider: WALLY ODELL * Telephone Encounter - Nargis Louis, MED ASSIST - 02/12/2023 12:44 PM ESTPending Prescriptions: Disp Refills Mirtazapine 45 MG Oral Tablet [Pharmacy Me*30 Tab*0 Sig: TAKE 1 TABLET BY MOUTH AT BEDTIME * Telephone Encounter - [employer] Talking, E-Rx Ss Inbound - 02/12/2023 6:10 AM EST Pending Prescriptions: Disp Refills Mirtazapine 45 MG Oral Tablet [Pharmacy Me*30 Tab*0 Sig: TAKE 1 TABLET BY MOUTH AT BEDTIME * Telephone Encounter - Lizzy Hicks two - 02/11/2023 4:17 AM ESTPending Prescriptions: Disp Refills Mirtazapine 45 MG Oral Tablet [Pharmacy Me*30 Tab*0 Sig: TAKE 1 TABLET BY MOUTH AT BEDTIME * Telephone Encounter - Lizzy Hicks two - 02/11/2023 4:15 AM EST Did you pend patient's preferred pharmacy and medication before forwarding?yes Pharmacy: [id number] [place] Pending Prescriptions: Disp Refills Mirtazapine 45 MG Oral Tablet (Remeron) [*30 Tab*0 Sig: TAKE 1 TABLET BY MOUTH AT BEDTIME Last Visit: 11/22/2022 (in office), Visit date not found (telemedicine) Next Visit: 11/20/2023 If no future appointments scheduled, and last appointment is greater than a year ago, please schedule patient for a follow-up appointment Last date the medication was ordered: 01/12/2023 Is this request for a controlled substance?No Urine Drug Screen:No results found. However, due to the size of the patient record, not all encounters were searched. Please check Results Review for a complete set of results. Patient Phone Numbers Labs: Lab Results Component Value Date/Time CREAT 0.5 02/08/2023 04:33 PM CREAT 0.6 01/08/2020 10:29 AM CREAT 0.6 (L) 05/13/1996 09:30 AM POTASSIUM 3.8 02/08/2023 04:33 PM POTASSIUM 3.9 01/08/2020 10:29 AM POTASSIUM 4.4 05/13/1996 09:30 AM TSH 0.01 (L) 08/15/2022 10:02 AM TSH 0.14 (L) 03/17/2019 12:09 PM TSH 4.64 05/13/1996 09:30 AM LDLCALC 64 08/07/2018 11:30 AM LDLDIRECT NOT APPLICABLE 04/28/2013 10:00 AM ALT 23 02/08/2023 04:33 PM ALT 21 01/08/2020 10:29 AM ALT 55 (H) 05/13/1996 09:30 AM HGBA1C 7.1 (H) 01/12/2023 11:22 AM HGBA1C 7.7 (H) 02/20/2019 11:49 AM documented in this encounter Plan of Treatment Upcoming Encounters Date Type Department Care Team (Late st Contact Info) Description 04/13/2023 10:30 AM EST Office Visit Gastroenterology, [facility] [address] [address] Eda Mobley CRNP [address] [place] [address] 05/07/2023 8:50 AM EDT Office Visit [address] [place] [address] Tita Harris, DO [address] [place] [address] 11/20/2023 11:00 AM EDT Office Visit Neurology [facility] [place] [address] [facility] [place] [address] Christine Cassidy [facility]C [address] [facility] [place] [address] Health Maintenance Due Date Last Done Comments [...] disease documented in this encounter Care Teams Cross Roller Relationship Specialty Start Date End Date Tita Harris DO [address] [place] [address] PCP - General Family Medicine 10/30/12 documented as of this encounter
--- OUTSIDE RECORDS SUMMARY | 2023-04-26 00:04 | External Medical Summary ---
Author Name Unknown Address Unknown Organization K01:[facility]ATORY [facility] - [address] [place] [address] Laboratory Report Ordering Provider Test Date Status MARKINDIRAARASELI 02/22/2023 13:54:13 Final Observation Date Value Abnormality Reference (Units ) Status Ammonia 02/22/2023 13:54:13 36 Above high normal 11 -35 (umol/L) Final Performing Location LABORATORY [facility] - [address] [place] [address]
--- OUTSIDE RECORDS SUMMARY | 2023-04-26 00:05 | External Medical Summary ---
Author Name Unknown Address Unknown Organization K01:LABORATORY [facility] - [address] [place] [address] Laboratory Report Ordering Provider Test Date Status ARASELI GRULLON 02/08/2023 16:33:56 Final Observation Date Value Abnormality Reference (Units ) Status Ammonia 02/08/2023 16:33:56 29 11-35 (umo l/L) Final Performing Location LABORATORY [facility] - [address] [place] [address]
--- OUTSIDE RECORDS SUMMARY | 2023-04-26 00:05 | External Medical Summary | Summary of Care ---
Author Name Unknown Organization [facility] Address [address] [facility] [place] [address] Phone [phone] Care Team Providers Care Tank Builder Supervisor Name Role Phone Sb Ladd DO Primary Care Provider + [phone] Reason for Visit * Reason Comments eRx-Medication Refill Encounter Details Date Type Department Care Team (Late st Contact Info) Description [facility] [address] [place] [address] Sb Ladd DO [address] [place], [place] [id number] Type 2 diabetes mellitus with hemoglobin A1c goal of less than 7.0% ([facility]) Allergies Active Allergy Reactions Criticality Noted Date Comments Iodinated Contrast Media 04/16/1997 Levofloxacin In D5w Other (Please comment) 05/06 Seeing things Oxycodone-Acetaminophe n Neuro complications (Please comment) 02/29/2012 Nightmares, hearing and seeing things. documented as of this encounter (statuses as of 02/07/2023) Medications Medication Sig Dispensed Refills Start Date End Date Status zoster vac recomb adjuvanted (SHINGRIX) 50 MCG/0.5ML injectionIndicatio ns:Need for vaccination for zoster Inject 0.5 mL into a large muscle now and repeat dose in 60 to 180 days 1 Each 1 0 Active Additional Information Patient not taking.Reported on 01/16/2023 FuelMinerTouch Verio Flex System w/Device Kit Use as directed . To test BG once daily. Dx. e11.9 1 Kit 3 2 Active Premarin 0.625 MG/GM Vaginal Cream (Estrogens, Conjugated)Indicat ions:Postmenopausa l atrophic vaginitis Administer into the vagina 0.5 g before bedtime. As directed.. 42.5 g 5 2 Active Additional Information Patient not taking.Reported on 01/12/2023 Lactulose 10 GM/15ML Oral Solution (Constulose) Take [...] Additional Information Patient not taking.Reported on 09/11/2022 OneTouch UltraSoft LancetsIndications :Type 2 diabetes mellitus with hemoglobin A1c goal of less than 7.0% ([facility]) Use once daily to check blood sugar. E11.9 100 Each 5 3 Active OneTouch Delica Lancets 33G Use once daily to check blood sugar. E11.9 100 Each 3 3 Active Clotrimazole 1 % Vaginal CreamIndications:V aginal itching Apply to external vulva at bedtime x 7 days 45 g 0 3 Active Levothyroxine Sodium 150 MCG Oral Tablet (Levoxyl) [...] before bedtime 60 Tablet 5 3 Active Furosemide 20 MG Oral Tablet (Lasix) TAKE ONE TABLET BY MOUTH EVERY MORNING 30 Tablet 0 3 Active Mirtazapine 45 MG Oral Tablet (Remeron)Indicatio ns:Insomnia, unspecified type,Dementia of the Alzheimer's type, with late onset, uncomplicated (HCC) TAKE 1 TABLET BY MOUTH AT BEDTIME 30 Tablet 0 3 Active Clindamycin Phosphate 1 % External [...] THE MORNING 90 Tablet 3 4 Active Empagliflozin 25 MG Oral Tablet (Jardiance)Indicat ions:Type 2 diabetes mellitus with hemoglobin A1c goal of less than 7.0% (HCC) Take 1 Tablet by mouth in the morning. 90 Tablet 3 3 02/07/19 24 Discontinued metFORMIN HCl ER 500 MG Oral Tablet Extended Release 24 Hour (Glucophage XR)Indications:Typ e 2 diabetes mellitus with hemoglobin A1c goal of less than 7.0% (HCC) Take 2 tablets by mouth twice daily with foods 360 Tablet 1 3 02/07/19 24 Discontinued documented as of this encounter (statuses as of 02/07/2023) Active Problems Problem Noted Date Diagnosed Date Hepatic encephalopathy 09/22/2022 Asthma, non-allergic 01/03/2018 Reactive [...] as of this encounter (statuses as of 02/07/2023) Resolved Problems Problem Noted Date Diagnosed Date [...] as of this encounter (statuses as of 02/07/2023) Immunizations Name Administration Dates Next Due Pneumococcal [...] encounter Miscellaneous Notes * Telephone Encounter - Kika Choudhury RPh - 02/07/2023 7:54 AM EST Signed Prescriptions: Disp Refills metFORMIN HCl ER 500 MG Oral Tablet Extend*360 Ta*3 Sig: TAKE 2 TABLETS BY MOUTH TWICE DAILY WITH FOODSAuthorizing Provider: SB LADD User: KIKA CHOUDHURY Jardiance 25 MG Oral Tablet (Empagliflozin)90 Tab*3 Sig: TAKE ONE TABLET BY MOUTHIN THE MORNINGAuthorizing Provider: SB LADD User: KIKA CHOUDHURY documented in this encounter Plan of Treatment Upcoming Encounters Date Type Department Care Team (Late st Contact Info) Description 04/13/2023 10:30 AM EST Office Visit Gastroenterology, [facility] [address] [address] Eda Mobley CRNP [address] [place] [address] 05/07/2023 8:50 AM EDT Office Visit [facility] [address] [facility] [phone] Sb Ladd DO [address] [facility] [place] [address] 11/20/2023 11:00 AM EDT Office Visit Neurology [facility] [address] [place] [address] Christine Cassidy PA-C [address] [facility] [place] [address] Health Maintenance Due Date Last Done Comments [...] 08/15/2022, 07/08, 04/08/2021, Additional history exists GFR 01/13/2024 01/12/2023, 09/2022, 08/15/2022, Additional history exists DTaP,Tdap,and Td Vaccines (2 [...] as of this encounter Visit Diagnoses Diagnosis Type 2 diabetes mellitus with hemoglobin A1c goal of less than 7.0% (HCC) documented in this encounter Care Teams Tank Builder Supervisor Relationship Specialty Start Date End Date Sb Ladd DO [address] [place] [address] PCP - General Family Medicine 10/30/12 documented as of this encounter
--- OUTSIDE RECORDS SUMMARY | 2023-04-26 00:05 | External Medical Summary ---
Author Name Unknown Address Unknown Organization [id number]:LAB[place]ATORY [facility] [place] [address] [place] [address] Laboratory Report Ordering Provider Test Date Status ARASELI GRULLON 02/08/2023 16:43:08 Final Observation Date Value Abnormality Reference (Units) Status Color of Urine by Auto 02/08/2023 16:43:08 Light Yellow Colorless, Light Yellow, Yellow, Dark Yellow Final Clarity, Urine 02/08/2023 16:43:08 Clear Clear Final Glucose [Mass/volume] in Urine by Automated test strip 02/08/2023 16:43:08 >=1000 Abnormal Negative (mg/dL) Final Bilirubin.total [Presence] in Urine by Automated test strip 02/08/2023 16:43:08 Negative Negative Final Ketones [Mass/volume] in Urine by Automated test strip 02/08/2023 16:43:08 Negative Negative (mg/dL) Final Specific gravity, Urine 02/08/2023 16:43:08 1.035 Above high normal 1.003-1.030 Final Hemoglobin [Presence] in Urine by Automated test strip 02/08/2023 16:43:08 Negative Negative Final pH, Urine 02/08/2023 16:43:08 6.5 5.0-7.5 (Units) Final Protein [Mass/volume] in Urine by Automated test strip 02/08/2023 16:43:08 Negative Negative (mg/dL) Final Urobilinogen [Mass/volume] in Urine by Automated test strip 02/08/2023 16:43:08 Normal Normal (mg/dL) Final Nitrite [Presence] in Urine by Automated test strip 02/08/2023 16:43:08 Negative Negative Final Leukocyte esterase [Presence] in Urine by Automated test strip 02/08/2023 16:43:08 Negative Negative Final Annotation Comment 02/08/2023 16:43:08 Final Screen negative - Microscopi c not performed. Performing Location [facility]ORY [facility] - [address] [facility] [address]
--- OUTSIDE RECORDS SUMMARY | 2023-04-26 00:05 | External Medical Summary ---
Author Name Unknown Address Unknown Organization K01:[place] [place] [address] [place] [address] Laboratory Report Ordering Provider Test Date Status ARASELI GRULLON 02/08/2023 16:33:56 Final Exclude Heart Failure: <300 pg/mL
Diagnose Heart Failure:
Age <50 yr: >450 pg/mL
50-75 yr: >900 pg/mL
>75 yr: >1800 pg/mL
GFR is 30-59 mL/min: >1200 pg/mL or Age- adjusted values
GFR <30 mL/min: do not use, not reliable

Prognostic threshold: 1000 pg/mL Observation Date Value Abnormality Reference (Units ) Status BNP, Pro-hormone 02/08/2023 16:33:56 303 Above high no rmal <300 (pg/mL) Final Performing Location [facility] [facility] [place] [facility] [address] [place] [address]
--- OUTSIDE RECORDS SUMMARY | 2023-04-26 00:05 | External Medical Summary | Summary of Care ---
Author Name Unknown Organization [facility] Address [address] [facility] [place] [address] Phone [phone] Care Team Providers Care Pre Algebra Teacher Name Role Phone Neal Harrisa Rehana FLOWERS Primary Care Provider + [phone] Encounter Details Date Type Department Care Team (Late st Contact Info) Description 02/09/2023 Telephone [facility]ly [facility] [address] [place] [address] Cathy Son MD [address] [place] [address] Allergies Active Allergy Reactions Criticality Noted Date Comments Iodinated Contrast Media 04/16/1997 Levofloxacin In D5w Other (Please comment) 05/06 Seeing things Oxycodone-Acetaminophe n Neuro complications (Please comment) 02/29/2012 Nightmares, hearing and seeing things. documented as of this encounter (statuses as of 02/09/2023) Medications Medication Sig Dispensed Refills Start Date End Date Status zoster vac recomb adjuvanted (SHINGRIX) 50 MCG/0.5ML injectionIndication s:Need for vaccination for zoster Inject 0.5 mL into a large muscle now and repeat dose in 60 to 180 days 1 Each 1 02/20/2019 Active Additional Information Patient not taking.Reported on 01/16/2023 NICO Verio Flex System w/Device Kit Use as [...] Patient not taking.Reported on 09/11/2022 OneTouch UltraSoft LancetsIndications: Type 2 diabetes mellitus [...] before bedtime 60 Tablet 5 12/10/2022 Active Mirtazapine 45 MG Oral Tablet (Remeron)Indication s:Insomnia, unspecified type,Dementia of the Alzheimer's type, with late onset, uncomplicated (HCC) TAKE 1 TABLET BY MOUTH AT BEDTIME 30 Tablet 0 01/12/2023 Active Clindamycin Phosphate 1 % External SwabIndications:Sca [...] the evening. 60 Tablet 5 02/08/2023 Active documented as of this encounter (statuses as of 02/09/2023) Active Problems Problem Noted Date Diagnosed Date Dementia of the Alzheimer's type, with late [...] as of this encounter (statuses as of 02/09/2023) Resolved Problems Problem Noted Date Diagnosed Date [...] as of this encounter (statuses as of 02/09/2023) Immunizations Name Administration Dates Next Due Pneumococcal [...] Telephone Encounter - Cathy Son MD - 02/09/2023 4:45 PM EST Talked to daughter about results Pt had CT scan Change d to torsemide 20 mg bid Will try over wknd but if swelling, breathing does not get better, pt will need paracentesis for fluid And daughter understood Will take pt to ER if not helping Also requested Sunday update too documented in this encounter Plan of Treatment Upcoming Encounters Date Type Department Care Team (Late st Contact Info) Description 04/13/2023 10:30 AM EST Office Visit Gastroenterology, [facility] [address] [place] [address] Eda Mobley CRNP [address] [place] [address] 05/07/2023 8:50 AM EDT Office Visit [facility] [address] [facility] [facility] [phone] Tita Harris DO [address] [facility] [address] 11/20/2023 11:00 AM EDT Office Visit Neurology [facility] [address] [facility] [place] [address] Christine Cassidy PA-C [address] [place] [address] Health Maintenance Due Date Last Done Comments [...] filedocumented as of this encounter Care Teams Pre Algebra Teacher Relationship Specialty Start Date End Date Tita Harris DO [address] [facility] [place] [address] PCP - General Family Medicine 10/30/12 documented as of this encounter
--- OUTSIDE RECORDS SUMMARY | 2023-04-26 00:05 | External Medical Summary | Summary of Care ---
Author Name Unknown Organization [facility] Address [address] [facility] [place] [address] Phone [phone] Care Team Providers Care Glass Deposition Tender Name Role Phone Steven Tita Rehana FLOWERS Primary Care Provider + [phone] Reason for Visit * Reason Comments Outpatient Testing Encounter Details Date Type Department Care Team (Late st Contact Info) Description 02/08/2023 4:20 PM EST Laboratory Laboratory, [facility] [address] [place] [address] [facility] [address] [place] [address] Cirrhosis of liver with ascites, unspecified hepatic cirrhosis type ; Generalized weakness; Leg swelling; SOB (shortness of breath) Allergies Active Allergy Reactions Criticality Noted Date Comments Iodinated Contrast Media 04/16/1997 Levofloxacin In D5w Other (Please comment) 05/06 Seeing things Oxycodone-Acetaminophe n Neuro complications (Please comment) 02/29/2012 Nightmares, hearing and seeing things. documented as of this encounter (statuses as of 02/08/2023) Medications Medication Sig Dispensed Refills Start Date End Date Status zoster vac recomb adjuvanted (SHINGRIX) 50 MCG/0.5ML injectionIndication s:Need for vaccination for zoster Inject 0.5 mL into a large muscle now and repeat dose in 60 to 180 days 1 Each 1 02/20/2019 Active Additional Information Patient not taking.Reported on 01/16/2023 RobotsLABTouch Verio Flex System w/Device Kit Use as [...] as of this encounter (statuses as of 02/08/2023) Active Problems Problem Noted Date Diagnosed Date [...] as of this encounter (statuses as of 02/08/2023) Resolved Problems Problem Noted Date Diagnosed Date [...] as of this encounter (statuses as of 02/08/2023) Immunizations Name Administration Dates Next Due Diptheria/Tetanus [...] Team (Late st Contact Info) Description 02/09/2023 9:30 AM EST Imaging Radiology [address] [facility] [place] [address] 04/13/2023 10:30 AM EST Office Visit Gastroenterology, [facility] [address] [facility] [place] [address] Eda Mobley CRNP [address] [facility] [place] [address] 05/07/2023 8:50 AM EDT Office Visit [facility] [address] [facility] [phone] Tita Harris DO [address] [facility] [place] [phone] 11/20/2023 11:00 AM EDT Office Visit Neurology [facility] [place] [address] [facility] [place] [address] Christine Cassidy PA-C [address] [place] [phone] Pending Results Name Type Priority Associated Diagnoses Date /Time BNP, NT-PRO Lab Routine Cirrhosis of liver with ascites, unspecified hepatic cirrhosis type Generalized weakness Leg swelling SOB (shortness of breath) 02/08/2023 4:33 PM EST CBC WITH WBC DIFFERENTIAL Lab Routine Cirrhosis of liver with ascites, unspecified hepatic cirrhosis type Generalized weakness Leg swelling SOB (shortness of breath) 02/08/2023 4:33 PM EST COMPREHENSIVE METABOLIC PANEL Lab Routine Cirrhosis of liver with ascites, unspecified hepatic cirrhosis type Generalized weakness Leg swelling SOB (shortness of breath) 02/08/2023 4:33 PM EST AMMONIA Lab Routine Cirrhosis of liver with ascites, unspecified hepatic cirrhosis type Generalized weakness Leg swelling SOB (shortness of breath) 02/08/2023 4:33 PM EST CBC Lab Routine Cirrhosis of liver with ascites, unspecified hepatic cirrhosis type Generalized weakness Leg swelling SOB (shortness of breath) 02/08/2023 4:33 PM EST DIFFERENTIAL, AUTOMATED Lab Routine Cirrhosis of liver with ascites, unspecified hepatic cirrhosis type Generalized weakness Leg swelling SOB (shortness of breath) 02/08/2023 4:33 PM EST URINALYSIS, REFLEX TO MICROSCOPIC Lab Routine Generalized weakness 02/08/2023 4:43 PM EST Health Maintenance Due Date Last [...] liver with ascites, unspecified hepatic cirrhosis type Generalized weakness Other malaise and fatigue Leg swelling Swelling of limb SOB (shortness of breath) Shortness of breath documented in this encounter Care Teams Glass Deposition Tender Relationship Specialty Start Date End Date Tita Harris DO [address] [place] [address] PCP - General Family Medicine 10/30/12 documented as of this encounter
--- OUTSIDE RECORDS SUMMARY | 2023-04-26 00:05 | External Medical Summary ---
Author Name Unknown Address Unknown Organization K01:[place] [facility] [place] [address] [place] [address] Laboratory Report Ordering Provider Test Date Status ARASELI GRULLON 02/08/2023 16:43:08 Final Observation Date Value Abnormality Reference (Units) Status Bacteria identified in Specimen by Culture 02/08/2023 16:43:08 No significant growth Final Test: Culture, Urine, Quant itative
Specimen Source: Urine, Unspecified
Specimen Type: Urine
Specimen Date: 02/08/2023 4:43 PM
Result Date: 02/09/2023 6:05 PM
Result Status: Final result
Resulting Lab: [facility] [place]
[address]
[place] [facility]

CULTURE

No significant growth

null Performing Location [facility] [place] [address] [place] [id number]
--- OUTSIDE RECORDS SUMMARY | 2023-04-26 00:05 | External Medical Summary ---
Author Name Unknown Address Unknown Organization K01:[facility]ORATORY [facility] - [address] [facility] [place] [address] Laboratory Report Ordering Provider Test Date Status ARASELI GRULLON 02/08/2023 16:33:56 Final Observation Date Value Abnormality Reference (Units ) Status SYNC LEUKOCYTES IN BLOOD BY AUTOMATED COUNT 02/08/2023 16:33:56 6.88 4.00-10.80 (K/uL) Final Segs 02/08/2023 16:33:56 75.1 Above high normal 40.0-75.0 (%) Final Lymphs % 02/08/2023 16:33:56 11.6 Below low normal 18.0-42.0 (%) Final Monos 02/08/2023 16:33:56 11.3 Above high normal 1.0-11.0 (%) Final Eosinophils 02/08/2023 16:33:56 1.0 0.0-6.0 (%) Final Basos 02/08/2023 16:33:56 0.4 0.0-2.0 (%) Final Immature Granulocyte, Percent 02/08/2023 16:33:56 0.6 0.0-2.0 (%) Final Absolute Segs 02/08/2023 16:33:56 5.16 1.80-7.70 (K/uL) Final Lymphs, absolute 02/08/2023 16:33:56 0.80 Below low normal 1.00-4.80 (K/ul) Final Monos, Abs 02/08/2023 16:33:56 0.78 0.00-1.10 (K/uL) Final Eos, Abs 02/08/2023 16:33:56 0.07 0.00-0.70 (K/uL) Final Basos, Abs 02/08/2023 16:33:56 0.03 0.00-0.20 (K/uL) Final Immature Granulocytes, Number 02/08/2023 16:33:56 0.04 0.00-0.20 (K/uL) Final Performing Location LABORATORY [facility] [place] - [facility] [place] [address]
--- OUTSIDE RECORDS SUMMARY | 2023-04-26 00:05 | External Medical Summary ---
Author Name Unknown Address Unknown Organization K01:LABORATORY [facility] [place] - [address] [facility] [address] [facility] [address] Laboratory Report Ordering Provider Test Date Status ARASELI GRULLON 02/08/2023 16:33:56 Final Observation Date Value Abnormality Reference (Units ) Status WBC, Total 02/08/2023 16:33:56 6.88 4.00-10.80 (K/uL) Final RBC 02/08/2023 16:33:56 3.59 3.85-5.15 (M/uL) Final Hemoglobin 02/08/2023 16:33:56 11.2 Below low normal 12.0-15.3 (g/dL) Final HCT 02/08/2023 16:33:56 35.2 Below low normal 36.0-45.2 (%) Final MCV 02/08/2023 16:33:56 98.1 81.5-97.5 (fL) Final MCH 02/08/2023 16:33:56 31.2 27.0-34.0 (pg) Final MCHC 02/08/2023 16:33:56 31.8 32.0-36.0 (g/dL) Final RDW 02/08/2023 16:33:56 17.7 11.5-15.5 (%) Final Platelets 02/08/2023 16:33:56 142 140-400 (K/uL) Final MPV 02/08/2023 16:33:56 12.9 6.6-11.1 (fL) Final Nucleated erythrocytes/100 leukocytes [Ratio] in Blood by Automated count 02/08/2023 16:33:56 0 <=0 (/100 WBCs) Final Performing Location LABORATORY [facility] [place] - [address] [facility] [address]
--- OUTSIDE RECORDS SUMMARY | 2023-04-26 00:05 | External Medical Summary | Summary of Care ---
Author Name Unknown Organization [facility] Address [address] [facility] [place] [address] Phone [phone] Care Team Providers Care Weather Algorithm Scientist Name Role Phone Steven Tita Rehana FLOWERS Primary Care Provider + [phone] Reason for Visit * Reason Comments Outpatient Testing Encounter Details Date Type Department Care Team (Late st Contact Info) Description 02/08/2023 4:20 PM EST Laboratory Laboratory, [facility] [address] [place] [address] [facility] [address] [place] [address] Cirrhosis of liver with ascites, [...] Additional Information Patient not taking.Reported on 01/16/2023 KaiimaTouch Verio Flex System w/Device Kit Use as [...] Description 02/09/2023 9:30 AM EST Imaging Radiology [address] 132 [facility] [place] [address] 04/13/2023 10:30 AM EST Office Visit Gastroenterology, [facility] 132 [facility] [place] [address] Eda Mobley CRNP [address] [facility] [place] [address] 05/07/2023 8:50 AM EDT Office Visit [facility] [address] [facility] [phone] Tita Harris DO [address] [facility] [place] [phone] 11/20/2023 11:00 AM EDT Office Visit Neurology [facility] [place] [address] [facility] [place] [address] Christine Cassidy PA-C [address] [place] [address] Pending Results Name Type Priority Associated Diagnoses [...] breath documented in this encounter Care Teams Weather Algorithm Scientist Relationship Specialty Start Date End Date Tita Harris DO [address] [place] [address] PCP - General Family Medicine 10/30/12 documented as of this encounter
--- OUTSIDE RECORDS SUMMARY | 2023-04-26 00:05 | External Medical Summary ---
Author Name Unknown Address Unknown Organization K01:[facility]ATORY [facility] [place] - [address] [facility] [place] [address] Laboratory Report Ordering Provider Test Date Status ARASELI GRULLON 02/08/2023 16:33:56 Final Observation Date Value Abnormality Reference (Units ) Status BUN 02/08/2023 16:33:56 12 6-20 (mg/dL) Final Creatinine 02/08/2023 16:33:56 0.5 0.5-1.0 (mg/dL) Final Glomerular filtration rate/1.73 sq M.predicted [Volume Rate/Area] in Serum, Plasma or Blood by Creatinine-based formula (CKD-EPI) 02/08/2023 16:33:56 >90 >=60 (mL/min) Final eGFR is calculated based on the CKD-EPI 2020 equation SODIUM 02/08/2023 16:33:56 138 135-146 (m mol/L) Final Potassium 02/08/2023 16:33:56 3.8 3.5-5.1 (m mol/L) Final Cl 02/08/2023 16:33:56 104 98-107 (mm ol/L) Final CO2 02/08/2023 16:33:56 24 22-32 (mmo l/L) Final Anion gap 02/08/2023 16:33:56 10 7-15 (mmol /L) Final Glucose 02/08/2023 16:33:56 188 Above high normal 70 -120 (mg/dL) Final Albumin 02/08/2023 16:33:56 3.4 Below low normal 3.8 -5.0 (g/dL) Final AST (Aspartate aminotransferase) 02/08/2023 16:33:56 26 10-35 (U/L) Fin al Alk Phos 02/08/2023 16:33:56 97 35-130 (U/ L) Final Bilirubin, Total 02/08/2023 16:33:56 0.9 <=1 .2 (mg/dL) Final Calcium 02/08/2023 16:33:56 8.6 8.4-10.2 ( mg/dL) Final Protein 02/08/2023 16:33:56 6.5 6.0-8.3 (g /dL) Final ALT (Alanine aminotransferase) 02/08/2023 16:33:56 23 10-35 (U/L) Phillip chang Performing Location LABORATORY [facility] [place] - [facility] [address] [facility] [address]
--- OUTSIDE RECORDS SUMMARY | 2023-04-26 00:06 | External Medical Summary ---
Author Name Unknown Address Unknown Organization K01:LABORATORY [facility] [place] - [address] [place] [address] Laboratory Report Ordering Provider Test Date Status JULEE BASURTO 01/12/2023 11:22:16 Final Observation Date Value Abnormality Reference (Units ) Status WBC, Total 01/12/2023 11:22:16 5.52 4.00-10.80 (K/uL) Final RBC 01/12/2023 11:22:16 3.84 3.85-5.15 (M/uL) Final Hemoglobin 01/12/2023 11:22:16 12.3 12.0-15.3 (g/dL) Final HCT 01/12/2023 11:22:16 38.0 36.0-45.2 (%) Final MCV 01/12/2023 11:22:16 99.0 81.5-97.5 (fL) Final MCH 01/12/2023 11:22:16 32.0 27.0-34.0 (pg) Final MCHC 01/12/2023 11:22:16 32.4 32.0-36.0 (g/dL) Final RDW 01/12/2023 11:22:16 17.3 11.5-15.5 (%) Final Platelets 01/12/2023 11:22:16 131 Below low normal 140-400 (K/uL) Final MPV 01/12/2023 11:22:16 11.1 6.6-11.1 (fL) Final Nucleated erythrocytes/100 leukocytes [Ratio] in Blood by Automated count 01/12/2023 11:22:16 0 <=0 (/100 WBCs) Final Performing Location LABORATORY [facility] [place] - [address] [place] [address]
--- OUTSIDE RECORDS SUMMARY | 2023-04-26 00:06 | External Medical Summary | Summary of Care ---
Author Name Unknown Organization [facility] Address [address] [facility] [place] [address] Phone [phone] Care Team Providers Care Assistant Prosecuting Attorney Name Role Phone Tita Harris DO Primary Care Provider [phone] Reason for Visit * Reason Comments eRx-Medication Refill Encounter Details Date Type Department Care Team (Late st Contact Info) Description 12/24/2022 Refill Dermatology [address] [place] [address] Viky Benjamin PA-C [address] [place] [address] [place] [address] Folliculitis Allergies Active Allergy Reactions Criticality Noted Date Comments Iodinated Contrast Media 04/16/1997 Levofloxacin In D5w Other (Please comment) 05/06 Seeing things Oxycodone-Acetaminophe n Neuro complications (Please comment) 02/29/2012 Nightmares, hearing and seeing things. documented as of this encounter (statuses as of 12/25/2022) Medications Medication Sig Dispensed Refills Start Date End Date Status zoster vac recomb adjuvanted (SHINGRIX) 50 MCG/0.5ML injectionIndicatio ns:Need for vaccination for zoster Inject 0.5 mL into a large muscle now and repeat dose in 60 to 180 days 1 Each 1 0 Active Applangoio Flex System w/Device Kit Use as directed . To test BG once daily. Dx. e11.9 1 Kit 3 2 Active Premarin 0.625 MG/GM Vaginal Cream (Estrogens, Conjugated)Indicat ions:Postmenopausa l atrophic vaginitis Administer into the vagina 0.5 g before bedtime. As directed.. 42.5 g 5 2 Active Empagliflozin 25 MG Oral Tablet (Jardiance)Indicat ions:Type 2 diabetes mellitus with hemoglobin A1c goal of less than 7.0% (HCC) Take 1 Tablet by mouth in the morning. 90 Tablet 3 3 Active Lactulose 10 GM/15ML Oral Solution (Constulose) Take 30 mL by mouth in the morning and 30 mL before bedtime. 5400 mL 3 3 Active Albumin Human 25 % Intravenous Solution Infuse 50g IV before and 50g IV after paracentesis May administer at rate of 100ml/hr 50 mL 0 3 Active Additional Information Patient not taking.Reported on 09/11/2022 Furosemide 20 MG Oral Tablet (Lasix) Take 1 Tablet by mouth in the morning. 30 Tablet 3 3 Active Losartan Potassium 50 MG Oral Tablet (Cozaar)Indication [...] sugar. E11.9 100 Each 3 3 Active metFORMIN HCl ER 500 MG Oral Tablet Extended Release 24 Hour (Glucophage XR)Indications:Typ e 2 diabetes mellitus with hemoglobin A1c goal of less than 7.0% (HCC) Take 2 tablets by mouth twice daily with foods 360 Tablet 1 3 Active Clotrimazole 1 % Vaginal CreamIndications:V aginal itching Apply to external vulva at bedtime x 7 days 45 g 0 3 Active Levothyroxine Sodium 150 MCG Oral Tablet (Levoxyl) Take 1 Tablet by mouth in the morning. (at least 30 min prior to breakfast or other meds). 30 Tablet 11 3 Active Mirtazapine 45 MG Oral Tablet (Remeron)Indicatio ns:Insomnia, unspecified type,Dementia of the Alzheimer's type, with late onset, uncomplicated (HCC) TAKE ONE TABLET BY MOUTH NIGHTLY AT BEDTIME 30 Tablet 3 3 Active Spironolactone 50 MG Oral Tablet [...] 3 Active Clindamycin Phosphate 1 % External GelIndications:Fol liculitis APPLY TWICE DAILY ( OR MORE INSTEAD OF SCRATCHING) TO LESIONS ON SCALP UNTIL RESOLVED, THEN WHEN FLARING UP 60 g 0 3 Active Clindamycin Phosphate 1 % External GelIndications:Fol liculitis Apply 2x daily (or more instead of scratching) to lesions on scalp until resolved, then when flaring 60 g 2 3 12/26/19 23 Discontinued documented as of this encounter (statuses as of 12/25/2022) Active Problems Problem Noted Date Diagnosed Date [...] as of this encounter (statuses as of 12/25/2022) Resolved Problems Problem Noted Date Diagnosed Date [...] as of this encounter (statuses as of 12/25/2022) Immunizations Name Administration Dates Next Due Pneumococcal Conjugate Vacc, 13 Valent (Prevnar) 04/22/2015 Pneumococcal Polysaccharide PPV23 (Pneumovax) 06/09/2013 SEASONAL INFLUENZA, PF, 6 M & Above, IM , (FLULAVAL or FLUZONE) 11/27/2017 Season Influenza, Quad, PF, Adjuvanted, 65+ Yrs, IM (FLUAD) 10/17/2019 Seasonal Influenza, Quadriva lent Hd (Fluzone Hd) [...] encounter Miscellaneous Notes * Telephone Encounter - Viky Benjamin PA-C - 12/25/2022 10:39 AM EST Signed Prescriptions: Disp Refills Clindamycin Phosphate 1 % External Gel 60 g 0 Sig: APPLY TWICE DAILY ( OR MORE INSTEAD OF SCRATCHING) TO LESIONS ON SCALP UNTIL RESOLVED, THEN WHEN FLARING UPAuthorizing Provider: VIKY BENJAMIN * Telephone Encounter - Sakshi Perez LPN - 12/25/2022 10:33 AM ESTPending Prescriptions: Disp Refills Clindamycin Phosphate 1 % External Gel [Ph*60 g 0 Sig: APPLY TWICE DAILY ( OR MORE INSTEAD OF SCRATCHING) TO LESIONS ON SCALP UNTIL RESOLVED, THEN WHEN FLARING UP * Telephone Encounter - Sakshi Perez LPN - 12/25/2022 10:33 AM EST Pending Prescriptions: Disp Refills Clindamycin Phosphate 1 % External Gel [P*60 g 0 Sig: APPLY TWICE DAILY ( OR MORE INSTEAD OF SCRATCHING) TO LESIONS ON SCALP UNTIL RESOLVED, THEN WHEN FLARING UP 10/02/2022 (in office), Visit date not found (telemedicine) 01/11/23 Patient Phone Numbers documented in this encounter Plan of Treatment Upcoming Encounters Date Type Department Care Team (Late st Contact Info) Description 01/11/2023 9:00 AM EST Office Visit Dermatology, [place] [address] [place] [address] Viky Benjamin PA-C [address] [place] [address] [place] [address] 01/12/2023 10:10 AM EST Office Visit [facility] [place] [address] [facility] [address] Tita Harris [address] [place] [address] 04/13/2023 10:30 AM EST Office Visit Gastroenterology, [facility] [address] [place] [address] Eda Mobley CRNP [address] [place] [address] 11/20/2023 11:00 AM EDT Office Visit Neurology [facility] [address] [facility] [address] Christine Cassidy PA-C [address] [facility] [place] [address] Health Maintenance Due Date Last Done Comments Hepatitis B (1 of 3 - Risk 3-dose series) 2003 Zoster Vaccines (2 of 3) 11/13/2011 09/18/2011 DXA Scan 11/26/2016 11/27/2011, 11/06, 08/10/2008, Additional history exists Depression Screening 08/18/2020 08/19/2019 COVID-19 Vaccine ( season) 2022 04/16/2020, 03/26/2020 HbA1c 02/15/2023 08/15/2022, 05/06, 08/04/2021, Additional history exists Diabetic Foot Exam 05/18/2023 05/17/2022, 0 04/08/2021, 04/09/2020, Additional history exists Diabetic Eye Exam 05/27/2023 05/26/2022, , 05/26/2022, Additional history exists Albumin/Creatinine Ratio 08/16/2023 023, 04/08/2021, 01/26/2016 TSH 08/16/2023 08/15/2022, 07/08, 04/08/2021, Additional history exists GFR 12/14/2023 12/13/2022, 08/05, 06/08/2022, Additional history exists DTaP,Tdap,and Td Vaccines (2 [...] as of this encounter Visit Diagnoses Diagnosis Folliculitis Other specified disease of hair and hair follicles documented in this encounter Care Teams Assistant Prosecuting Attorney Relationship Specialty Start Date End Date Tita Harris DO [address] [facility] [place] [address] PCP - General Family Medicine 10/30/12 documented as of this encounter
--- OUTSIDE RECORDS SUMMARY | 2023-04-26 00:06 | External Medical Summary | Summary of Care ---
Author Name Unknown Organization [facility] Address [address] [facility] [place] [address] Phone [phone] Care Team Providers Care Card Decorator Name Role Phone Neal Harrisa Rehana FLOWERS Primary Care Provider + [phone] Reason for Visit * Reason Comments eRx-Medication Refill Encounter Details Date Type Department Care Team (Late st Contact Info) Description 01/12/2023 Refill Gastroenterology, [facility] [address] [place] [address] Eda Mobley CRNP [address] [place] [address] Allergies Active Allergy Reactions Criticality Noted Date Comments Iodinated Contrast Media 04/16/1997 Levofloxacin In D5w Other (Please comment) 05/06 Seeing things Oxycodone-Acetaminophe n Neuro complications (Please comment) 02/29/2012 Nightmares, hearing and seeing things. documented as of this encounter (statuses as of 01/16/2023) Medications Medication Sig Dispensed Refills Start Date End Date Status zoster vac recomb adjuvanted (SHINGRIX) 50 MCG/0.5ML injectionIndicatio ns:Need for vaccination for zoster Inject 0.5 mL into a large muscle now and repeat dose in 60 to 180 days 1 Each 1 0 Active ScoreFeederio Flex System w/Device Kit Use as directed . To test BG once daily. Dx. e11.9 1 Kit 3 2 Active Premarin 0.625 MG/GM Vaginal Cream (Estrogens, Conjugated)Indicat ions:Postmenopausa l atrophic vaginitis Administer into the vagina 0.5 g before bedtime. As directed.. 42.5 g 5 2 Active Additional Information Patient not taking.Reported on 01/12/2023 Empagliflozin 25 MG Oral Tablet (Jardiance)Indicat ions:Type [...] EVERY MORNING 30 Tablet 0 3 Active Clindamycin Phosphate 1 % External SwabIndications:Sc alp lesion Apply topically to affected area 2 times a day. To affected area of skin. 60 Each 11 3 Active Furosemide 20 MG Oral Tablet (Lasix) Take 1 Tablet by mouth in the morning. 30 Tablet 3 3 01/17/20 23 Discontinued documented as of this encounter (statuses as of 01/16/2023) Active Problems Problem Noted Date Diagnosed Date [...] as of this encounter (statuses as of 01/16/2023) Resolved Problems Problem Noted Date Diagnosed Date [...] SKIN SENSATION DISTURB 12/19/200401/03 OBESITY, UNSPECIFIED 12/19/2004 03/25/2 010 Overview: Per Obesity Taxonomy PROPHY. VACCINATION [...] as of this encounter (statuses as of 01/16/2023) Immunizations Name Administration Dates Next Due Pneumococcal [...] encounter Miscellaneous Notes * Telephone Encounter - Joyce Bella CRNP - 01/16/2023 11:08 AM ESTSigned Prescriptions: Disp Refills Furosemide 20 MG Oral Tablet (Lasix) 30 Tab*0 Sig: TAKE ONE TABLET BY MOUTH EVERY MORNING Authorizing Provider: JOYCE BELLA * Telephone Encounter - Interface, E-Rx Ss Inbound - 01/16/2023 6:01 AM EST Pending Prescriptions: Disp Refills Furosemide 20 MG Oral Tablet [Pharmacy Med*30 Tab*0 Sig: TAKE ONE TABLET BY MOUTH EVERY MORNING * Telephone Encounter - Marcie Bowling RN - 01/15/2023 1:43 PM ESTPending Prescriptions: Disp Refills Furosemide 20 MG Oral Tablet [Pharmacy Med*30 Tab*0 Sig: TAKE ONE TABLET BY MOUTH EVERY MORNING * Telephone Encounter - Interface, E-Rx Ss Inbound - 01/14/2023 6:01 AM EST Pending Prescriptions: Disp Refills Furosemide 20 MG Oral Tablet [Pharmacy Med*30 Tab*0 Sig: TAKE ONE TABLET BY MOUTH EVERY MORNING * Telephone Encounter - Lizzy Sanchez CPhT - 01/12/2023 12:43 PM ESTPending Prescriptions: Disp Refills Furosemide 20 MG Oral Tablet [Pharmacy Med*30 Tab*0 Sig: TAKE ONE TABLET BY MOUTH EVERY MORNING * Telephone Encounter - Lizzy Sanchez CPhT - 01/12/2023 12:42 PM EST Patient is up to date for office visits. Pending Prescriptions: Disp Refills Furosemide 20 MG Oral Tablet (Lasix) [Pha*30 Tab*0 Sig: TAKE ONE TABLET BY MOUTH EVERY MORNING Last Visit: 12/13/2022 (in office), Visit date not found (telemedicine) Next Visit: 04/13/2023 If no future appointments scheduled, and last appointment is greater than a year ago, please schedule patient for a follow-up appointment Last date the medication was ordered: 03/09/2022 Pharmacy: [id number] [address] [place] Is this request for a controlled substance?No it is not controlled. Urine Drug Screen:No results found. However, due to the size of the patient record, not all encounters were searched. Please check Results Review for a complete set of results. Patient Phone Numbers Labs: Lab Results Component Value Date/Time CREAT 0.6 12/13/2022 10:41 AM CREAT 0.6 01/08/2020 10:29 AM CREAT 0.6 (L) 05/13/1996 09:30 AM POTASSIUM 4.5 12/13/2022 10:41 AM POTASSIUM 3.9 01/08/2020 10:29 AM POTASSIUM 4.4 05/13/1996 09:30 AM TSH 0.01 (L) 08/15/2022 10:02 AM TSH 0.14 (L) 03/17/2019 12:09 PM TSH 4.64 05/13/1996 09:30 AM LDLCALC 64 08/07/2018 11:30 AM LDLDIRECT NOT APPLICABLE 04/28/2013 10:00 AM ALT 24 12/13/2022 10:41 AM ALT 21 01/08/2020 10:29 AM ALT 55 (H) 05/13/1996 09:30 AM HGBA1C 9.6 (H) 08/15/2022 10:02 AM HGBA1C 7.7 (H) 02/20/2019 11:49 AM documented in this encounter Plan of Treatment Upcoming Encounters Date Type Department Care Team (Latest Contact Info) Description 01/30/2023 10:15 AM EST Hospital Encounter ENDO O[facility], Endoscopy Room [facility] [address] [place] [address] Doreen Whalen, DO [address] [place] [address] 01/30/2023 10:15 AM EST - 01/30/2023 10:45 AM EST Surgery ENDO [facility], Endoscopy Room [facility] [address] [place] [address] Doreen Whalen, DO [address] [place] [address] ESOPHAGOGASTRODUODENOSCOPY (EGD), FLEXIBLE, TRANSORAL, DIAGNOSTIC 04/13/2023 10:30 AM EST Office Visit Gastroenterolog y, [facility] [address] [place] [address] Eda Mobley CRNP [address] [place] [address] 05/07/2023 8:50 AM EDT Office Visit [facility] [address] [facility] [place] [phone] Tita [place] DO [address] [facility] [place] [address] 11/20/2023 11:00 AM EDT Office Visit Neurology [facility] [address] [facility] [place] [address] Christine Cassidy PA-C [address] [facility] [place] [address] Scheduled Procedures Name Priority Associated Diagnoses Date/Ti me ESOPHAGOGASTRODUODENOSCOPY ( EGD), FLEXIBLE, TRANSORAL, DIAGNOSTIC Black stool 01/30/2023 10:15 AM EST Health Maintenance Due Date Last [...] filedocumented as of this encounter Care Teams Card Decorator Relationship Specialty Start Date End Date Tita Harris DO [address] [place] [address] PCP - General Family Medicine 10/30/12 documented as of this encounter
--- OUTSIDE RECORDS SUMMARY | 2023-04-26 00:06 | External Medical Summary ---
Author Name Unknown Address Unknown Organization K01:LABORATORY [facility] [place] - [facility] [place][note 2] [address] [place] [address] Laboratory Report Ordering Provider Test Date Status JULEE BASURTO 01/12/2023 11:22:16 Final Observation Date Value Abnormality Reference (Units ) Status BUN 01/12/2023 11:22:16 14 6-20 (mg/dL) Final Creatinine 01/12/2023 11:22:16 0.6 0.5-1.0 (mg/dL) Final Glomerular filtration rate/1.73 sq M.predicted [Volume Rate/Area] in Serum, Plasma or Blood by Creatinine-based formula (CKD-EPI) 01/12/2023 11:22:16 90 >=60 (mL/min) Final eGFR is calculated based on the CKD-EPI 2020 equation SODIUM 01/12/2023 11:22:16 139 135-146 (m mol/L) Final Potassium 01/12/2023 11:22:16 4.0 3.5-5.1 (m mol/L) Final Cl 01/12/2023 11:22:16 102 98-107 (mm ol/L) Final CO2 01/12/2023 11:22:16 26 22-32 (mmo l/L) Final Anion gap 01/12/2023 11:22:16 11 7-15 (mmol /L) Final Glucose 01/12/2023 11:22:16 138 Above high normal 70 -120 (mg/dL) Final Calcium 01/12/2023 11:22:16 8.9 8.4-10.2 ( mg/dL) Final Performing Location LABORATORY [facility] [place] - [address] [place] [address]
--- OUTSIDE RECORDS SUMMARY | 2023-04-26 00:06 | External Medical Summary | Summary of Care ---
Author Name Unknown Organization [facility] Address [address] [facility] [place] [address] Phone [phone] Care Team Providers Care Clinical Business Analyst Name Role Phone Steven Tita Rehana DO Primary Care Provider + [phone] Reason for Visit * Reason Comments Outpatient Testing Encounter Details Date Type Department Care Team (Late st Contact Info) Description 01/12/2023 11:20 AM EST Laboratory Laboratory, [facility] [address] [place] [address] [facility] [address] [place] [address] Type 2 diabetes mellitus with hemoglobin A1c goal of less than 7.0% ([facility]); Black stools; Thrombocytopenia ([facility]) Allergies Active Allergy Reactions Criticality Noted Date Comments Iodinated Contrast Media 04/16/1997 Levofloxacin In D5w Other (Please comment) 05/06 Seeing things Oxycodone-Acetaminophe n Neuro complications (Please comment) 02/29/2012 Nightmares, hearing and seeing things. documented as of this encounter (statuses as of 01/12/2023) Medications Medication Sig Dispensed Refills Start Date [...] on 01/12/2023 Empagliflozin 25 MG Oral Tablet (Jardiance)Indicati ons:Type 2 diabetes mellitus with hemoglobin A1c goal of less than 7.0% (HCC) Take 1 Tablet by mouth in the morning. 90 Tablet 3 02/14/2022 Active Lactulose 10 GM/15ML Oral Solution (Constulose) [...] mouth in the morning. 30 Tablet 3 03/09/2022 Active Losartan Potassium 50 MG Oral Tablet [...] sugar. E11.9 100 Each 3 07/31/2022 Active metFORMIN HCl ER 500 MG Oral Tablet Extended Release 24 Hour (Glucophage XR)Indications:Type 2 diabetes mellitus with hemoglobin A1c goal of less than 7.0% (HCC) Take 2 tablets by mouth twice daily with foods 360 Tablet 1 08/15/2022 Active Clotrimazole 1 % Vaginal CreamIndications:Va ginal itching Apply to external vulva at bedtime x 7 days 45 g 0 08/28/2022 Active Levothyroxine Sodium 150 MCG Oral Tablet (Levoxyl) Take 1 Tablet by mouth in the morning. (at least 30 min prior to breakfast or other meds). 30 Tablet 11 09/08/2022 Active Mirtazapine 45 MG Oral Tablet (Remeron)Indication s:Insomnia, unspecified type,Dementia of the Alzheimer's type, with late onset, uncomplicated (HCC) TAKE ONE TABLET BY MOUTH NIGHTLY AT BEDTIME 30 Tablet 3 09/11/2022 Active Spironolactone 50 MG Oral Tablet (Aldactone) Take 1 Tablet by mouth in the morning. 90 Tablet 1 09/11/2022 Active OneTouch Verio In Vitro Strip (Glucose Blood)Indications:T ype 2 diabetes mellitus with hemoglobin A1c goal of less than 7.0% ([facility]),Type 2 diabetes mellitus without complication, without long-term current use of insulin ([facility]) USE TO CHECK GLUCOSE ONCE [...] of skin. 60 Each 11 01/12/2023 Active documented as of this encounter (statuses as of 01/12/2023) Active Problems Problem Noted Date Diagnosed Date [...] as of this encounter (statuses as of 01/12/2023) Resolved Problems Problem Noted Date Diagnosed Date [...] as of this encounter (statuses as of 01/12/2023) Immunizations Name Administration Dates Next Due Pneumococcal [...] EST Hospital Encounter ENDO [facility], Endoscopy Room [facility] [address] [place] [phone] Doreen Whalen, DO [address] [place] [address] 01/30/2023 10:15 AM EST - 01/30/2023 10:45 AM EST Surgery ENDO [facility], Endoscopy Room [facility] [address] [place] [phone] Doreen Whalen, DO [address] [place] [address] ESOPHAGOGASTRODUODENOSCOPY (EGD), FLEXIBLE, TRANSORAL, DIAGNOSTIC 04/13/2023 10:30 AM EST Office Visit Gastroenterolog y, [facility] [address] [place] [address] Eda Mobley CRNP [address] [place] [address] 05/07/2023 8:50 AM EDT Office Visit [facility] [address] [facility] [phone] Tita Harris DO [address] [place] [facility] [address] 11/20/2023 11:00 AM EDT Office Visit Neurology [facility] [address] [place] [address] Christine Cassidy PA-C [address] [place] [address] Pending Results Name Type Priority Associated Diagnoses Date /Time HEMOGLOBIN A1C Lab Routine Type 2 diabetes mellitus with hemoglobin A1c goal of less than 7.0% ([facility]) 01/12/2023 11:22 AM EST BASIC METABOLIC PANEL Lab Routine Type 2 diabetes mellitus with hemoglobin A1c goal of less than 7.0% ([facility]) 01/12/2023 11:22 AM EST CBC Lab Routine Black stools 01/12/2023 11:22 AM EST VITAMIN B12 Lab Routine Thrombocytopenia ([facility]) 01/12/2023 11:22 AM EST Scheduled Procedures Name Priority Associated Diagnoses Date/Ti pr ESOPHAGOGASTRODUODENOSCOPY ( EGD), FLEXIBLE, TRANSORAL, DIAGNOSTIC Black stool 01/30/2023 10:15 AM EST Health Maintenance Due Date Last Done Comments Hepatitis B (1 of 3 - Risk 3-dose series) 2003 Zoster Vaccines (2 of 3) 11/13/2011 09/18/2011 DXA Scan 11/26/2016 11/27/2011, 11/06, 08/10/2008, Additional history exists Depression Screening 08/18/2020 08/19/2019 COVID-19 Vaccine ( season) 2022 04/16/2020, 03/26/2020 HbA1c 02/15/2023 08/15/2022, 0402/2022, 08/04/2021, Additional history exists Diabetic Foot Exam [...] A1c goal of less than 7.0% (HCC) Black stools Nonspecific abnormal finding in stool contents Thrombocytopenia (HCC) Thrombocytopenia, unspecified Black stool Nonspecific abnormal finding in stool contents documented in this encounter Care Teams Clinical Business Analyst Relationship Specialty Start Date End Date Tita Harris DO [address] [place] [address] PCP - General Family Medicine 10/30/12 documented as of this encounter
--- OUTSIDE RECORDS SUMMARY | 2023-04-26 00:06 | External Medical Summary ---
Author Name Unknown Address Unknown Organization K01:[facility] [place] [facility] [address] [facility] [address] [facility] [address] Laboratory Report Ordering Provider Test Date Status JULEE BASURTO 01/12/2023 11:22:16 Final Observation Date Value Abnormality Reference (Units ) Status HbA1C 01/12/2023 11:22:16 7.1 Above high normal 4. 0-5.6 (%) Final The use of HbA1c to monitor glycemic status is based on normal hemoglobin and HbA composition. This test should not be used in patients with abnormal hemoglobin that affects the half life of the red blood cell or the in vivo glycation rates. Glucose, estimated average 01/12/2023 11:22:16 157 Above high normal <126 (mg/dL) Phillip chang Performing Location [facility] [place] [address] [facility] [address]
--- OUTSIDE RECORDS SUMMARY | 2023-04-26 00:06 | External Medical Summary ---
Author Name Unknown Address Unknown Organization : Laboratory Report Ordering Provider Test Date Status BRINDA GUERRA 01/19/2023 09:24:11 Final Observation Date Value Abnormality Reference (Units) Status Glucose Point of Care 01/19/2023 09:24:11 182 Above high normal 70-120 (mg/dL) Final POCT DEVICE COMMENT 01/19/2023 09:24:11 Pre Procedure Final Performing Location
--- OUTSIDE RECORDS SUMMARY | 2023-04-26 00:06 | External Medical Summary | Summary of Care ---
Author Name Unknown Organization [facility] Address [address] [facility] [place] [address] Phone [phone] Care Team Providers Care Horticultural Worker Name Role Phone Tita Harris Primary Care Provider Reason for Visit * Auth/Cert Specialty Diagnoses / Procedures Referred By Salome t Referred To Contact Diagnoses Black stool Black stool [K92.1] Procedures EGD, FLEXIBLE, DIAGNOSTIC ESOPHAGOGASTRODUODENOSCOPY (EGD), FLEXIBLE, TRANSORAL, DIAGNOSTIC Referral ID Status Reason Start Date Expiration Date Visits Re quested Visits Authorized [id number] Encounter Details Date Type Department Care Team (Latest Contact Info) Description 01/19/2023 8:34 AM EST - 01/19/2023 10:50 AM [facility] Hospital Encounter ENDO [facility], Endoscopy Room [facility] [address] [place] [phone] Chris Pagan MD [address] [place] [id number] Upper GI Endoscopy Discharge Disposition: Home - Self Care Allergies Active Allergy Reactions Criticality Noted Date Comments Iodinated Contrast Media 04/16/1997 Levofloxacin In D5w Other (Please comment) 05/06 Seeing things Oxycodone-Acetaminophe n Neuro complications (Please comment) 02/29/2012 Nightmares, hearing and seeing things. documented as of this encounter (statuses as of 01/19/2023) Medications Medication Sig Dispensed Refills Start Date End Date Status zoster vac recomb adjuvanted (SHINGRIX) 50 MCG/0.5ML injectionIndication s:Need for vaccination for zoster Inject 0.5 mL into a large muscle now and repeat dose in 60 to 180 days 1 Each 1 02/20/2019 Active Additional Information Patient not taking.Reported on 01/16/2023 DialedINTouch Verio Flex System w/Device Kit Use as [...] before bedtime 60 Tablet 5 12/10/2022 Active Furosemide 20 MG Oral Tablet (Lasix) TAKE ONE TABLET BY MOUTH EVERY MORNING 30 Tablet 0 01/16/2023 Active Mirtazapine 45 MG Oral Tablet (Remeron)Indication [...] as of this encounter (statuses as of 01/19/2023) Active Problems Problem Noted Date Diagnosed Date [...] as of this encounter (statuses as of 01/19/2023) Resolved Problems Problem Noted Date Diagnosed Date [...] as of this encounter (statuses as of 01/19/2023) Immunizations Name Administration Dates Next Due Pneumococcal [...] Sign Reading Time Taken Comments Blood Pressure 98/52 01/19/2023 10:08 AM EST Pulse 70 01/19/2023 10:08 AM EST Temperature 36.2 C (97.1 F) 01/19/2023 10:[address] Respiratory Rate 16 01/19/2023 10:08 AM EST Oxygen Saturation 96% 01/19/2023 10:08 AM EST Inhaled Oxygen Concentration - - Weight 62.1 kg (137 lb) 01/19/2023 8:59 AM EST Height 160 cm (5' 2.99") 01/19/2023 8:59 AM EST Body Mass Index 24.27 01/19/2023 8:59 AM EST documented in this encounter H&P Notes * Chris Pagan MD - 01/19/2023 9:40 AM EST Procedure(s): Upper GI Endoscopy; with Indication(s) of evaluation and management of GI bleeding and/or iron-deficiency anemia Endoscopy Pre-Procedure Assessment: Prior to the procedure, the patient was identified. The patient's history, medications and allergies were reviewed as per the Anesthesia Assessment. The patient is competent. The risks and benefits of the proposed procedure and the planned sedation were discussed with the patient. All questions were answered and informed consent for the procedure was obtained. BP 108/65 | Pulse 76 | Temp 37.1 C (98.7 F) (Tympanic) | Ht 1.6 m (5' 2.99") | Wt 62.1 kg (137 lb) | SpO2 97% | BMI 24.27 kg/m | BSA 1.66 m Physical Exam: Mental Status Examination: alert and oriented. Airway Examination: normal oropharyngeal airway and neck mobility. Respiratory Examination: clear to auscultation. CV Examination: normal. ASA Grade: II - A patient with mild systemic disease. Patient was explained in detail regarding risks, benefits, limitations and alternatives of the above endoscopic procedure. Risks of intravenous sedation used for procedure were also explained. Risks include, but not limited to perforation, bleeding, infection, respiratory distress, cardiac arrest and . Patient is also aware about the possibility of missed lesions. Patient's questions were answered. The patient verbalized understanding of the information and agreed to undergo the procedure. After reviewing the risks and benefits, the patient was deemed in satisfactory condition to undergothe procedure. The anesthesia plan is to use general anesthesia. documented in this encounter Procedure Notes * Tita Harris DO - 01/19/2023 9:41 AM ESTAssociated Order(s): UPPER GI ENDOSCOPY [facility] Patient Name: Naz Kennedy Procedure Date: 01/19/2023 9:41 AM Date of : 1945 Admit Type: Outpatient Note Status: Finalized Date of : 1945 Admit Type: Outpatient Age: 77 Room: [facility] Gender: Female Note Status: Finalized Procedure: Upper GI endoscopy Indications: Melena Providers: Chris Pagan MD (Doctor), Mackenzie Perez RN, Maria Fernanda Silverman CRNA (Anesthesia Staff) Referring MD: Tita Harris DO (Referring MD) Medicines: See the Anesthesia note for documentation of the administered medications Complications: No immediate complications. Procedure: Pre-Anesthesia Assessment: - - Patient identification and proposed procedure were verified prior to the procedure by the physician and the nurse. The procedure was verified in the procedure area. - Prior to the procedure, a History and Physical was performed, and patient medications, allergies and sensitivities were reviewed. The patient's tolerance of previous anesthesia was reviewed. - The risks and benefits of the procedure and the sedation options and risks were discussed with the patient. All questions were answered and informed consent was obtained. After obtaining informed consent, the endoscope was passed under direct vision. All instruments were visually inspected immediately before and after removal from the patient to ensure they are fully intact. Throughout the procedure, the patient's blood pressure, pulse, and oxygen saturations were monitored continuously. The [id number] Endoscope ([id number]) was introduced through the mouth, and advanced to the third part of duodenum. The upper GI endoscopy was accomplished without difficulty. The patient tolerated the procedure well. Findings & Specimens: Grade III varices were found in the lower third of the esophagus. Mild portal hypertensive gastropathy was found in the gastric body. The examined duodenum was normal. The cardia and gastric fundus were normal on retroflexion. Impression: - Grade III esophageal varices. - Portal hypertensive gastropathy. - Normal examined duodenum. - No specimens collected. Recommendation: - Discharge patient to home. - Return to referring physician as previously scheduled. Chris Pagan MD 01/19/2023 10:09:58 AM This report has been signed electronically. CC Letter to: Eda Mobley NP (CC) documented in this encounter Nursing Notes * Deirdre Coates RN - 01/19/2023 10:43 AM EST Patient is alert, pain free, passing flatus and tolerating po fluids prior to discharge. Patient has been visited by Dr. Pagan. Patient has received and demonstrates understanding of discharge instructions. Patient is transported via w/c to private auto accompanied by endo staff. * Deirdre Coates RN - 01/19/2023 10:12 AM EST Pt sitting up tolerating PO fluids, daughter at BS. Dr Pagan in with pt and daughter discussingresults of pt. * Deirdre Coates RN - 01/19/2023 10:08 AM EST Received pt, sleeping, VSS, CM shows NSR. Report given by Paty VARELA. * Mackenzie Perez RN - 01/19/2023 10:01 AM EST Pt john EGD well. Abd soft post proc. No specimens obtained. To recovery lying on L side w/ HOB elevated. Pre cleaning of scope at the bedside started by preparatory technician. * Dilma Wyatt RN - 01/19/2023 9:33 AM EST The following pt discharge instructions reviewed with pt prior to prodedure: No driving today. No alcohol today. No signing of legal documents. Rest as much as possible today and can return to normal activities tomorrow. No operating any heavy equipment today. Diet as tolerated. Pt verbalized understanding. documented in this encounter Plan of Treatment Upcoming Encounters Date Type Department Care Team (Late st Contact Info) Description 04/13/2023 10:30 AM EST Office Visit Gastroenterology, [facility] [address] [facility] [place] [id number] Eda Mobley CRNP [address] [place] [address] 05/07/2023 8:50 AM EDT Office Visit [address] [place] [phone] Tita Harris DO [address] [place] [address] [place] [address] 11/20/2023 11:00 AM EDT Office Visit Neu[facility] [place] [facility] [address] Christine Cassidy PA-C [address] [place] [address] Scheduled Procedures Name Priority Associated Diagnoses Date/Ti me ESOPHAGOGASTRODUODENOSCOPY ( EGD), FLEXIBLE, TRANSORAL, DIAGNOSTIC Black stool 01/19/2023 9:50 AM EST Health Maintenance Due Date Last Done Comments Hepatitis B (1 of 3 - Risk 3-dose series) 2003 Zoster Vaccines (2 of 3) 11/13/2011 09/18/2011 DXA Scan 11/26/2016 11/27/2011, 11/06, 08/10/2008, Additional history exists Depression Screening 08/18/2020 08/19/2019 COVID-19 Vaccine (3 2022- season) 2022 04/16/2020, 03/26/2020 Diabetic Foot Exam 05/18/2023 05/17/2022, 0 04/08/2021, 04/09/2020, Additional history exists Diabetic Eye Exam 05/27/2023 05/26/2022, , 05/26/2022, Additional history exists HbA1c 07/14/2023 01/12/2023, 08/05, 2022, Additional history exists Albumin/Creatinine Ratio 08/16/2023 023, 04/08/2021, 01/26/2016 TSH 08/16/2023 08/15/2022, 07/08, 04/08/2021, Additional history exists GFR 01/13/2024 01/12/2023, 1109/2022, 08/15/2022, Additional history exists DTaP,Tdap,and Td Vaccines [...] Procedure Name Priority Date/Time Associated Diagnosis Comments UPPER GI ENDOSCOPY 01/19/2023 9: 41 AM EST documented in this encounter Results * UPPER GI ENDOSCOPY (01/19/2023 9:41 AM EST) 01/19/2023 9:41 AM EST Narrative Procedure Note Tita Harris DO - 01/19/2023 9:41 AM EST [facility] Patient Name: Naz Kennedy Procedure Date: 01/19/2023 9:41 AM Date of : 1945 Admit Type: Outpatient Note Status:Finalized Date of : 1945 Admit Type: Outpatient Age: 77 Room: [facility] 4 Gender: Female Note Status: Finalized Procedure: Upper GI endoscopy Indications: Melena Providers: Chris Pagan MD (Doctor), Mackenzie Perez RN, Maria Fernanda Silverman CRNA (Anesthesia Staff) Referring MD: Tita aHrris DO (Referring MD) Medicines: See the Anesthesia note for documentation of theadministered medications Complications: No immediate complications. Procedure: Pre-Anesthesia Assessment: - - Patient identification and proposed procedurewere verified prior to the procedure by the physician and the nurse. Theprocedure was verified in the procedure area. - Prior to the procedure, a History and Physicalwas performed, and patient medications, allergies and sensitivities werereviewed. The patient's tolerance of previous anesthesia was reviewed. - The risks and benefits of the procedure and thesedation options and risks were discussed with the patient. All questions wereanswered and informed consent was obtained. After obtaining informed consent, the endoscope waspassed under direct vision. All instruments were visually inspected immediatelybefore and after removal from the patient to ensure they are fully intact. Throughout the procedure, the patient's bloodpressure, pulse, and oxygen saturations were monitored continuously. The [id number] ([id number]) was introduced through the mouth, and advanced to the third part ofduodenum. The upper GI endoscopy was accomplished without difficulty. The patienttolerated the procedure well. Findings & Specimens: Grade III varices were found in the lower third of the esophagus. Mild portal hypertensive gastropathy was found in the gastric body. The examined duodenum was normal. The cardia and gastric fundus were normal on retroflexion. Impression: - Grade III esophageal varices. - Portal hypertensive gastropathy. - Normal examined duodenum. - No specimens collected. Recommendation: - Discharge patient to home. - Return to referring physician as previouslyscheduled. Chris Pagan MD 01/19/2023 10:09:58 AM This report has been signed electronically. CC Letter to: Eda Mobley NP (CC) Tita Harris DO GASTRO UPPER documented in this encounter Administered Medications Inactive Administered Medications - up to 3 most recent administrations Medication Order MAR Action Action Date Dose Rate Site Acetaminophen (Tylenol) tab 650 mg 650 mg, Oral, PRN Pain, Mild, Starting on Sun01/19/23 at 1023, Until Sun01/19/23 at 1450, For 1 dose, Maximum of 4 grams (4000 mg) per day., Post-op isolyte-S pH 7.4 infusion Intravenous, at 100 mL/hr, Plasma-LYTE 148, isolyte-S, and isolyte-S pH 7.4 are considered equivalent - including for MAR barcode scanning., CONTINUOUS, Starting on Sun01/19/23 at 0945, Until Sun01/19/23 at 1450, Pre-Op Continue from Pre-Op 01/19/2023 9:44 AM EST 100 mL/hr New Bag 01/19/2023 9:34 AM EST 100 mL/hr documented in this encounter Active and Recently Administered Medications Times are shown in EST. Continuous Medication Order 01/17/2023 01/18/2023 01/19/2023 isolyte-S pH 7.4 infusion Intravenous, at 100 mL/hr, Plasma-LYTE 148, isolyte-S, and isolyte-S pH 7.4 are considered equivalent - including for MAR barcode scanning., CONTINUOUS, Starting on Sun01/19/23 at 0945, Until Sun01/19/23 at 1450, Pre-Op 0934 (New Bag - Prov ider: Dilma Wyatt RN)0944 (Continue from Pre-Op - Provider: Maria Fernanda Silverman CRNA)1002 (Anes Intra-Op Fluid - Provider: Maria Fernanda Silverman CRNA) PRN Medication Order 01/17/2023 01/18/2023 01/19/2023 Acetaminophen (Tylenol) tab 650 mg 650 mg, Oral, PRN Pain, Mild, Starting on Sun01/19/23 at 1023, Until Sun01/19/23 at 1450, For 1 dose, Maximum of 4 grams (4000 mg) per day., Post-op documented in this encounter Care Teams Horticultural Worker Relationship Specialty Start Date End Date Tita Harris DO [address] [place] [address] PCP - General Family Medicine 10/30/12 documented as of this encounter
--- OUTSIDE RECORDS SUMMARY | 2023-04-26 00:06 | External Medical Summary | Summary of Care ---
Author Name Unknown Organization [facility] Address [address] [place] [address] Phone [phone] Care Team Providers Care Assistant Boiler Operator Name Role Phone Tita Harris DO Primary Care Provider + [phone] Reason for Referral * Ancillary Services (Within 10 days (routine)) - Authorized Specialty Diagnoses / Procedures Referred By Salome rene Referred To Contact Gastroenterology Diagnoses Black stools Tita Harris DO [address] [place] [address] Referral ID Status Reason Start Date Expiration Date Visits Requested Visits Authorized [id number] Authorized Ancillary Services Required 01/12/2023 999 999 Question Answer Referral Priority Within 10 days (routine) Where should this appointment be scheduled? [facility] Upper Endoscopy ASGE Guidelines [place] ADDITIONAL INFORMATION 1. Is the patient on Coumadin? No 2. Is the patient on Pradaxa? No Reason for Visit * Reason Comments Follow Up Pt has black stoolAn d sores on the top of her head that is uncomfortable pt states it's getting worse States her meds aren't up to date since the pandemic Was pt getting B12 injections? Please review meds with pt Encounter Details Date Type Department Care Team (Latest Contact Info) Description 01/12/2023 10:10 AM EST Office Visit [facility] [id number] [place] [address] Tita Harris DO [address] [place] [address] Type 2 diabetes mellitus with hemoglobin A1c goal of less than 7.0% (HCC)*; Thrombocytopenia (HCC); HTN, goal below 140/90; Hepatic encephalopathy (HCC); Black stools; Scalp lesion Allergies Active Allergy Reactions Criticality Noted Date [...] 180 days 1 Each 1 02/20/2019 Active QueweyTouch Verio Flex System w/Device Kit Use as [...] A1c goal of less than 7.0% ([facility]) Use once daily to check blood sugar. E11.9 100 Each 5 07/26/2022 Active OneTouch Delica Lancets 33G Use once daily to check blood sugar. E11.9 100 Each 3 07/31/2022 Active metFORMIN HCl ER 500 MG Oral Tablet Extended Release 24 Hour (Glucophage XR)Indications:Typ e 2 diabetes mellitus with hemoglobin A1c goal of less than 7.0% ([facility]) Take 2 tablets by mouth twice daily with foods 360 Tablet 1 08/15/2022 Active Clotrimazole 1 % Vaginal CreamIndications:V aginal itching Apply to external vulva at bedtime x 7 days 45 g 0 08/28/2022 Active Levothyroxine Sodium 150 MCG Oral Tablet (Levoxyl) Take 1 Tablet by mouth in the morning. (at least 30 min prior to breakfast or other meds). 30 Tablet 11 09/08/2022 Active Mirtazapine 45 MG Oral Tablet (Remeron)Indicatio ns:Insomnia, unspecified type,Dementia of the Alzheimer's type, with late onset, uncomplicated ([facility]) TAKE ONE TABLET BY MOUTH NIGHTLY AT BEDTIME 30 Tablet 3 09/11/2022 Active Spironolactone 50 MG Oral Tablet (Aldactone) Take 1 Tablet by mouth in the morning. 90 Tablet 1 09/11/2022 Active OneTouch Verio In Vitro Strip (Glucose Blood)Indications: Type 2 diabetes mellitus with hemoglobin A1c goal of less than 7.0% ([facility]),Type 2 diabetes mellitus without complication, without long-term current use of insulin ([facility]) USE TO CHECK GLUCOSE ONCE [...] of skin. 60 Each 11 01/12/2023 Active Clindamycin Phosphate 1 % External GelIndications:Fol liculitis APPLY TWICE DAILY ( OR MORE INSTEAD OF SCRATCHING) TO LESIONS ON SCALP UNTIL RESOLVED, THEN WHEN FLARING UP 60 g 0 12/25/2022 3 Discontinu ed(Dischar ged) documented as of this encounter (statuses as [...] Sign Reading Time Taken Comments Blood Pressure 100/58 01/12/2023 10:26 AM EST Pulse 78 01/12/2023 10:26 AM EST Temperature 36.5 C (97.7 F) 01/12/2023 10:[address] Respiratory Rate 18 01/12/2023 10:26 AM EST Oxygen Saturation 96% 01/12/2023 10:26 AM EST Inhaled Oxygen Concentration - - Weight 62.1 kg (137 lb) 01/12/2023 10:26 AM EST Height 160 cm (5' 3") 01/12/2023 10:26 AM EST Body Mass Index 24.27 01/12/2023 10:26 AM EST documented in this encounter Progress Notes * Tita Harris, DO - 01/12/2023 10:44 AM EST Subjective: Naz Kennedy is a 77 year old female. Chief Complaint Patient presents with Follow Up Pt has black stool And sores on the top of her head that is uncomfortable pt states it's getting worse States her meds aren't up to date since the pandemic Was pt getting B12 injections? Please review meds with pt HPI: 77 year old female here for a follow up. Carries hx of type 2 diabetes, Cirrhosis of the liver, alzheimers dementia, vit b 12 deficiency, and on meds as listed. Here today with her , and he reports that she has been having black stools for 6 months. Intermittent bloating. No diarrhea, she is not taking any iron. +memory issues. Weight loss is stable. 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 To test BG once daily. Dx. e11.9 1 Kit 3 Empagliflozin 25 MG Oral Tablet (Jardiance) Take 1 Tablet by mouth in the morning. 90 Tablet 3 Lactulose 10 GM/15ML Oral Solution (Constulose) Take 30 mL by mouth in the morning and 30 mL beforebedtime. 5400 mL 3 Furosemide 20 MG Oral Tablet (Lasix) Take 1 Tablet by mouth in the morning. 30 Tablet 3 Losartan Potassium 50 MG Oral Tablet (Cozaar) Take 0.5 Tablets by mouth in the morning. 90 Tablet 3 OneTouch UltraSoft Lancets Use once daily to check blood sugar. E11.9 100 Each 5 OneTouch Delica Lancets 33G Use once daily to check blood sugar. E11.9 100 Each 3 metFORMIN HCl ER 500 MG Oral Tablet Extended Release 24 Hour (Glucophage XR) Take 2 tablets by mouth twice daily with foods 360 Tablet 1 Clotrimazole 1 % Vaginal Cream Apply to external vulva at bedtime x 7 days 45 g 0 Levothyroxine Sodium 150 MCG Oral Tablet (Levoxyl) Take 1 Tablet by mouth in the morning. (at least30 min prior to breakfast or other meds). 30 Tablet 11 Mirtazapine 45 MG Oral Tablet (Remeron) TAKE ONE TABLET BY MOUTH NIGHTLY AT BEDTIME 30 Tablet 3 Spironolactone 50 MG Oral Tablet (Aldactone) Take 1 Tablet by mouth in the morning. 90 Tablet 1 OneTouch Verio In Vitro Strip (Glucose Blood) [...] Tablet 5 Clindamycin Phosphate 1 % External Gel APPLY TWICE DAILY ( OR MORE INSTEAD OF SCRATCHING) TO LESIONS ON SCALP UNTIL RESOLVED, THEN WHEN FLARING UP 60 g 0 zoster vac recomb adjuvanted (SHINGRIX) 50 MCG/0.5ML injection Inject 0.5 mL into a large muscle now and repeat dose in 60 to 180 days 1 Each 1 Premarin 0.625 MG/GM Vaginal Cream (Estrogens, Conjugated) Administer into the vagina 0.5 g before bedtime. As directed.. (Patient not taking: Reported on 01/12/2023) 42.5 g 5 Albumin Human 25 % Intravenous Solution Infuse 50g IV before and 50g IV after paracentesis May administer at rate of 100ml/hr (Patient not taking: Reported on 09/11/2022) 50 mL 0 Triamcinolone Acetonide 0.1 % External Ointment (Aristocort) Apply topically to affected area 2 times a day. To affected area. (Patient not taking: Reported on 09/11/2022) 15 g 5 Donepezil HCl 5 MG Oral Tablet (Aricept) TAKE 1 TABLET BY MOUTH EVERY MORNING with the largest mealof the day (Patient not taking: Reported on 11/22/2022) 90 Tablet 1 No current facility-administered medications for this visit. Review of patient's allergies indicates: Allergen Reactions Iodinated Contrast Media Levaquin [Levofloxacin In D5w] Other (Please comment) Seeing things Percocet [Oxycodone-Acetaminophen] Neuro complications (Please comment) Nightmares, hearing and seeing things. Objective: BP 100/58 | Pulse 78 | Temp 36.5 C (97.7 F) (Infrared ) | Resp 18 | Ht 1.6 m (5' 3") | Wt 62.1 kg (137 lb) | SpO2 96% | BMI 24.27 kg/m | BSA 1.66 m Physical Exam: General: alert, healthy, and no distress Heart: regular rate & rhythm, no murmur, and no gallops Lungs: chest symmetric with normal AP diameter, no chest deformities noted, no chest wall tenderness, lungs clear to auscultation Abdomen: abdomen soft, non-tender, normal bowel sounds, and no masses or organomegaly Extremities: no edema Skin open scabs on her scalp and her upper back, none that appear infected ASSESSMENT/PLAN: Type 2 diabetes mellitus with hemoglobin A1c goal of less than 7.0% (HCC) (Primary) - HEMOGLOBIN A1C; Future; Expected date: 01/12/2023 - BASIC METABOLIC PANEL; Future; Expected date: 01/12/2023 Thrombocytopenia (HCC) - VITAMIN B12; Future; Expected date: 01/12/2023 HTN, goal below 140/90 Hepatic encephalopathy (HCC) Black stools - UPPER ENDOSCOPY GI REFERRAL OP - CBC; Future; Expected date: 01/12/2023 Scalp lesion - Clindamycin Phosphate 1 % External Swab; Apply topically to affected area 2 times a day. To affected area of skin. Follow Up: Return in about 3 months (around 04/13/2023) for Labs Today. | For: Labs Today | Check-outnote: EGD pls arrange Tita Harris DO documented in this encounter Nursing Notes * Ashley Mayfield LPN - 01/12/2023 10:20 AM EST Chief Complaint Patient presents with Follow Up Pt has black stool And sores on the top of her head that is uncomfortable pt states it's getting worse States her meds aren't up to date since the pandemic Was pt getting B12 injections? Please review meds with pt documented in this encounter Plan of Treatment Upcoming Encounters Date Type Department Care Team (Latest Contact Info) Description 01/30/2023 10:15 AM EST Hospital Encounter ENDO OSSC, Endoscopy Room [facility] [address] [place] [phone] Doreen Whalen, DO [address] [place] [address] 01/30/2023 10:15 AM EST - 01/30/2023 10:45 AM EST Surgery ENDO OSS, Endoscopy Room [facility] [address] [place] [address] Doreen Whalen DO [address] [place] [address] ESOPHAGOGASTRODUODENOSCOPY (EGD), FLEXIBLE, TRANSORAL, DIAGNOSTIC 04/13/2023 10:30 AM EST [facility] [address] [place] [address] Eda Mobley CRNP [address] [place] [address] 05/07/2023 8:50 AM EDT Office Visit [facility] [address] [facility] [place] [id number] Tita Harris DO [address] [place] [address] 11/20/2023 11:00 AM EDT Office Visit Neurology [facility] [address] [place] [address] Christine Cassidy PA-C [address] [address] Pending Results Name Type Priority Associated Diagnoses Date /Time HEMOGLOBIN A1C Lab Routine Type 2 diabetes mellitus with hemoglobin A1c goal of less than 7.0% ([facility]) 01/12/2023 11:22 AM EST BASIC METABOLIC PANEL Lab Routine Type 2 diabetes mellitus with hemoglobin A1c goal of less than 7.0% ([facility]) 01/12/2023 11:22 AM EST CBC Lab Routine Black stools 01/12/2023 11:22 AM EST VITAMIN B12 Lab Routine Thrombocytopenia ([facility]) 01/12/2023 11:22 AM EST Scheduled Orders Name Type Priority Associated Diagnoses Orde r Schedule HEMOGLOBIN A1C Lab Routine Type 2 diabetes mellitus with hemoglobin A1c goal of less than 7.0% (HCC) Expected: 01/12/2023 (Approximate), Expires: 01/12/2024 BASIC METABOLIC PANEL Lab Routine Type 2 diabetes mellitus with hemoglobin A1c goal of less than 7.0% (HCC) Expected: 01/12/2023 (Approximate), Expires: 01/12/2024 CBC Lab Routine Black stools Expected: 01/12/2023 (Approximate), Expires: 01/12/2024 VITAMIN B12 Lab Routine Thrombocytopenia (HCC) Expected: 01/12/2023 (Approximate), Expires: 01/12/2024 Scheduled Procedures Name Priority Associated Diagnoses Date/Ti me ESOPHAGOGASTRODUODENOSCOPY ( EGD), FLEXIBLE, TRANSORAL, DIAGNOSTIC Black stool 01/30/2023 10:15 AM EST Scheduled Referrals Name Type Priority Associated Diagnoses Orde r Schedule UPPER ENDOSCOPY GI REFERRAL OP Referral Within 10 days (routine) Black stools Ordered: 01/12/2023 Health Maintenance Due Date Last Done Comments Hepatitis B (1 of 3 - Risk 3-dose series) 2003 Zoster Vaccines (2 of 3) 11/13/2011 09/18/2011 DXA Scan 11/26/2016 11/27/2011, 11/06, 08/10/2008, Additional history exists Depression Screening 08/18/2020 08/19/2019 COVID-19 Vaccine ( - season) 2022 04/16/2020, 03/26/2020 HbA1c 02/15/2023 08/15/2022, [...] hemoglobin A1c goal of less than 7.0% (HCC)- Primary Thrombocytopenia (HCC) Thrombocytopenia, unspecified HTN, goal below 140/90 Unspecified essential hypertension Hepatic encephalopathy (HCC) Hepatic encephalopathy Black stools Nonspecific abnormal finding in stool contents Scalp lesion Unspecified disorder of skin and subcutaneous tissue Black stool Nonspecific abnormal finding in stool contents documented in this encounter Care Teams Assistant Boiler Operator Relationship Specialty Start Date End Date Tita Harris DO [address] [place] [address] PCP - General Family Medicine 10/30/12 documented as of this encounter
--- OUTSIDE RECORDS SUMMARY | 2023-04-26 00:06 | External Medical Summary | Summary of Care ---
Author Name Unknown Organization [facility] Address [address] [facility] [place] [address] Phone [phone] Care Team Providers Care Clean Out Driller Name Role Phone Neal Harrisa Rehana DO Primary Care Provider [phone] Reason for Visit * Reason Comments eRx-Medication Refill Encounter Details Date Type Department Care Team (Late st Contact Info) Description 01/12/2023 Refill Neurology [facility] [place] [address] [place] [address] Wally Odell DO [address] [place] [address] Insomnia, unspecified type; Dementia of the Alzheimer's [...] 180 days 1 Each 1 0 Active Tripcoverio Flex System w/Device Kit Use as directed [...] before bedtime 60 Tablet 5 3 Active Mirtazapine 45 MG Oral Tablet (Remeron)Indicatio ns:Insomnia, unspecified type,Dementia of the Alzheimer's type, with late onset, uncomplicated (HCC) TAKE 1 TABLET BY MOUTH AT BEDTIME 30 Tablet 0 3 Active Clindamycin Phosphate 1 % External SwabIndications:Sc alp lesion Apply topically to affected area 2 times a day. To affected area of skin. 60 Each 11 3 Active Mirtazapine 45 MG Oral Tablet (Remeron)Indicatio ns:Insomnia, unspecified type,Dementia of the Alzheimer's type, with late onset, uncomplicated (HCC) TAKE ONE TABLET BY MOUTH NIGHTLY AT BEDTIME 30 Tablet 3 3 01/13/20 23 Discontinued documented as of this encounter [...] Telephone Encounter - Wally Odell DO - 01/12/2023 2:35 PM EST Signed Prescriptions: Disp Refills Mirtazapine 45 MG Oral Tablet (Remeron) 30 Tab*0 Sig: TAKE 1 TABLET BY MOUTH AT BEDTIME Authorizing Provider: WALLY ODELL * Telephone Encounter - Jacinda Cam LPN - 01/12/2023 1:13 PM ESTPending Prescriptions: Disp Refills Mirtazapine 45 MG Oral Tablet [Pharmacy Me*30 Tab*0 Sig: TAKE 1 TABLET BY MOUTH AT BEDTIME * Telephone Encounter - Michelle Bird CPhT - 01/12/2023 12:28 PM ESTPending Prescriptions: Disp Refills Mirtazapine 45 MG Oral Tablet [Pharmacy Me*30 Tab*0 Sig: TAKE 1 TABLET BY MOUTH AT BEDTIME * Telephone Encounter - Michelle Bird CPhT - 01/12/2023 12:27 PM EST Did you pend patient's preferred pharmacy and medication before forwarding?yes Pharmacy: [id number] [facility] Pending Prescriptions: Disp Refills Mirtazapine 45 MG Oral Tablet (Remeron) [*30 Tab*0 Sig: TAKE 1 TABLET BY MOUTH AT BEDTIME Last Visit: 11/22/2022 (in office), Visit date not found (telemedicine) Next Visit: 11/20/2023 If no future appointments scheduled, and last appointment is greater than a year ago, please schedule patient for a follow-up appointment Last date the medication was ordered: 09.11.22 Is this request for a controlled substance?No [...] EST Hospital Encounter ENDO OSSC, Endoscopy Room [facility] [address] [place] [phone] Doreen Whalen, DO [address] [place] [address] 01/30/2023 10:15 AM EST - 01/30/2023 10:45 AM EST Surgery ENDO OSSC, Endoscopy Room [facility] [address] [place] [address] Doreen Whalen, DO [address] [place] [address] ESOPHAGOGASTRODUODENOSCOPY (EGD), FLEXIBLE, TRANSORAL, DIAGNOSTIC 04/13/2023 10:30 AM EST Office Visit Gastroenterolog y, [facility] [address] [place] [address] Eda Mobley CRNP [address] [place] [address] 05/07/2023 8:50 AM EDT Office Visit [address] [place] [address] Tita Harris, [facility] [address] [facility] [address] 11/20/2023 11:00 AM EDT Office Visit [facility] [place] [address] [facility] [address] Christine Cassidy PA-C [address] [place] [address] Scheduled Procedures Name Priority Associated Diagnoses Date/Ti [...] with late onset, uncomplicated (HCC) Alzheimer's disease Black stool Nonspecific abnormal finding in stool contents documented in this encounter Care Teams Clean Out Driller Relationship Specialty Start Date End Date Tita Harris DO [address] [place] [address] PCP - General Family Medicine 10/30/12 documented as of this encounter
--- OUTSIDE RECORDS SUMMARY | 2023-04-26 00:06 | External Medical Summary ---
Author Name Unknown Address Unknown Organization [id number]:LABORATORY [facility] - [address] [place] [address] Laboratory Report Ordering Provider Test Date Status JULEE BASURTO 01/12/2023 11:22:16 Final Observation Date Value Abnormality Reference (Units ) Status Vitamin B12 01/12/2023 11:22:16 [phone] (pg/mL) Final Performing Location [facility] - [address] [place] [address]
--- OUTSIDE RECORDS SUMMARY | 2023-04-26 00:06 | External Medical Summary | Summary of Care ---
Author Name Unknown Organization [facility] Address [address] [place] [address] Phone [phone] Care Team Providers Care Cable Wirer Name Role Phone Tita Harris Primary Care Provider [phone] Encounter Details Date Type Department Care Team (Late st Contact Info) Description 01/22/2023 Orders Only Outcomes Research Department [address] [place] [address] Zo Roldan CHRA [facility] Other*[id number] Allergies Active Allergy Reactions Criticality Noted Date Comments Iodinated Contrast Media 04/16/1997 Levofloxacin In D5w Other (Please comment) 05/06 Seeing things Oxycodone-Acetaminophe n Neuro complications (Please comment) 02/29/2012 Nightmares, hearing and seeing things. documented as of this encounter (statuses as of 01/22/2023) Medications Medication Sig Dispensed Refills Start Date End Date Status zoster vac recomb adjuvanted (SHINGRIX) 50 MCG/0.5ML injectionIndication s:Need for vaccination for zoster Inject 0.5 mL into a large muscle now and repeat dose in 60 to 180 days 1 Each 1 02/20/2019 Active Additional Information Patient not taking.Reported on 01/16/2023 Proposify Verio Flex System w/Device Kit Use as [...] as of this encounter (statuses as of 01/22/2023) Active Problems Problem Noted Date Diagnosed Date [...] as of this encounter (statuses as of 01/22/2023) Resolved Problems Problem Noted Date Diagnosed Date [...] as of this encounter (statuses as of 01/22/2023) Immunizations Name Administration Dates Next Due Pneumococcal [...] 04/13/2023 10:30 AM EST Office Visit Gastroenterology, [facility] [address] [facility] [place] [address] Eda Mobley CRNP [facility] [place] [address] 05/07/2023 8:50 AM EDT Office Visit [facility] [address] [place] [address] Tita Harris DO [address] [place] [address] 11/20/2023 11:00 AM EDT Office Visit Neurology [facility] [address] [facility] [place] [address] Christine Cassidy PA-C [address] [place] [address] Scheduled Orders Name Type Priority Associated Diagnoses Orde r Schedule MYCODE SUBSEQUENT ADULT Lab Routine [facility] Other*[id number] Every 6 Months for 2 Occurrences starting 01/22/2023 until 02/11/2024 Health Maintenance Due Date Last Done Comments [...] as of this encounter Visit Diagnoses Diagnosis [facility] Other*[id number] documented in this encounter Care Teams Cable Wirer Relationship Specialty Start Date End Date Tita Harris DO [address] [facility] [place] [address] PCP - General Family Medicine 10/30/12 documented as of this encounter
--- OUTSIDE RECORDS SUMMARY | 2023-04-26 00:07 | External Medical Summary ---
Author Name Unknown Address Unknown Organization [id number][facility] [address] [place] [address] Laboratory Report Ordering Provider Test Date Status SLY HIGH 12/13/2022 10:41:55 Final Observation Date Value Abnormality Reference (Units ) Status SYNC LEUKOCYTES IN BLOOD BY AUTOMATED COUNT 12/13/2022 10:41:55 3.20 Below low normal 4.00-10.80 (K/uL) Final Segs 12/13/2022 10:41:55 63.2 40.0-75.0 (%) Final Lymphs % 12/13/2022 10:41:55 20.9 18.0-42.0 (%) Final Monos 12/13/2022 10:41:55 13.4 Above high normal 1.0-11.0 (%) Final Eosinophils 12/13/2022 10:41:55 2.2 0.0-6.0 (%) Final Basos 12/13/2022 10:41:55 0.3 0.0-2.0 (%) Final Absolute Segs 12/13/2022 10:41:55 2.02 1.80-7.70 (K/uL) Final Lymphs, absolute 12/13/2022 10:41:55 0.67 Below low normal 1.00-4.80 (K/ul) Final Monos, Abs 12/13/2022 10:41:55 0.43 0.00-1.10 (K/uL) Final Eos, Abs 12/13/2022 10:41:55 0.07 0.00-0.70 (K/uL) Final Basos, Abs 12/13/2022 10:41:55 0.01 0.00-0.20 (K/uL) Final Performing Location [facility] [address] [place] [address]
--- OUTSIDE RECORDS SUMMARY | 2023-04-26 00:07 | External Medical Summary ---
Author Name Unknown Address Unknown Organization K01:LAB[facility]ATORY [facility] - [address] [place] [address] Laboratory Report Ordering Provider Test Date Status SLY HIGH 12/13/2022 10:41:55 Final Observation Date Value Abnormality Reference (Units ) Status Ammonia 12/13/2022 10:41:55 14 11-35 (umo l/L) Final Performing Location [facility] - [address] [place] [address]
--- OUTSIDE RECORDS SUMMARY | 2023-04-26 00:07 | External Medical Summary | Summary of Care ---
Author Name Unknown Organization [facility] Address [address] [facility] [place] [address] Phone [phone] Care Team Providers Care Glaze Maker Name Role Phone Tita Harris DO Primary Care Provider + [phone] Reason for Visit * Reason Onset Date Comments Follow Up Cirrhosis Medication Administration 12/13/2022 Flu an d/or Pneumo Inj Encounter Details Date Type Department Care Team (Late st Contact Info) Description 12/13/2022 10:00 AM EST Office Visit Gastroenterology, [facility] [address] [place] [address] Eda Mobley CRNP [address] [place] [address] Other cirrhosis of liver (HCC)*; Need for prophylactic vaccination and inoculation against influenza Allergies Active Allergy Reactions Criticality Noted Date Comments Iodinated Contrast Media 04/16/1997 Levofloxacin In D5w Other (Please comment) 05/06 Seeing things Oxycodone-Acetaminophe n Neuro complications (Please comment) 02/29/2012 Nightmares, hearing and seeing things. documented as of this encounter (statuses as of 12/13/2022) Medications Medication Sig Dispensed Refills Start Date End Date Status zoster vac recomb adjuvanted (SHINGRIX) 50 MCG/0.5ML injectionIndication s:Need for vaccination for zoster Inject 0.5 mL into a large muscle now and repeat dose in 60 to 180 days 1 Each 1 02/20/2019 Active Aftercad SoftwareTouch Verio Flex System w/Device Kit Use as directed . To test BG once daily. Dx. e11.9 1 Kit 3 05/23/2021 Active Premarin 0.625 MG/GM Vaginal Cream (Estrogens, Conjugated)Indicati ons:Postmenopausal atrophic vaginitis Administer into the vagina 0.5 g before bedtime. As directed.. 42.5 g 5 08/04/2021 Active Empagliflozin 25 MG Oral Tablet (Jardiance)Indicati ons:Type [...] back daily 120 mL 0 09/22/2022 Active Clindamycin Phosphate 1 % External GelIndications:Foll iculitis Apply 2x daily (or more instead of scratching) to lesions on scalp until resolved, then when flaring 60 g 2 10/02/2022 Active Donepezil HCl 5 MG Oral Tablet [...] before bedtime 60 Tablet 5 12/10/2022 Active documented as of this encounter (statuses as of 12/13/2022) Active Problems Problem Noted Date Diagnosed Date [...] as of this encounter (statuses as of 12/13/2022) Resolved Problems Problem Noted Date Diagnosed Date [...] as of this encounter (statuses as of 12/13/2022) Immunizations Name Administration Dates Next Due Pneumococcal [...] Sign Reading Time Taken Comments Blood Pressure 127/60 12/13/2022 10:42 AM EST Pulse 71 12/13/2022 10:42 AM EST Temperature 35.9 C (96.7 F) 12/13/2022 10:[address] Respiratory Rate - - Oxygen Saturation 100% 12/13/2022 10:42 AM EST Inhaled Oxygen Concentration - - Weight 63 kg (138 lb 14.4 oz) 12/13/2022 10:42 A M EST Height - - Body Mass Index 24.61 09/22/2022 12:35 PM EDT documented in this encounter Progress Notes * Carmen Epps LPN - 12/13/2022 10:43 AM EST PRE - ADMINISTRATION DOCUMENTATION Are you experiencing any cold symptoms or fever? No Have you had Guillain-Du Bois Syndrome (an illness that causes paralysis) within the last 6 weeks? No Have you had the flu shot in the past? YES Have you ever had a reaction to the flu shot? No Carmen Epps LPN, 12/13/2022 10:43 AM Immunization Administration Documentation Time Out Procedure Performed: Yes Patient Identified (Ask Name/Date of ): Yes Does the patient have a fever greater than 101 degrees today? No Patient allergic to latex? No VFC Stock: No Immunization(s) verified: Yes, Immunization Name: Flu, VIS Sheet(s) given: Yes Verified Side and Site: Yes Verified Shot(s) with Parent(s)/Patient: Yes * Eda Mobley CRNP - 12/13/2022 10:09 AM EST DATE OF SERVICE: 12/13/22 REFERRING PHYSICIAN: Tita Harris DO CC: F/U WALSH cirrhosis HPI: 12/13/22: Pt reports she's having increased problems [...] scheduled to have ultrasound-guided paracenteses, went to [facility] 03/01/2022 but found to have small volume [...] her diuretics for 1-2 weeks. Went to [facility] w abd distension, leg edema and weight [...] WALSH cirrhosis. She was previously seen by [facility] for AWLSH vs cryptogenic cirrhosis (last clinic visit with Dr. Cleary 11/06/2019), however would like to consolidate care to [facility]. She doeshave hx of esophageal varices seen [...] (RECTUM) 09/09/08 benign/repeat colonoscopy in 10 yrs INFORMATION 01/16 Dr Guadarrama-- revision of right knee KNEE ARTHROSCOPY/MENISCECTOMY 2000 Knee Scope,Med/Lat Menisectomy- Thierry KNEE ARTHROSCOPY/MENISCUS REPAIR 1999 Knee Scope,Med+Lat Menis Repair- Dr Guadarrama REMOVAL OF APPENDIX 1974 Appendectomy- Kamryn on [...] 60 to 180 days 1 Each 1 Liiiike Flex System w/Device Kit Use as directed . To test BG once daily. Dx. e11.9 1 Kit 3 Premarin 0.625 MG/GM Vaginal Cream (Estrogens, Conjugated) Administer into the vagina 0.5 g before bedtime. As directed.. 42.5 g 5 Empagliflozin 25 MG Oral Tablet (Jardiance) Take 1 Tablet by mouth in the morning. 90 Tablet 3 Lactulose 10 GM/15ML Oral Solution (Constulose) Take 30 mL by mouth in the morning and 30 mL beforebedtime. 5400 mL 3 Albumin Human 25 % Intravenous Solution Infuse 50g IV before and 50g IV after paracentesis May administer at rate of 100ml/hr (Patient not taking: Reported on 09/11/2022) 50 mL 0 Furosemide 20 MG Oral Tablet (Lasix) Take 1 Tablet by mouth in the morning. 30 Tablet 3 Losartan Potassium 50 MG Oral Tablet (Cozaar) Take 0.5 Tablets by mouth in the morning. 90 Tablet 3 Triamcinolone Acetonide 0.1 % External Ointment (Aristocort) Apply topically to affected area 2 times a day. To affected area. (Patient not taking: Reported on 09/11/2022) 15 g 5 OneTouch UltraSoft Lancets Use once daily to [...] shoulders, and back daily 120 mL 0 Clindamycin Phosphate 1 % External Gel Apply 2x daily (or more instead of scratching) to lesions onscalp until resolved, then when flaring 60 g 2 Donepezil HCl 5 MG Oral Tablet (Aricept) TAKE 1 TABLET BY MOUTH EVERY MORNING with the largest mealof the day (Patient not taking: Reported on 11/22/2022) 90 Tablet 1 Vitamin B-12 1000 MCG Oral Tablet (Cyanocobalamin) TAKE 1 TABLET BY MOUTH ONCE DAILY 90 Tablet 0 Pantoprazole Sodium 20 MG Oral Tablet Delayed Release (Protonix) TAKE 1 TABLET BY MOUTH TWICE DAILYevery morning and before bedtime 60 Tablet 5 No current facility-administered medications for this visit. REVIEW OF SYSTEMS: See HPI above; All other findings negative. EXAM: Filed Vitals: 12/13/22 1042 BP: 127/60 Pulse: 71 Temp: 35.9 C (96.7 F) SpO2: 100% Weight: 63 kg (138 lb 14.4 oz) GENERAL: Well developed and well nourished [...] encephalopathy, ascites and edema. MELD 8. - Continue diuretics Spironolactone 50mg and Furosemide 20mg daily - 2g Na diet - Lactulose 30g daily (titrate for goal BM 3-5x a day). - MELD labs q3-6months. Check Ammonia level today - Last EGD: 07/23/2019 grade II esophageal varices, gastritis (no Hpylori, intestinal metaplasia, dysplasia). Hold Nadolol given light headedness. - Last Colonoscopy: 07/23/2019 colon polyp (tubular adenoma), sigmoid diverticulosis, int hemorrhoids. She would like to defer repeat screening colonoscopies. - Hep A immunity: not immune, pt wants to defer vaccination - Hep B immunity: not immune, pt wants to defer vaccination - HCC screening [id number] (u/s; AFP) - Encouraged to abstain from ETOH, illicit [...] for their visit today. RETURN TO CLINIC: 3 months or sooner Naidya He [facility] Gastroenterology, [facility] documented in this encounter Nursing Notes * Carmen Epps LPN - 12/13/2022 10:43 AM EST Patient identified by name and date of . Chief Complaint Patient presents with Follow Up Cirrhosis Medication Administration Flu and/or Pneumo Inj documented in this encounter Plan of Treatment Upcoming Encounters Date Type Department Care Team (Late st Contact Info) Description 01/11/2023 9:00 AM EST Office Visit [address] [place] [address] Dilma Benjamin PA-C [address] [place] [address] [place] [phone] 01/12/2023 10:10 AM EST Office Visit [facility] [address] [place] [facility] [phone] Tita Harris DO [address] [place] [facility] [place] [address] 04/13/2023 10:30 AM EST Office Visit Gastroenterology, [facility] [address] [place] [address] Eda Mobley CRNP [address] [place] [address] 11/20/2023 11:00 AM EDT Office Visit [facility] [address] [facility] [address] Christine Cassidy PA-C [address] [facility] [place] [address] Pending Results Name Type Priority Associated Diagnoses Date /Time ALPHA-FETOPROTEIN TUMOR MARKER Lab Routine Other cirrhosis of liver (HCC) 12/13/2022 10:41 AM EST AMMONIA Lab Routine Other cirrhosis of liver (HCC) 12/13/2022 10:41 AM EST Health Maintenance Due Date Last [...] exists Diabetic Eye Exam 05/27/2023 05/26/2022, , 09/06/2018, Additional history exists Albumin/Creatinine Ratio 08/16/2023 023, 04/08/2021, 01/26/2016 TSH 08/16/2023 08/15/2022, 06, 04/08/2021, Additional history exists GFR 12/14/2023 12/13/2022, [...] Procedure Name Priority Date/Time Associated Diagnosis Comments DIFFERENTIAL, AUTOMATED Routine 12/13/2022 10:41 AM EST Other cirrhosis of liver (HCC) COMPREHENSIVE METABOLIC PANEL Routine 12/13/2022 10:41 AM EST Other cirrhosis of liver (HCC) CBC Routine 12/13/2022 10:41 AM EST Other cirrhosis of liver (HCC) PT INR Routine 12/13/2022 10:41 AM EST Other cirrhosis of liver (HCC) CBC Routine 12/13/2022 10:41 AM EST Other cirrhosis of liver (HCC) DIFFERENTIAL, TECHNOLOGIST REVIEW Routine 12/13/2022 10:41 AM EST Other cirrhosis of liver (HCC) documented in this encounter Results * DIFFERENTIAL, TECHNOLOGIST REVIEW (12/13/2022 10:41 AM EST) Pathologist [facility] 12/13/2022 11:10 AM EST [facility]10 Blood Venous blood specimen / Unknown Venipuncture / Unknown 12/13/2022 10:41 AM EST 12/13/2022 10:41 AM EST Eda Cobb Leandra LIUNP LAB BLOOD ORDER ANOOP [facility] [place] [facility] 57-10 [address] [place] [address] * (ABNORMAL) DIFFERENTIAL, AUTOMATED (12/13/2022 10:41 AM EST) Pathologist [facility] WBC 3.20(L) 4.00 - 10.80 K/uL 12/13/2022 11:10 AM EST [facility] 57[facility]10 Neutrophils % 63.2 40.0 - 75.0 % 12/13/2022 11:10 AM EST [facility]10 Lymphocytes % 20.9 18.0 - 42.0 % 12/13/2022 11:10 AM EST [facility]10 Monocytes % 13.4(H) 1.0 - 11.0 % 12/13/2022 11:10 AM EST [facility]10 Eosinophils % 2.2 0.0 - 6.0 % 12/13/2022 11:10 AM EST [facility]10 Basophils % 0.3 0.0 - 2.0 % 12/13/2022 11:10 AM EST [facility]10 Absolute Neutrophils 2.02 1.80 - 7.70 K/uL 12/13/2022 11:10 AM EST [facility]10 Absolute Lymphocytes 0.67(L) 1.00 - 4.80 K/ul 12/13/2022 11:10 AM EST [facility]10 Absolute Monocytes 0.43 0.00 - 1.10 K/uL 12/13/2022 11:10 AM EST [facility]10 Absolute Eosinophils 0.07 0.00 - 0.70 K/uL 12/13/2022 11:10 AM EST [facility] [place] 57-10 Absolute Basophils 0.01 0.00 - 0.20 K/uL 12/13/2022 11:10 AM EST [facility] [place] 5710 Blood Venous blood specimen / Unknown Venipuncture / Unknown 12/13/2022 10:41 AM EST 12/13/2022 10:41 AM EST Eda Cobb Leandra HEADLEY LAB BLOOD ORDER ANOOP [facility] [address] [place] [address] * (ABNORMAL) CBC (12/13/2022 10:41 AM EST) WBC 3.20(L) 4.00 - 10.80 K/uL 12/13/2022 11:10 AM EST [facility] [place] [facility] RBC 3.77 3.85 - 5.15 M/uL 12/13/2022 11:10 AM EST [facility] [place] 5710 HGB 11.9(L) 12.0 - 15.3 g/dL 12/13/2022 11:10 AM EST [facility] [place] [facility] HCT 35.8(L) 36.0 - 45.2 % 12/13/2022 11:10 AM EST [facility] [place] 5710 MCV 95.0 81.5 - 97.5 fL 12/13/2022 11:10 AM EST [facility] [place] 5710 MCH 31.6 27.0 - 34.0 pg 12/13/2022 11:10 AM EST [facility] [place] 5710 MCHC 33.2 32.0 - 36.0 g/dL 12/13/2022 11:10 AM EST [facility] [place] 5710 RDW 16.1 11.5 - 15.5 % 12/13/2022 11:10 AM EST [facility] [place] 5710 PLT 91(L) 140 - 400 K/uL 12/13/2022 11:10 AM EST [facility] [facility]10 MPV 11.1 6.6 - 11.1 fL 12/13/2022 11:10 AM EST [facility] [place] [facility] [facility]10 Blood Venous blood specimen / Unknown Venipuncture / Unknown 12/13/2022 10:41 AM EST 12/13/2022 10:41 AM EST Eda Cobb Leandra HEADLEY LAB BLOOD ORDER ANOOP [facility] [place] [facility] [address] [place] [address] * PT INR (12/13/2022 10:41 AM EST) Prothrombin Time 14.5 11.6 - 15.2 seconds 12/13/2022 11:17 AM EST [facility]10 INR 1.1 0.8 - 1.2 12/13/2022 11:17 AM EST [facility]10 Blood Venous blood specimen / Unknown Venipuncture / Unknown 12/13/2022 10:41 AM EST 12/13/2022 10:41 AM EST Narrative [facility]10 - 12/13/2022 11:17 AM EST Warfarin Therapy INR: 2.0-3.0 conventional anticoagulation INR: 2.5-3.5 high intensity anticoagulation Eda Cobb Leandra HEADLEY LAB BLOOD ORDER ANOOP [facility] [place] [facility] [address] [facility] [place] [address] * (ABNORMAL) COMPREHENSIVE METABOLIC PANEL (12/13/2022 10:41 AM EST) BUN 16 6 - 20 mg/dL 12/13/2022 11:47 AM EST [facility]10 Creatinine 0.6 0.5 - 1.0 mg/dL 12/13/2022 11:47 AM EST [facility]10 Estimated Glomerular Filtration Rate >90 >=60 mL/min 12/13/2022 11:47 AM EST [facility]10 Comment:eGFR is calculated b ased on the CKD-EPI 2020 equation Sodium 142 135 - 146 mmol/L 12/13/2022 11:47 AM EST [facility]10 Potassium 4.5 3.5 - 5.1 mmol/L 12/13/2022 11:47 AM EST [facility]10 Chloride 103 98 - 107 mmol/L 12/13/2022 11:47 AM EST [facility]10 CO2 25 22 - 32 mmol/L 12/13/2022 11:47 AM EST [facility]10 Anion Gap 14 7 - 15 mmol/L 12/13/2022 11:47 AM EST [facility]10 Glucose 174(H) 70 - 120 mg/dL 12/13/2022 11:47 AM EST [facility]10 Albumin 4.2 3.8 - 5.0 g/dL 12/13/2022 11:47 AM EST [facility]10 AST 23 10 - 35 U/L 12/13/2022 11:47 AM EST [facility]10 Alkaline Phosphatase 69 35 - 130 U/L 12/13/2022 11:47 AM EST [facility] [place] [facility]10 Bilirubin, Total 1.0 <=1.2 mg/dL 12/13/2022 11:47 AM EST [facility]10 Calcium 9.5 8.4 - 10.2 mg/dL 12/13/2022 11:47 AM EST [facility]10 Protein 6.3 6.0 - 8.3 g/dL 12/13/2022 11:47 AM EST [facility]10 ALT 24 10 - 35 U/L 12/13/2022 11:47 AM EST [facility]10 Blood Venous blood specimen / Unknown Venipuncture / Unknown 12/13/2022 10:41 AM EST 12/13/2022 10:41 AM EST Eda HEADLEY LAB BLOOD ORDER ANOOP [facility]10 [address] [place] [address] documented in this encounter Visit Diagnoses Diagnosis Other cirrhosis of liver (HCC)- Primary Need for prophylactic vaccination and inoculation against influenza documented in this encounter Care Teams Glaze Maker Relationship Specialty Start Date End Date Tita Harris DO [address] [place] [address] PCP - General Family Medicine 10/30/12 documented as of this encounter
--- OUTSIDE RECORDS SUMMARY | 2023-04-26 00:07 | External Medical Summary ---
Author Name Unknown Address Unknown Organization [id number]:LABORATORY [facility] - [address] [place] [address] Laboratory Report Ordering Provider Test Date Status DAQUAN HIGHHON 12/13/2022 10:41:55 Final Observation Date Value Abnormality Reference (Units ) Status Alpha-Fetoprotein 12/13/2022 10:41:55 2.6 0. 0-8.3 (ng/mL) Final Performing Location LABORATORY [facility] - [address] [place] [address]
--- OUTSIDE RECORDS SUMMARY | 2023-04-26 00:07 | External Medical Summary ---
Author Name Unknown Address Unknown Organization [id number]:[facility]ATORY [facility] 57-10 - [address] [place] [address] Laboratory Report Ordering Provider Test Date Status SLY HIGH 12/13/2022 10:41:55 Final Observation Date Value Abnormality Reference (Units ) Status BUN 12/13/2022 10:41:55 16 6-20 (mg/dL) Final Creatinine 12/13/2022 10:41:55 0.6 0.5-1.0 (mg/dL) Final Glomerular filtration rate/1.73 sq M.predicted [Volume Rate/Area] in Serum, Plasma or Blood by Creatinine-based formula (CKD-EPI) 12/13/2022 10:41:55 >90 >=60 (mL/min) Final eGFR is calculated based on the CKD-EPI 2020 equation SODIUM 12/13/2022 10:41:55 142 135-146 (m mol/L) Final Potassium 12/13/2022 10:41:55 4.5 3.5-5.1 (m mol/L) Final Cl 12/13/2022 10:41:55 103 98-107 (mm ol/L) Final CO2 12/13/2022 10:41:55 25 22-32 (mmo l/L) Final Anion gap 12/13/2022 10:41:55 14 7-15 (mmol /L) Final Glucose 12/13/2022 10:41:55 174 Above high normal 70 -120 (mg/dL) Final Albumin 12/13/2022 10:41:55 4.2 3.8-5.0 (g /dL) Final AST (Aspartate aminotransferase) 12/13/2022 10:41:55 23 10-35 (U/L) Fin al Alk Phos 12/13/2022 10:41:55 69 35-130 (U/ L) Final Bilirubin, Total 12/13/2022 10:41:55 1.0 <=1 .2 (mg/dL) Final Calcium 12/13/2022 10:41:55 9.5 8.4-10.2 ( mg/dL) Final Protein 12/13/2022 10:41:55 6.3 6.0-8.3 (g /dL) Final ALT (Alanine aminotransferase) 12/13/2022 10:41:55 24 10-35 (U/L) Phillip chang Performing Location LABORATORY [place] 57-1 0 - [address] [facility] [id number]
--- OUTSIDE RECORDS SUMMARY | 2023-04-26 00:07 | External Medical Summary ---
Author Name Unknown Address Unknown Organization [id number][facility] [address] [place] [address] Laboratory Report Ordering Provider Test Date Status SLY HIGH 12/13/2022 10:41:55 Final Observation Date Value Abnormality Reference (Units ) Status WBC, Total 12/13/2022 10:41:55 3.20 Below low normal 4. 00-10.80 (K/uL) Final RBC 12/13/2022 10:41:55 3.77 3.85-5.15 (M/uL) Final Hemoglobin 12/13/2022 10:41:55 11.9 Below low normal 12 .0-15.3 (g/dL) Final HCT 12/13/2022 10:41:55 35.8 Below low normal 36. 0-45.2 (%) Final MCV 12/13/2022 10:41:55 95.0 81.5-97.5 (fL) Final MCH 12/13/2022 10:41:55 31.6 27.0-34.0 (pg) Final MCHC 12/13/2022 10:41:55 33.2 32.0-36.0 (g/dL) Final RDW 12/13/2022 10:41:55 16.1 11.5-15.5 (%) Final Platelets 12/13/2022 10:41:55 91 Below low normal 140 -400 (K/uL) Final MPV 12/13/2022 10:41:55 11.1 6.6-11.1 ( fL) Final Performing Location [facility] - [address] [place] [address]
--- OUTSIDE RECORDS SUMMARY | 2023-04-26 00:07 | External Medical Summary | Summary of Care ---
Author Name Unknown Organization [facility] Address [address] [facility] [place] [address] Phone [phone] Care Team Providers Care Lead Esthetician Name Role Phone Neal Harrisa Rehana FLOWERS Primary Care Provider + [phone] Reason for Visit * Reason Comments Outpatient Testing Encounter Details Date Type Department Care Team (Late st Contact Info) Description 12/13/2022 10:50 AM EST Laboratory Laboratory, [facility] [address] [facility] [place] [phone] [facility] [address] [facility] [place] [address] Arrived Allergies Active Allergy Reactions Criticality Noted Date [...] 180 days 1 Each 1 02/20/2019 Active [employer] Flex System w/Device Kit Use as directed [...] 01/11/2023 9:00 AM EST Office Visit Dermatology, [place] [address] [address] [facility] [place] [address] Dilma Benjamin PA-C [address] [place] [address] [place] [address] 01/12/2023 10:10 AM EST Office Visit [facility] [place] [address] [address] [facility] [phone] Tita Harris DO [address] [facility] [place] [address] 04/13/2023 10:30 AM EST Office Visit Gastroenterology, [facility] [address] [place] [address] Eda Mobley CRNP [address] [facility] [place] [address] 11/20/2023 11:00 AM EDT Office Visit [facility] [address] [facility] [address] Christine Cassidy PA-C [address] [place] [address] Health Maintenance Due Date Last Done Comments [...] Albumin/Creatinine Ratio 08/16/2023 023, 04/08/2021, 01/26/2016 GFR 08/16/2023 08/15/2022, 05/0 05/2022, 2022, Additional history exists TSH 08/16/2023 08/15/2022, 07/08, 04/08/2021, Additional history exists DTaP,Tdap,and Td Vaccines (2 [...] filedocumented as of this encounter Care Teams Lead Esthetician Relationship Specialty Start Date End Date Tita Harris DO [address] [place] [address] PCP - General Family Medicine 10/30/12 documented as of this encounter
--- OUTSIDE RECORDS SUMMARY | 2023-04-26 00:07 | External Medical Summary ---
Author Name Unknown Address Unknown Organization K0G:[facility] 57-10 - [address] [place] [address] Laboratory Report Ordering Provider Test Date Status ANILASLY 12/13/2022 10:41:55 Final Warfarin Therapy
INR: 2 .0-3.0 conventional anticoagulation
INR: 2.5- 3.5 high intensity anticoagulation Observation Date Value Abnormality Reference (Units ) Status PT 12/13/2022 10:41:55 14.5 11.6-15.2 (seconds) Final INR 12/13/2022 10:41:55 1.1 0.8-1.2 Final Performing Location [facility]ATORY [facility] 57-1 0 - [address] [place] [address]
--- OUTSIDE RECORDS SUMMARY | 2023-04-26 00:07 | External Medical Summary ---
Author Name Unknown Address Unknown Organization K0G:[facility]ATORY [facility] 57-10 - [address] [place] [address] Laboratory Report Ordering Provider Test Date Status ANILASLY 12/13/2022 10:41:55 Final Observation Date Value Abnormality Reference (Units ) Status Nucleated erythrocytes/100 leukocytes [Ratio] in Blood by Automated count 12/13/2022 10:41:55 Final Performing Location LABORATORY [facility] 57-1 0 - [address] [place] [address]
--- OUTSIDE RECORDS SUMMARY | 2023-04-26 00:08 | External Medical Summary | Summary of Care ---
Author Name Unknown Organization [facility] Address [address] [facility] [place] [address] Phone [phone] Care Team Providers Care Payroll Officer Name Role Phone Sb Ladd DO Primary Care Provider + [phone] Reason for Visit * Reason Comments eRx-Medication Refill Encounter Details Date Type Department Care Team (Late st Contact Info) Description 12/09/2022 Refill [facility] [address] [place] [address] Sb Ladd DO [address] [place] [address] Gastrointestinal hemorrhage associated with gastritis, unspecified gastritis type Allergies Active Allergy Reactions Criticality Noted Date Comments Iodinated Contrast Media 04/16/1997 Levofloxacin In D5w Other (Please comment) 05/06 Seeing things Oxycodone-Acetaminophe n Neuro complications (Please comment) 02/29/2012 Nightmares, hearing and seeing things. documented as of this encounter (statuses as of 12/10/2022) Medications Medication Sig Dispensed Refills Start Date End Date Status zoster vac recomb adjuvanted (SHINGRIX) 50 MCG/0.5ML injectionIndicatio ns:Need for vaccination for zoster Inject 0.5 mL into a large muscle now and repeat dose in 60 to 180 days 1 Each 1 0 Active LawKickio Flex System w/Device Kit Use as directed [...] hemoglobin A1c goal of less than 7.0% ([facility]),Type 2 diabetes mellitus without complication, without long-term current use of insulin ([facility]) USE TO CHECK GLUCOSE ONCE DAILY 150 Strip 3 3 Active Chlorhexidine Gluconate 4 % External Liquid (Hibiclens)Indicat ions:Neurodermatit is,Staph infection Apply to scalp, upper shoulders, and back daily 120 mL 0 3 Active Clindamycin Phosphate 1 % External GelIndications:Fol liculitis Apply 2x daily (or more instead of scratching) to lesions on scalp until resolved, then when flaring 60 g 2 3 Active Donepezil HCl 5 MG Oral [...] before bedtime 60 Tablet 5 3 Active Pantoprazole Sodium 20 MG Oral Tablet Delayed Release (Protonix)Indicati ons:Gastrointestin al hemorrhage associated with gastritis, unspecified gastritis type Take 1 Tablet by mouth in the morning and 1 Tablet before bedtime. 60 Tablet 5 3 12/11/19 23 Discontinued documented as of this encounter (statuses as of 12/10/2022) Active Problems Problem Noted Date Diagnosed Date [...] as of this encounter (statuses as of 12/10/2022) Resolved Problems Problem Noted Date Diagnosed Date [...] as of this encounter (statuses as of 12/10/2022) Immunizations Name Administration Dates Next Due Pneumococcal Conjugate Vacc, 13 Valent (Prevnar) 04/22/2015 Pneumococcal Polysaccharide PPV23 (Pneumovax) 06/09/2013 SEASONAL INFLUENZA, PF, 6 M & Above, IM , (FLULAVAL or FLUZONE) 11/27/2017 Season Influenza, Quad, PF, Adjuvanted, 65+ Yrs, IM (FLUAD) 10/17/2019 Seasonal Influenza, Quadriva lent Hd (Fluzone Hd) 11/08/2020 Seasonal Influenza, Quadriva lent, No Preserve, IM [...] encounter Miscellaneous Notes * Telephone Encounter - Desean Almonte [facility] - 12/10/2022 12:39 PM ESTSigned Prescriptions: Disp Refills Pantoprazole Sodium 20 MG Oral Tablet Preethi*60 Tab*5 Sig: TAKE 1 TABLET BY MOUTH TWICE DAILY every morning and before bedtimeAuthorizing Provider: SB LADD User: DESEAN ALMONTE documented in this encounter Plan of Treatment Upcoming Encounters Date Type Department Care Team (Late st Contact Info) Description 12/12/2022 9:15 AM EST [place] [address] [place] [address] 12/13/2022 10:00 AM EST Office Visit Gastroenterology, [facility] [address] [place] [address] Eda Mobley CRNP [address] [place] [address] 01/11/2023 9:00 AM EST Office Visit Dermatology, [place] [address] [facility] [place] [address] Dilma Benjamin PA-C [address] [place] [address] [place] [address] 01/12/2023 10:10 AM EST Office Visit Family [facility], [place] [address] [facility] [place] [id number] Sb Ladd DO [address] [facility] [address] 11/20/2023 11:00 AM EDT Office Visit [facility] [address] [facility] [address] Christine Cassidy PA-C [address] [facility] [place] [address] Health Maintenance Due Date Last Done Comments Hepatitis B (1 of 3 - Risk 3-dose series) 2003 Zoster Vaccines (2 of 3) 11/13/2011 09/18/2011 DXA Scan 11/26/2016 11/27/2011, 11/06, 08/10/2008, Additional history exists Depression Screening 08/18/2020 08/19/2019 COVID-19 Vaccine ( season) 2022 04/16/2020, 03/26/2020 Influenza Vaccine (FLU shot) (#1) 2022 11/08/2020, 10/17/2019, 10/17/2019, Additional history exists HbA1c 02/15/2023 08/15/2022, 05/06, 08/04/2021, Additional history [...] Completed 04/22/2015, 06/09/2013, 09/16/2003, Additional history exists GARDASIL-HPV IMMUNIZATION SERIES Aged Out No longer eligible based on patient's age to complete this topic MENINGOCOCCAL (MENACTRA/MENVEO) Aged Out No longer eligible based on patient's age to complete this topic documented as of this encounter Medical Devices Not on filedocumented as of this encounter Visit Diagnoses Diagnosis Gastrointestinal hemorrhage associated with gastritis, unspecified gastritis type documented in this encounter Care Teams Payroll Officer Relationship Specialty Start Date End Date Sb Ladd DO [address] [facility] [place] [address] PCP - General Family Medicine 10/30/12 documented as of this encounter
--- OUTSIDE RECORDS SUMMARY | 2023-04-26 00:08 | External Medical Summary | Summary of Care ---
Author Name Unknown Organization [facility] Address [address] [facility] [place] [address] Phone [phone] Care Team Providers Care Water/Wastewater Project Engineer Name Role Phone Tita Harris DO Primary Care Provider Reason for Visit * Reason Comments eRx-Medication Refill Encounter Details Date Type Department Care Team Description 11/10/2022 Refill Neurology [facility] [place] [address] [place] [address] Wally Palmer DO [address] [place] [address] Dementia of the Alzheimer's type, with late onset, uncomplicated (HCC) Allergies Active Allergy Reactions Severity Noted Date Comments Iodinated Contrast Media 04/16/1997 Levofloxacin In D5w Other (Please comment) 05/06 Seeing things Oxycodone-Acetaminophen Neuro complicati ons (Please comment) 02/29/2012 Nightmares, hearing and seeing things. documented as of this encounter (statuses as of 11/11/2022) Medications Medication Sig Dispensed Refills Start Date End Date Status zoster vac recomb adjuvanted (SHINGRIX) 50 MCG/0.5ML injectionIndicatio ns:Need for vaccination for zoster Inject 0.5 mL into a large muscle now and repeat dose in 60 to 180 days 1 Each 1 0 Active foc.usio Flex System w/Device Kit Use as directed . To test BG once daily. Dx. e11.9 1 Kit 3 2 Active Premarin 0.625 MG/GM Vaginal Cream (Estrogens, Conjugated)Indicat ions:Postmenopausa l atrophic vaginitis Administer into the vagina 0.5 g before bedtime. As directed.. 42.5 g 5 2 Active B-12 1000 MCG Oral Tablet 1 tablet daily 90 Tablet 3 2 Active Additional Information Patient not taking.Reported on 10/02/2022 Empagliflozin 25 MG Oral Tablet (Jardiance)Indicat ions:Type [...] Additional Information Patient not taking.Reported on 09/11/2022 Pantoprazole Sodium 20 MG Oral Tablet Delayed Release (Protonix)Indicati ons:Gastrointestin al hemorrhage associated with gastritis, unspecified gastritis type Take 1 Tablet by mouth in the morning and 1 Tablet before bedtime. 60 Tablet 5 3 Active OneTouch UltraSoft LancetsIndications :Type 2 [...] the day 90 Tablet 1 3 Active Donepezil HCl 5 MG Oral Tablet (Aricept)Indicatio ns:Dementia of the Alzheimer's type, with late onset, uncomplicated (HCC) TAKE ONE TABLET BY MOUTH IN THE MORNING with the largest meal of the day 90 Tablet 1 3 11/12/19 23 Discontinued documented as of this encounter (statuses as of 11/11/2022) Active Problems Problem Noted Date Hepatic encephalopathy 09/22/2022 Asthma, non-allergic 01/03/2018 Reactive airway disease that is not asth ma 06/26/2017 Mild episode of recurrent major depressi ve disorder 12/24/2016 Thrombocytopenia 11/03/2016 Type 2 diabetes mellitus with hemoglobin A1c goal of less than 7.0% 01/26/2016 Other specified hypothyroidism 6 HTN, goal below 140/90 04/21/2014 Spinal stenosis of lumbar region 013 S/P BILATERAL TKA- DJD, BILATERAL KNEES 10/17/2006 Other chronic nonalcoholic liver disease 07/18/1994 Overview: Fatty infiltration of liver on CT Dyslipidemia, goal LDL below 100 Degeneration of thoracic intervertebral disc documented as of this encounter (statuses as of 11/11/2022) Resolved Problems Problem Noted Date Resolved Date Otalgia 03/17/2015 08/01/2016 Dysfunction of eustachian tube 03/17/2015 0 08/01/2016 Viral URI with cough 03/17/2015 08/01/2016 Asthma, moderate persistent 03/17/201506/06 HTN, goal below 150/90 04/21/2014 7 Osteoarthritis of foot 01/27/2013 7 Lumbar disc herniation with radiculopathy 201211/03/2016 Knee pain, right 03/14/2012 08/01/2016 Cellulitis of knee, right 03/14/20122016 S/P revision of total knee 03/14/201208/01 Hypothyroidism 02/19/2012 08/01/2016 Severe obesity with body mas s index (BMI) of 35.0 to 39.9 with serious comorbidity 01/04/2012 08/01/2016 Overview: bmi= 37.05 01/04/12 ICD-10 update of inactive diagnosis Routine medical exam 01/04/2012 08/01/2016 LVH (left ventricular hypertrophy) 01/04/2012 08/03/2016 Chronic rhinitis 01/04/2012 03/17/2015 Snoring 09/18/2011 08/01/2016 Overview: ICD-10 update of inactive term Chronic rhinitis 09/18/2011 08/01/2016 Esophageal reflux 09/18/2011 11/03/2016 Pharyngitis, chronic 09/18/2011 08/01/2016 TMJ (temporomandibular joint disorder) 2 11/03/2016 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 7 Recurrent sinusitis 09/18/2011 08/01/2016 Chronic headaches 09/18/2011 08/01/2016 PND (post-nasal drip) 09/18/2011 08/01/2016 Congenital pit, 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/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 Need for shingles vaccine 08/22/20112016 Pituitary microadenoma 06/26/2011 2 Pituitary microadenoma 02/27/2011 2 HTN, goal below 130/80 08/23/2009 5 Dyslipidemia, goal LDL below 100 08/23/2009 01/03/2018 OBESITY, BMI 30-34 (SEE ACTUAL BMI) 04/29/2009 08/01/2016 Overview: Per Obesity Taxonomy Benign neoplasm of colon 09/09/2008 012 Overview: benign/repeat colonoscopy in 10 yrs Benign neoplasm of colon 09/09/2008 017 Overview: benign/repeat colonoscopy in 10 yrs MORBID OBESITY, BMI= 40.03 06/22/08 06/22/2008 08/01/2016 [facility] BEHAV BLAYNE SKIN, LEFT SHOULDER 06/22/2008 01/04/2012 Other seborrheic keratosis 06/22/200801/03 Actinic keratosis 06/22/2008 01/04/2012 DJD, BILATERAL KNEES, L>R 07/17/20062011 INT DERANGEMENT KNEE, RIGHT 07/17/200612/07 DEQUERVAIN'S TENOSYNOVITIS, LEFT 07/17/2006 11/03/2016 LVH (LEFT VENTRICULAR HYPERTROPHY) 10/23/2005 01/04/2012 PAIN IN LIMB, BILATERAL FEET 12/19/2004 SKIN SENSATION DISTURB 12/19/2004 2 OBESITY, UNSPECIFIED 12/19/2004 04/29/2009 Overview: Per Obesity Taxonomy PROPHY. VACCINATION AGAINST STREPTOCOCCUS PNEUMO NIAE 09/16/2003 01/04/2012 TETANUS-DIPTHERIA (TD), (DT) 09/16/2003 Menopause 09/16/2003 01/04/2012 Major depressive disorder 09/16/20032011 Overview: ICD-10 update of inactive term Major depressive disorder 11/20/20022007 Overview: ICD-10 update of inactive term CARPAL TUNNEL SYNDROME- BILATERAL, S/P SURGERY 1 01/04/2012 Hyperpotassemia 11/20/2002 01/04/2012 Need for influenza vaccination 11/20/2002 1 03/05/2011 CARPAL TUNNEL SYNDROME- BILATERAL 08/26/2002 01/04/2012 Allergic rhinitis 07/16/2002 01/04/2012 DYSFUNCT EUSTACHIAN TUBE 07/16/2002 012 Cough 07/16/2002 01/04/2012 NUBMNESS AT NIGHT, BILATERAL ARMS 07/16/2002 01/04/2012 ROUTINE MEDICAL EXAM 07/16/2002 01/04/2012 Screening for malignant neoplasm of breast 07/1604/15/2008 Overview: Resolved per Screening Diagnosis Protocol #6 SCREEN MAL NEOP-RECTUM 07/16/2002 9 Overview: Resolved per Screening Diagnosis Protocol #6 FAMILY HX-GI MALIGNANCY 07/16/2002 01/04/20 12 Dyslipidemia, goal to be determined 07/16/2002 01/04/2012 FATTY LIVER 07/16/2002 01/04/2012 Bacterial pneumonia 12/25/1997 03/08/1998 Family history of colon cancer 05/27/1997 0 11/03/2016 Hemorrhage of rectum and anus 05/27/1997 Thrombosed external hemorrhoids 05/27/1997 01/04/2012 Hypothyroidism 01/04/2012 HTN, goal below 140/90 0 STRESS REACT, EMOTIONAL 01/04/20 12 Need for prophylactic hormon e replacement therapy (postmenopausal) 01/04/2012 EXT ASTHMA W-O STAT ASTH 012 HTN, goal below 140/90 2 Obesity, BMI not known 7 Stress reaction, emotional 11/03 Need for prophylactic hormon e replacement therapy (postmenopausal) 08/01/2016 Asthma, allergic 11/03/2016 Menopause 11/03/2016 DM (diabetes mellitus) 7 documented as of this encounter (statuses as of 11/11/2022) Immunizations Name Administration Dates Next Due Pneumococcal [...] drink = 0.6 oz pur e alcohol) Food Insecurity Answer Date Recorded Within the past 12 months, y ou worried that your food would run out before you got money to buy more. Never true 08/13/2020 Within the past 12 months, t he food you bought just didn't last and you didn't have money to get more. Never true 08/13/2020 Sex Assigned at Date Recorded Female 08/19/2019 12:37 PM EDT Job Start Date Occupation Industry Not on file Not on file Not on file documented as of this encounter Miscellaneous Notes * Telephone Encounter - Debbie Montoya [facility] - 11/11/2022 12:00 PM EDTSigned Prescriptions: Disp Refills Donepezil HCl 5 MG Oral Tablet (Aricept) 90 Tab*1 Sig: TAKE 1 TABLET BY MOUTH EVERY MORNING with the largest meal of the dayAuthorizing Provider: WALLY PALMER User: DEBBIE MONTOYA * Telephone Encounter - Lizzy Sanchez [facility] - 11/10/2022 3:19 PM EDTPending Prescriptions: Disp Refills Donepezil HCl 5 MG Oral Tablet [Pharmacy M*90 Tab*0 Sig: TAKE 1 TABLET BY MOUTH EVERY MORNING with the largest meal of the day * Telephone Encounter - Lizzy Sanchez CPh[facility] - 11/10/2022 3:19 PM EDT Patient is up to date for office visits. Pending Prescriptions: Disp Refills Donepezil HCl 5 MG Oral Tablet (Aricept) *90 Tab*0 Sig: TAKE 1 TABLET BY MOUTH EVERY MORNING with the largest meal of the day Last Visit: 2022 (in office), Visit date not found (telemedicine) Next Visit: 11/22/2022 If no future appointments scheduled, and last appointment is greater than a year ago, please schedule patient for a follow-up appointment Last date the medication was ordered: 06/09/2022 Pharmacy: [id number] Is this request for a controlled substance?No it is not controlled. Urine Drug Screen:No results found. However, due to the size of the patient record, not all encounters were searched. Please check Results Review for a complete set of results. Patient Phone Numbers Labs: Lab Results Component Value Date/Time CREAT 0.6 08/15/2022 10:02 AM CREAT 0.6 01/08/2020 10:29 AM CREAT 0.6 (L) 05/13/1996 09:30 AM POTASSIUM 4.2 08/15/2022 10:02 AM POTASSIUM 3.9 01/08/2020 10:29 AM POTASSIUM 4.4 05/13/1996 09:30 AM TSH 0.01 (L) 08/15/2022 10:02 AM TSH 0.14 (L) 03/17/2019 12:09 PM TSH 4.64 05/13/1996 09:30 AM LDLCALC 64 08/07/2018 11:30 AM LDLDIRECT NOT APPLICABLE 04/28/2013 10:00 AM ALT 38 (H) 08/15/2022 10:02 AM ALT 21 01/08/2020 10:29 AM ALT 55 (H) 05/13/1996 09:30 AM HGBA1C 9.6 (H) 08/15/2022 10:02 AM HGBA1C 7.7 (H) 02/20/2019 11:49 AM documented in this encounter Plan of Treatment Upcoming Encounters Date Type Specialty Care Team Description 11/22/2022 Office Visit Neurology Tonie Rubio PA-C [address] [place] [address] 12/01/2022 Office Visit Pharmacy [facility] [address] [place] [address] 12/12/2022 Imaging Radiology 12/13/2022 Office Visit Gastroenterology Eda Mobley CRNP [address] [place] [address] 01/11/2023 Office Visit Dermatology Dilma Benjamin PA-C [address] [place] [address] [place] [address] 01/12/2023 Office Visit Family Medicine Tita Harris, [address] [place] [address] Health Maintenance Due Date Last Done Comments [...] 05/17/2022, 0 04/08/2021, 04/09/2020, Additional history exists DIABETES-EYE EXAM 05/27/2023 05/26/2022, , 09/06/2018, Additional history exists Albumin/Creatinine Ratio 08/16/2023 023, 04/08/2021, 01/26/2016 GFR 08/16/2023 08/15/2022, 05/0 05/2022, 2022, Additional history exists TSH 08/16/2023 08/15/2022, /, 04/08/2021, Additional history exists DTaP,Tdap,and Td Vaccines [...] as of this encounter Visit Diagnoses Diagnosis Dementia of the Alzheimer's type, with late onset, uncomplicated (HCC) Alzheimer's disease documented in this encounter Care Teams Water/Wastewater Project Engineer Relationship Specialty Start Date End Date Tita Harris, [address] [place] [address] PCP - General Family Medicine 10/30/12 documented as of this encounter
--- OUTSIDE RECORDS SUMMARY | 2023-04-26 00:08 | External Medical Summary | Summary of Care ---
Author Name Unknown Organization [facility] Address [address] [facility] [place] [address] Phone [phone] Care Team Providers Care Copy Messenger Name Role Phone Tita Harris DO Primary Care Provider [phone] Reason for Visit * Reason Comments Return Neuro Encounter Details Date Type Department Care Team Description 11/22/2022 Office Visit Neurology [facility] [place] [address] [place] [address] Tonie Rubio PA-C [address] [facility] [place] [address] Dementia of the Alzheimer's type, with late onset, uncomplicated (HCC)*; B12 deficiency; Insomnia, unspecified type Allergies Active Allergy Reactions Severity Noted Date Comments Iodinated Contrast Media 04/16/1997 Levofloxacin In D5w Other (Please comment) 05/06 Seeing things Oxycodone-Acetaminophen Neuro complicati ons (Please comment) 02/29/2012 Nightmares, hearing and seeing things. documented as of this encounter (statuses as of 11/22/2022) Medications Medication Sig Dispensed Refills Start Date End Date Status zoster vac recomb adjuvanted (SHINGRIX) 50 MCG/0.5ML injectionIndication s:Need for vaccination for zoster Inject 0.5 mL into a large muscle now and repeat dose in 60 to 180 days 1 Each 1 02/20/2019 Active KakKstatiio Flex System w/Device Kit Use as directed . To test BG once daily. Dx. e11.9 1 Kit 3 05/23/2021 Active Premarin 0.625 MG/GM Vaginal Cream (Estrogens, Conjugated)Indicati ons:Postmenopausal atrophic vaginitis Administer into the vagina 0.5 g before bedtime. As directed.. 42.5 g 5 08/04/2021 Active B-12 1000 MCG Oral Tablet 1 tablet daily 90 Tablet 3 11/22/2021 Active Additional Information Patient not taking.Reported on 10/02/2022 Empagliflozin 25 MG Oral Tablet (Jardiance)Indicati ons:Type [...] 1 Tablet before bedtime. 60 Tablet 5 06/19/2022 Active OneTouch UltraSoft LancetsIndications: Type 2 diabetes mellitus with hemoglobin A1c goal of less than 7.0% (HCC) Use once daily to check blood sugar. E11.9 100 Each 07/26/2022 Active OneTouch Delica Lancets 33G Use [...] hemoglobin A1c goal of less than 7.0% ([facility]),Type 2 diabetes mellitus without complication, without long-term current use of insulin ([facility]) USE TO CHECK GLUCOSE ONCE [...] Additional Information Patient not taking.Reported on 11/22/2022 documented as of this encounter (statuses as of 11/22/2022) Active Problems Problem Noted Date Hepatic encephalopathy [...] as of this encounter (statuses as of 11/22/2022) Resolved Problems Problem Noted Date Resolved Date [...] as of this encounter (statuses as of 11/22/2022) Immunizations Name Administration Dates Next Due Pneumococcal [...] Sign Reading Time Taken Comments Blood Pressure 110/60 11/22/2022 9:46 AM EDT Pulse 76 11/22/2022 9:46 AM EDT Temperature 36.6 C (97.8 F) 11/22/2022 9:46 AM ED T Respiratory Rate 16 11/22/2022 9:46 AM EDT Oxygen Saturation - - Inhaled Oxygen Concentration - - Weight 63.5 kg (139 lb 14.4 oz) 11/22/2022 9:46 AM EDT Height - - Body Mass Index 24.78 09/22/2022 12:35 PM EDT documented in this encounter Progress Notes * Tonie Rubio PA-C - 11/22/2022 9:49 AM EDT HISTORY & PHYSICAL EXAMINATION - NEUROLOGY Name: Naz Kennedy Date: 11/22/2022 Time: 9:49 AM Referring Provider: Tita Harris DO Chief Complaint: Chief Complaint Patient presents with Return Neuro This is a 77 year old right handed woman returns today for follow up for dementia. HPI & Source of HPI The patient and family member son in law was the historian, and they are reliable. She was seen in our office by Wally Palmer DO 05/16/22 for late onset Alzheimer's dementia She presents today with her son-in-law. She still is living at home with her . She gave up drivingon her own because she knew she would not be safe. Her memory has gotten worse and her takes care of the finances of the household. She does have some difficulty with activities of daily living such as using the remote control as well as cooking. There is a nurse that comes into help with medications and helps with breakfast. She has other family close by. She was some difficulty falling asleep at night and is only getting roughly 5-6 hours asleep and was started on Remron. She denies any hallucinations. Her previous lab work showed a low thiamine level and was replaced along with [id number]. She was also diagnosed with cirrhosis of the liver. No history of alcohol use. She wasstarted on Aricept 5 mg but had unintentional weight loss with it so it was stopped. No significant change in memory. Denies any recent falls. Denies CP, SOB, abdominal pain. Her last memory test showed and was not repeated today. I have reviewed the patient's medications and allergies, past medical, surgical, social and family history, updating these as appropriate. See Histories section of the electronic medical record for adisplay of this information. Patient Active Problem List Diagnosis Code S/P [...] Asthma, non-allergic J45.909 Hepatic encephalopathy (HCC) K76.82 Family History Problem Relation Age of Onset Heart Disorder Mother angioplasty Cancer Mother skin Hypertension Mother Mental Disorder Mother suspected AD Eye Problems Mother Cancer Father colon ca- age 48-50 Diabetes Father Hypertension Father Cancer Grandmother (Maternal) cervical ca Diabetes Grandmother (Paternal) Stroke None Arthritis Sister Thyroid Disorder Sister Obesity Sister Medications: Are you taking your medications? yes Current Outpatient Medications Medication Sig Dispense Refill zoster vac recomb adjuvanted (SHINGRIX) 50 MCG/0.5ML injection Inject 0.5 mL into a large muscle now and repeat dose in 60 to 180 days 1 Each 1 Cuponomia Verio Flex System w/Device Kit Use as directed . To test BG once daily. Dx. e11.9 1 Kit 3 Premarin 0.625 MG/GM Vaginal Cream (Estrogens, Conjugated) Administer into the vagina 0.5 g before bedtime. As directed.. 42.5 g 5 B-12 1000 MCG Oral Tablet 1 tablet daily (Patient not taking: Reported on 10/02/2022) 90 Tablet 3 Empagliflozin 25 MG Oral Tablet (Jardiance) [...] taking: Reported on 09/11/2022) 15 g 5 Pantoprazole Sodium 20 MG Oral Tablet Delayed Release (Protonix) Take 1 Tablet by mouth in the morning and 1 Tablet before bedtime. 60 Tablet 5 OneTouch UltraSoft Lancets Use once daily [...] (Please comment) Nightmares, hearing and seeing things. Review of Systems: A total number of 10 systems were reviewed pertinent negative and positives not addressed in HPI are listed in the following review. Physical Exam: Constitutional: BP 110/60 | Pulse 76 | Temp 36.6 C (97.8 F) (Tympanic) | Resp 16 | Wt 63.5 kg (139 lb 14.4 oz) | BMI 24.78 kg/m | BSA 1.68 m , appearance nourished, healthy, and normal Ears, Nose, Mouth and Throat: mucous membranes moist, no injection and skin normal, eyes normal Cardiovascular: normal S-1 and S-2 and regular rate and rhythm Respiratory: clear to auscultation (CTA) and no rales, ronchi or wheeze Musculoskeletal: no peripheral edema Skin: normal and intact Eyes: extraocular muscles intact (EOMI) NEUROLOGIC EXAMINATION: Mental status: Alert and interactive Oriented to person Speech fluent with no evidence of aphasia Cranial Nerves Normal findings for Cranial Nerves II - XII Coordination: rapid alternating movements are intact: Bilateral and on [id number] Gait/Stance: Posture normal. Gait normal: with steady with steps, base, arm swing, and tandem gait. Motor: Negative for pronator drift of out stretched arms with eyes closed. Strength: uses arms of chair to stand up LABORATORY: Recent labs reviewed Review of prior Studies: No recent imaging available. Impression: Naz Kennedy is a 77 year old woman with a history of dementia. Her neurologic examination today reveals no new focal deficit. The history and examination are suggestive of diagnosis/problem list. Testing and Referrals ordered: none ICD-10-CM 1. Dementia of the Alzheimer's type, with late onset, uncomplicated (HCC) G30.1 F02.80 2. B12 deficiency E53.8 3. Insomnia, unspecified type G47.00 Return in 1 year or sooner if needed Keep both physically and mentally active as possible Good family support to help monitor along with living with . Continue Remeron 45 mg (1 tab) hs for sleep issues could add melatonin if needed Fall precautions and watch for wandering from home PCP for medical management Could add Ensure, Boost type products or CIB for additional protein and calories Call with questions concerns. Medical Decision Making (determined by lowest of 2 of 3 elements): The medical decision making element of the number and complexity of problems addressed included at least 2 or more stable chronic illnesses (level 4). The medical decision making element of risk of complications, morbidity, and mortality of patient management is moderate (level 4) due to prescription drug management (moderate risk). The medical decision making element of the amount and complexity of data reviewed and analyzed included an independent interpretation of a test (level 4 at least). When 2 of 3 reach level 4, then this element is considered extensive (level 5). I personally spent a total of 30 minutes. This time was for a new office or established visit and was on the same calendar day. Education / Consultation - Topics covered as I spent 20 minutes, which is greater than 50% of this visit, counseling the patient on: Diagnostic Results Prognosis Importance of compliance with chosen treatment options Risk factor reductions Patient and family education Tonie Leonard MD was available for general supervision. Copy of note sent to PCP and Referring Provider. Total time of visit: 30 minutes. Tonie Rubio PA-C Neurology [address] [address] 11/22/2022 9:49 AM documented in this encounter Nursing Notes * GUEVARA Villanueva - 11/22/2022 9:44 AM EDT Chief Complaint Patient presents with Return Neuro documented in this encounter Plan of Treatment Upcoming Encounters Date Type Specialty Care Team Description 12/01/2022 Office Visit Pharmacy [facility] [address] [place] [address] [place] [address] 12/12/2022 Imaging Radiology 12/13/2022 Office Visit Gastroenterology Eda Mobley, FANG [address] [place] [address] 01/11/2023 Office Visit Dermatology Dilma Benjamin PA-C [address] [place] [address] [place] [address] 01/12/2023 Office Visit [facility] [address] [facility] [address] 11/20/2023 Office Visit Neurology Christine Cassidy PA-C [address] [place] [address] Health Maintenance Due Date Last Done Comments [...] 08/16/2023 023, 04/08/2021, 01/26/2016 GFR 08/16/2023 08/15/2022, 050 05/2022, 2022, Additional history exists TSH 08/16/2023 [...] the Alzheimer's type, with late onset, uncomplicated (HCC)- Primary Alzheimer's disease B12 deficiency Other B-complex deficiencies Insomnia, unspecified type documented in this encounter Care Teams Copy Messenger Relationship Specialty Start Date End Date Tita Harris, [address] [place] [address] PCP - General Family Medicine 10/30/12 documented as of this encounter"
--- OUTSIDE RECORDS SUMMARY | 2023-04-26 00:08 | External Medical Summary | Summary of Care ---
Author Name Unknown Organization [facility] Address [address] [facility] [place] [address] Phone [phone] Care Team Providers Care Anatomy Teacher Name Role Phone Steven Tita Rehana DO Primary Care Provider [phone] Reason for Visit * Reason Comments eRx-Medication Refill Encounter Details Date Type Department Care Team (Late st Contact Info) Description 12/06/2022 Refill Neurology [facility] [place] [address] [place] [address] Wally Palmer DO [address] [place] [address] Allergies Active Allergy Reactions Criticality Noted Date Comments Iodinated Contrast Media 04/16/1997 Levofloxacin In D5w Other (Please comment) 05/06 Seeing things Oxycodone-Acetaminophe n Neuro complications (Please comment) 02/29/2012 Nightmares, hearing and seeing things. documented as of this encounter (statuses as of 12/08/2022) Medications Medication Sig Dispensed Refills Start Date End Date Status zoster vac recomb adjuvanted (SHINGRIX) 50 MCG/0.5ML injectionIndicatio ns:Need for vaccination for zoster Inject 0.5 mL into a large muscle now and repeat dose in 60 to 180 days 1 Each 1 0 Active SentinelOne Flex System w/Device Kit Use as directed [...] A1c goal of less than 7.0% ([facility]),Type 2 diabetes mellitus without complication, without long-term current use of insulin ([facility]) USE TO CHECK GLUCOSE ONCE DAILY [...] ONCE DAILY 90 Tablet 0 3 Active B-12 1000 MCG Oral Tablet 1 tablet daily 90 Tablet 3 2 12/09/19 23 Discontinued documented as of this encounter (statuses as of 12/08/2022) Active Problems Problem Noted Date Diagnosed Date [...] as of this encounter (statuses as of 12/08/2022) Resolved Problems Problem Noted Date Diagnosed Date [...] as of this encounter (statuses as of 12/08/2022) Immunizations Name Administration Dates Next Due Pneumococcal [...] Miscellaneous Notes * Telephone Encounter - Wally Palmer DO - 12/08/2022 1:47 PM EDT Signed Prescriptions: Disp Refills Vitamin B-12 1000 MCG Oral Tablet (Cyanoco*90 Tab*0 Sig: TAKE 1 TABLET BY MOUTH ONCE DAILY Authorizing Provider: WALLY PALMER * Telephone Encounter - Nagris Louis, MED ASSIST - 12/08/2022 1:31 PM EDT Pending Prescriptions: Disp Refills Vitamin B-12 1000 MCG Oral Tablet [Pharmac*90 Tab*0 Sig: TAKE 1 TABLET BY MOUTH ONCE DAILY * Telephone Encounter - Patricia Gonzalez, back tender pulp drier - 12/08/2022 10:48 AM EDT Pending Prescriptions: Disp Refills Vitamin B-12 1000 MCG Oral Tablet [Pharmac*90 Tab*0 Sig: TAKE 1 TABLET BY MOUTH ONCE DAILY * Telephone Encounter - Patricia Gonzalez PHARM Tech - 12/08/2022 10:47 AM EDT Patient is up to date for office visits. Pending Prescriptions: Disp Refills Vitamin B-12 1000 MCG Oral Tablet (Cyanoc*90 Tab*0 Sig: TAKE 1 TABLET BY MOUTH ONCE DAILY Last Visit: 11/22/2022 (in office), Visit date not found (telemedicine) Next Visit: 11/20/2023 If no future appointments scheduled, and last appointment is greater than a year ago, please schedule patient for a follow-up appointment Last date the medication was ordered: 11/22 Pharmacy: [id number] [facility] [place] [place] Is this request for a controlled [...] Info) Description 12/12/2022 9:15 AM EST Imaging Radiology, [place] [address] [facility] [address] 12/13/2022 10:00 AM EST Office Visit Gastroenterology, [facility] [address] [place] [address] Eda Mobley CRNP [address] [place] [address] 01/11/2023 9:00 AM EST Office Visit Dermatology, [place] [address] [facility] [place] [place] [address] Dilma Benjamin PA-C [address] [place] [address] [place] [address] 01/12/2023 10:10 AM EST Office Visit [facility] Practice, [place] [address] [facility] [address] Tita Harris, [address] [place] [address] 11/20/2023 11:00 AM EDT Office Visit Neurology [facility] [address] [place] [address] Christine Cassidy PA-C [address] [place] [address] Health Maintenance Due Date Last Done Comments [...] filedocumented as of this encounter Care Teams Anatomy Teacher Relationship Specialty Start Date End Date Tita Harris DO [address] [place] [address] PCP - General Family Medicine 10/30/12 documented as of this encounter
--- OUTSIDE RECORDS SUMMARY | 2023-04-26 00:08 | External Medical Summary | Summary of Care ---
Author Name Unknown Organization [facility] Address [address] [facility] [place] [address] Phone [phone] Care Team Providers Care Social Sciences Lecturer Name Role Phone Tita Harris DO Primary Care Provider [phone] Reason for Visit * Reason Onset Date Comments Other 11/28/2022 + Encounter Details Date Type Department Care Team (Late st Contact Info) Description 11/28/2022 Telephone Pharmacy Call Center [address] [facility] [address] [facility] [address] [place], [place] [id number] Other (+) Allergies Active Allergy Reactions Criticality Noted Date Comments Iodinated Contrast Media 04/16/1997 Levofloxacin In D5w Other (Please comment) 05/06 Seeing things Oxycodone-Acetaminophe n Neuro complications (Please comment) 02/29/2012 Nightmares, hearing and seeing things. documented as of this encounter (statuses as of 11/28/2022) Medications Medication Sig Dispensed Refills Start Date End Date Status zoster vac recomb adjuvanted (SHINGRIX) 50 MCG/0.5ML injectionIndication s:Need for vaccination for zoster Inject 0.5 mL into a large muscle now and repeat dose in 60 to 180 days 1 Each 1 02/20/2019 Active ClearView™ Audioio Flex System w/Device Kit Use as directed [...] of less than 7.0% ([facility]) Take 2 tablets by mouth twice daily [...] of less than 7.0% ([facility]),Type 2 diabetes mellitus without complication, without long-term current use of insulin ([facility]) USE TO CHECK GLUCOSE ONCE DAILY [...] as of this encounter (statuses as of 11/28/2022) Active Problems Problem Noted Date Diagnosed Date [...] as of this encounter (statuses as of 11/28/2022) Resolved Problems Problem Noted Date Diagnosed Date [...] as of this encounter (statuses as of 11/28/2022) Immunizations Name Administration Dates Next Due Pneumococcal [...] encounter Miscellaneous Notes * Telephone Encounter - Lorelei Sawant RPh - 11/28/2022 10:09 AM EDT Noted. Discharge at this time due to patient preference. Routing to referring provider to make aware. Welcome future referrals if patient would like to re-establish. Thank you for allowing us to participatein the care of this patient. Lorelei Sawant PharmD Clinical Pharmacist Medication Therapy Disease Management 11/28/2022, 10:09 AM * Telephone Encounter - LAXMI Rayo - 11/28/2022 9:48 AM EDT Caller's name: JOSAFAT Preferred call back number(OFFICE NUMBER FOR ): [phone] Reason for call: pt feels like she is done with services at this time Thank you, Shlaonda Orourke Die [employer] [facility] ([facility] (Formerly [facility]) 11/28/2022,9:48 AM documented in this encounter Plan of Treatment Upcoming Encounters Date Type Department Care Team (Late st Contact Info) Description 12/12/2022 9:15 AM EST Imaging Radiology, [place] [facility] [address] [place] [address] 12/13/2022 10:00 AM EST Office Visit Gastroenterology, [facility] [address] [place] [address] Eda Mobley CRNP [address] [place] [address] 01/11/2023 9:00 AM EST Office Visit Dermatology, [place] [address] [place] [facility] [address] Dilma Benjamin PA-C [address] [place] [address] [place] [address] 01/12/2023 10:10 AM EST Office Visit Family Practice, [place] [address] [place] [facility] [id number] Ttia Harris DO [address] [facility] [address] 11/20/2023 11:00 AM EDT Office Visit [facility] [address] [facility] [address] Christine Cassidy PA-C [address] [place] [address] Health Maintenance Due Date Last Done Comments [...] goal of less than 7.0% (HCC)- Primary documented in this encounter Care Teams Social Sciences Lecturer Relationship Specialty Start Date End Date Tita Harris DO [address] [place] [address] PCP - General Family Medicine 10/30/12 documented as of this encounter
[2023-04-26] MEDS: LEVOTHYROXINE SODIUM 150 MCG TABLET PO SCH (05:12)
[2023-04-26 07:47] LABS: Hematocrit (blood only) 33.2 % (37.0-47.0); Mean Corpuscular Hemoglobin 31.7 pg (25.0-34.0); Mean Corpuscular Hgb Conc 36.1 g/dL (32.0-36.0); Mean Corpuscular Volume 87.6 fL (80.0-100.0); Mean Platelet Volume 8.6 fL (9.4-12.4); Platelet Count 72 K/uL (130-400); RDW Coefficient of Variation 17.2 % (11.5-14.5); RDW Standard Deviation 54.7 fL (36.4-46.3); Red Blood Count 3.79 M/uL (4.20-5.40); White Blood Count 7.74 K/ul (4.8-10.8)
--- NOTE | 2023-04-26 07:59 | Hospitalist Progress Note ---
Date of Service April 26, 2023 Assessment & Plan (1) Dizziness: (2) Acute hypotension: (3) Elevated troponin: (4) Acute hypokalemia: (5) Acute encephalopathy: (6) BLAYNE (acute kidney injury): (7) Decompensated hepatic cirrhosis: Plan Pt is a 77-year-old female with PMHx of WALSH vs. cryptogenic cirrhosis, esophageal varices with history of hepatic encephalopathy, CHF, DM type II, HTN, HLD, hypothyroidism, asthma, dementia, chronic thrombocytopenia presenting with lightheadedness. Dizziness/Lightheadedness CT head unremarkable Carotid dopplers with no significant occlusion Orthostatic vitals Hypotensive, started on midodrine 5mg TID, consider increasing to 10mg TID as needed Albumin support in setting of cirrhosis with fluid overload Monitor symptoms Acute metabolic/toxic encephalopathy Dementia CT head unremarkable Ammonia level wnl Continue home aricept Delirium precautions. Frequent reorientation, avoid sedating medications BLAYNE Cr 1.89 on admission Recent baseline of 1.0 in EPIC on 03/26 Improving, currently down to 1.5 Holding home nephrotoxic meds (diuretics, ARB) Nephrology consult- appreciate recs for need for diuresis in this setting -hold diuretics one more day Acute decompensated Cirrhosis with ascites Esophageal varices Known diagnosis of cirrhosis, follows with GI CT abd/pelvis noting moderate ascites, prominent collaterals with portal HTN, splenomegaly Home spironolactone 50mg qAM and torsemide 20mg BID held overnight, per GI continue to hold IR consult for paracentesis, appreciate recs -s/p paracentesis on 04/25, removed 3L Albumin support Continue empiric Rocephin GI consulted, appreciate recs -IVF support with albumin - Low Na diet - Lactulose (titrate dose to achieve goal BM 3-5 daily); Rifaximin 550mg BID - Hold diuretics - paracentesis - KUB to assess stool burden- noted sig stool Follow pending fluid labs Hypotension BP on lower side In setting of need for paracentesis, started on midodrine 5mg TID as well, titrate up as needed Holding home diuretics at this time per GI hold home losartan Continue albumin Diastolic heart failure Noted on echo 04/25 Echo with EF 60-65%, LVH, Grade 1 diastolic HF On jardiance, consider other guideline directed therapy Constipation Noted on KUB Currently on lactulose Consider addition of miralax, docusate etc Monitor BMs. Thrombocytopenia Platelets low in setting of liver failure/cirrhosis above Hyponatremia Sodium low and improving Continue monitor Hypokalemia Potassium 3.0 on admission Replete as needed ?Mild/Euglycemic DKA Increased anion gap DMII Glucose of 168 on admission UA with glucosuria and ketonuria gap of 14 on admission, closed today VBG not available Pt on jardiance at home Pending AM [id number] Basal/bolus while hospitalized, hold home jardiance and metformin Improving Elevated trop Trop elevated Likely demand Elevated liver enzymes T bili elevated Continue to trend DVT prophylaxis: holding in setting of thrombocytopenia CODE STATUS: DNR/DNI Diet: DMII/HH/Low sodium Dispo: PT/OT orders in Admission and Anticipated Discharge Date Admission Date: April 25, 2023 Subjective Pt was seen laying in bed. Stated that she wanted to poop. Has lopez in for urine symptoms. Review of Systems Review of Systems: All systems reviewed & are unremarkable except as noted in Subjective Physical Exam Physical Exam: General: Alert, orientedx2. No acute distress Skin: No noted rashes or bruises Psych: Appropriate mood and affect Neuro: difficulty with getting out of bed on her own HEENT: NC/AT Chest: Nontender to palpation. CV: RRR Resp: Breath sounds clear bilaterally, no increased effort of breathing. Abdomen: Soft, distended Extremities: No edema in lower extremities bilaterally. Results & Data Results & Data Vital Signs (Past 12 Hours) Vital Signs Temp Pulse Pulse Resp BP Pulse Ox O2 Del Method 04/26/23 03:12 36.9 C 69 18 99/78 L 94 Room Air 04/25/23 23:30 76 04/25/23 22:26 36.6 C 69 18 93/64 L 97 Room Air
[2023-04-26 08:14] LABS: INR 1.2 (0.9-1.1); Prothrombin Time 12.5 Seconds (9.0-12.0)
[2023-04-26 08:21] LABS: Albumin Level 2.8 gm/dl (3.4-5.0); BUN Creatinine Ratio 22.4 (10-20); Bilirubin Direct 0.5 mg/dl (0-0.2); Bilirubin,Total 1.7 mg/dl (0.2-1.0); Calcium 8.4 mg/dl (8.6-10.3); Creatinine Clr Calc Pharmacy 26.3 ml/min; Est GFR (African American) 36.2 ml/min; Est GFR (Non-African American) 31.3 ml/min; Potassium 3.8 mmol/L (3.5-5.1); Total Protein 5.8 gm/dl (6.0-8.3)
[2023-04-26] MEDS: CYANOCOBALAMIN (B-12) 500 MCG TABLET PO SCH (08:48)
[2023-04-26] MEDS: THIAMINE HCL 100 MG TAB PO SCH (08:48)
--- NOTE | 2023-04-26 09:02 | Gastrointestinal Consultation ---
Date of Consultation April 26, 2023 Assessment & Plan (1) BLAYNE (acute kidney injury): (2) Cirrhosis: Pt is a 77 yo female w dementia, WALSH vs crytogenic cirrhosis, admitted with BLAYNE (MELD 20). - IVF support - Diet as tolerated but keep to 2g Na daily - Lactulose (titrate dose to achieve goal BM 3-5 daily); Rifaximin 550mg BID - Hold diuretics - Monitor renal function and electrolytes closely - Agree with Midodrine 5mg TID for hypotension - US paracentesis w fluid analysis: protein, albumin, cell ct, culture to r/o SBP which may cause acute confusion as well - KUB to assess stool burden Supervising Physician Co-Signing Physician Notes Saw and evaluated the patient, she is known to our service as an outpatient for her history of liver disease. Patient is confused which appears to be from her underlying dementia. There is a question of nausea which is occurred as an outpatient thought to be related to addition of furosemide by her primary care provider. This could certainly also cause her renal insufficiency. The patient does have what appears to be ascites on CT scan thus we would recommend a diagnostic paracentesis to screen for SBP. History of Present Illness Reason for Consultation: Cirrhosis, BLAYNE Requesting Physician: Dr. Maricruz Tony Attending Physician: Dr. 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 She presented yesterday w lightheadedness, dizziness x 2 days. She is also c/o nausea, not taking her meds as usual and having poor po intake. She mentioned this to me when I recently saw her in outpt GI clinic and stated then that her nausea had been since her diurectic was changed from furosemide to torsemide. Her Remeron was also dc'd and changed to Trazodone. She has dementia but has had visual hallucinations x 3 weeks. Bowels move 1-2x a day, denies rectal bleeding or dark tarry stools. Upon eval, she was noted to have hypotension, BP 90s/60s, BLAYNE Cr 1.8. LFTs: Tbili 1.7, AST 23, ALT 14, Alk phos 61. CXR unremarkable. CT abd/pelvis w moderate ascites and collaterals compatible with portal HTN, splenomegaly. Allergies Allergy/AdvReac Type Severity Reaction Status Date / Time Iodinated Contrast Media Allergy Intermediate Hives Verified 04/25/23 15:23 oxycodone Allergy Unknown CAN'T Verified 04/25/23 15:23 REMEMBER Home Medications Medication Instructions Recorded Confirmed Type losartan 50 mg tablet 25 mg PO QAM 07/15/19 04/25/23 History metformin 500 mg tablet 1,000 mg PO BID 07/15/19 04/25/23 History clindamycin phosphate 1 % topical 1 applic topical BID PRN AFFECTED 04/25/23 04/25/23 History swab SKIN clotrimazole 1 % vaginal cream 1 appful vaginal HS 04/25/23 04/25/23 History cyanocobalamin (vitamin B-12) 1,000 mcg PO DAILY 04/25/23 04/25/23 History 1,000 mcg tablet (Vitamin B-12) donepezil 5 mg tablet 5 mg PO QAM 04/25/23 04/25/23 History empagliflozin 25 mg tablet 25 mg PO QAM 04/25/23 04/25/23 History (Jardiance) lactulose 10 gram/15 mL oral 30 ml PO BID 04/25/23 04/25/23 History solution levothyroxine 150 mcg tablet 150 mcg PO DAILYBB 04/25/23 04/25/23 History nutrition tx glu 1 ea PO BIDM 04/25/23 04/25/23 History intol,lac-free,soy-fiber 0.04 gram-1 kcal/mL liquid (Glucerna 1 Ezequiel) ondansetron 4 mg disintegrating 4 mg translingual Q12H PRN 04/25/23 04/25/23 History tablet NAUSEA/VOMITING pantoprazole 20 mg tablet,delayed 20 mg PO BID 04/25/23 04/25/23 History release spironolactone 50 mg tablet 50 mg PO QAM 04/25/23 04/25/23 History thiamine HCl (vitamin B1) 100 mg 100 mg PO QAM 04/25/23 04/25/23 History tablet (Vitamin B-1) torsemide 20 mg tablet 20 mg PO BID 04/25/23 04/25/23 History trazodone 50 mg tablet 50 mg PO HS 04/25/23 04/25/23 History Patient History Medical History Hepatic encephalopathy Hypothyroidism Diabetes mellitus, type 2 Asthma NO INHALER USE X 2 YRS Pneumonia LAST TIME 2 YRS AGO Colon polyps Elevated d-dimer Chest pain (11/16/13) NO RECENT ISSUES Bronchitis Right foot pain Surgical History S/P lumpectomy, left breast BENIGN PER PT History of total bilateral knee replacement Hx of appendectomy H/O: hysterectomy Family History Father Colorectal cancer Family history of diabetes mellitus Social History Smoking Status: Never smoker Second Hand Exposure: No; Do You Dip or Chew Tobacco: No; Hx Alcohol Use: No Hx Substance Use: No Preferred Language: Wolof Communication Ability: Effective Visual Impairment: No Limitations Hearing Ability: Normal 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 Beliefs That Will Affect Care: None marital status: Current Living Situation: Spouse current occupational status: retired Other Information That Helps Us Care for You: No Feels Safe at Home: Yes Safety Concerns: Feels Safe At This Time and Afraid for Self Assistive Devices: Glasses Review of Systems Review of Systems: All systems reviewed & are unremarkable except as noted in HPI & below Physical Exam Constitutional: WD/WN, vitals as above well groomed, cooperative and comfortable Eyes: PERRL, conjunctivae normal, anicteric sclerae ENMT: external ear and nose normal, oropharynx normal Respiratory: normal respiratory effort, lungs clear to auscultation Cardiovascular: RRR, no murmur, no edema Gastrointestinal (Abdomen): Mild distension, BS present, non tender Skin: no rashes, warm and dry no jaundice Neurologic: Motor/Sensory: no asterixis Psychiatric: Awake, alert, confused (kept repeating asking why she's "here") Lymphatic: no lymphedema Results & Data Vital Signs (Past 12 Hours) Vital Signs Temp Pulse Pulse Resp BP Pulse Ox O2 Del Method 04/26/23 07:57 36.5 C 81 20 90/59 L 93 Room Air 04/26/23 03:12 36.9 C 69 18 99/78 L 94 Room Air 04/25/23 23:30 76 04/25/23 22:26 36.6 C 69 18 93/64 L 97 Room Air
--- NOTE | 2023-04-26 09:21 | Nephrology Consultation ---
Date of Consultation April 26, 2023 Assessment & Plan (1) BLAYNE (acute kidney injury): Blayne in patient with decompensated Liver cirrhosis with ascites. Likely related with Hypotension. Cirrhosis patient are very sensitive and prone to BLAYNE. Creat today is better than yesterday so good sign. Agree with holding Diuretics maybe one more day and using albumin and Midodrine. No need of other workup. (2) Cirrhosis: would recommend to reconsider her DM meds given her Decompensated Cirrhosis. her DM therapy really needs to be deescalated. Consider stopping or lowering Metformin Dose. Also Would not really recommend using Jardiance in her situation. History of Present Illness Attending Physician: Maricruz Tony MD History of Present Illness 77/F with WALSH vs cryptogenic cirrhosis, Grade II esophageal varices , hepatic encephalopathy, ascites and edema. Normal creat at baseline. She presented yesterday with lightheadedness for 2 days. She is also c/o nausea, not taking her meds as usual and having poor po intake. worsened nausea since lasix changed to torsemide recently. Her Remeron was also dc'd and changed to Trazodone. Bowels move 1-2x a day, denies rectal bleeding or dark tarry stools. In ED she was noted to have hypotension with BLAYNE creat 1.8. Diuretics held and Some IVF given . creat down to 1.6 this AM. Now getting some Albumin also. BP is still low. ROS-----As above. Unless stated 12 Systems reviewed and negative. Physical Exam Physical Exam: General: awake, alert, chronic Illness, Frail Head: Normocephalic, atraumatic ENT: PERRL, EOMI, no pharyngeal exudate, mucous membranes moist Chest: Clear to auscultation, on room air, no adventitious breath sounds Cardiac: Regular rate and rhythm, soft systolic murmur, no JVD Abdominal: soft, + moderately distended, nontender Extremities: 2+ edema Psych: Flat Affect Allergies Allergy/AdvReac Type Severity Reaction Status Date / Time Iodinated Contrast Media Allergy Intermediate Hives Verified 04/25/23 15:23 oxycodone Allergy Unknown CAN'T Verified 04/25/23 15:23 REMEMBER Home Medications Medication Instructions Recorded Confirmed Type losartan 50 mg tablet 25 mg PO QAM 07/15/19 04/25/23 History metformin 500 mg tablet 1,000 mg PO BID 07/15/19 04/25/23 History clindamycin phosphate 1 % topical 1 applic topical BID PRN AFFECTED 04/25/23 04/25/23 History swab SKIN clotrimazole 1 % vaginal cream 1 appful vaginal HS 04/25/23 04/25/23 History cyanocobalamin (vitamin B-12) 1,000 mcg PO DAILY 04/25/23 04/25/23 History 1,000 mcg tablet (Vitamin B-12) donepezil 5 mg tablet 5 mg PO QAM 04/25/23 04/25/23 History empagliflozin 25 mg tablet 25 mg PO QAM 04/25/23 04/25/23 History (Jardiance) lactulose 10 gram/15 mL oral 30 ml PO BID 04/25/23 04/25/23 History solution levothyroxine 150 mcg tablet 150 mcg PO DAILYBB 04/25/23 04/25/23 History nutrition tx glu 1 ea PO BIDM 04/25/23 04/25/23 History intol,lac-free,soy-fiber 0.04 gram-1 kcal/mL liquid (Glucerna 1 Ezequiel) ondansetron 4 mg disintegrating 4 mg translingual Q12H PRN 04/25/23 04/25/23 History tablet NAUSEA/VOMITING pantoprazole 20 mg tablet,delayed 20 mg PO BID 04/25/23 04/25/23 History release spironolactone 50 mg tablet 50 mg PO QAM 04/25/23 04/25/23 History thiamine HCl (vitamin B1) 100 mg 100 mg PO QAM 04/25/23 04/25/23 History tablet (Vitamin B-1) torsemide 20 mg tablet 20 mg PO BID 04/25/23 04/25/23 History trazodone 50 mg tablet 50 mg PO HS 04/25/23 04/25/23 History Patient History Medical History Hepatic encephalopathy Hypothyroidism Diabetes mellitus, type 2 Asthma NO INHALER USE X 2 YRS Pneumonia LAST TIME 2 YRS AGO Colon polyps Elevated d-dimer Chest pain (11/16/13) NO RECENT ISSUES Bronchitis Right foot pain Surgical History S/P lumpectomy, left breast BENIGN PER PT History of total bilateral knee replacement Hx of appendectomy H/O: hysterectomy Family History Father Colorectal cancer Family history of diabetes mellitus Social History Smoking Status: Never smoker Second Hand Exposure: No; Do You Dip or Chew Tobacco: No; Hx Alcohol Use: No Hx Substance Use: No Preferred Language: Trinidadian Communication Ability: Effective Visual Impairment: No Limitations Hearing Ability: Normal Fitting Room Associate Required: No Beliefs That Will Affect Care: None marital status: Current Living Situation: Spouse current occupational status: retired Other Information That Helps Us Care for You: No Feels Safe at Home: Yes Safety Concerns: Feels Safe At This Time and Afraid for Self Assistive Devices: Glasses Results & Data Vital Signs (Past 12 Hours) Vital Signs Temp Pulse Pulse Resp BP Pulse Ox O2 Del Method 04/26/23 07:57 36.5 C 81 20 90/59 L 93 Room Air 04/26/23 03:12 36.9 C 69 18 99/78 L 94 Room Air 04/25/23 23:30 76 04/25/23 22:26 36.6 C 69 18 93/64 L 97 Room Air Laboratory Results reviewed Diagnostic Findings Reviewed
[2023-04-26 11:25] LABS: Albumin Peritoneal Fluid < 1.5 gm/dl
[2023-04-26 11:31] LABS: Total Protein Peritoneal Fluid < 3.0 gm/dl
[2023-04-26] MEDS: ALBUMIN 25% 25 GM/100 ML VIAL IV SCH (12:13)
[2023-04-26] MEDS: rifAXIMin 550 MG TABLET PO SCH (12:14)
[2023-04-26] MEDS: MIDODRINE HCL 2.5 MG TAB PO SCH (12:49)
[2023-04-26] MEDS: INFLUENZA VACCINE HIGH-DOSE (HD-IIV4) PF 65+ 0.7mL SYR IM ONE (12:49)
[2023-04-26 13:14] LABS: Appearance Peritoneal Fluid Cloudy; Color Peritoneal Fluid Pale Yellow; Lymphocytes, Fluid 16 %; Mono,Macrophage,Mesothelial 48 %; Neutrophils, Fluid 36 %; RBC Peritoneal Fluid Auto 9000 /uL; WBC Peritoneal Fluid Auto 309 /ul (0-300)
--- NOTE | 2023-04-26 13:21 | Ultrasound Report ---
ULTRASOUND-GUIDED PARACENTESIS CLINICAL HISTORY: Ascites PROCEDURE: Procedure and risks were explained. Informed consent was obtained. A final timeout was com pleted. The abdomen was prepped and draped in sterile fashion. 1% buffered lidocaine was utilized for skin anesthesia. Utilizing ultrasound guidance, a 5 Japanese safety centesis catheter was advanced into the right lower quadrant pocket of ascites. Ultrasound images were obtained. A total of 3 L of ascites fluid was obi adele with 1 L sent to lab. The catheter was removed and Band-Aid applied. The patient tolerated the pr ocedure well. Vital signs will be monitored on the floor. IMPRESSION: Ultrasound-guided paracentesis as above. Performed, dictated, and signed by Amor Neri PA-C; to be co-signed by Dr. Cayetano Thorpe. Electronically signed by: Cayetano Thorpe M.D. 04/26/2023 5:00 PM
--- NOTE | 2023-04-26 13:31 | Ultrasound Report ---
BILATERAL CAROTID DOPPLER STUDY HISTORY: dizziness, lightheadedness, altered mental status COMPARISON: None. TECHNIQUE: Real-time, grayscale, and color Doppler sonography of the carotid arteries was performed. Imaging reviewed in the transverse and longitudinal planes. All measurements were calculated based on NASCET criteria. FINDINGS: Antegrade flow is seen in the bilateral vertebral arteries. Mild calcified plaque within the bilateral carotid bifurcations. The peak systolic velocity within the right ICA is 66 cm/s. The right systolic ratio is 1.2. The peak systolic velocity within the left ICA is 90 cm/s. The left systolic ratio is 1.7. IMPRESSION: No hemodynamically significant stenosis seen within the carotid arteries. ACT 112: Negative or not required by law. Electronically signed by: Norbert Miranda M.D. 04/26/2023 1:30 PM
--- NOTE | 2023-04-26 16:01 | XRay Report ---
KUB CLINICAL HISTORY: Evaluate stool burden. COMPARISON STUDY: KUB February 15, 2022. CT of the abdomen and pelvis April 25, 2023. FINDINGS: The bowel gas pattern is normal. There is a moderate amount of stool within the colon and r ectum. No evidence for free air although sensitivity is diminished on this supine exam. IMPRESSION: 1. No evidence for a bowel obstruction. 2. Moderate amount of stool within the colon and rectum. ACT 112: Negative or not required by law. Electronically signed by: Cayetano Thorpe M.D. 04/26/2023 4:00 PM
--- NOTE | 2023-04-26 17:27 | CT Scan Report ---
HEAD CT NONCONTRAST CT DOSE: 625.8 mGy.cm HISTORY: AMS, lightheadedness TECHNIQUE: Multiaxial CT images of the head were performed without the use of intravenous contrast. A utomated exposure control was utilized for this study. A dose lowering technique was utilized adheri ng to the principles of ALARA. Comparison: Head CT 06/08/2015. Findings: The paranasal sinuses and mastoid air cells are clear. The calvarium and skull base are int act. There is no mass, hematoma, midline shift, acute infarct. White matter hypodensity is nonspecifi c but suggestive of microvascular ischemic change. The ventricles and sulci demonstrate mild age-rela sinan involutional changes. Impression: No acute intracranial abnormality. ACT 112: Negative or not required by law. Electronically signed by: Norbert Miranda M.D. 04/26/2023 5:25 PM
[2023-04-26] MEDS: MIDODRINE HCL 2.5 MG TAB PO ONE (22:15)
[2023-04-27 07:19] LABS: Basophils # (auto) 0.01 K/uL (0.00-0.20); Basophils % (auto) 0.3 %; Eosinophils # (auto) 0.02 K/uL (0.00-0.50); Eosinophils % (auto) 0.5 %; Hematocrit (blood only) 30.8 % (37.0-47.0); Immature Granulocytes # (auto) 0.01 K/uL (0.01-0.20); Immature Granulocytes % (auto) 0.3 %; Lymphocytes % (auto) 18.2 %; Mean Corpuscular Hemoglobin 32.2 pg (25.0-34.0); Mean Corpuscular Hgb Conc 35.7 g/dL (32.0-36.0); Mean Corpuscular Volume 90.1 fL (80.0-100.0); Mean Platelet Volume 10.3 fL (9.4-12.4); Monocytes # (auto) 0.33 K/uL (0.11-0.59); Monocytes % (auto) 8.6 %; Neutrophils # (auto) 2.78 K/uL (1.40-6.50); Neutrophils % (auto) 72.1 %; Platelet Count 63 K/uL (130-400); RDW Coefficient of Variation 17.5 % (11.5-14.5); RDW Standard Deviation 57.4 fL (36.4-46.3); Red Blood Count 3.42 M/uL (4.20-5.40); White Blood Count 3.85 K/ul (4.8-10.8)
[2023-04-27 07:40] LABS: INR 1.2 (0.9-1.1)
[2023-04-27 07:45] LABS: Albumin Globulin Ratio 1.3 (0.9-2); BUN Creatinine Ratio 22.7 (10-20); Bilirubin,Total 1.3 mg/dl (0.2-1.0); Calcium 8.3 mg/dl (8.6-10.3); Creatinine Clr Calc Pharmacy 28.9 ml/min; Est GFR (African American) 44.4 ml/min; Est GFR (Non-African American) 38.3 ml/min; Globulin 2.4 gm/dl (2.5-4.0); Magnesium 1.6 mg/dl (1.7-2.4); Phosphorus 2.3 mg/dl (2.5-4.9); Potassium 3.2 mmol/L (3.5-5.1); Total Protein 5.4 gm/dl (6.0-8.3)
[2023-04-27 07:52] LABS: Estimated Average Glucose 148 mg/dl; Hemoglobin A1C 6.8 % (4.5-5.6)
[2023-04-27] MEDS: MIDODRINE HCL 10 MG TAB PO SCH (08:31)
--- NOTE | 2023-04-27 09:07 | Gastroenterology Progress Note ---
Date of Service April 27, 2023 Assessment & Plan (1) BLAYNE (acute kidney injury): (2) Cirrhosis: Plan: Pt is a 77 yo female w dementia, WALSH vs crytogenic cirrhosis, admitted with BLAYNE (MELD 20). Renal function improving. She had US paracentesis w 3L ascites fluid removal, no sign of SBP. Mental status improved from yesterday. - IVF support - Electrolyte repletion as dosed - Diet as tolerated but keep to 2g Na daily - Lactulose (titrate dose to achieve goal BM 3-5 daily); Rifaximin 550mg BID - May restart diuretic; Monitor renal function and electrolytes closely - Midodrine 5mg TID for hypotension - 2g Na diet - Pls recall GI over weekend as needed Admission and Anticipated Discharge Date Admission Date: April 25, 2023 Supervising Physician Co-Signing Physician Notes I saw and evaluated the patient, her mental status appears to be much improved today as compared to yesterday. We suspect this is related to the patient's underlying dementia. Of note her renal function has improved and her nephrology colleagues are considering resumption of diuretic therapy at a lower dose. Please call with any questions or concerns. Subjective Pt denies abd pain, n/v, appears less confused. Review of Systems Review of Systems: All systems reviewed & are unremarkable except as noted in HPI & below Physical Exam Constitutional: WD/WN, vitals as above well groomed, cooperative and comfortable Eyes: PERRL, conjunctivae normal, anicteric sclerae ENMT: external ear and nose normal, oropharynx normal Respiratory: normal respiratory effort, lungs clear to auscultation Cardiovascular: RRR, no murmur, no edema Gastrointestinal (Abdomen): normal bowel sounds, soft, nontender, no hepatosplenomegaly Skin: no rashes, warm and dry no jaundice Neurologic: Motor/Sensory: no asterixis Lymphatic: no lymphedema Results & Data Vital Signs (Past 12 Hours) Vital Signs Temp Pulse Pulse Resp BP Pulse Ox O2 Del Method 04/27/23 08:01 Room Air 04/27/23 08:00 69 04/27/23 07:43 36.6 C 65 20 93/57 L 97 Room Air 04/27/23 02:53 36.8 C 61 20 93/51 L 96 Room Air 04/27/23 00:20 64 04/26/23 23:24 36.9 C 65 18 90/54 L 97 Room Air 04/26/23 22:18 36.5 C 65 18 102/55 L 98 Room Air
[2023-04-27] MEDS ORDERED: POTASSIUM PHOS 3 MMOL/1 ML INFUSION IV STA (11:11)
[2023-04-27] MEDS: MAGNESIUM SULFATE / D5W 1 GM/100 ML BAG IV SCH (11:29)
[2023-04-27] MEDS: POTASSIUM CHLORIDE CRTAB 20 MEQ TABCR PO STA (11:29)
--- NOTE | 2023-04-27 11:32 | Nephrology Progress Note ---
Date of Service April 27, 2023 Assessment & Plan Admission and Anticipated Discharge Date Admission Date: April 25, 2023 Subjective Assessment & Plan (1) MARIA ANTONIA (acute kidney injury): Maria Antonia in patient with decompensated Liver cirrhosis with ascites. Likely related with Hypotension. Cirrhosis patient are very sensitive and prone to MARIA ANTONIA. Creat today is better than yesterday so good sign. Agree with holding Diuretics today and restart from tomorrow. No need of other workup. (2) Cirrhosis: would recommend to reconsider her outpt DM meds given her Decompensated Cirrhosis. her DM therapy needs to be deescalated. Consider stopping or lowering Metformin Dose. Also Would not really recommend using Jardiance in her situation. S--Feels and looks Slightly stronger than yesterday. Labs better. BP is Still low. Physical Exam Physical Exam: General: awake, alert, chronic Illness, Frail Head: Normocephalic, atraumatic ENT: PERRL, EOMI, no pharyngeal exudate, mucous membranes moist Chest: Clear to auscultation, on room air, no adventitious breath sounds Cardiac: Regular rate and rhythm, soft systolic murmur, no JVD Abdominal: soft, + moderately distended, nontender Extremities: trace edema Psych: Flat Affect Results & Data Vital Signs (Past 12 Hours) Vital Signs Temp Pulse Pulse Resp BP Pulse Ox O2 Del Method 04/27/23 11:12 36.6 C 65 18 90/56 L 97 Room Air 04/27/23 08:01 Room Air 04/27/23 08:00 69 04/27/23 07:43 36.6 C 65 20 93/57 L 97 Room Air 04/27/23 02:53 36.8 C 61 20 93/51 L 96 Room Air 04/27/23 00:20 64
[2023-04-27] MEDS: POTASSIUM PHOSPHATE 21 MMOL in SODIUM CHLORIDE 0.9% 500 ML IV ONE (11:35)
[2023-04-27] MEDS: POT PHOSPHATE MONOBASIC W/ SOD TAB PO SCH (12:10)
[2023-04-27] MEDS: PNEUMOCOCCAL VACCINE (PCV20) 20-VAL CONJ-DIP CRM/PF 0.5 ML SYR IM ONE (12:29)
--- NOTE | 2023-04-27 14:25 | Hospitalist Progress Note ---
Date of Service April 27, 2023 Assessment & Plan (1) Dizziness: (2) Acute hypotension: (3) Elevated troponin: (4) Acute hypokalemia: (5) Acute encephalopathy: (6) BLAYNE (acute kidney injury): (7) Decompensated hepatic cirrhosis: Plan Pt is a 77-year-old female with PMHx of WALSH vs. cryptogenic cirrhosis, esophageal varices with history of hepatic encephalopathy, CHF, DM type II, HTN, HLD, hypothyroidism, asthma, dementia, chronic thrombocytopenia presenting with lightheadedness. Dizziness/Lightheadedness CT head unremarkable Carotid dopplers with no significant occlusion Orthostatic vitals Hypotensive, started on midodrine 5mg TID, consider increasing to 10mg TID as needed Albumin support in setting of cirrhosis with fluid overload Monitor symptoms Improving Acute metabolic/toxic encephalopathy Dementia CT head unremarkable Ammonia level wnl Continue home aricept Delirium precautions. Frequent reorientation, avoid sedating medications Improving BLAYNE Cr 1.89 on admission Recent baseline of 1.0 in EPIC on 03/26 Improving Holding home nephrotoxic meds (diuretics, ARB) Nephrology consult- appreciate recs for need for diuresis in this setting -hold diuretics one more day Acute decompensated Cirrhosis with ascites Esophageal varices Known diagnosis of cirrhosis, follows with GI CT abd/pelvis noting moderate ascites, prominent collaterals with portal HTN, splenomegaly Home spironolactone 50mg qAM and torsemide 20mg BID held overnight, per GI continue to hold IR consult for paracentesis, appreciate recs -s/p paracentesis on 04/25, removed 3L Albumin support Continue empiric Rocephin GI consulted, appreciate recs -IVF support with albumin - Low Na diet - Lactulose (titrate dose to achieve goal BM 3-5 daily); Rifaximin 550mg BID - Hold diuretics - paracentesis - KUB to assess stool burden- noted sig stool Follow pending fluid labs Hypotension BP on lower side In setting of need for paracentesis, started on midodrine 5mg TID as well, titrate up as needed Holding home diuretics at this time per GI hold home losartan Continue albumin Diastolic heart failure Noted on echo 04/25 Echo with EF 60-65%, LVH, Grade 1 diastolic HF On jardiance, consider other guideline directed therapy Constipation Noted on KUB Currently on lactulose Consider addition of miralax, docusate etc Monitor BMs. Thrombocytopenia Platelets low in setting of liver failure/cirrhosis above Hyponatremia Sodium low and improving Continue monitor Hypokalemia Potassium 3.0 on admission Replete as needed ?Mild/Euglycemic DKA Increased anion gap DMII Glucose of 168 on admission UA with glucosuria and ketonuria gap of 14 on admission, closed today VBG not available Pt on jardiance at home Pending AM [id number] Basal/bolus while hospitalized, hold home jardiance and metformin Improving Elevated trop Trop elevated Likely demand Elevated liver enzymes T bili elevated Continue to trend DVT prophylaxis: holding in setting of thrombocytopenia CODE STATUS: DNR/DNI Diet: DMII/HH/Low sodium Dispo: PT/OT orders in Admission and Anticipated Discharge Date Admission Date: April 25, 2023 Subjective Pt seen in the AM. In chair at bedside eating. AAOx2. Review of Systems Review of Systems: All systems reviewed & are unremarkable except as noted in Subjective Physical Exam Physical Exam: General: Alert, orientedx2. No acute distress Skin: No noted rashes or bruises Psych: Appropriate mood and affect Neuro: difficulty with getting out of bed on her own HEENT: NC/AT Chest: Nontender to palpation. CV: RRR Resp: Breath sounds clear bilaterally, no increased effort of breathing. Abdomen: Soft, distended Extremities: No edema in lower extremities bilaterally. Results & Data Results & Data Vital Signs (Past 12 Hours) Vital Signs Temp Pulse Resp BP Pulse Ox O2 Del Method 04/27/23 11:12 36.6 C 65 18 90/56 L 97 Room Air 04/27/23 08:01 Room Air 04/27/23 08:00 69 04/27/23 07:43 36.6 C 65 20 93/57 L 97 Room Air 04/27/23 02:53 36.8 C 61 20 93/51 L 96 Room Air
[2023-04-27] MEDS: MAGNESIUM CHLORIDE W/CALCIUM 64MG DELAYED REL TAB PO SCH (20:22)
[2023-04-27] MEDS: POTASSIUM CHLORIDE CRTAB 20 MEQ TABCR PO SCH (20:23)
--- NOTE | 2023-04-28 05:49 | Communication Note ---
Date of Service: April 28, 2023
[2023-04-28 06:31] LABS: Basophils # (auto) 0.02 K/uL (0.00-0.20); Basophils % (auto) 0.4 %; Eosinophils # (auto) 0.03 K/uL (0.00-0.50); Eosinophils % (auto) 0.7 %; Hematocrit (blood only) 32.7 % (37.0-47.0); Hemoglobin 11.6 g/dl (12.0-16.0); Immature Granulocytes # (auto) 0.02 K/uL (0.01-0.20); Immature Granulocytes % (auto) 0.4 %; Lymphocytes # (auto) 0.74 K/uL (1.20-3.40); Lymphocytes % (auto) 16.6 %; Mean Corpuscular Hemoglobin 31.8 pg (25.0-34.0); Mean Corpuscular Hgb Conc 35.5 g/dL (32.0-36.0); Mean Corpuscular Volume 89.6 fL (80.0-100.0); Mean Platelet Volume 9.8 fL (9.4-12.4); Monocytes # (auto) 0.39 K/uL (0.11-0.59); Monocytes % (auto) 8.7 %; Neutrophils # (auto) 3.26 K/uL (1.40-6.50); Neutrophils % (auto) 73.2 %; Platelet Count 68 K/uL (130-400); RDW Coefficient of Variation 17.4 % (11.5-14.5); RDW Standard Deviation 57.1 fL (36.4-46.3); Red Blood Count 3.65 M/uL (4.20-5.40); White Blood Count 4.46 K/ul (4.8-10.8)
[2023-04-28] MEDS: ALBUMIN 25% 25 GM/100 ML VIAL IV ONE (06:31)
[2023-04-28 06:54] LABS: Albumin Globulin Ratio 1.2 (0.9-2); Albumin Level 2.8 gm/dl (3.4-5.0); BUN Creatinine Ratio 22.5 (10-20); Calcium 8.1 mg/dl (8.6-10.3); Creatinine Clr Calc Pharmacy 34.6 ml/min; Est GFR (African American) 54.7 ml/min; Est GFR (Non-African American) 47.2 ml/min; Globulin 2.3 gm/dl (2.5-4.0); Magnesium 2.2 mg/dl (1.7-2.4); Phosphorus 4.2 mg/dl (2.5-4.9); Potassium 3.7 mmol/L (3.5-5.1); Total Protein 5.1 gm/dl (6.0-8.3)
[2023-04-28 06:55] LABS: INR 1.1 (0.9-1.1); Prothrombin Time 12.4 Seconds (9.0-12.0)
--- NOTE | 2023-04-28 08:01 | Hospitalist Progress Note ---
Date of Service April 28, 2023 Assessment & Plan (1) Dizziness: (2) Acute hypotension: (3) Elevated troponin: (4) Acute hypokalemia: (5) Acute encephalopathy: (6) BLAYNE (acute kidney injury): (7) Decompensated hepatic cirrhosis: Plan Pt is a 77-year-old female with PMHx of WALSH vs. cryptogenic cirrhosis, esophageal varices with history of hepatic encephalopathy, CHF, DM type II, HTN, HLD, hypothyroidism, asthma, dementia, chronic thrombocytopenia presenting with lightheadedness. Dizziness/Lightheadedness CT head unremarkable Carotid dopplers with no significant occlusion Orthostatic vitals Hypotensive, started on midodrine 5mg TID, consider increasing to 10mg TID as needed Albumin support in setting of cirrhosis with fluid overload Monitor symptoms Improving Acute metabolic/toxic encephalopathy Dementia CT head unremarkable Ammonia level wnl Continue home aricept Delirium precautions. Frequent reorientation, avoid sedating medications Improving BLAYNE Cr 1.89 on admission Recent baseline of 1.0 in EPIC on 03/26 Improving Holding home nephrotoxic meds (diuretics, ARB) Nephrology consult- appreciate recs for need for diuresis in this setting -hold diuretics one more day Acute decompensated Cirrhosis with ascites Esophageal varices Known diagnosis of cirrhosis, follows with GI CT abd/pelvis noting moderate ascites, prominent collaterals with portal HTN, splenomegaly Home spironolactone 50mg qAM and torsemide 20mg BID held overnight, per GI continue to hold IR consult for paracentesis, appreciate recs -s/p paracentesis on 04/25, removed 3L Albumin support Continue empiric Rocephin GI consulted, appreciate recs -IVF support with albumin - Low Na diet - Lactulose (titrate dose to achieve goal BM 3-5 daily); Rifaximin 550mg BID - Hold diuretics - paracentesis - KUB to assess stool burden- noted sig stool Follow pending fluid labs 04/27- repeat US paracentesis ordered for noted abdominal tightness, pending Hypotension BP on lower side In setting of need for paracentesis, started on midodrine 5mg TID as well, titrate up as needed Holding home diuretics at this time per GI hold home losartan Continue albumin Diastolic heart failure Noted on echo 04/25 Echo with EF 60-65%, LVH, Grade 1 diastolic HF On jardiance, consider other guideline directed therapy Constipation Noted on KUB Currently on lactulose Consider addition of miralax, docusate etc Monitor BMs. Thrombocytopenia Platelets low in setting of liver failure/cirrhosis above Hyponatremia Sodium low and improving Continue monitor Hypokalemia Potassium 3.0 on admission Replete as needed ?Mild/Euglycemic DKA Increased anion gap DMII Glucose of 168 on admission UA with glucosuria and ketonuria gap of 14 on admission, closed today VBG not available Pt on jardiance at home Pending AM [email or web address] Basal/bolus while hospitalized, hold home jardiance and metformin Improving Elevated trop Trop elevated Likely demand Elevated liver enzymes T bili elevated Continue to trend DVT prophylaxis: holding in setting of thrombocytopenia CODE STATUS: DNR/DNI Diet: DMII/HH/Low sodium Dispo: PT/OT orders in Admission and Anticipated Discharge Date Admission Date: April 25, 2023 Subjective Pt seen in the AM. In bed concerned that she is confused. Asking for her , contacted and advised he would be back in. AAOx2 Noting her abdomen felt tight Later uodated by phone Review of Systems Review of Systems: All systems reviewed & are unremarkable except as noted in Subjective Physical Exam Physical Exam: General: Alert, orientedx2. No acute distress Skin: No noted rashes or bruises Psych: Appropriate mood and affect Neuro: difficulty with getting out of bed on her own HEENT: NC/AT Chest: Nontender to palpation. CV: RRR Resp: Breath sounds clear bilaterally, no increased effort of breathing. Abdomen: Soft, distended Extremities: No edema in lower extremities bilaterally. Results & Data Results & Data Vital Signs (Past 12 Hours) Vital Signs Temp Pulse Pulse Resp BP Pulse Ox O2 Del Method 04/28/23 07:57 36.6 C 72 16 106/69 96 Room Air 04/28/23 02:41 36.6 C 70 18 118/72 97 Room Air 04/28/23 00:35 69 04/27/23 23:20 36.5 C 71 18 104/64 96 Room Air
[2023-04-28] MEDS: TORSEMIDE 20 MG TAB PO SCH (09:11)
[2023-04-28] MEDS: SPIRONOLACTONE 25 MG TAB PO SCH (09:11)
--- NOTE | 2023-04-29 00:48 | Ultrasound Report ---
Exam(s): US ABDOMEN LIMITED EXAM: US Abdomen Limited CLINICAL HISTORY: Reason for exam: abdominal tightness. TECHNIQUE: Real-time ultrasound of the abdomen with image documentation. COMPARISON: None. FINDINGS: Liver: There is heterogeneous echo pattern throughout the liver, suggestive of underlying cirrhosis. Bowel: Exam is limited due to gas artifact in the bowel and body habitus. Free fluid: There moderate ascites within the abdomen, more significant within the right lower and right upper quadrant. IMPRESSION: Moderate ascites with underlying cirrhosis. Electronically signed by: Elizabeth San MD 04/29/23 00:47 AM
[2023-04-29 05:03] LABS: Appearance Urine Clear (Clear); Bacteria Urine Automated Negative (Negative); Bilirubin Urine Negative (Negative); Blood Urine Trace (Negative); Color Urine Yellow; Epithelial Cell Urine Auto 0-5 /lpf (0-5); Glucose Urine UA Negative (Negative); Ketones Urine Negative (Negative); Leukocyte Esterase Urine Negative (Negative); Nitrite Urine Negative (Negative); Protein Urine Negative (Negative); RBC Urine Automated 0-4 /hpf (0-4); Specific Gravity Urine 1.008 (1.000-1.030); Urobilinogen Urine Negative (Negative)
[2023-04-29 06:38] LABS: Basophils # (auto) 0.01 K/uL (0.00-0.20); Basophils % (auto) 0.3 %; Eosinophils # (auto) 0.05 K/uL (0.00-0.50); Eosinophils % (auto) 1.4 %; Hematocrit (blood only) 31.7 % (37.0-47.0); Hemoglobin 11.3 g/dl (12.0-16.0); Immature Granulocytes # (auto) 0.02 K/uL (0.01-0.20); Immature Granulocytes % (auto) 0.6 %; Lymphocytes # (auto) 0.71 K/uL (1.20-3.40); Lymphocytes % (auto) 20.1 %; Mean Corpuscular Hgb Conc 35.6 g/dL (32.0-36.0); Mean Corpuscular Volume 89.8 fL (80.0-100.0); Mean Platelet Volume 9.2 fL (9.4-12.4); Monocytes # (auto) 0.46 K/uL (0.11-0.59); Neutrophils # (auto) 2.29 K/uL (1.40-6.50); Neutrophils % (auto) 64.6 %; Platelet Count 67 K/uL (130-400); RDW Coefficient of Variation 17.8 % (11.5-14.5); RDW Standard Deviation 57.9 fL (36.4-46.3); Red Blood Count 3.53 M/uL (4.20-5.40); White Blood Count 3.54 K/ul (4.8-10.8)
[2023-04-29 06:55] LABS: Magnesium 1.8 mg/dl (1.7-2.4); Phosphorus 3.7 mg/dl (2.5-4.9)
[2023-04-29 10:47] LABS: Albumin Globulin Ratio 1.4 (0.9-2); Albumin Level 3.1 gm/dl (3.4-5.0); BUN Creatinine Ratio 18.5 (10-20); Bilirubin,Total 1.1 mg/dl (0.2-1.0); Est GFR (African American) 47.8 ml/min; Est GFR (Non-African American) 41.3 ml/min; Globulin 2.2 gm/dl (2.5-4.0); Potassium 3.4 mmol/L (3.5-5.1); Total Protein 5.3 gm/dl (6.0-8.3)
--- NOTE | 2023-04-29 16:01 | Hospitalist Progress Note ---
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 Dizziness/Lightheadedness CT head unremarkable Carotid dopplers with no significant occlusion Orthostatic vitals Hypotensive, started on midodrine 5mg TID, consider increasing to 10mg TID as needed Albumin support in setting of cirrhosis with fluid overload Monitor symptoms Improving Acute metabolic/toxic encephalopathy Dementia CT head unremarkable Ammonia level wnl Continue home aricept Delirium precautions. Frequent reorientation, avoid sedating medications Improving BLAYNE Cr 1.89 on admission Recent baseline of 1.0 in EPIC on 03/26 Improving Holding home nephrotoxic meds (diuretics, ARB) Nephrology consult- appreciate recs for need for diuresis in this setting -hold diuretics one more day Acute decompensated Cirrhosis with ascites Esophageal varices Known diagnosis of cirrhosis, follows with GI CT abd/pelvis noting moderate ascites, prominent collaterals with portal HTN, splenomegaly Home spironolactone 50mg qAM and torsemide 20mg BID held overnight, per GI continue to hold IR consult for paracentesis, appreciate recs -s/p paracentesis on 04/25, removed 3L Albumin support Continue empiric Rocephin GI consulted, appreciate recs -IVF support with albumin - Low Na diet - Lactulose (titrate dose to achieve goal BM 3-5 daily); Rifaximin 550mg BID - Hold diuretics - paracentesis - KUB to assess stool burden- noted sig stool Follow pending fluid labs 04/27- repeat US paracentesis ordered for noted abdominal tightness, pending 04/28- US abdomen showed moderate ascites once more, awaiting IR paracentesis for discharge Hypotension BP on lower side In setting of need for paracentesis, started on midodrine 5mg TID as well, titrate up as needed Holding home diuretics at this time per GI hold home losartan Continue albumin Diastolic heart failure Noted on echo 04/25 Echo with EF 60-65%, LVH, Grade 1 diastolic HF On jardiance, consider other guideline directed therapy Constipation Noted on KUB Currently on lactulose Consider addition of miralax, docusate etc Monitor BMs. Thrombocytopenia Platelets low in setting of liver failure/cirrhosis above Hyponatremia Sodium low and improving Continue monitor Hypokalemia Potassium 3.0 on admission Replete as needed ?Mild/Euglycemic DKA Increased anion gap DMII Glucose of 168 on admission UA with glucosuria and ketonuria gap of 14 on admission, closed today VBG not available Pt on jardiance at home Pending AM [email or web address] Basal/bolus while hospitalized, hold home jardiance and metformin Improving Elevated trop Trop elevated Likely demand Elevated liver enzymes T bili elevated Continue to trend DVT prophylaxis: holding in setting of thrombocytopenia CODE STATUS: DNR/DNI Diet: DMII/HH/Low sodium Dispo: PT/OT orders in Admission and Anticipated Discharge Date Admission Date: April 25, 2023 Subjective Seen sitting in chair at the bedside. Denied acute concerns today. Had US that showing moderate ascites once more. Review of Systems Review of Systems: All systems reviewed & are unremarkable except as noted in Subjective Physical Exam Physical Exam: General: Alert, orientedx2. No acute distress Skin: No noted rashes or bruises Psych: Appropriate mood and affect Neuro: difficulty with getting out of bed on her own HEENT: NC/AT Chest: Nontender to palpation. CV: RRR Resp: Breath sounds clear bilaterally, no increased effort of breathing. Abdomen: Soft, distended Extremities: No edema in lower extremities bilaterally. Results & Data Results & Data Vital Signs (Past 12 Hours) Vital Signs Temp Pulse Pulse Resp BP Pulse Ox O2 Del Method 04/29/23 15:10 36.8 C 59 L 15 108/65 96 Room Air 04/29/23 14:58 67 04/29/23 11:24 36.7 C 66 19 109/68 100 Room Air 04/29/23 08:00 79 04/29/23 08:00 Room Air 04/29/23 07:43 36.6 C 68 18 92/57 L 98 Room Air 04/29/23 04:14 36.6 C 69 18 93/52 L 98 Room Air
[2023-04-29] MEDS: ALBUMIN 25% 25 GM/100 ML VIAL IV ONE (17:02)
[2023-04-29] MEDS: POTASSIUM CHLORIDE CRTAB 20 MEQ TABCR PO STA (17:08)
[2023-04-30 06:30] LABS: Basophils # (auto) 0.02 K/uL (0.00-0.20); Basophils % (auto) 0.4 %; Eosinophils % (auto) 2.2 %; Hematocrit (blood only) 32.4 % (37.0-47.0); Hemoglobin 11.4 g/dl (12.0-16.0); Immature Granulocytes # (auto) 0.03 K/uL (0.01-0.20); Immature Granulocytes % (auto) 0.7 %; Lymphocytes # (auto) 0.83 K/uL (1.20-3.40); Lymphocytes % (auto) 18.7 %; Mean Corpuscular Hemoglobin 31.7 pg (25.0-34.0); Mean Corpuscular Hgb Conc 35.2 g/dL (32.0-36.0); Mean Platelet Volume 9.5 fL (9.4-12.4); Monocytes # (auto) 0.59 K/uL (0.11-0.59); Monocytes % (auto) 13.3 %; Neutrophils # (auto) 2.88 K/uL (1.40-6.50); Neutrophils % (auto) 64.7 %; Platelet Count 81 K/uL (130-400); RDW Coefficient of Variation 17.8 % (11.5-14.5); RDW Standard Deviation 58.4 fL (36.4-46.3); White Blood Count 4.45 K/ul (4.8-10.8)
[2023-04-30 06:45] LABS: Albumin Globulin Ratio 1.4 (0.9-2); Albumin Level 3.3 gm/dl (3.4-5.0); BUN Creatinine Ratio 16.5 (10-20); Bilirubin,Total 1.2 mg/dl (0.2-1.0); Calcium 8.3 mg/dl (8.6-10.3); Creatinine Clr Calc Pharmacy 30.7 ml/min; Est GFR (African American) 46.5 ml/min; Est GFR (Non-African American) 40.1 ml/min; Globulin 2.3 gm/dl (2.5-4.0); Magnesium 1.7 mg/dl (1.7-2.4); Potassium 3.7 mmol/L (3.5-5.1); Total Protein 5.6 gm/dl (6.0-8.3)
--- NOTE | 2023-04-30 12:01 | Nephrology Progress Note ---
Date of Service April 30, 2023 Assessment & Plan (1) MARIA ANTONIA (acute kidney injury): Plan: Maria Antonia in patient with decompensated Liver cirrhosis with ascites. Likely related with Hypotension. Cirrhosis patient are very sensitive and prone to MARIA ANTONIA as well as CKD. Her baseline creatinine was actually 0.5-0.6 from 2020 through February 2022. Since late Feb/March even as OP her creatinine has been more like 1, so already nearly doubled from baseline. a/w creat 1.9 and hovering at about 1.3 now. MARIA ANTONIA on what will likely be CKD d/t liver dz and DM -back on obligate diuretics which should continue -continue midodrine WILL SIGN OFF NEPHRO D/C RECS: -d/c on current midodrine, torsemide, spironolactone doses -do not recommend jardiance for this pt > defer to hospitalist/PCP for best DM mgt otherwise in this pt with decompensated cirrhosis as below -hospital d/c appt 2-4 wks after d/c w/ Dr [place] w/ BMP, UACM, ACR to be ordered by neph nurse and done up to 3 days before appt (2) Cirrhosis: Plan: would recommend to reconsider her DM meds given her Decompensated Cirrhosis. her DM therapy really needs to be deescalated. Consider stopping or lowering Metformin Dose. Also Would not really recommend using Jardiance in her situation. Admission and Anticipated Discharge Date Admission Date: April 25, 2023 Subjective pt seen and evaluated on midday rounds. feels improved > no flank pain, no n/v, more alert; not sob Review of Systems 2 Review of Systems: All systems reviewed & are unremarkable except as noted in Subjective Physical Exam 2 Constitutional: well developed (sitting up in chair on RA), well nourished and cooperative; no acute distress ENMT: Ears: no external ear abnormality Nose: no external nose abnormality Mouth: + dry oral mucous membranes Neck: no nuchal rigidity Respiratory: normal respiratory effort Auscultation: + diminished lung sounds and + rhonchi Cardiovascular: RRR, no murmur, no edema Gastrointestinal (Abdomen): Inspection/Auscultation: normal bowel sounds P ercussion/Palpation: abdomen soft; abdomen nontender Musculoskeletal: Extremities: strength 5/5 throughout Skin: no rashes, warm and dry Neurologic: velázquez, no tremor; fluent and appropriate speech Results & Data Vital Signs (Past 12 Hours) Vital Signs Temp Pulse Pulse Resp BP Pulse Ox O2 Del Method 04/30/23 11:20 36.5 C 54 L 18 102/59 L 99 Room Air 04/30/23 09:38 60 04/30/23 09:36 Room Air 04/30/23 07:19 36.9 C 64 18 99/63 L 96 Room Air 04/30/23 03:00 36.7 C 64 18 144/61 H 95 Room Air Laboratory Results 04/30/23 06:05 04/30/23 06:05
[2023-04-30] MEDS: ALBUMIN 25% 25 GM/100 ML VIAL IV ONE (13:03)
--- NOTE | 2023-04-30 15:26 | Discharge Summary ---
Discharge Summary Date of Service April 30, 2023 Notes For Next Care Provider Please ensure close follow up with Gastroenterology Please continue to closely monitor BP after discharge and adjust midodrine dose as needed. Medication Changes From Visit Xifaxan 550mg BID Midodrine 10mg TID Discontinue losartan while blood pressure on lower end Admission HPI Per Admitting Provider This is a 77-year-old female with PMHx of cirrhosis, esophageal varices with history of hepatic encephalopathy, DM type II, HTN, HLD, hypothyroidism who presents to the hospital with worsening lightheadedness and dizziness in the past 2 days. Daughter Joy, at beside supplies the majority of the history. The patient has underlying dementia. Pt has had decreased intake for what appears about 2 weeks, and there was also concern for visual hallucinations. Daughter states due to nausea, she hasn't been able to take her medications quite as well as normal. She is loosing weight recently, about 25 lbs recently. Pt admits to having fluid in her belly, denies any pain in stomach, but does feel bloated. Pt is not urinating much at all, she feels like she needs to go. Visual hallucinations have been worsening in the past 3 weeks. She is having bowel movements about 1-2 x per day, compared to 3-5 per day. Today a nurse say her at home and per encounters in [facility] there was concern for detecting ketones on breath today and was asked to come in to the office. Pt has presented to ER after this. She is found to have elevated creatinine at 1.89, compared to her baseline of 0.56. Admission Exam Per Admitting Provider General: awake, alert, is looking about the room as if there are things on the ceiling, no apparent distress Head: Normocephalic, atraumatic ENT: PERRL, EOMI, no pharyngeal exudate, mucous membranes moist Chest: Clear to auscultation, on room air, no adventitious breath sounds Cardiac: Regular rate and rhythm, soft systolic murmur, no JVD, normal peripheral pulses, good capillary refill Abdominal: NABS x 4 quadrants, soft, + moderately distended, + fluid wave, nontender to palpation, no rebound or guarding Extremities: Normal inspection, 3+ peripheral edema , no erythema, calfs nontender to palpation Psych: Normal mood and affect Neuro: AAO x 3, cannot recall specific events from earlier today, denies visual hallucinations, strength intact bilaterally and rated 5/5, no motor deficits, speech is clear, no periph Principal Dx & Hospital Course #1 = Principal Diagnosis (1) Dizziness: (2) Acute hypotension: (3) Elevated troponin: (4) Acute hypokalemia: (5) Acute encephalopathy: (6) BLAYNE (acute kidney injury): (7) Decompensated hepatic cirrhosis: Plan Pt is a 77-year-old female with PMHx of WALSH vs. cryptogenic cirrhosis, esophageal varices with history of hepatic encephalopathy, CHF, DM type II, HTN, HLD, hypothyroidism, asthma, dementia, chronic thrombocytopenia admitted with decompensated cirrhosis and an BLAYNE. Acute decompensated Cirrhosis with ascites Esophageal varices Elevated liver enzymes Known diagnosis of cirrhosis, follows with GI CT abd/pelvis noting moderate ascites, prominent collaterals with portal HTN, splenomegaly Home spironolactone 50mg qAM and torsemide 20mg BID held overnight, per GI continue to hold IR consulted for paracentesis -s/p paracentesis on 04/25, removed 3L -s/p paracentesis on 04/29, removed 2L Albumin support Continue empiric Rocephin while hospitalized GI consulted, appreciate recs -IVF support with albumin - Low Na diet - Lactulose (titrate dose to achieve goal BM 3-5 daily); Rifaximin 550mg BID - Hold diuretics - paracentesis - KUB to assess stool burden- noted sig stool Follow pending fluid labs GI followup after discharge -discharged with Xifaxan 550mg BID -diuretics resumed on discharge -hold/discontinue losartan Orthostatic Hypotension Dizziness/Lightheadedness CT head unremarkable Carotid dopplers with no significant occlusion Orthostatic vitals Hypotensive in setting of ascites, started on midodrine 5mg TID, consider increasing to 10mg TID as needed Albumin support in setting of cirrhosis with fluid overload Monitor symptoms PCP and GI followup after discharge -discharged with midodrine 5mg TID -losartan discontinued Acute metabolic/toxic encephalopathy Dementia CT head unremarkable Ammonia level wnl Continue home aricept Delirium precautions. Frequent reorientation, avoid sedating medications PCP followup BLAYNE Cr 1.89 on admission Recent baseline of 1.0 in EPIC on 03/26 Held home nephrotoxic meds (diuretics, ARB) Nephrology consult- appreciate recs for need for diuresis in this setting -held diuretics temporarily, resumed on discharge -losartan held/discontinued on discharge Diastolic heart failure Noted on echo 04/25 Echo with EF 60-65%, LVH, Grade 1 diastolic HF On jardiance, consider other guideline directed therapy PCP follow up Constipation Noted on KUB Currently on lactulose Consider addition of miralax, docusate etc Pt with BMs, pcp followup Thrombocytopenia Platelets low in setting of liver failure/cirrhosis above Consider further workup outpatient PCP follow up Hyponatremia Sodium low and improving Sodium level normal on discharge Hypokalemia Potassium 3.0 on admission Potassium level normal on discharge Possible Euglycemic DKA Increased anion gap DMII Glucose of 168 on admission UA with glucosuria and ketonuria gap of 14 on admission with eventual closure VBG not available Pt on jardiance at home AM [id number] of 6.8 Basal/bolus while hospitalized, held home jardiance and metformin Can resume on discharge with close pcp followup for further evaluation Elevated trop Demand ischemia Trop elevated Likely elevated in setting of demand ischemia Discharge Exam General: Alert, orientedx2. No acute distress Skin: No noted rashes or bruises Psych: Appropriate mood and affect Neuro: difficulty with getting out of bed on her own HEENT: NC/AT Chest: Nontender to palpation. CV: RRR Resp: Breath sounds clear bilaterally, no increased effort of breathing. Abdomen: Soft, distended Extremities: No edema in lower extremities bilaterally. Updated Medication List Medication Instructions Recorded Confirmed Type metformin 500 mg tablet 1,000 mg PO BID 07/15/19 04/25/23 History clindamycin phosphate 1 % topical 1 applic topical BID PRN AFFECTED 04/25/23 04/25/23 History swab SKIN clotrimazole 1 % vaginal cream 1 appful vaginal HS 04/25/23 04/25/23 History cyanocobalamin (vitamin B-12) 1,000 mcg PO DAILY 04/25/23 04/25/23 History 1,000 mcg tablet (Vitamin B-12) donepezil 5 mg tablet 5 mg PO QAM 04/25/23 04/25/23 History empagliflozin 25 mg tablet 25 mg PO QAM 04/25/23 04/25/23 History (Jardiance) lactulose 10 gram/15 mL oral 30 ml PO BID 04/25/23 04/25/23 History solution levothyroxine 150 mcg tablet 150 mcg PO DAILYBB 04/25/23 04/25/23 History nutrition tx glu 1 ea PO BIDM 04/25/23 04/25/23 History intol,lac-free,soy-fiber 0.04 gram-1 kcal/mL liquid (Glucerna 1 Ezequiel) ondansetron 4 mg disintegrating 4 mg translingual Q12H PRN 04/25/23 04/25/23 History tablet NAUSEA/VOMITING pantoprazole 20 mg tablet,delayed 20 mg PO BID 04/25/23 04/25/23 History release spironolactone 50 mg tablet 50 mg PO QAM 04/25/23 04/25/23 History thiamine HCl (vitamin B1) 100 mg 100 mg PO QAM 04/25/23 04/25/23 History tablet (Vitamin B-1) torsemide 20 mg tablet 20 mg PO BID 04/25/23 04/25/23 History trazodone 50 mg tablet 50 mg PO HS 04/25/23 04/25/23 History midodrine 10 mg tablet 10 mg PO TID@0800,1200,1700 #90 04/30/23 Rx tabs rifaximin 550 mg tablet (Xifaxan) 550 mg PO BID #60 tabs 04/30/23 Rx Hospital Stay Data Consultations 04/25/23 14:14 ED Decision to Admit Stat 04/25/23 14:53 Consult Gastroenterology Routine Consult Nephrology Routine Diagnostic Imagining Performed 04/25/23 14:31 CT abd pelvis wo con Stat 04/26/23 08:[address] [CT head/brain wo con] Urgent 04/26/23 08:41 US carotid doppler BI Routine 04/26/23 10:00 IR paracentesis abd w/img US Routine 04/28/23 11:19 US abdomen ltd ascites Urgent 04/30/23 13:30 IR paracentesis abd w/img US Routine Chest X-Ray 04/25/23 11:29 XR chest 1V not portable CLINICAL HISTORY: Chest pain, nonspecific TECHNIQUE: Single frontal radiograph of the chest was obtained. Comparison: Comparison is made to chest radiograph 02/15/2022 FINDINGS: No lines and tubes are seen. Calcified aortic knob is seen. The lungs are clear. No evidence of pleural effusion or pneumothorax. IMPRESSION: No acute chest disease. ACT 112: Negative or not required by law. Electronically signed by: Bubba Cortez M.D. 04/25/2023 1:02 PM Abdomen/Pelvis CT 04/25/23 14:31 CT abd pelvis wo con CLINICAL HISTORY: per internal medicine request not eating TECHNIQUE: Helical axial images of the abdomen and pelvis were obtained. Automated dose lowering techniques and/or adjustment according to patient size were utilized for this exam. This exam was performed without intravenous contrast. CT DOSE: 618.98 mGy.cm COMPARISON: Comparison is made to CT abdomen pelvis 10/07/2019 FINDINGS: Lower chest: No acute abnormality. Liver: Nodular contour of the liver is seen compatible with cirrhosis. Recanalized umbilical vein is noted. Gallbladder and biliary tree: No calcified gallstones. Normal caliber wall. No intra- or extrahepatic biliary ductal dilation. Pancreas: Unremarkable, no focal lesions. Spleen: Splenomegaly is noted, the spleen measures 14 cm. Splenules are noted. Adrenals: Unremarkable. Kidneys and ureters: Unremarkable. Bladder: Bladder wall thickening is seen. Reproductive organs: Patient is status post hysterectomy. Bowel: There is a small hiatal hernia. Lymph nodes Retroperitoneal: Unremarkable. Pelvic: Unremarkable. Mesenteric: Unremarkable. Peritoneum: Moderate ascites is seen. Vessels: Atherosclerotic calcifications are seen. Perigastric varices are seen. Abdominal wall: Unremarkable. Bones: Degenerative changes in the visualized spine. Stable sclerotic lesion in the right pubic symphysis. IMPRESSION: Cirrhosis with moderate ascites and prominent collaterals compatible with portal hypertension. Splenomegaly is seen. Otherwise no acute abnormalities are seen. ACT 112: Negative or not required by law. Electronically signed by: Bubba Cortez M.D. 04/25/2023 3:[address] 04/26/23 08:[address] DOSE: 625.8 mGy.cm HISTORY: AMS, lightheadedness TECHNIQUE: Multiaxial CT images of the head were performed without the use of intravenous contrast. Automated exposure control was utilized for this study. A dose lowering technique was utilized adhering to the principles of ALARA. Comparison: Head CT 06/08/2015. Findings: The paranasal sinuses and mastoid air cells are clear. The calvarium and skull base are intact. There is no mass, hematoma, midline shift, acute in farct. White matter hypodensity is nonspecific but suggestive of microvascular ischemic change. The ventricles and sulci demonstrate mild age-related involutional changes. Impression: No acute intracranial abnormality. ACT 112: Negative or not required by law. Electronically signed by: Norbert Miranda M.D. 04/26/2023 5:25 PM Carotid Doppler Study 04/26/23 08:41 BILATERAL CAROTID DOPPLER STUDY HISTORY: dizziness, lightheadedness, altered mental status COMPARISON: None. TECHNIQUE: Real-time, grayscale, and color Doppler sonography of the carotid arteries was performed. Imaging reviewed in the transverse and longitudinal planes. All measurements were calculated based on NASCET criteria. FINDINGS: Antegrade flow is seen in the bilateral vertebral arteries. Mild calcified plaque within the bilateral carotid bifurcations. The peak systolic velocity within the right ICA is 66 cm/s. The right systolic ratio is 1.2. The peak systolic velocity within the left ICA is 90 cm/s. The left systolic ratio is 1.7. IMPRESSION: No hemodynamically significant stenosis seen within the carotid arteries. ACT 112: Negative or not required by law. Electronically signed by: Norbert Miranda M.D. 04/26/2023 1:30 PM Paracentesis Ultrasound 04/26/23 10:00 ULTRASOUND-GUIDED PARACENTESIS CLINICAL HISTORY: Ascites PROCEDURE: Procedure and risks were explained. Informed consent was obtained. A final timeout was completed. The abdomen was prepped and draped in sterile fashion. 1% buffered lidocaine was utilized for skin anesthesia. Utilizing ultrasound guidance, a 5 American safety centesis catheter was advanced into the right lower quadrant pocket of ascites. Ultrasound images were obtained . A total of 3 L of ascites fluid was removed with 1 L sent to lab. The catheter was removed and Band-Aid applied. The patient tolerated the procedure well. Vital signs will be monitored on the floor. IMPRESSION: Ultrasound-guided paracentesis as above. Performed, dictated, and signed by Amor Neri PA-C; to be co-signed by Dr. Cayetano Thorpe. Electronically signed by: Cayetano Thorpe M.D. 04/26/2023 5:00 PM KUB X-Ray 04/26/23 10:17 KUB CLINICAL HISTORY: Evaluate stool burden. COMPARISON STUDY: KUB February 15, 2022. CT of the abdomen and pelvis April 25, 2023. FINDINGS: The bowel gas pattern is normal. There is a moderate amount of stool within the colon and rectum. No evidence for free air although sensitivity is diminished on this supine exam. IMPRESSION: 1. No evidence for a bowel obstruction. 2. Moderate amount of stool within the colon and rectum. ACT 112: Negative or not required by law. Electronically signed by: Cayetano Thorpe M.D. 04/26/2023 4:00 PM Abdomen Ultrasound 04/28/23 11:19 Exam(s): US ABDOMEN LIMITED EXAM: US Abdomen Limited CLINICAL HISTORY: Reason for exam: abdominal tightness. TECHNIQUE: Real-time ultrasound of the abdomen with image documentation. COMPARISON: None. FINDINGS: Liver: There is heterogeneous echo pattern throughout the liver, suggestive of underlying cirrhosis. Bowel: Exam is limited due to gas artifact in the bowel and body habitus. Free fluid: There moderate ascites within the abdomen, more significant within the right lower and right upper quadrant. IMPRESSION: Moderate ascites with underlying cirrhosis. Electronically signed by: Elizabeth aSn MD 04/29/23 00:47 AM Paracentesis Ultrasound 04/30/23 13:30 ULTRASOUND-GUIDED PARACENTESIS CLINICAL HISTORY: Ascites PROCEDURE: Procedure and risks were explained. Informed consent was obtained. A final timeout was completed. The abdomen was prepped and draped in sterile fashion. 1% buffered lidocaine was utilized for skin anesthesia. Utilizing ultrasound guidance, a 5 American safety centesis catheter was advanced into the right lower quadrant pocket of ascites. Ultrasound images were obtained. A total of 2 L of ascites fluid was removed and discarded. The catheter was removed and Band-Aid applied. The patient tolerated the procedure well. Vital signs will be monitored on the floor. IMPRESSION: Ultrasound-guided paracentesis as above. Performed, dictated, and signed by Amor Neri PA-C; to be co-signed by Dr. Bubba Cortez. Electronically signed by: Bubba Cortez M.D. 04/30/2023 5:09 PM Discharge Instructions Given to Patient (Per Discharging Provider) Ms. Kennedy, You were admitted with concern that your cirrhosis was worsening acutely. You were seen by gastroenterology and they made changes to your medications. They started you on the medication Xifaxan. Please continue and keep close follow up with Gastroenterology after discharge. You also had fluid in your belly accumulate. You had a procedure done to remove that today. Your blood pressure is on the lower end and we are discharging you home with the medication midodrine to help with that. Please take as prescribed. Please discontinue your home losartan while your blood pressure is on the lower end. Please keep close follow up with your primary care provider and Technical Product Manager after discharge for continued management and evaluation. Please do not hesitate to come back to the emergency room if your symptoms worsen or return. It was a pleasure taking care of you while you were here. Total Time Total Time Spent Total Time Spent (In Minutes): >30 minutes
--- NOTE | 2023-04-30 16:03 | Ultrasound Report ---
ULTRASOUND-GUIDED PARACENTESIS CLINICAL HISTORY: Ascites PROCEDURE: Procedure and risks were explained. Informed consent was obtained. A final timeout was com pleted. The abdomen was prepped and draped in sterile fashion. 1% buffered lidocaine was utilized for skin anesthesia. Utilizing ultrasound guidance, a 5 [place] safety centesis catheter was advanced into the right lower quadrant pocket of ascites. Ultrasound images were obtained. A total of 2 L of ascites fluid was obi adele and discarded. The catheter was removed and Band-Aid applied. The patient tolerated the procedure well. Vital signs will be monitored on the floor. IMPRESSION: Ultrasound-guided paracentesis as above. Performed, dictated, and signed by Amor Neri PA-C; to be co-signed by Dr. Bubba Cortez. Electronically signed by: Bubba Cortez M.D. 04/30/2023 5:09 PM
== END 2023-04-30 18:31 | disposition home or self-care (01) | DRG 432 ==
LOC: ED 11:23 → 2S 14:53 → SUATTDRO 14:53 → 2S 15:58
DX: Z79.899 Other long term (current) drug therapy; G92.8 Other toxic encephalopathy; N18.2 Chronic kidney disease, stage 2 (mild); I13.0 Hypertensive heart and chronic kidney disease with heart failure and stage 1 through stage 4 chronic kidney disease, or unspecified chronic kidney disease; Z79.84 Long term (current) use of oral hypoglycemic drugs; N17.9 Acute kidney failure, unspecified; I95.9 Hypotension, unspecified; R18.8 Other ascites; D69.6 Thrombocytopenia, unspecified; Z66 Do not resuscitate; Z88.5 Allergy status to narcotic agent; E11.22 Type 2 diabetes mellitus with diabetic chronic kidney disease; K74.60 Unspecified cirrhosis of liver; F03.90 Unspecified dementia, unspecified severity, without behavioral disturbance, psychotic disturbance, mood disturbance, and anxiety; R63.4 Abnormal weight loss; Z79.85 Long-term (current) use of injectable non-insulin antidiabetic drugs; K59.00 Constipation, unspecified; K76.6 Portal hypertension; E87.6 Hypokalemia; Z91.041 Radiographic dye allergy status; E11.10 Type 2 diabetes mellitus with ketoacidosis without coma; E03.9 Hypothyroidism, unspecified; I85.00 Esophageal varices without bleeding; Z79.890 Hormone replacement therapy; R42 Dizziness and giddiness; K75.81 Nonalcoholic steatohepatitis (NASH); E87.1 Hypo-osmolality and hyponatremia; I50.32 Chronic diastolic (congestive) heart failure; R79.89 Other specified abnormal findings of blood chemistry

== ENCOUNTER 2023-06-12 13:07 | Inpatient (IN) ==
--- NOTE | 2023-06-12 13:20 | Emergency Department Note ---
Impression & Plan CHF (congestive heart failure), BLAYNE (acute kidney injury), Anemia, Abdominal ascites ED Provider Note NAME: OPAL JAMES AGE: 78 SEX: F : 1945 ARRIVES VIA: Ambulance INFORMANT: Patient, EMS ED PROVIDER(S): Timoteo Quinn DO CHIEF COMPLAINT: Distention of the abdomen and swelling of the legs HPI: Patient is an 78-year-old female with a past medical history of encephalopathy, decompensated cirrhosis, BLAYNE, esophageal varices, hyperlipidemia and hypertension presents to the ER for increased swelling of the legs and abdomen. She is supposed to be tapped tomorrow per report from EMS. Patient is pleasantly demented per report. Additional history obtained from daughter who is present at bedside who notes that the patient has been filling up with fluid in the belly as well as in the bilateral legs which is worsening. ADDITIONAL HISTORY OBTAINED: Per HPI Chronic Medical/Social Conditions Affecting Care: Per HPI PAST MEDICAL HISTORY:See Below PAST SURGICAL HISTORY:See Below FAMILY HISTORY:See Below SOCIAL HISTORY:See Below HOME MEDICATIONS:See Below ALLERGIES:See Below VITALS:See Below PHYSICAL EXAMINATION: GENERAL: Sitting up in bed, alert, chronically ill-appearing, disheveled EYE EXAM: normal conjunctiva. [PERRL and EOM's grossly intact.] OROPHARYNX: no exudate, no erythema, lips, buccal mucosa, and tongue normal and mucous membranes are moist NECK: + JVD LUNGS: Clear to auscultation. Normal chest wall mechanics HEART: no murmurs, S1 normal and S2 normal ABDOMEN: abdomen soft, non-tender, normo-active bowel sounds, no masses, no rebound or guarding. BACK: Back is symmetrical on inspection and there is no deformity, no midline tenderness, no CVA tenderness. SKIN: no rashes and no bruising UPPER EXTREMITIES: upper extremities are grossly normal. LOWER EXTREMITIES: Extensive pitting edema in the bilateral lower extremities NEURO EXAM: Oriented to person but not place or year, cranial nerves II-XII grossly intact, normal speech, no gross weakness of arms, no gross weakness of legs. MEDICAL DECISION MAKING: Patient is an 78-year-old female who presents ER for the above-stated complaint. IV was established blood work was obtained. Labs show no significant leukocytosis and a mild anemia at 11. BMP with a hyponatremia at 126 and a hyperkalemia 5.3. Creatinine was elevated at 1.8. Glucose was elevated at 550. 8 units was given and this trended down to 355. Patient was also given Lasix in light of the diffuse edema in the lower extremities. Troponin mildly elevated to 89. BNP elevated at 127. Chest x-ray was clean. Patient was updated bedside and discussed with the hospitalist for further evaluation management treatment Consults/Care Managements Discussions: Per [facility] Triage Nursing notes reviewed. Limited review of prior medical records performed Vital Signs: reviewed and remarkable for no significant abnormalities Differential diagnosis: Differential diagnoses includes but is not limited to gastritis, peptic ulcer disease, GERD, gallbladder disease, pancreatitis, small bowel obstruction, appendicitis, diverticulitis, hernia, urinary tract infection, torsion, perforation, trauma, infectious. ER treatment provided: See below Diagnostics interpreted by me include EKG and cardiac monitoring as listed below: -Cardiac Monitoring: An order was placed for continuous cardiac monitoring. The monitor shows a rate of [] with [] rhythm. -ECG: Sinus rhythm rate of 76 Left axis No PVCs QTc 458 -Laboratory studies:Interpreted by me as stated above in MDM and shown below. 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 Hepatic encephalopathy Hypothyroidism Diabetes mellitus, type 2 Asthma NO INHALER USE X 2 YRS Pneumonia LAST TIME 2 YRS AGO Colon polyps Elevated d-dimer Chest pain (11/16/13) NO RECENT ISSUES Bronchitis Right foot pain Surgical History S/P lumpectomy, left breast BENIGN PER PT History of total bilateral knee replacement Hx of appendectomy H/O: hysterectomy Family History Father Colorectal cancer Family history of diabetes mellitus Social History Smoking Status: Never smoker Second Hand Exposure: No; Do You Dip or Chew Tobacco: No; Hx Alcohol Use: No Hx Substance Use: No Preferred Language: Georgian Communication Ability: Effective Visual Impairment: No Limitations Hearing Ability: Normal Metal Fitter Required: No Beliefs That Will Affect Care: None marital status: Current Living Situation: Spouse current occupational status: retired Feels Safe at Home: Yes Assistive Devices: Glasses Allergies Allergies Allergy/AdvReac Type Severity Reaction Status Date / Time Iodinated Contrast Media Allergy Intermediate Hives Verified 06/12/23 15:47 oxycodone Allergy Unknown CAN'T Verified 06/12/23 15:47 REMEMBER Home Meds Home Medications Medication Instructions Recorded Confirmed clindamycin phosphate 1 % topical 1 applic topical BID PRN AFFECTED 04/25/23 06/12/23 swab SKIN clotrimazole 1 % vaginal cream 1 appful vaginal HS 04/25/23 06/12/23 cyanocobalamin (vitamin B-12) 1,000 mcg PO DAILY 04/25/23 06/12/23 1,000 mcg tablet (Vitamin B-12) donepezil 5 mg tablet 5 mg PO QAM 04/25/23 06/12/23 lactulose 10 gram/15 mL oral 30 ml PO BID 04/25/23 06/12/23 solution levothyroxine 150 mcg tablet 150 mcg PO DAILYBB 04/25/23 06/12/23 nutrition tx glu 1 ea PO BIDM 04/25/23 06/12/23 intol,lac-free,soy-fiber 0.04 gram-1 kcal/mL liquid (Glucerna 1 Ezequiel) ondansetron 4 mg disintegrating 4 mg translingual Q12H PRN 04/25/23 06/12/23 tablet NAUSEA/VOMITING pantoprazole 20 mg tablet,delayed 20 mg PO BID 04/25/23 06/12/23 release spironolactone 50 mg tablet 25 mg PO QAM 04/25/23 06/12/23 thiamine HCl (vitamin B1) 100 mg 100 mg PO QAM 04/25/23 06/12/23 tablet (Vitamin B-1) torsemide 20 mg tablet 10 mg PO DAILY 04/25/23 06/12/23 trazodone 50 mg tablet 50 mg PO HS 04/25/23 06/12/23 midodrine 10 mg tablet 5 mg PO TID@0800,1200,1700 06/12/23 06/12/23 Previous Rx's Medication Instructions Recorded rifaximin 550 mg tablet (Xifaxan) 550 mg PO BID #60 tabs 04/30/23 Results & Data (ED) Vital Signs Vital Signs - 24 hr 06/12/23 13:13 06/12/23 13:24 06/12/23 13:24 Temperature 36.8 C Temperature Source Oral Pulse Rate 80 75 77 Pulse Rate from SpO2 Sensor 76 Respiratory Rate 20 28 H Respiratory Effort / Characteristics Non-Labored Spontaneous Respiratory Depth Normal Blood Pressure 112/76 Blood Pressure Mean 88 Pulse Oximetry 97 98 Oxygen Delivery Method Room Air Sepsis Recent Fever Within 48 Hours No Sepsis New/Unexplained Change in Mental Status No Sepsis Action Taken by Nursing No Action Required 06/12/23 13:29 06/12/23 13:30 06/12/23 13:30 Temperature Temperature Source Pulse Rate 80 Pulse Rate from SpO2 Sensor 83 Respiratory Rate 17 Respiratory Effort / Characteristics Respiratory Depth Blood Pressure 108/68 Blood Pressure Mean 79 Pulse Oximetry 98 97 Oxygen Delivery Method Room Air Sepsis Recent Fever Within 48 Hours Sepsis New/Unexplained Change in Mental Status Sepsis Action Taken by Nursing 06/12/23 14:00 06/12/23 14:00 06/12/23 14:30 Temperature Temperature Source Pulse Rate 78 82 Pulse Rate from SpO2 Sensor 78 Respiratory Rate 13 16 Respiratory Effort / Characteristics Respiratory Depth Blood Pressure 107/70 Blood Pressure Mean 87 Pulse Oximetry 98 Oxygen Delivery Method Sepsis Recent Fever Within 48 Hours Sepsis New/Unexplained Change in Mental Status Sepsis Action Taken by Nursing 06/12/23 15:02 06/12/23 15:30 06/12/23 15:30 Temperature Temperature Source Pulse Rate 85 84 Pulse Rate from SpO2 Sensor 84 Respiratory Rate 19 16 Respiratory Effort / Characteristics Respiratory Depth Blood Pressure 124/82 Blood Pressure Mean 96 Pulse Oximetry 97 Oxygen Delivery Method Room Air Sepsis Recent Fever Within 48 Hours Sepsis New/Unexplained Change in Mental Status Sepsis Action Taken by Nursing Laboratory Data 06/12/23 13:20 06/12/23 13:20 Lab Results 06/12/23 06/12/23 06/12/23 Range/Units 13:19 13:20 13:22 WBC 7.08 (4.8-10.8) K/ul RBC 3.36 L (4.20-5.40) M/uL Hgb 11.1 L (12.0-16.0) g/dl Hct 31.5 L (37.0-47.0) % MCV 93.8 (80.0-100.0) fL MCH 33.0 (25.0-34.0) pg MCHC 35.2 (32.0-36.0) g/dL RDW Std Deviation 56.6 H (36.4-46.3) fL RDW Coeff of Colby 16.5 H (11.5-14.5) % Plt Count 160 (130-400) K/uL MPV 9.5 (9.4-12.4) fL Immature Gran % (Auto) 0.6 % Neut % (Auto) 74.4 % Lymph % (Auto) 11.9 % Edwards % (Auto) 12.6 % Eos % (Auto) 0.4 % Baso % (Auto) 0.1 % Neut # (Auto) 5.27 (1.40-6.50) K/uL Lymph # (Auto) 0.84 L (1.20-3.40) K/uL Edwards # (Auto) 0.89 H (0.11-0.59) K/uL Eos # (Auto) 0.03 (0.00-0.50) K/uL Baso # (Auto) 0.01 (0.00-0.20) K/uL Immature Gran # (Auto) 0.04 (0.01-0.20) K/uL Sodium 126 L (136-145) mmol/L Potassium 5.3 H (3.5-5.1) mmol/L Chloride 95 L (98-107) mmol/L Carbon Dioxide 25 (21-32) mmol/L Anion Gap 6 (3-11) BUN 35 H (6-23) mg/dl Creatinine 1.87 H (0.6-1.2) mg/dl Est Cr Clr Drug Dosing 23.1 ml/min Est GFR ( Amer) 28.9 ml/min Est GFR (Non-Af Amer) 24.9 ml/min BUN/Creatinine Ratio 18.7 (10-20) Glucose 458 H* (70-99(Fasting)) mg/dl POC Glucose 406 H* (70-99) mg/dl Osmolality 296 (280-300) mOsm/kg Calcium 9.2 (8.6-10.3) mg/dl Total Bilirubin 2.0 H (0.2-1.0) mg/dl AST 21 (13-39) U/L ALT 21 (7-52) U/L Alkaline Phosphatase 101 (34-104) U/L Ammonia TNP Troponin I High Sens 18.9 H (0-14) pg/ml B-Natriuretic Peptide 127 H (0-100) pg/ml Total Protein 5.9 L (6.0-8.3) gm/dl Albumin 3.2 L (3.4-5.0) gm/dl Globulin 2.7 (2.5-4.0) gm/dl Albumin/Globulin Ratio 1.2 (0.9-2) Lipase 15 (11-82) U/L 06/12/23 Range/Units 14:38 WBC (4.8-10.8) K/ul RBC (4.20-5.40) M/uL Hgb (12.0-16.0) g/dl Hct (37.0-47.0) % MCV (80.0-100.0) fL MCH (25.0-34.0) pg MCHC (32.0-36.0) g/dL RDW Std Deviation (36.4-46.3) fL RDW Coeff of Colby (11.5-14.5) % Plt Count (130-400) K/uL MPV (9.4-12.4) fL Immature Gran % (Auto) % Neut % (Auto) % Lymph % (Auto) % Edwards % (Auto) % Eos % (Auto) % Baso % (Auto) % Neut # (Auto) (1.40-6.50) K/uL Lymph # (Auto) (1.20-3.40) K/uL Edwards # (Auto) (0.11-0.59) K/uL Eos # (Auto) (0.00-0.50) K/uL Baso # (Auto) (0.00-0.20) K/uL Immature Gran # (Auto) (0.01-0.20) K/uL Sodium (136-145) mmol/L Potassium (3.5-5.1) mmol/L Chloride (98-107) mmol/L Carbon Dioxide (21-32) mmol/L Anion Gap (3-11) BUN (6-23) mg/dl Creatinine (0.6-1.2) mg/dl Est Cr Clr Drug Dosing ml/min Est GFR ( Amer) ml/min Est GFR (Non-Af Amer) ml/min BUN/Creatinine Ratio (10-20) Glucose (70-99(Fasting)) mg/dl POC Glucose (70-99) mg/dl Osmolality (280-300) mOsm/kg Calcium (8.6-10.3) mg/dl Total Bilirubin (0.2-1.0) mg/dl AST (13-39) U/L ALT (7-52) U/L Alkaline Phosphatase (34-104) U/L Ammonia 67.0 Troponin I High Sens (0-14) pg/ml B-Natriuretic Peptide (0-100) pg/ml Total Protein (6.0-8.3) gm/dl Albumin (3.4-5.0) gm/dl Globulin (2.5-4.0) gm/dl Albumin/Globulin Ratio (0.9-2) Lipase (11-82) U/L Administered Medications Discontinued Medications Furosemide (Furosemide 40 Mg Tab) 40 mg PO NOW ONE Stop: 06/12/23 15:18 Last Admin: 06/12/23 15:28 Dose: 40 mg Documented By: PATRICIA Insulin Human Regular (Novolin-R Insulin Per Unit Charge) 8 units IV NOW STA Stop: 06/12/23 14:55 Last Admin: 06/12/23 15:30 Dose: 8 units Documented By: PATRICIA Co-signed By: BLAKE Imaging Data Radiologist's Impression: Chest X-Ray 06/12/23 13:16 XR chest 1V portable HISTORY: Chest pain, nonspecific COMPARISON: Chest 04/25/2023. FINDINGS: No pneumothorax. No pleural effusions. The cardiac silhouette remains top normal in size. There are calcifications within the aortic knob. Low lung volumes with mild elevation the right hemidiaphragm. There are are a few bibasilar densities consistent with subsegmental atelectasis. IMPRESSION: No significant change compared to the prior study. No acute process. ACT 112: Negative or not required by law. Electronically signed by: Norbert Miranda M.D. 06/12/2023 2:02 PM Discharge Plan Visit Data Chief Complaint: Abdominal Pain Stated Complaint: AB PAIN ED Provider: Timoteo Quinn Discharge Problem: CHF (congestive heart failure), BLAYNE (acute kidney injury), Anemia, Abdominal ascites Discharge Problem: CHF (congestive heart failure) Qualifiers: Heart failure type: unspecified Heart failure chronicity: unspecified Qualified Code(s): I50.9 - Heart failure, unspecified Anemia Qualifiers: Anemia type: unspecified type Qualified Code(s): D64.9 - Anemia, unspecified Abdominal ascites Qualifiers: Ascites type: other type Qualified Code(s): R18.8 - Other ascites
[2023-06-12 13:42] LABS: Basophils # (auto) 0.01 K/uL (0.00-0.20); Basophils % (auto) 0.1 %; Eosinophils # (auto) 0.03 K/uL (0.00-0.50); Eosinophils % (auto) 0.4 %; Hematocrit (blood only) 31.5 % (37.0-47.0); Hemoglobin 11.1 g/dl (12.0-16.0); Immature Granulocytes # (auto) 0.04 K/uL (0.01-0.20); Immature Granulocytes % (auto) 0.6 %; Lymphocytes # (auto) 0.84 K/uL (1.20-3.40); Lymphocytes % (auto) 11.9 %; Mean Corpuscular Hgb Conc 35.2 g/dL (32.0-36.0); Mean Corpuscular Volume 93.8 fL (80.0-100.0); Mean Platelet Volume 9.5 fL (9.4-12.4); Monocytes # (auto) 0.89 K/uL (0.11-0.59); Monocytes % (auto) 12.6 %; Neutrophils # (auto) 5.27 K/uL (1.40-6.50); Neutrophils % (auto) 74.4 %; Platelet Count 160 K/uL (130-400); RDW Coefficient of Variation 16.5 % (11.5-14.5); RDW Standard Deviation 56.6 fL (36.4-46.3); Red Blood Count 3.36 M/uL (4.20-5.40); White Blood Count 7.08 K/ul (4.8-10.8)
--- NOTE | 2023-06-12 14:03 | XRay Report ---
XR chest 1V portable HISTORY: Chest pain, nonspecific COMPARISON: Chest 04/25/2023. FINDINGS: No pneumothorax. No pleural effusions. The cardiac silhouette remains top normal in size. T here are calcifications within the aortic knob. Low lung volumes with mild elevation the right hemidi aphragm. There are are a few bibasilar densities consistent with subsegmental atelectasis. IMPRESSION: No significant change compared to the prior study. No acute process. ACT 112: Negative or not required by law. Electronically signed by: Norbert Miranda M.D. 06/12/2023 2:02 PM
[2023-06-12 14:09] LABS: Albumin Globulin Ratio 1.2 (0.9-2); Albumin Level 3.2 gm/dl (3.4-5.0); BUN Creatinine Ratio 18.7 (10-20); Calcium 9.2 mg/dl (8.6-10.3); Creatinine Clr Calc Pharmacy 23.1 ml/min; Est GFR (African American) 28.9 ml/min; Est GFR (Non-African American) 24.9 ml/min; Globulin 2.7 gm/dl (2.5-4.0); Potassium 5.3 mmol/L (3.5-5.1); Total Protein 5.9 gm/dl (6.0-8.3); Troponin I High Sensitivity 18.9 pg/ml (0-14)
[2023-06-12] MEDS: FUROSEMIDE 40 MG TAB PO ONE (15:28)
[2023-06-12] MEDS: NovoLIN-R INSULIN PER UNIT CHARGE IV STA (15:30)
--- NOTE | 2023-06-12 15:34 | History & Physical Report ---
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 Decompensated WALSH cirrhosis Admitted 04/24- for decompensated cirrhosis requiring paracentesis x 2 in setting of BLAYNE Has since had diuretics reduced due to renal function - now on torsemide to 10mg daily and spironolactone 25mg daily with volume overload Has been undergoing outpatient paracentesis 1x/week since discharge (most recently 06/05 with approx 5L fluid removal), due for next one tomorrow Given 40mg IV lasix in ED, IR scheduling paracentesis for tomorrow Routine GI and nephro consults placed Continue Xifaxan, lactulose, midodrine for liver disease Appreciate nephro recs on ongoing diuretic therapy Strict I&Os Low sodium diet BLAYNE Cr 1.87 today (1.1 at beginning of April 2023) Nephro consult for assistance with diuretics Hyperglycemia in setting of DM II A1c 6.8 in April 2023 Jardiance and metformin discontinued in outpatient setting 2/2 renal impairment BSG 458 on presentation today, UA pending Given 8u IV insulin in ED Glycemic pharmacy consulted for mgmt, recs for adjusted out-patient regimen BSG AC HS Pseudohyponatremia In setting of hyperglycemia as above, corrected Na ~ 133 Continue to monitor Alzheimer's disease Seems to be at mentation baseline of A&O to person only Continue Aricept Delirium precautions Hypothyroidism Continue levothyroxine DVT Ppx: SQ heparin Code status: DNR/DNI per discussion PCP: Rehana Harris Dispo: admitted to PCU Patient seen in collaboration with Dr. Miles. Please see addendum. I spent a total of 75 minutes coordinating, documenting, and providing care for this patient excluding time spent in the performance of separately billed services. History of Present Illness Chief Complaint: Volume overload Primary Care Provider: Tita Harris, DO This is a 78-year-old female with PMH of WALSH cirrhosis with esophageal varices and h/o hepatic encephalopathy, Alzheimer's disease, DM type II, HTN, HLD, hypothyroidism and other medical problems listed below who presents with volume overload. Was recently admitted to our service for decompensated cirrhosis and BLAYNE. During that admission, Xifaxan BID was started as well as midodrine. Losartan was discontinued due to BLAYNE. At nephrology follow up at the end of April, her diuretics in half (now torsemide to 10mg daily and spironolactone 25mg daily) and Jardiance and metformin were discontinued due to impaired renal function. Presents again today with increased fluid retention from waist down. Per daughter, patient has been undergoing paracentesis 1x / week, most recently last Monday 06/05. Patient is oriented to person only, not to place or time. ROS unobtainable due to cognitive state. Lives at home with her . Allergies Allergy/AdvReac Type Severity Reaction Status Date / Time Iodinated Contrast Media Allergy Intermediate Hives Verified 06/12/23 15:47 oxycodone Allergy Unknown CAN'T Verified 06/12/23 15:47 REMEMBER Home Medications Medication Instructions Recorded Confirmed Type clindamycin phosphate 1 % topical 1 applic topical BID PRN AFFECTED 04/25/23 06/12/23 History swab SKIN clotrimazole 1 % vaginal cream 1 appful vaginal HS 04/25/23 06/12/23 History cyanocobalamin (vitamin B-12) 1,000 mcg PO DAILY 04/25/23 06/12/23 History 1,000 mcg tablet (Vitamin B-12) donepezil 5 mg tablet 5 mg PO QAM 04/25/23 06/12/23 History lactulose 10 gram/15 mL oral 30 ml PO BID 04/25/23 06/12/23 History solution levothyroxine 150 mcg tablet 150 mcg PO DAILYBB 04/25/23 06/12/23 History nutrition tx glu 1 ea PO BIDM 04/25/23 06/12/23 History intol,lac-free,soy-fiber 0.04 gram-1 kcal/mL liquid (Glucerna 1 Ezequiel) ondansetron 4 mg disintegrating 4 mg translingual Q12H PRN 04/25/23 06/12/23 History tablet NAUSEA/VOMITING pantoprazole 20 mg tablet,delayed 20 mg PO BID 04/25/23 06/12/23 History release spironolactone 50 mg tablet 25 mg PO QAM 04/25/23 06/12/23 History thiamine HCl (vitamin B1) 100 mg 100 mg PO QAM 04/25/23 06/12/23 History tablet (Vitamin B-1) torsemide 20 mg tablet 10 mg PO DAILY 04/25/23 06/12/23 History trazodone 50 mg tablet 50 mg PO HS 04/25/23 06/12/23 History rifaximin 550 mg tablet (Xifaxan) 550 mg PO BID #60 tabs 04/30/23 06/12/23 Rx midodrine 10 mg tablet 5 mg PO TID@0800,1200,1700 06/12/23 06/12/23 History Past Med/Surg History Medical History 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 Hepatic encephalopathy Hypothyroidism Diabetes mellitus, type 2 Asthma NO INHALER USE X 2 YRS Pneumonia LAST TIME 2 YRS AGO Colon polyps Elevated d-dimer Chest pain (11/16/13) NO RECENT ISSUES Bronchitis Right foot pain Surgical History S/P lumpectomy, left breast BENIGN PER PT History of total bilateral knee replacement Hx of appendectomy H/O: hysterectomy Family History Father Colorectal cancer Family history of diabetes mellitus Social History Smoking Status: Never smoker Second Hand Exposure: No; Do You Dip or Chew Tobacco: No; Hx Alcohol Use: No Hx Substance Use: No Preferred Language: Nepali Communication Ability: Effective Visual Impairment: No Limitations Hearing Ability: Normal Heel Painter Required: No Beliefs That Will Affect Care: None marital status: Current Living Situation: Spouse current occupational status: retired Feels Safe at Home: Yes Assistive Devices: Glasses Review of Systems Review of Systems: Unobtainable due to cognitive status Physical Exam Physical Exam: Please see Dr. Miles' addendum for physical exam. Results & Data Results & Data Vital Signs (Past 12 Hours) Vital Signs Temp Pulse Resp BP Pulse Ox O2 Del Method 06/12/23 13:29 98 Room Air 06/12/23 13:24 75 06/12/23 13:13 36.8 C 80 20 112/76 97 Room Air Laboratory Results Short CBC 06/12/23 Range/Units 13:20 WBC 7.08 (4.8-10.8) K/ul Hgb 11.1 L (12.0-16.0) g/dl Hct 31.5 L (37.0-47.0) % Plt Count 160 (130-400) K/uL BMP 06/12/23 13:20 Sodium 126 L Potassium 5.3 H Chloride 95 L Carbon Dioxide 25 BUN 35 H Creatinine 1.87 H Glucose 458 H* Calcium 9.2 Liver Function 06/12/23 Range/Units 13:20 Total Bilirubin 2.0 H (0.2-1.0) mg/dl AST 21 (13-39) U/L ALT 21 (7-52) U/L Alkaline Phosphatase 101 (34-104) U/L Albumin 3.2 L (3.4-5.0) gm/dl Diagnostic Findings Chest X-Ray 06/12/23 13:16 XR chest 1V portable HISTORY: Chest pain, nonspecific COMPARISON: Chest 04/25/2023. FINDINGS: No pneumothorax. No pleural effusions. The cardiac silhouette remains top normal in size. There are calcifications within the aortic knob. Low lung volumes with mild elevation the right hemidiaphragm. There are are a few bibasilar densities consistent with subsegmental atelectasis. IMPRESSION: No significant change compared to the prior study. No acute process. ACT 112: Negative or not required by law. Electronically signed by: Norbert Miranda M.D. 06/12/2023 2:02 PM Supervising Physician Co-Signing Physician Notes I have seen and discussed the case with the collaborating advanced practitioner. I agree with the above H&P. I have reviewed and confirmed the patients medical history, the findings on physical examination, and the patients diagnosis and treatment plan with Jim CORRALES and agree with the information documented. 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 \ Patient with recent diuretic adjustment, from 20mg BID torsemide to 10mg qd and 50mg oneil to 25mg daily given renal dysfunction; however, now with extensive BLE edema and rapid accumulation of ascites since para on 06/05. GENERAL APPEARANCE: AxOx2, pleasant woman HEENT: NC, AT. MMM. EOMI, clear conjunctiva, oropharynx clear. NECK: Supple without lymphadenopathy. No stiffness or restricted ROM. HEART: Normal rate and regular rhythm, ALETA LUNGS: CTAB, moving air well. No crackles or wheezes are heard. ABDOMEN: distended, firm, fluid shift+ nontender EXTREMITIES: Without cyanosis, clubbing. 3+ pitting edema of BLE up to knees NEUROLOGICAL: Grossly nonfocal. Alert and oriented to self and ?situation moving all 4 extremities. CN not formally tested but appear grossly intact Skin: Warm and dry without any rash. #BLAYNE on CKD II - Cr 1.87 on admission (baseline Cr 1.2~) -Potentially related to ongoing cirrhosis and overload -history of tenusous fluid balance s/p IV lasix in ED Will hold diuertics, nephrology consult #Hyponatremia -Multifactorial, 132 iso hyperglycemia #hyperkalemia -hold spironolactone recieved IV lasix likely elevated iso hyperglycemia, likely shift with insulin -repeat bmp #Hyperglycemia no sign of DKA, recently off metformin/jardiance 2/2 renal dysfunction -glycemic management #Cirrhosis 2/2 WALSH, decompensated - History of decompensation:, hepatic encephalopathy/varices/ascites - MELD-Na: 16 on admission - Last EGD [id number] grade II esophageal varices, gastritis (no H pylori, intestinal metaplasia, dysplasia). Nadolol held historically given light headedness. -Last Colonoscopy: 07/23/2019 colon polyp (tubular adenoma), sigmoid diverticulosis, int hemorrhoids. She would like to defer repeat screening colonoscopies. - PSE: No evidence of HE on exam, c/w lactulose (titrated to 3-4BM / day) - Ascites:IR consult for para - EV: No evidence of GIB presently, close monitoring - on pantoprazole for PPx at home, will continue - Daily CMP + INR to calculate MELD; low Na diet, npo midnight - GI consult and Nephrology consult - Hold diuretics Spironolactone 25mg and Torsemide 10mg daily rest of plan as above I spent a total of 35 minutes coordinating, documenting, and providing care for this patient excluding time spent in the performance of separately billed services. All of the aforementioned completed outside of collaborating with the assigned advanced practitioner for a full treatment plan. I have reviewed the advanced practitioner's documentation, and I agree with, and take responsibility for the plan of care
[2023-06-12] MEDS ORDERED: PHARMACY GLYCEMIC MGMT CONSULT PRN (15:50)
[2023-06-12] MEDS: LANTUS PER UNIT CHARGE SC ONE (18:17)
[2023-06-12] MEDS ORDERED: POLYETHYLENE (MIRALAX) 17 GM PACK PO PRN (18:23)
[2023-06-12] MEDS ORDERED: NUT TX GLUC INTOL LF SOY FIBER PO SCH (18:23)
[2023-06-12] MEDS ORDERED: [UNRECOGNIZED DRUG - OTHER] PO SCH (18:23)
[2023-06-12] MEDS: INSULIN ASPART PER UNIT CHARGE SC SCH (18:57)
[2023-06-12] MEDS: traZODone HCL 50 MG TAB PO SCH (20:19)
[2023-06-12] MEDS: LACTULOSE SYRUP 20 GM/30 ML UDC PO SCH (20:19)
[2023-06-12] MEDS: rifAXIMin 550 MG TABLET PO SCH (20:20)
[2023-06-12] MEDS: HEPARIN SOD 5,000 UNIT/0.5 ML VIAL SQ SCH (20:20)
[2023-06-12] MEDS: MIDODRINE HCL 2.5 MG TAB PO SCH (20:20)
[2023-06-12] MEDS: PANTOprazole 40 MG TAB PO SCH (20:20)
[2023-06-12] MEDS: CLOTRIMAZOLE VAGINAL CR 7 APPLN/45 GM TUBE PV SCH (20:21)
[2023-06-12 20:59] LABS: BUN Creatinine Ratio 17.5 (10-20); Calcium 9.1 mg/dl (8.6-10.3); Creatinine Clr Calc Pharmacy 21.6 ml/min; Est GFR (African American) 26.7 ml/min; Potassium 4.8 mmol/L (3.5-5.1)
[2023-06-12] MEDS: ACETAMINOPHEN 325 MG TAB PO PRN (21:54)
[2023-06-13 04:15] LABS: Hematocrit (blood only) 30.7 % (37.0-47.0); Hemoglobin 10.6 g/dl (12.0-16.0); Mean Corpuscular Hemoglobin 32.7 pg (25.0-34.0); Mean Corpuscular Hgb Conc 34.5 g/dL (32.0-36.0); Mean Corpuscular Volume 94.8 fL (80.0-100.0); Mean Platelet Volume 9.7 fL (9.4-12.4); Nucleated RBC # (auto) 0.03 K/uL (0.00-0.12); Nucleated RBC % (auto) 0.3 %; Platelet Count 215 K/uL (130-400); RDW Coefficient of Variation 16.4 % (11.5-14.5); Red Blood Count 3.24 M/uL (4.20-5.40); White Blood Count 10.35 K/ul (4.8-10.8)
[2023-06-13 04:24] LABS: Albumin Globulin Ratio 1.2 (0.9-2); Albumin Level 3.1 gm/dl (3.4-5.0); BUN Creatinine Ratio 17.7 (10-20); Bilirubin,Total 1.7 mg/dl (0.2-1.0); Calcium 9.2 mg/dl (8.6-10.3); Creatinine Clr Calc Pharmacy 20.7 ml/min; Est GFR (African American) 25.3 ml/min; Est GFR (Non-African American) 21.8 ml/min; Globulin 2.6 gm/dl (2.5-4.0); Total Protein 5.7 gm/dl (6.0-8.3)
--- NOTE | 2023-06-13 04:52 | Electrocardiogram Report ---
Test Reason : Blood Pressure : / mmHG Vent. Rate : 076 BPM Atrial Rate : 076 BPM P-R Int : 142 ms QRS Dur : 086 ms QT Int : 408 ms P-R-T Axes : 015 -30 011 degrees QTc Int : 459 ms Normal sinus rhythm Left axis deviation Minimal voltage criteria for LVH, may be normal variant ( R in aVL ) Cannot rule out Anterior infarct (cited on or before 12-JUN-2023) Nonspecific T wave abnormality Abnormal ECG When compared with ECG of 25-APR-2023 11:33, Premature atrial complexes are no longer Present Confirmed by Maurilio Carroll ([id number]) on 06/13/2023 4:52:18 AM Referred By: REFERRED SELF Confirmed By:Maurilio Carroll
[2023-06-13] MEDS: LEVOTHYROXINE SODIUM 150 MCG TABLET PO SCH (06:12)
[2023-06-13] MEDS ORDERED: LANTUS PER UNIT CHARGE SC SCH (09:00)
--- NOTE | 2023-06-13 10:44 | Gastrointestinal Consultation ---
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 -Agree with therapeutic paracentesis today as ordered by primary team. -Per nursing, patient is at baseline mentation. Continue Xifaxan 550 mg and Lactulose 20 g BID. -Continue Midodrine 5 mg TID. Await nephrology consult for diuretic management. -2 g sodium restricted diet. -Given frequent admissions/paracenteses and overall decline, consider palliative consultation with family. Thank you for allowing us to participate in the care of this patient. If you have any questions or concerns, please do not hesitate to contact us. Supervising Physician Co-Signing Physician Notes Agree with FANG Reed as above Interviewed and examined patient and agree with above Abd: Soft, NT, Distended Continue current therapy and supportive care Await Ascitic fluid studies History of Present Illness Reason for Consultation: Decompensated cirrhosis Requesting Physician: Krysta Fernandez PA-C Attending Physician: Christin Arana MD History of Present Illness Pt is 77 yo female w PMHx of WALSH vs cryptogenic cirrhosis, complicated by esophageal varices, hepatic encephalopathy, ascites and edema. She follows with [facility] as an outpatient. She receives weekly therapeutic paracenteses due to abdominal ascites. She has not tolerated higher doses of diuretics due to renal impairment. Last admission to the hospital was 04/26/23. She was brought to the ER this morning due to edema and abdominal distention. She was scheduled for an outpatient paracentesis tomorrow. She has been ordered and inpatient para for today. She is alert and oriented to person only but slightly agitated. She has HE and dementia. Allergies Allergy/AdvReac Type Severity Reaction Status Date / Time Iodinated Contrast Media Allergy Intermediate Hives Verified 06/12/23 15:47 oxycodone Allergy Unknown CAN'T Verified 06/12/23 15:47 REMEMBER Home Medications Medication Instructions Recorded Confirmed Type clindamycin phosphate 1 % topical 1 applic topical BID PRN AFFECTED 04/25/23 06/12/23 History swab SKIN clotrimazole 1 % vaginal cream 1 appful vaginal HS 04/25/23 06/12/23 History cyanocobalamin (vitamin B-12) 1,000 mcg PO DAILY 04/25/23 06/12/23 History 1,000 mcg tablet (Vitamin B-12) donepezil 5 mg tablet 5 mg PO QAM 04/25/23 06/12/23 History lactulose 10 gram/15 mL oral 30 ml PO BID 04/25/23 06/12/23 History solution levothyroxine 150 mcg tablet 150 mcg PO DAILYBB 04/25/23 06/12/23 History nutrition tx glu 1 ea PO BIDM 04/25/23 06/12/23 History intol,lac-free,soy-fiber 0.04 gram-1 kcal/mL liquid (Glucerna 1 Ezequiel) ondansetron 4 mg disintegrating 4 mg translingual Q12H PRN 04/25/23 06/12/23 History tablet NAUSEA/VOMITING pantoprazole 20 mg tablet,delayed 20 mg PO BID 04/25/23 06/12/23 History release spironolactone 50 mg tablet 25 mg PO QAM 04/25/23 06/12/23 History thiamine HCl (vitamin B1) 100 mg 100 mg PO QAM 04/25/23 06/12/23 History tablet (Vitamin B-1) torsemide 20 mg tablet 10 mg PO DAILY 04/25/23 06/12/23 History trazodone 50 mg tablet 50 mg PO HS 04/25/23 06/12/23 History rifaximin 550 mg tablet (Xifaxan) 550 mg PO BID #60 tabs 04/30/23 06/12/23 Rx midodrine 10 mg tablet 5 mg PO TID@0800,1200,1700 06/12/23 06/12/23 History Patient History Medical History CKD (chronic kidney disease) stage 4, GFR 15-29 ml/min Dementia 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 Hepatic encephalopathy Hypothyroidism Diabetes mellitus, type 2 Asthma NO INHALER USE X 2 YRS Pneumonia LAST TIME 2 YRS AGO Colon polyps Elevated d-dimer Chest pain (11/16/13) NO RECENT ISSUES Bronchitis Right foot pain Surgical History S/P lumpectomy, left breast BENIGN PER PT History of total bilateral knee replacement Hx of appendectomy H/O: hysterectomy Family History Father Colorectal cancer Family history of diabetes mellitus Social History Smoking Status: Never smoker Second Hand Exposure: No; Do You Dip or Chew Tobacco: No; Hx Alcohol Use: No Hx Substance Use: No Preferred Language: Montserratian Communication Ability: dementia Visual Impairment: No Limitations Hearing Ability: Normal Denture Finisher Required: No Beliefs That Will Affect Care: None marital status: Current Living Situation: Family current occupational status: retired Feels Safe at Home: Yes Assistive Devices: Walker Review of Systems Review of Systems: Unobtainable due to cognitive status Physical Exam Constitutional: + thin and + frail appearing Respiratory: normal respiratory effort, lungs clear to auscultation Cardiovascular: Rate/Rhythm: regular rate and regular rhythm Gastrointestinal (Abdomen): Inspection/Auscultation: + abdomen distended and normal bowel sounds Percussion/Palpation: abdomen soft and + ascites; no guarding and abdomen not rigid Psychiatric: Orientation: alert Eye Contact: good eye contact Results & Data Vital Signs (Past 12 Hours) Vital Signs Temp Pulse Pulse Resp BP Pulse Ox O2 Del Method 06/13/23 07:30 76 06/13/23 04:06 36.4 C L 86 17 97/55 L 99 Room Air 06/12/23 23:30 102 H 06/12/23 23:00 104 H 17 107/78 97 Room Air Diagnostic Findings Laboratory Results WBC 10.35 K/ul (4.8-10.8) 06/13/23 03:22 RBC 3.24 M/uL (4.20-5.40) L 06/13/23 03:22 Hgb 10.6 g/dl (12.0-16.0) L 06/13/23 03:22 Hct 30.7 % (37.0-47.0) L 06/13/23 03:22 MCV 94.8 fL (80.0-100.0) 06/13/23 03:22 MCH 32.7 pg (25.0-34.0) 06/13/23 03:22 MCHC 34.5 g/dL (32.0-36.0) 06/13/23 03:22 RDW Std Deviation 57.0 fL (36.4-46.3) H 06/13/23 03:22 RDW Coeff of Colby 16.4 % (11.5-14.5) H 06/13/23 03:22 Plt Count 215 K/uL (130-400) 06/13/23 03:22 MPV 9.7 fL (9.4-12.4) 06/13/23 03:22 Immature Gran % (Auto) 0.6 % 06/12/23 13:20 Neut % (Auto) 74.4 % 06/12/23 13:20 Lymph % (Auto) 11.9 % 06/12/23 13:20 [place] % (Auto) 12.6 % 06/12/23 13:20 Eos % (Auto) 0.4 % 06/12/23 13:20 Baso % (Auto) 0.1 % 06/12/23 13:20 Neut # (Auto) 5.27 K/uL (1.40-6.50) 06/12/23 13:20 Lymph # (Auto) 0.84 K/uL (1.20-3.40) L 06/12/23 13:20 [place] # (Auto) 0.89 K/uL (0.11-0.59) H 06/12/23 13:20 Eos # (Auto) 0.03 K/uL (0.00-0.50) 06/12/23 13:20 Baso # (Auto) 0.01 K/uL (0.00-0.20) 06/12/23 13:20 Immature Gran # (Auto) 0.04 K/uL (0.01-0.20) 06/12/23 13:20 Absolute Nucleated RBC 0.03 K/uL (0.00-0.12) 06/13/23 03:22 Nucleated RBC % (auto) 0.3 % 06/13/23 03:22 Sodium 127 mmol/L (136-145) L 06/13/23 03:22 Potassium 5.0 mmol/L (3.5-5.1) 06/13/23 03:22 Chloride 95 mmol/L (98-107) L 06/13/23 03:22 Carbon Dioxide 23 mmol/L (21-32) 06/13/23 03:22 Anion Gap 9 (3-11) 06/13/23 03:22 BUN 37 mg/dl (6-23) H 06/13/23 03:22 Creatinine 2.09 mg/dl (0.6-1.2) H 06/13/23 03:22 Est Cr Clr Drug Dosing 20.7 ml/min 06/13/23 03:22 Est GFR ( Amer) 25.3 ml/min 06/13/23 03:22 Est GFR (Non-Af Amer) 21.8 ml/min 06/13/23 03:22 BUN/Creatinine Ratio 17.7 (10-20) 06/13/23 03:22 Glucose 180 mg/dl (70-99(Fasting)) H 06/13/23 03:22 POC Glucose 172 mg/dl (70-99) H 06/13/23 07:50 Osmolality 296 mOsm/kg (280-300) 06/12/23 13:20 Calcium 9.2 mg/dl (8.6-10.3) 06/13/23 03:22 Total Bilirubin 1.7 mg/dl (0.2-1.0) H 06/13/23 03:22 AST 25 U/L (13-39) 06/13/23 03:22 ALT 21 U/L (7-52) 06/13/23 03:22 Alkaline Phosphatase 101 U/L (34-104) 06/13/23 03:22 Ammonia 67.0 umol/L (18-72) 06/12/23 14:38 Troponin I High Sens 18.9 pg/ml (0-14) H 06/12/23 13:20 B-Natriuretic Peptide 127 pg/ml (0-100) H 06/12/23 13:22 Total Protein 5.7 gm/dl (6.0-8.3) L 06/13/23 03:22 Albumin 3.1 gm/dl (3.4-5.0) L 06/13/23 03:22 Globulin 2.6 gm/dl (2.5-4.0) 06/13/23 03:22 Albumin/Globulin Ratio 1.2 (0.9-2) 06/13/23 03:22 Lipase 15 U/L (11-82) 06/12/23 13:20 Urine Osmolality 317 mOsm/kg (500-800) L 06/12/23 19:28 Impressions Chest X-Ray 06/12/23 13:16 XR chest 1V portable HISTORY: Chest pain, nonspecific COMPARISON: Chest 04/25/2023. FINDINGS: No pneumothorax. No pleural effusions. The cardiac silhouette remains top normal in size. There are calcifications within the aortic knob. Low lung volumes with mild elevation the right hemidiaphragm. There are are a few bibasilar densities consistent with subsegmental atelectasis. IMPRESSION: No significant change compared to the prior study. No acute process. ACT 112: Negative or not required by law. Electronically signed by: Norbert Miranda M.D. 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
[2023-06-13] MEDS: CYANOCOBALAMIN (B-12) 500 MCG TABLET PO SCH (11:08)
[2023-06-13] MEDS: DONEPEZIL HCL 5 MG TAB PO SCH (11:08)
[2023-06-13] MEDS: THIAMINE HCL 100 MG TAB PO SCH (11:09)
--- NOTE | 2023-06-13 11:54 | Nephrology Consultation ---
Date of Consultation June 13, 2023 Assessment & Plan (1) CKD (chronic kidney disease) stage 4, GFR 15-29 ml/min: progressive CKD in 2023, now at least stage 4 just on conventional measures and likely worse given her poor mm mass as an elderly liver pt -agree w/ palliative discussion as she is not a dialysis candidate under any circumstances and her kidney/liver disease are worsening -no urgent indications for dialysis but given rate of renal decline she will face this question in coming weeks -for now daily bmp -will hold spironolactone today -will give lasix 10 mg IV tid to start today; likely to need more in AM -ordered UACM -hypervolemic hyponatremia is expected and should respond somewhat to diuresis; other chemistries ok Care coordinated w/ Dr Arana regarding fluid mgt, diet, labs, renal status and we are in agreement. (2) Worsening renal function: would not call this BLAYNE at this time but rapidly progressive CKD in the setting of frequently decompensated liver dz ongoing now x months (3) Decompensated hepatic cirrhosis: s/p 5L paracentesis on 06/12 >recommend albumin through primary service if indicated -1.2L FR when taking po -<2 gm Na diet when taking po -continue midodrine -continue rifaximin, lactulose per GI History of Present Illness Reason for Consultation: BLAYNE on CKD with decompensated liver cirrhosis Requesting Physician: Dr. Miles Attending Physician: Christin Arana MD History of Present Illness 78-year-old female who I am asked to evaluate for acute on chronic kidney injury in the setting of decompensated liver cirrhosis was admitted last evening with same as well as uncontrolled blood sugars. Past medical history includes WALSH versus cryptogenic cirrhosis with esophageal varices and history of encephalopathy, Alzheimer's dementia, diabetes, hypothyroid, hyperlipidemia, and now rapidly progressive CKD. Her baseline creatinine had been in the mid ones which is common for liver patients. Since February of this year and into March creatinine ran 0.5-1.0 with a consistent uptrend. She was admitted here in April with volume overload. She had 2 paracenteses during that admission and her admitting creatinine went from 1.8 down to 1.2 by discharge. Nephrology followed her during that admission and saw her in a hospital discharge visit on May 15, 2023 at that office visit, she was on torsemide twice daily, spironolactone 50 mg daily, Midodrine and Jardiance with minimal oral intake. She is not a dialysis candidate and focus was on quality of life discussions at that office visit. Her torsemide was lowered to 10 mg daily spironolactone lowered to 25 mg daily with repeat creatinine since it had been elevated again at 1.8. Jardiance and metformin were stopped. However repeat creatinine was again 1.8. She has been getting weekly paracenteses, most recently 5 L on June 05. She also underwent a 5 L paracentesis earlier today after admission; not apparent whether she had albumin with this or not. Primary team is looking at an insulin regimen for her after discharge potentially. Her caregiver July is at bedside and is very helpful with details of the history, since the pt is pleasantly confused. Since admission she has also had 40 mg of Lasix IV x 1 last evening. pt is relieved to have abdominal distension down after paracentesis; not sob; not bothered by LE edema currently. no uncontrolled musculoskeletal pain; no f/c/rash; minimal po intake; caregiver admits sodium limits are a challenge at home but they're working on it. no chest pain or palpitations. no new/worrisome voiding sx such as dysuria, gross hematuria. Allergies Allergy/AdvReac Type Severity Reaction Status Date / Time Iodinated Contrast Media Allergy Intermediate Hives Verified 06/12/23 15:47 oxycodone Allergy Unknown CAN'T Verified 06/12/23 15:47 REMEMBER Home Medications Medication Instructions Recorded Confirmed Type clindamycin phosphate 1 % topical 1 applic topical BID PRN AFFECTED 04/25/23 06/12/23 History swab SKIN clotrimazole 1 % vaginal cream 1 appful vaginal HS 04/25/23 06/12/23 History cyanocobalamin (vitamin B-12) 1,000 mcg PO DAILY 04/25/23 06/12/23 History 1,000 mcg tablet (Vitamin B-12) donepezil 5 mg tablet 5 mg PO QAM 04/25/23 06/12/23 History lactulose 10 gram/15 mL oral 30 ml PO BID 04/25/23 06/12/23 History solution levothyroxine 150 mcg tablet 150 mcg PO DAILYBB 04/25/23 06/12/23 History nutrition tx glu 1 ea PO BIDM 04/25/23 06/12/23 History intol,lac-free,soy-fiber 0.04 gram-1 kcal/mL liquid (Glucerna 1 Ezequiel) ondansetron 4 mg disintegrating 4 mg translingual Q12H PRN 04/25/23 06/12/23 History tablet NAUSEA/VOMITING pantoprazole 20 mg tablet,delayed 20 mg PO BID 04/25/23 06/12/23 History release spironolactone 50 mg tablet 25 mg PO QAM 04/25/23 06/12/23 History thiamine HCl (vitamin B1) 100 mg 100 mg PO QAM 04/25/23 06/12/23 History tablet (Vitamin B-1) torsemide 20 mg tablet 10 mg PO DAILY 04/25/23 06/12/23 History trazodone 50 mg tablet 50 mg PO HS 04/25/23 06/12/23 History rifaximin 550 mg tablet (Xifaxan) 550 mg PO BID #60 tabs 04/30/23 06/12/23 Rx midodrine 10 mg tablet 5 mg PO TID@0800,1200,1700 06/12/23 06/12/23 History Patient History Medical History CKD (chronic kidney disease) stage 4, GFR 15-29 ml/min Dementia 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 Hepatic encephalopathy Hypothyroidism Diabetes mellitus, type 2 Asthma NO INHALER USE X 2 YRS Pneumonia LAST TIME 2 YRS AGO Colon polyps Elevated d-dimer Chest pain (11/16/13) NO RECENT ISSUES Bronchitis Right foot pain Surgical History S/P lumpectomy, left breast BENIGN PER PT History of total bilateral knee replacement Hx of appendectomy H/O: hysterectomy Family History Father Colorectal cancer Family history of diabetes mellitus Social History Smoking Status: Never smoker Second Hand Exposure: No; Do You Dip or Chew Tobacco: No; Hx Alcohol Use: No Hx Substance Use: No Preferred Language: Frisian Communication Ability: dementia Visual Impairment: No Limitations Hearing Ability: Normal Fieldwork Coordinator Required: No Beliefs That Will Affect Care: None marital status: Current Living Situation: Family current occupational status: retired Feels Safe at Home: Yes Assistive Devices: Glasses Review of Systems 2 Review of Systems: All systems reviewed & are unremarkable except as noted in HPI & below Physical Exam 2 Constitutional: well developed, + frail appearing, cooperative, comfortable, + malnourished and + edematous; no acute distress Eyes: EOM intact bilaterally ENMT: Ears: no external ear abnormality Nose: no external nose abnormality Mouth: + dry oral mucous membranes Neck: no nuchal rigidity Respiratory: normal respiratory effort Auscultation: lungs clear to auscultation bilaterally and + diminished lung sounds Cardiovascular: Rate/Rhythm: regular rate and regular rhythm Extremities: + edema (2+ prox thighs; 3-4+ pedal) Gastrointestinal (Abdomen): Inspection/Auscultation: + abdomen distended and normal bowel sounds Percussion/Palpation: abdomen soft and + ascites; abdomen nontender Musculoskeletal: Extremities: strength 5/5 throughout (but generalized weakness) Skin: no rashes, warm and dry (distal BLE are red not warm or tender) Neurologic: velázquez, fluent speech, no tremor Psychiatric: Orientation: alert and oriented to person Results & Data Vital Signs (Past 12 Hours) Vital Signs Temp Pulse Pulse Resp BP Pulse Ox O2 Del Method 06/13/23 07:30 76 06/13/23 04:06 36.4 C L 86 17 97/55 L 99 Room Air 06/12/23 23:30 102 H Laboratory Results 06/13/23 03:22 06/13/23 03:22 Diagnostic Findings cxr No pneumothorax. No pleural effusions. The cardiac silhouette remains top normal in size. There are calcifications within the aortic knob. Low lung volumes with mild elevation the right hemidiaphragm. There are are a few bibasilar densities consistent with subsegmental atelectasis.
--- NOTE | 2023-06-13 13:13 | Ultrasound Report ---
ULTRASOUND-GUIDED PARACENTESIS CLINICAL HISTORY: Ascites PROCEDURE: Procedure and risks were explained. Informed consent was obtained. A final timeout was com pleted. The abdomen was prepped and draped in sterile fashion. 1% buffered lidocaine was utilized for skin anesthesia. Utilizing ultrasound guidance, a 5 Turkmen safety centesis catheter was advanced into the left lower q uadrant pocket of ascites. Ultrasound images were obtained. A total of 5 L of ascites fluid was remov ed with 1 L sent to the lab. The catheter was removed and Band-Aid applied. The patient tolerated the procedure well. Vital signs will be monitored postprocedure. IMPRESSION: Ultrasound-guided paracentesis as above. Performed, dictated, and signed by Amor Neri PA-C; to be co-signed by Dr. Cayetano Thorpe. Electronically signed by: Cayetano Thorpe M.D. 06/13/2023 3:30 PM
[2023-06-13] MEDS: FUROSEMIDE INJ 20 MG/2 ML VIAL IV SCH (13:26)
--- NOTE | 2023-06-13 13:26 | Hospitalist Progress Note ---
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 Decompensated WALSH cirrhosis with ascites Admitted 04/24- for decompensated cirrhosis requiring paracentesis x 2 in setting of BLAYNE Has since had diuretics reduced due to renal function - now on torsemide to 10mg daily and spironolactone 25mg daily with volume overload Has been undergoing outpatient paracentesis 1x/week since discharge (most recently 06/05 with approx 5L fluid removal) Given 40mg IV lasix in ED Per RN, IR removed 5L via paracentesis Albumin ordered Continue Xifaxan, lactulose, midodrine for liver disease Low sodium diet Check MELD labs daily GI evaluation noted BLAYNE Cr 1.87 on admission (1.1 at beginning of April 2023) Cr is 2.09 today Discussed with Customer Records Division Supervisor Diuretics being managed by Customer Records Division Supervisor Continue lasix, FR Monitor renal function Continue midodrine Hyperglycemia in setting of DM II A1c 6.8 in April 2023 Jardiance and metformin discontinued in outpatient setting 2/2 renal impairment BSG 458 on presentation Glycemic pharmacy on board for glycemic management BSG AC HS Hyponatremia Na is 128 today, corrected for hyperglycemia Hypervolemic hyponatremia in the setting of decompensated cirrhosis Monitor Low sodium diet Diuretics mgt as above Alzheimer's disease Seems to be at baseline per caregiver Continue Aricept Delirium precautions Hypothyroidism Continue levothyroxine DVT Ppx: SQ heparin Code status: DNR/DNI per discussion PCP: Rehana Harris Dispo: admitted to PCU I spent a total of 55 minutes coordinating, documenting, and providing care for this patient excluding time spent in the performance of separately billed services. Admission and Anticipated Discharge Date Admission Date: June 12, 2023 Subjective Patient seen and examined. Caregiver at bedside. Patient reports abdominal discomfort from abdominal distention. Stated that this is improved since paracentesis this morning. Patient had 5 L removed by IR. Denies any nausea, vomiting, diarrhea. Caregiver reports that she is more constipated but had a small bowel movement this morning. Denies any cough, chest pain, shortness of breath Has leg swelling Denies any fever, chills Physical Exam Constitutional: + well hydrated; no acute distress Eyes: PERRL, conjunctivae normal, anicteric sclerae ENMT: external ear and nose normal, oropharynx normal Respiratory: normal respiratory effort, lungs clear to auscultation Cardiovascular: Rate/Rhythm: regular rate and regular rhythm S1-S2 Gastrointestinal (Abdomen): Abdomen is distended, soft, nontender, normoactive bowel sounds Musculoskeletal: Bilateral pitting pedal edema up to the knees Neurologic: PERRL, EOMI, accommodation nl, no face palsy, no dysarthria Psychiatric: Alert and oriented to person and place. Cooperative Results & Data Results & Data Vital Signs (Past 12 Hours) Vital Signs Temp Pulse Pulse Resp BP Pulse Ox O2 Del Method 06/13/23 07:30 76 06/13/23 04:06 36.4 C L 86 17 97/55 L 99 Room Air Laboratory Results Abnormal lab results 06/12/23 06/12/23 06/12/23 Range/Units 13:19 13:20 13:22 RBC 3.36 L (4.20-5.40) M/uL Hgb 11.1 L (12.0-16.0) g/dl Hct 31.5 L (37.0-47.0) % RDW Std Deviation 56.6 H (36.4-46.3) fL RDW Coeff of Colby 16.5 H (11.5-14.5) % Lymph # (Auto) 0.84 L (1.20-3.40) K/uL [place] # (Auto) 0.89 H (0.11-0.59) K/uL Sodium 126 L (136-145) mmol/L Potassium 5.3 H (3.5-5.1) mmol/L Chloride 95 L (98-107) mmol/L BUN 35 H (6-23) mg/dl Creatinine 1.87 H (0.6-1.2) mg/dl Glucose 458 H* (70-99(Fasting)) mg/dl POC Glucose 406 H* (70-99) mg/dl Total Bilirubin 2.0 H (0.2-1.0) mg/dl Troponin I High Sens 18.9 H (0-14) pg/ml B-Natriuretic Peptide 127 H (0-100) pg/ml Total Protein 5.9 L (6.0-8.3) gm/dl Albumin 3.2 L (3.4-5.0) gm/dl Urine Osmolality (500-800) mOsm/kg 06/12/23 06/12/23 06/12/23 Range/Units 17:24 19:28 20:29 RBC (4.20-5.40) M/uL Hgb (12.0-16.0) g/dl Hct (37.0-47.0) % RDW Std Deviation (36.4-46.3) fL RDW Coeff of [place]by (11.5-14.5) % Lymph # (Auto) (1.20-3.40) K/uL [place] # (Auto) (0.11-0.59) K/uL Sodium 129 L (136-145) mmol/L Potassium (3.5-5.1) mmol/L Chloride (98-107) mmol/L BUN 35 H (6-23) mg/dl Creatinine 2.00 H (0.6-1.2) mg/dl Glucose 164 H (70-99(Fasting)) mg/dl POC Glucose 355 H* (70-99) mg/dl Total Bilirubin (0.2-1.0) mg/dl Troponin I High Sens (0-14) pg/ml B-Natriuretic Peptide (0-100) pg/ml Total Protein (6.0-8.3) gm/dl Albumin (3.4-5.0) gm/dl Urine Osmolality 317 L (500-800) mOsm/kg 06/12/23 06/13/23 06/13/23 Range/Units 20:53 03:22 07:50 RBC 3.24 L (4.20-5.40) M/uL Hgb 10.6 L (12.0-16.0) g/dl Hct 30.7 L (37.0-47.0) % RDW Std Deviation 57.0 H (36.4-46.3) fL RDW Coeff of Colby 16.4 H (11.5-14.5) % Lymph # (Auto) (1.20-3.40) K/uL [place] # (Auto) (0.11-0.59) K/uL Sodium 127 L (136-145) mmol/L Potassium (3.5-5.1) mmol/L Chloride 95 L (98-107) mmol/L BUN 37 H (6-23) mg/dl Creatinine 2.09 H (0.6-1.2) mg/dl Glucose 180 H (70-99(Fasting)) mg/dl POC Glucose 180 H 172 H (70-99) mg/dl Total Bilirubin 1.7 H (0.2-1.0) mg/dl Troponin I High Sens (0-14) pg/ml B-Natriuretic Peptide (0-100) pg/ml Total Protein 5.7 L (6.0-8.3) gm/dl Albumin 3.1 L (3.4-5.0) gm/dl Urine Osmolality (500-800) mOsm/kg
[2023-06-13] MEDS: ALBUMIN 25% 12.5 GM/50 ML VIAL IV SCH (15:08)
--- NOTE | 2023-06-13 15:14 | Pharmacy Report ---
Pharmacy Glycemic Short Note 2 - Date of Service June 13, 2023 - Glycemic Short BSG Results (Last 24 hours): 06/12/23 06/12/23 06/12/23 17:24 20:29 20:53 Glucose 164 H POC Glucose 355 H* 180 H 06/13/23 06/13/23 03:22 07:50 Glucose 180 H POC Glucose 172 H OUTPATIENT ANTIDIABETIC REGIMEN: * none (Jardiance and metformin discontinued due to renal impairment) * HbA1c 6.8% (04/27/23) ASSESSMENT: * Naz is an 78 YOF admitted with decompensated cirrhosis, impaired renal function, and uncontrolled type 2 diabetes mellitus. Pharmacy has been consulted for glycemic management while inpatient. * BSGs significantly elevated on admission, IV regular bolus, basal insulin and Novolog given, BSGs trended down * Naz received 31 units of insulin yesterday (10 units basal, 8 units IV regular) * Fasting BSG this AM acceptable, will add the IV bolus to the basal regimen and increase by 10% * Continue current Novolog parameters at this time, no apparent trends at this time PLAN FOR INPATIENT GLYCEMIC CONTROL: * Hold outpatient oral diabetes medications * Basal insulin * Lantus 20 units SQ daily * Bolus insulin * NovoLog per scale ACHS or Q6hrs while NPO * Goal Range: Low 110 mg/dL - High 140 mg/dL * Correction Factor: 25 mg/dL/unit * Nutritional / Prandial insulin per carb ratio of 1 unit per 9 grams CHO consumed
[2023-06-13] MEDS: LANTUS PER UNIT CHARGE SC SCH ×2 (15:33→18:24)
[2023-06-13] MEDS: PNEUMOCOCCAL VACCINE (PCV20) 20-VAL CONJ-DIP CRM/PF 0.5 ML SYR IM ONE (18:05)
[2023-06-14 06:10] LABS: Albumin Globulin Ratio 1.7 (0.9-2); BUN Creatinine Ratio 19.1 (10-20); Bilirubin,Total 1.5 mg/dl (0.2-1.0); Calcium 8.5 mg/dl (8.6-10.3); Est GFR (African American) 24.4 ml/min; Est GFR (Non-African American) 21.1 ml/min; Globulin 1.8 gm/dl (2.5-4.0); Magnesium 2.1 mg/dl (1.7-2.4); Phosphorus 4.3 mg/dl (2.5-4.9); Total Protein 4.8 gm/dl (6.0-8.3)
[2023-06-14 06:16] LABS: INR 1.1 (0.9-1.1); Prothrombin Time 11.4 Seconds (9.0-12.0)
[2023-06-14 06:32] LABS: Hemoglobin 9.7 g/dl (12.0-16.0); Mean Corpuscular Hemoglobin 33.3 pg (25.0-34.0); Mean Corpuscular Hgb Conc 35.9 g/dL (32.0-36.0); Mean Corpuscular Volume 92.8 fL (80.0-100.0); Mean Platelet Volume 9.9 fL (9.4-12.4); Platelet Count 101 K/uL (130-400); RDW Coefficient of Variation 16.4 % (11.5-14.5); RDW Standard Deviation 55.5 fL (36.4-46.3); Red Blood Count 2.91 M/uL (4.20-5.40); White Blood Count 4.26 K/ul (4.8-10.8)
[2023-06-14 06:33] LABS: Platelet Estimate Decreased (Normal)
--- NOTE | 2023-06-14 09:37 | Nephrology Progress Note ---
Date of Service June 14, 2023 Assessment & Plan (1) CKD (chronic kidney disease) stage 4, GFR 15-29 ml/min: Plan: progressive CKD in 2023, now at least stage 4 just on conventional measures and likely worse given her poor mm mass as an elderly liver pt -agree w/ palliative discussion as she is not a dialysis candidate under any circumstances and her kidney/liver disease are worsening -rapid rate of renal decline; she will face this ESRD possibly in coming weeks -for now daily bmp -Started spironolactone 12.5 mg daily June 13; potassium 5 today but should drop with increased Lasix dose and standing lactulose -Increase Lasix to 20 mg IV 3 times daily with meals starting June 13 -Follow-up pending UACM > 2+ blood, w/ some WBC; no infection -hypervolemic hyponatremia is expected and should respond somewhat to diuresis; other chemistries ok Care coordinated w/ Dr Arana regarding fluid mgt, diet, labs, renal status and we are in agreement. (2) Worsening renal function: Plan: would not call this BLAYNE at this time but rapidly progressive CKD in the setting of frequently decompensated liver dz ongoing now x months (3) Decompensated hepatic cirrhosis: Plan: s/p 5L paracentesis on 06/12 -1.2L FR when taking po -<2 gm Na diet when taking po -continue midodrine -continue rifaximin, lactulose per GI Admission and Anticipated Discharge Date Admission Date: June 12, 2023 Subjective got albumin after paracentesis; no consistent c/o today though does feel abdomen more distended, and c/o some leg pain diffusely Review of Systems 2 Review of Systems: All systems reviewed & are unremarkable except as noted in Subjective Physical Exam 2 Constitutional: well developed, + frail appearing, cooperative, comfortable, + malnourished and + edematous; no acute distress Eyes: EOM intact bilaterally ENMT: Ears: no external ear abnormality Nose: no external nose abnormality Mouth: + dry oral mucous membranes Neck: no nuchal rigidity Respiratory: normal respiratory effort Auscultation: lungs clear to auscultation bilaterally and + diminished lung sounds Cardiovascular: Rate/Rhythm: regular rate and regular rhythm Extremities: + edema (trace prox thighs; 2+ pretibial) Gastrointestinal (Abdomen): Inspection/Auscultation: + abdomen distended and normal bowel sounds Percussion/Palpation: abdomen soft and + ascites; abdomen nontender Musculoskeletal: Extremities: strength 5/5 throughout (but generalized weakness) Skin: no rashes, warm and dry (distal BLE are red not warm or tender) Psychiatric: Orientation: alert and oriented to person Results & Data Vital Signs (Past 12 Hours) Vital Signs Temp Pulse Pulse Resp BP Pulse Ox O2 Del Method 06/14/23 08:29 36.3 C L 84 18 101/60 96 Room Air 06/13/23 22:06 101 H 06/13/23 22:00 36.6 C 89 16 91/52 L 100 Room Air Laboratory Results 06/14/23 05:28 06/14/23 05:28
[2023-06-14 10:38] LABS: Appearance Urine Clear (Clear); Bacteria Urine Automated None Seen (None Seen); Bilirubin Urine Negative (Negative); Blood Urine 2+ (Negative); Cast Urine Automated 0-2 /lpf (0-2); Color Urine Yellow; Epithelial Cell Urine Auto 0-2 /hpf (0-2); Glucose Urine UA Negative (Negative); Ketones Urine Negative (Negative); Leukocyte Esterase Urine 2+ (Negative); Nitrite Urine Negative (Negative); Protein Urine Negative (Negative); Specific Gravity Urine 1.008 (1.000-1.030); Urobilinogen Urine Negative (Negative); WBC Urine Automated 21-50 /hpf (0-5)
[2023-06-14] MEDS: SPIRONOLACTONE 12.5 MG TAB PO SCH (11:33)
[2023-06-14] MEDS: FUROSEMIDE INJ 20 MG/2 ML VIAL IV SCH (11:34)
[2023-06-14] MEDS: ONDANSETRON INJ 2 MG/ML 2 ML VIAL IV PRN (11:56)
--- NOTE | 2023-06-14 14:17 | Hospitalist Progress Note ---
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 Decompensated WALSH cirrhosis with ascites Admitted 04/24- for decompensated cirrhosis requiring paracentesis x 2 in setting of BLAYNE Has since had diuretics reduced due to renal function - now on torsemide to 10mg daily and spironolactone 25mg daily with volume overload Has been undergoing outpatient paracentesis 1x/week since discharge (most recently 06/05 with approx 5L fluid removal) Given 40mg IV lasix in ED Per RN, IR removed 5L via paracentesis on 06/13/23 Got albumin Continue Xifaxan, lactulose, midodrine for liver disease Low sodium diet Check MELD labs daily. MELD Na-21 GI evaluation noted BLAYNE Cr 1.87 on admission (1.1 at beginning of April 2023) Cr is 2.15 today Discussed with [facility] Diuretics being managed by [facility] Continue lasix, FR Monitor renal function Continue midodrine Hyperglycemia in setting of DM II A1c 6.8 in April 2023 Jardiance and metformin discontinued in outpatient setting 2/2 renal impairment BSG 458 on presentation Glycemic pharmacy on board for glycemic management BSG AC HS Hyponatremia Na is 132 today, corrected for hyperglycemia Hypervolemic hyponatremia in the setting of decompensated cirrhosis Monitor Low sodium diet Diuretics mgt as above Alzheimer's disease Seems to be at baseline per caregiver Continue Aricept Delirium precautions Hypothyroidism Continue levothyroxine Goals of care Started GOC discussion with sister who was at bedside Palliative consulted DVT Ppx: SQ heparin Code status: DNR/DNI per discussion PCP: Reahna Harris Dispo: admitted to PCU I spent a total of 45 minutes coordinating, documenting, and providing care for this patient excluding time spent in the performance of separately billed services. Admission and Anticipated Discharge Date Admission Date: June 12, 2023 Subjective Patient seen and examined earlier Reports abd distention but no pain Denied any nausea, vomiting Denied cough, chest pain, SOB She is alert and oriented to person, knows she is in a hospital, not oriented to time Poor insight Physical Exam Constitutional: + well hydrated; no acute distress Eyes: PERRL, conjunctivae normal, anicteric sclerae ENMT: external ear and nose normal, oropharynx normal Respiratory: normal respiratory effort, lungs clear to auscultation Cardiovascular: Rate/Rhythm: regular rate and regular rhythm Gastrointestinal (Abdomen): Distended, soft, nontender, normal bowel sounds Musculoskeletal: +edema Neurologic: PERRL, EOMI, accommodation nl, no face palsy, no dysarthria Results & Data Results & Data Vital Signs (Past 12 Hours) Vital Signs Temp Pulse Pulse Resp BP Pulse Ox O2 Del Method 06/14/23 11:11 36.3 C L 111 H 19 92/62 L 97 Room Air 06/14/23 09:56 78 06/14/23 08:29 36.3 C L 84 18 101/60 96 Room Air Laboratory Results Abnormal lab results 06/13/23 06/13/23 06/13/23 Range/Units 15:12 16:27 20:45 WBC (4.8-10.8) K/ul RBC (4.20-5.40) M/uL Hgb (12.0-16.0) g/dl Hct (37.0-47.0) % RDW Std Deviation (36.4-46.3) fL RDW Coeff of Colby (11.5-14.5) % Plt Count (130-400) K/uL Platelet Estimate (Normal) Sodium (136-145) mmol/L BUN (6-23) mg/dl Creatinine (0.6-1.2) mg/dl POC Glucose 225 H 234 H 157 H (70-99) mg/dl Calcium (8.6-10.3) mg/dl Total Bilirubin (0.2-1.0) mg/dl Total Protein (6.0-8.3) gm/dl Albumin (3.4-5.0) gm/dl Globulin (2.5-4.0) gm/dl Urine Blood (Negative) Ur Leukocyte Esterase (Negative) Urine WBC (Auto) (0-5) /hpf Urine RBC (Auto) (0-2) /hpf Urine Yeast (None Prsent) 06/14/23 06/14/23 06/14/23 Range/Units 05:28 06:00 11:37 WBC 4.26 L (4.8-10.8) K/ul RBC 2.91 L (4.20-5.40) M/uL Hgb 9.7 L (12.0-16.0) g/dl Hct 27.0 L (37.0-47.0) % RDW Std Deviation 55.5 H (36.4-46.3) fL RDW Coeff of Colby 16.4 H (11.5-14.5) % Plt Count 101 L D (130-400) K/uL Platelet Estimate Decreased L (Normal) Sodium 132 L (136-145) mmol/L BUN 41 H (6-23) mg/dl Creatinine 2.15 H (0.6-1.2) mg/dl POC Glucose 165 H (70-99) mg/dl Calcium 8.5 L (8.6-10.3) mg/dl Total Bilirubin 1.5 H (0.2-1.0) mg/dl Total Protein 4.8 L (6.0-8.3) gm/dl Albumin 3.0 L (3.4-5.0) gm/dl Globulin 1.8 L (2.5-4.0) gm/dl Urine Blood 2+ H (Negative) Ur Leukocyte Esterase 2+ H (Negative) Urine WBC (Auto) 21-50 H (0-5) /hpf Urine RBC (Auto) 11-20 H (0-2) /hpf Urine Yeast Present A (None Prsent)
[2023-06-15 06:13] LABS: Hematocrit (blood only) 29.1 % (37.0-47.0); Hemoglobin 10.3 g/dl (12.0-16.0); Mean Corpuscular Hemoglobin 32.7 pg (25.0-34.0); Mean Corpuscular Hgb Conc 35.4 g/dL (32.0-36.0); Mean Corpuscular Volume 92.4 fL (80.0-100.0); Mean Platelet Volume 9.3 fL (9.4-12.4); Platelet Count 149 K/uL (130-400); RDW Coefficient of Variation 16.6 % (11.5-14.5); RDW Standard Deviation 55.7 fL (36.4-46.3); Red Blood Count 3.15 M/uL (4.20-5.40); White Blood Count 5.18 K/ul (4.8-10.8)
[2023-06-15 06:29] LABS: Albumin Globulin Ratio 1.4 (0.9-2); Albumin Level 2.9 gm/dl (3.4-5.0); BUN Creatinine Ratio 18.3 (10-20); Bilirubin,Total 1.4 mg/dl (0.2-1.0); Calcium 8.7 mg/dl (8.6-10.3); Creatinine Clr Calc Pharmacy 16.9 ml/min; Est GFR (African American) 22.6 ml/min; Est GFR (Non-African American) 19.5 ml/min; Globulin 2.1 gm/dl (2.5-4.0); Potassium 4.4 mmol/L (3.5-5.1)
[2023-06-15 06:43] LABS: Prothrombin Time 11.3 Seconds (9.0-12.0)
[2023-06-15] MEDS: LACTULOSE SYRUP 20 GM/30 ML UDC PO SCH (07:45)
--- NOTE | 2023-06-15 08:33 | Nephrology Progress Note ---
Date of Service June 15, 2023 Assessment & Plan (1) CKD (chronic kidney disease) stage 4, GFR 15-29 ml/min: Plan: kidney function is stable past few days but overall progressive CKD in 2023, now at least stage 4 just on conventional measures and likely worse given her poor mm mass as an elderly liver pt agree w/ palliative discussion as she is not a dialysis candidate under any circumstances and her kidney/liver disease are worsening rapid rate of renal decline; she will face this ESRD possibly in coming weeks; has weeks to live if no interventions w/ serial paracentesis at most had made several recommendations regarding diuretics earlier but now for hospice/[employer]I[facility] [employer]ORDINATOR which is reasonable. Care coordinated w/ Dr Arana, Dr Gonzales regarding renal prognosis and overall goals of care; and we are in agreement. (2) Worsening renal function: Plan: would not call this BLAYNE at this time but rapidly progressive CKD in the setting of frequently decompensated liver dz ongoing now x months (3) Decompensated hepatic cirrhosis: Plan: s/p 5L paracentesis on 06/12 for comfort measures Admission and Anticipated Discharge Date Admission Date: June 12, 2023 Subjective tearful at times and c/o increased abd discomfort, distension; c/o some sob w/ this; family at bedside adn about to have palliative/goals fo care meeting Review of Systems 2 Review of Systems: All systems reviewed & are unremarkable except as noted in Subjective Physical Exam 2 Constitutional: well developed, + frail appearing, cooperative, comfortable, + malnourished and + edematous; no acute distress Eyes: EOM intact bilaterally ENMT: Ears: no external ear abnormality Nose: no external nose abnormality Mouth: + dry oral mucous membranes Neck: no nuchal rigidity Respiratory: normal respiratory effort Auscultation: lungs clear to auscultation bilaterally and + diminished lung sounds Cardiovascular: Rate/Rhythm: regular rate and regular rhythm Extremities: + edema (trace prox thighs; 1-2+ pretibial) Gastrointestinal (Abdomen): Inspection/Auscultation: + abdomen distended and normal bowel sounds Percussion/Palpation: abdomen soft and + ascites; abdomen nontender Musculoskeletal: Extremities: strength 5/5 throughout (but generalized weakness) Skin: no rashes, warm and dry (distal BLE are red not warm or tender) Psychiatric: Orientation: alert and oriented to person Results & Data Vital Signs (Past 12 Hours) Vital Signs Temp Pulse Pulse Resp BP BP Pulse Ox 06/15/23 07:32 36.8 C 104 H 83/61 L 96 06/15/23 02:49 36.8 C 96 H 21 91/57 L 98 06/14/23 22:51 36.5 C 89 22 96/63 L 99 06/14/23 21:59 90 O2 Del Method 06/15/23 07:32 Room Air 06/15/23 02:49 Room Air 06/14/23 22:51 Room Air 06/14/23 21:59 Laboratory Results 06/15/23 05:46 06/15/23 05:46
[2023-06-15] MEDS ORDERED: FUROSEMIDE 20 MG TAB PO SCH (09:00)
[2023-06-15] MEDS ORDERED: LANTUS PER UNIT CHARGE SC SCH (09:00)
[2023-06-15] MEDS ORDERED: SPIRONOLACTONE 25 MG TAB PO SCH (09:00)
--- NOTE | 2023-06-15 09:12 | Palliative Care Consultation ---
Date of Consultation June 15, 2023 Assessment & Plan (1) Restlessness and agitation: (2) Agitation due to dementia: (3) Advanced care planning/counseling discussion: Together with Dr Vázquez, a 40min face to face ACP meeting was held for Mrs Kennedy in family meeting room with her and daughter, son, and her private caregiver Fidelia. We discussed her medical issues and their intertwining complexity. They note they are aware there are no curable issues. They would like home with hospice today. No further tx and No drains. They were on hospice with [facility] and would like to re instate. Dtr and are in the room awaiting update. Pt is now comfort care. No escalation. No labs etc. I will order pen med s. They have no DME needs for now. They have family and private caregiver support. Pls see separate detailed ACP note (4) Comfort measures only status: (5) Dementia: (6) Palliative care by specialist: Met with pt/family. Provided overview of Palliative Medicine, a subspecialty that provides specialized medical care for people living with a serious illness by offering a focus on quality of life through reduction of symptom burden/more control over their illness, for both the patient and family. We care for patients of any age/advancing stage of a serious illness and can be provided along with curative treatment. We are not hospice, which is a visiting nurse service that focuses on care delivered at the very end of life. Plan Thank you for allowing us to participate in the ongoing care of this patient. Please don't hesitate to call or page with any additional concerns. Dr. Sherrell Gonzales DNP Director, Palliative Care History of Present Illness Reason for Consultation: goals of care Attending Physician: Christin Arana MD History of Present Illness 78yo female admitted 06/12/23 with acute on chronic CHF, BLAYNE, abd ascites, anemia due to decompensated cirrhosis, impaired renal function and uncontrolled DM II. Found to have a very rapidly progressive CKD in the setting of frequently decompensated liver disease, likely progressing over past few months. She is cared for at home with and private caregivers. She was recently admitted 04/24 - 04/30/23 for decompensated cirrhosis requiring paracentesis x 2 in setting of BLAYNE: had diuretics reduced due to renal function - now on torsemide to 10mg daily and spironolactone 25mg daily with volume overload and has been undergoing outpatient paracentesis 1x/week since discharge (most recently 06/05 with approx 5L fluid removal) PMH: WALSH (vs cryptogenic) cirrhosis with esophageal varices and h/o hepatic encephalopathy, Alzheimer's disease, DM type II, HTN, HLD, hypothyroidism Pleasantly demented by report and she cannot provide HPI. Her and dtr are SDMs She has worsening hepatorenal disease and she si not a candidate for HD Allergies Allergy/AdvReac Type Severity Reaction Status Date / Time Iodinated Contrast Media Allergy Intermediate Hives Verified 06/12/23 15:47 oxycodone Allergy Unknown CAN'T Verified 06/12/23 15:47 REMEMBER Home Medications Medication Instructions Recorded Confirmed Type levothyroxine 150 mcg tablet 150 mcg PO DAILYBB 04/25/23 06/12/23 History haloperidol 1 mg tablet 1 mg PO Q4H PRN nausea and 06/15/23 Rx vomiting #30 tabs hyoscyamine sulfate 0.125 mg 0.125 mg sublingual Q4H PRN 06/15/23 Rx tablet (Levsin) Secretions or pulmonary congestion #30 tabs olanzapine 5 mg disintegrating 5 mg PO BID #60 tabs 06/15/23 Rx tablet oxycodone 5 mg tablet 5 mg PO Q2H PRN pain or air hunger 06/15/23 Rx #60 tabs Patient History Medical History (Updated 06/15/23 @ 20:35 by Sherrell Gonzales DNP) Palliative care by specialist Advanced care planning/counseling discussion Restlessness and agitation Agitation due to dementia CKD (chronic kidney disease) stage 4, GFR 15-29 ml/min Dementia 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 Hepatic encephalopathy Hypothyroidism Diabetes mellitus, type 2 Asthma NO INHALER USE X 2 YRS Pneumonia LAST TIME 2 YRS AGO Colon polyps Elevated d-dimer Chest pain (11/16/13) NO RECENT ISSUES Bronchitis Right foot pain Surgical History S/P lumpectomy, left breast BENIGN PER PT History of total bilateral knee replacement Hx of appendectomy H/O: hysterectomy Family History Father Colorectal cancer Family history of diabetes mellitus Social History Smoking Status: Never smoker Second Hand Exposure: No; Do You Dip or Chew Tobacco: No; Hx Alcohol Use: No Hx Substance Use: No Preferred Language: Maltese Communication Ability: dementia Visual Impairment: No Limitations Hearing Ability: Normal Motorcycle Maker Required: No Beliefs That Will Affect Care: Judaism marital status: Current Living Situation: Family current occupational status: retired Feels Safe at Home: Yes Assistive Devices: Walker Review of Systems Review of Systems: Unobtainable due to cognitive status Physical Exam Physical Exam: frail, elderly female lying in bed, agitated and confused, +restless, cries out with any care/rep ositioning signif distended abd, tender with palpation bitemp wasting perrla MM dry dentition fair Neck supple no stridor resp effort inc [place] with episodes of pain, agitation, drying out diminished anterior breath sounds, no wheezing tachy [id number] generalized weakness, OA changes, diminished strength skin pale, warm Results & Data Vital Signs (Past 12 Hours) Vital Signs Temp Pulse Pulse Resp BP BP Pulse Ox 06/15/23 07:32 36.8 C 104 H 83/61 L 96 06/15/23 02:49 36.8 C 96 H 21 91/57 L 98 06/14/23 22:51 36.5 C 89 22 96/63 L 99 06/14/23 21:59 90 O2 Del Method 06/15/23 07:32 Room Air 06/15/23 02:49 Room Air 06/14/23 22:51 Room Air 06/14/23 21:59 Laboratory Results 06/15/23 06/15/23 06/15/23 Range/Units 07:31 06:47 05:46 WBC 5.18 (4.8-10.8) K/ul RBC 3.15 L (4.20-5.40) M/uL Hgb 10.3 L (12.0-16.0) g/dl Hct 29.1 L (37.0-47.0) % MCV 92.4 (80.0-100.0) fL MCH 32.7 (25.0-34.0) pg MCHC 35.4 (32.0-36.0) g/dL RDW Std Deviation 55.7 H (36.4-46.3) fL RDW Coeff of Colby 16.6 H (11.5-14.5) % Plt Count 149 (130-400) K/uL MPV 9.3 L (9.4-12.4) fL Immature Gran % (Auto) % Neut % (Auto) % Lymph % (Auto) % Whitman % (Auto) % Eos % (Auto) % Baso % (Auto) % Neut # (Auto) (1.40-6.50) K/uL Lymph # (Auto) (1.20-3.40) K/uL Whitman # (Auto) (0.11-0.59) K/uL Eos # (Auto) (0.00-0.50) K/uL Baso # (Auto) (0.00-0.20) K/uL Immature Gran # (Auto) (0.01-0.20) K/uL Absolute Nucleated RBC (0.00-0.12) K/uL Nucleated RBC % (auto) % Platelet Estimate (Normal) PT 11.3 (9.0-12.0) Seconds INR 1.0 (0.9-1.1) Sodium 134 L (136-145) mmol/L Potassium 4.4 (3.5-5.1) mmol/L Chloride 101 (98-107) mmol/L Carbon Dioxide 23 (21-32) mmol/L Anion Gap 10 (3-11) BUN 42 H (6-23) mg/dl Creatinine 2.29 H (0.6-1.2) mg/dl Est Cr Clr Drug Dosing 16.9 ml/min Est GFR ( Amer) 22.6 ml/min Est GFR (Non-Af Amer) 19.5 ml/min BUN/Creatinine Ratio 18.3 (10-20) Glucose 83 (70-99(Fasting)) mg/dl POC Glucose 89 (70-99) mg/dl Osmolality (280-300) mOsm/kg Calcium 8.7 (8.6-10.3) mg/dl Phosphorus (2.5-4.9) mg/dl Magnesium (1.7-2.4) mg/dl Total Bilirubin 1.4 H (0.2-1.0) mg/dl AST 26 (13-39) U/L ALT 18 (7-52) U/L Alkaline Phosphatase 85 (34-104) U/L Ammonia 100.0 H Troponin I High Sens (0-14) pg/ml B-Natriuretic Peptide (0-100) pg/ml Total Protein 5.0 L (6.0-8.3) gm/dl Albumin 2.9 L (3.4-5.0) gm/dl Globulin 2.1 L (2.5-4.0) gm/dl Albumin/Globulin Ratio 1.4 (0.9-2) Lipase (11-82) U/L Urine Color Urine Appearance (Clear) Urine pH (4.5-7.5) Ur Specific Winner (1.000-1.030) Urine Protein (Negative) Urine Glucose (UA) (Negative) Urine Ketones (Negative) Urine Blood (Negative) Urine Nitrite (Negative) Urine Bilirubin (Negative) Urine Urobilinogen (Negative) Ur Leukocyte Esterase (Negative) Urine WBC (Auto) (0-5) /hpf Urine RBC (Auto) (0-2) /hpf U Hyaline Cast (Auto) (0-2) /lpf U Epithel Cells (Auto) (0-2) /hpf Urine Bacteria (Auto) (None Seen) Urine Yeast (None Prsent) Urine Osmolality (500-800) mOsm/kg 06/14/23 06/14/23 06/14/23 Range/Units 19:58 16:23 11:37 WBC (4.8-10.8) K/ul RBC (4.20-5.40) M/uL Hgb (12.0-16.0) g/dl Hct (37.0-47.0) % MCV (80.0-100.0) fL MCH (25.0-34.0) pg MCHC (32.0-36.0) g/dL RDW Std Deviation (36.4-46.3) fL RDW Coeff of Colby (11.5-14.5) % Plt Count (130-400) K/uL MPV (9.4-12.4) fL Immature Gran % (Auto) % Neut % (Auto) % Lymph % (Auto) % Whitman % (Auto) % Eos % (Auto) % Baso % (Auto) % Neut # (Auto) (1.40-6.50) K/uL Lymph # (Auto) (1.20-3.40) K/uL Whitman # (Auto) (0.11-0.59) K/uL Eos # (Auto) (0.00-0.50) K/uL Baso # (Auto) (0.00-0.20) K/uL Immature Gran # (Auto) (0.01-0.20) K/uL Absolute Nucleated RBC (0.00-0.12) K/uL Nucleated RBC % (auto) % Platelet Estimate (Normal) PT (9.0-12.0) Seconds INR (0.9-1.1) Sodium (136-145) mmol/L Potassium (3.5-5.1) mmol/L Chloride (98-107) mmol/L Carbon Dioxide (21-32) mmol/L Anion Gap (3-11) BUN (6-23) mg/dl Creatinine (0.6-1.2) mg/dl Est Cr Clr Drug Dosing ml/min Est GFR ( Amer) ml/min Est GFR (Non-Af Amer) ml/min BUN/Creatinine Ratio (10-20) Glucose (70-99(Fasting)) mg/dl POC Glucose 155 H 79 165 H (70-99) mg/dl Osmolality (280-300) mOsm/kg Calcium (8.6-10.3) mg/dl Phosphorus (2.5-4.9) mg/dl Magnesium (1.7-2.4) mg/dl Total Bilirubin (0.2-1.0) mg/dl AST (13-39) U/L ALT (7-52) U/L Alkaline Phosphatase (34-104) U/L Ammonia Troponin I High Sens (0-14) pg/ml B-Natriuretic Peptide (0-100) pg/ml Total Protein (6.0-8.3) gm/dl Albumin (3.4-5.0) gm/dl Globulin (2.5-4.0) gm/dl Albumin/Globulin Ratio (0.9-2) Lipase (11-82) U/L Urine Color Urine Appearance (Clear) Urine pH (4.5-7.5) Ur Specific Winner (1.000-1.030) Urine Protein (Negative) Urine Glucose (UA) (Negative) Urine Ketones (Negative) Urine Blood (Negative) Urine Nitrite (Negative) Urine Bilirubin (Negative) Urine Urobilinogen (Negative) Ur Leukocyte Esterase (Negative) Urine WBC (Auto) (0-5) /hpf Urine RBC (Auto) (0-2) /hpf U Hyaline Cast (Auto) (0-2) /lpf U Epithel Cells (Auto) (0-2) /hpf Urine Bacteria (Auto) (None Seen) Urine Yeast (None Prsent) Urine Osmolality (500-800) mOsm/kg 06/14/23 06/14/23 06/13/23 Range/Units 06:00 05:28 20:45 WBC 4.26 L (4.8-10.8) K/ul RBC 2.91 L (4.20-5.40) M/uL Hgb 9.7 L (12.0-16.0) g/dl Hct 27.0 L (37.0-47.0) % MCV 92.8 (80.0-100.0) fL MCH 33.3 (25.0-34.0) pg MCHC 35.9 (32.0-36.0) g/dL RDW Std Deviation 55.5 H (36.4-46.3) fL RDW Coeff of Colby 16.4 H (11.5-14.5) % Plt Count 101 L D (130-400) K/uL MPV 9.9 (9.4-12.4) fL Immature Gran % (Auto) % Neut % (Auto) % Lymph % (Auto) % Whitman % (Auto) % Eos % (Auto) % Baso % (Auto) % Neut # (Auto) (1.40-6.50) K/uL Lymph # (Auto) (1.20-3.40) K/uL Whitman # (Auto) (0.11-0.59) K/uL Eos # (Auto) (0.00-0.50) K/uL Baso # (Auto) (0.00-0.20) K/uL Immature Gran # (Auto) (0.01-0.20) K/uL Absolute Nucleated RBC (0.00-0.12) K/uL Nucleated RBC % (auto) % Platelet Estimate Decreased L (Normal) PT 11.4 (9.0-12.0) Seconds INR 1.1 (0.9-1.1) Sodium 132 L (136-145) mmol/L Potassium 5.0 (3.5-5.1) mmol/L Chloride 100 (98-107) mmol/L Carbon Dioxide 24 (21-32) mmol/L Anion Gap 8 (3-11) BUN 41 H (6-23) mg/dl Creatinine 2.15 H (0.6-1.2) mg/dl Est Cr Clr Drug Dosing 18.0 ml/min Est GFR ( Amer) 24.4 ml/min Est GFR (Non-Af Amer) 21.1 ml/min BUN/Creatinine Ratio 19.1 (10-20) Glucose 97 (70-99(Fasting)) mg/dl POC Glucose 157 H (70-99) mg/dl Osmolality (280-300) mOsm/kg Calcium 8.5 L (8.6-10.3) mg/dl Phosphorus 4.3 (2.5-4.9) mg/dl Magnesium 2.1 (1.7-2.4) mg/dl Total Bilirubin 1.5 H (0.2-1.0) mg/dl AST 24 (13-39) U/L ALT 17 (7-52) U/L Alkaline Phosphatase 78 (34-104) U/L Ammonia Troponin I High Sens (0-14) pg/ml B-Natriuretic Peptide (0-100) pg/ml Total Protein 4.8 L (6.0-8.3) gm/dl Albumin 3.0 L (3.4-5.0) gm/dl Globulin 1.8 L (2.5-4.0) gm/dl Albumin/Globulin Ratio 1.7 (0.9-2) Lipase (11-82) U/L Urine Color Yellow Urine Appearance Clear (Clear) Urine pH 6.0 (4.5-7.5) Ur Specific Winner 1.008 (1.000-1.030) Urine Protein Negative (Negative) Urine Glucose (UA) Negative (Negative) Urine Ketones Negative (Negative) Urine Blood 2+ H (Negative) Urine Nitrite Negative (Negative) Urine Bilirubin Negative (Negative) Urine Urobilinogen Negative (Negative) Ur Leukocyte Esterase 2+ H (Negative) Urine WBC (Auto) 21-50 H (0-5) /hpf Urine RBC (Auto) 11-20 H (0-2) /hpf U Hyaline Cast (Auto) 0-2 (0-2) /lpf U Epithel Cells (Auto) 0-2 (0-2) /hpf Urine Bacteria (Auto) None Seen (None Seen) Urine Yeast Present A (None Prsent) Urine Osmolality (500-800) mOsm/kg 06/13/23 06/13/23 06/13/23 Range/Units 16:27 15:12 07:50 WBC (4.8-10.8) K/ul RBC (4.20-5.40) M/uL Hgb (12.0-16.0) g/dl Hct (37.0-47.0) % MCV (80.0-100.0) fL MCH (25.0-34.0) pg MCHC (32.0-36.0) g/dL RDW Std Deviation (36.4-46.3) fL RDW Coeff of Colby (11.5-14.5) % Plt Count (130-400) K/uL MPV (9.4-12.4) fL Immature Gran % (Auto) % Neut % (Auto) % Lymph % (Auto) % Whitman % (Auto) % Eos % (Auto) % Baso % (Auto) % Neut # (Auto) (1.40-6.50) K/uL Lymph # (Auto) (1.20-3.40) K/uL Whitman # (Auto) (0.11-0.59) K/uL Eos # (Auto) (0.00-0.50) K/uL Baso # (Auto) (0.00-0.20) K/uL Immature Gran # (Auto) (0.01-0.20) K/uL Absolute Nucleated RBC (0.00-0.12) K/uL Nucleated RBC % (auto) % Platelet Estimate (Normal) PT (9.0-12.0) Seconds INR (0.9-1.1) Sodium (136-145) mmol/L Potassium (3.5-5.1) mmol/L Chloride (98-107) mmol/L Carbon Dioxide (21-32) mmol/L Anion Gap (3-11) BUN (6-23) mg/dl Creatinine (0.6-1.2) mg/dl Est Cr Clr Drug Dosing ml/min Est GFR ( Amer) ml/min Est GFR (Non-Af Amer) ml/min BUN/Creatinine Ratio (10-20) Glucose (70-99(Fasting)) mg/dl POC Glucose 234 H 225 H 172 H (70-99) mg/dl Osmolality (280-300) mOsm/kg Calcium (8.6-10.3) mg/dl Phosphorus (2.5-4.9) mg/dl Magnesium (1.7-2.4) mg/dl Total Bilirubin (0.2-1.0) mg/dl AST (13-39) U/L ALT (7-52) U/L Alkaline Phosphatase (34-104) U/L Ammonia Troponin I High Sens (0-14) pg/ml B-Natriuretic Peptide (0-100) pg/ml Total Protein (6.0-8.3) gm/dl Albumin (3.4-5.0) gm/dl Globulin (2.5-4.0) gm/dl Albumin/Globulin Ratio (0.9-2) Lipase (11-82) U/L Urine Color Urine Appearance (Clear) Urine pH (4.5-7.5) Ur Specific Winner (1.000-1.030) Urine Protein (Negative) Urine Glucose (UA) (Negative) Urine Ketones (Negative) Urine Blood (Negative) Urine Nitrite (Negative) Urine Bilirubin (Negative) Urine Urobilinogen (Negative) Ur Leukocyte Esterase (Negative) Urine WBC (Auto) (0-5) /hpf Urine RBC (Auto) (0-2) /hpf U Hyaline Cast (Auto) (0-2) /lpf U Epithel Cells (Auto) (0-2) /hpf Urine Bacteria (Auto) (None Seen) Urine Yeast (None Prsent) Urine Osmolality (500-800) mOsm/kg 06/13/23 06/12/23 06/12/23 Range/Units 03:22 20:53 20:29 WBC 10.35 (4.8-10.8) K/ul RBC 3.24 L (4.20-5.40) M/uL Hgb 10.6 L (12.0-16.0) g/dl Hct 30.7 L (37.0-47.0) % MCV 94.8 (80.0-100.0) fL MCH 32.7 (25.0-34.0) pg MCHC 34.5 (32.0-36.0) g/dL RDW Std Deviation 57.0 H (36.4-46.3) fL RDW Coeff of Colby 16.4 H (11.5-14.5) % Plt Count 215 (130-400) K/uL MPV 9.7 (9.4-12.4) fL Immature Gran % (Auto) % Neut % (Auto) % Lymph % (Auto) % Whitman % (Auto) % Eos % (Auto) % Baso % (Auto) % Neut # (Auto) (1.40-6.50) K/uL Lymph # (Auto) (1.20-3.40) K/uL Whitman # (Auto) (0.11-0.59) K/uL Eos # (Auto) (0.00-0.50) K/uL Baso # (Auto) (0.00-0.20) K/uL Immature Gran # (Auto) (0.01-0.20) K/uL Absolute Nucleated RBC 0.03 (0.00-0.12) K/uL Nucleated RBC % (auto) 0.3 % Platelet Estimate (Normal) PT (9.0-12.0) Seconds INR (0.9-1.1) Sodium 127 L 129 L (136-145) mmol/L Potassium 5.0 4.8 (3.5-5.1) mmol/L Chloride 95 L 98 (98-107) mmol/L Carbon Dioxide 23 23 (21-32) mmol/L Anion Gap 9 8 (3-11) BUN 37 H 35 H (6-23) mg/dl Creatinine 2.09 H 2.00 H (0.6-1.2) mg/dl Est Cr Clr Drug Dosing 20.7 21.6 ml/min Est GFR ( Amer) 25.3 26.7 ml/min Est GFR (Non-Af Amer) 21.8 23.0 ml/min BUN/Creatinine Ratio 17.7 17.5 (10-20) Glucose 180 H 164 H (70-99(Fasting)) mg/dl POC Glucose 180 H (70-99) mg/dl Osmolality (280-300) mOsm/kg Calcium 9.2 9.1 (8.6-10.3) mg/dl Phosphorus (2.5-4.9) mg/dl Magnesium (1.7-2.4) mg/dl Total Bilirubin 1.7 H (0.2-1.0) mg/dl AST 25 (13-39) U/L ALT 21 (7-52) U/L Alkaline Phosphatase 101 (34-104) U/L Ammonia Troponin I High Sens (0-14) pg/ml B-Natriuretic Peptide (0-100) pg/ml Total Protein 5.7 L (6.0-8.3) gm/dl Albumin 3.1 L (3.4-5.0) gm/dl Globulin 2.6 (2.5-4.0) gm/dl Albumin/Globulin Ratio 1.2 (0.9-2) Lipase (11-82) U/L Urine Color Urine Appearance (Clear) Urine pH (4.5-7.5) Ur Specific Winner (1.000-1.030) Urine Protein (Negative) Urine Glucose (UA) (Negative) Urine Ketones (Negative) Urine Blood (Negative) Urine Nitrite (Negative) Urine Bilirubin (Negative) Urine Urobilinogen (Negative) Ur Leukocyte Esterase (Negative) Urine WBC (Auto) (0-5) /hpf Urine RBC (Auto) (0-2) /hpf U Hyaline Cast (Auto) (0-2) /lpf U Epithel Cells (Auto) (0-2) /hpf Urine Bacteria (Auto) (None Seen) Urine Yeast (None Prsent) Urine Osmolality (500-800) mOsm/kg 06/12/23 06/12/23 06/12/23 Range/Units 19:28 17:24 14:38 WBC (4.8-10.8) K/ul RBC (4.20-5.40) M/uL Hgb (12.0-16.0) g/dl Hct (37.0-47.0) % MCV (80.0-100.0) fL MCH (25.0-34.0) pg MCHC (32.0-36.0) g/dL RDW Std Deviation (36.4-46.3) fL RDW Coeff of Colby (11.5-14.5) % Plt Count (130-400) K/uL MPV (9.4-12.4) fL Immature Gran % (Auto) % Neut % (Auto) % Lymph % (Auto) % Whitman % (Auto) % Eos % (Auto) % Baso % (Auto) % Neut # (Auto) (1.40-6.50) K/uL Lymph # (Auto) (1.20-3.40) K/uL Whitman # (Auto) (0.11-0.59) K/uL Eos # (Auto) (0.00-0.50) K/uL Baso # (Auto) (0.00-0.20) K/uL Immature Gran # (Auto) (0.01-0.20) K/uL Absolute Nucleated RBC (0.00-0.12) K/uL Nucleated RBC % (auto) % Platelet Estimate (Normal) PT (9.0-12.0) Seconds INR (0.9-1.1) Sodium (136-145) mmol/L Potassium (3.5-5.1) mmol/L Chloride (98-107) mmol/L Carbon Dioxide (21-32) mmol/L Anion Gap (3-11) BUN (6-23) mg/dl Creatinine (0.6-1.2) mg/dl Est Cr Clr Drug Dosing ml/min Est GFR ( Amer) ml/min Est GFR (Non-Af Amer) ml/min BUN/Creatinine Ratio (10-20) Glucose (70-99(Fasting)) mg/dl POC Glucose 355 H* (70-99) mg/dl Osmolality (280-300) mOsm/kg Calcium (8.6-10.3) mg/dl Phosphorus (2.5-4.9) mg/dl Magnesium (1.7-2.4) mg/dl Total Bilirubin (0.2-1.0) mg/dl AST (13-39) U/L ALT (7-52) U/L Alkaline Phosphatase (34-104) U/L Ammonia 67.0 Troponin I High Sens (0-14) pg/ml B-Natriuretic Peptide (0-100) pg/ml Total Protein (6.0-8.3) gm/dl Albumin (3.4-5.0) gm/dl Globulin (2.5-4.0) gm/dl Albumin/Globulin Ratio (0.9-2) Lipase (11-82) U/L Urine Color Urine Appearance (Clear) Urine pH (4.5-7.5) Ur Specific Winner (1.000-1.030) Urine Protein (Negative) Urine Glucose (UA) (Negative) Urine Ketones (Negative) Urine Blood (Negative) Urine Nitrite (Negative) Urine Bilirubin (Negative) Urine Urobilinogen (Negative) Ur Leukocyte Esterase (Negative) Urine WBC (Auto) (0-5) /hpf Urine RBC (Auto) (0-2) /hpf U Hyaline Cast (Auto) (0-2) /lpf U Epithel Cells (Auto) (0-2) /hpf Urine Bacteria (Auto) (None Seen) Urine Yeast (None Prsent) Urine Osmolality 317 L (500-800) mOsm/kg 06/12/23 06/12/23 06/12/23 Range/Units 13:22 13:20 13:19 WBC 7.08 (4.8-10.8) K/ul RBC 3.36 L (4.20-5.40) M/uL Hgb 11.1 L (12.0-16.0) g/dl Hct 31.5 L (37.0-47.0) % MCV 93.8 (80.0-100.0) fL MCH 33.0 (25.0-34.0) pg MCHC 35.2 (32.0-36.0) g/dL RDW Std Deviation 56.6 H (36.4-46.3) fL RDW Coeff of Colby 16.5 H (11.5-14.5) % Plt Count 160 (130-400) K/uL MPV 9.5 (9.4-12.4) fL Immature Gran % (Auto) 0.6 % Neut % (Auto) 74.4 % Lymph % (Auto) 11.9 % Whitman % (Auto) 12.6 % Eos % (Auto) 0.4 % Baso % (Auto) 0.1 % Neut # (Auto) 5.27 (1.40-6.50) K/uL Lymph # (Auto) 0.84 L (1.20-3.40) K/uL Whitman # (Auto) 0.89 H (0.11-0.59) K/uL Eos # (Auto) 0.03 (0.00-0.50) K/uL Baso # (Auto) 0.01 (0.00-0.20) K/uL Immature Gran # (Auto) 0.04 (0.01-0.20) K/uL Absolute Nucleated RBC (0.00-0.12) K/uL Nucleated RBC % (auto) % Platelet Estimate (Normal) PT (9.0-12.0) Seconds INR (0.9-1.1) Sodium 126 L (136-145) mmol/L Potassium 5.3 H (3.5-5.1) mmol/L Chloride 95 L (98-107) mmol/L Carbon Dioxide 25 (21-32) mmol/L Anion Gap 6 (3-11) BUN 35 H (6-23) mg/dl Creatinine 1.87 H (0.6-1.2) mg/dl Est Cr Clr Drug Dosing 23.1 ml/min Est GFR ( Amer) 28.9 ml/min Est GFR (Non-Af Amer) 24.9 ml/min BUN/Creatinine Ratio 18.7 (10-20) Glucose 458 H* (70-99(Fasting)) mg/dl POC Glucose 406 H* (70-99) mg/dl Osmolality 296 (280-300) mOsm/kg Calcium 9.2 (8.6-10.3) mg/dl Phosphorus (2.5-4.9) mg/dl Magnesium (1.7-2.4) mg/dl Total Bilirubin 2.0 H (0.2-1.0) mg/dl AST 21 (13-39) U/L ALT 21 (7-52) U/L Alkaline Phosphatase 101 (34-104) U/L Ammonia TNP Troponin I High Sens 18.9 H (0-14) pg/ml B-Natriuretic Peptide 127 H (0-100) pg/ml Total Protein 5.9 L (6.0-8.3) gm/dl Albumin 3.2 L (3.4-5.0) gm/dl Globulin 2.7 (2.5-4.0) gm/dl Albumin/Globulin Ratio 1.2 (0.9-2) Lipase 15 (11-82) U/L Urine Color Urine Appearance (Clear) Urine pH (4.5-7.5) Ur Specific Winner (1.000-1.030) Urine Protein (Negative) Urine Glucose (UA) (Negative) Urine Ketones (Negative) Urine Blood (Negative) Urine Nitrite (Negative) Urine Bilirubin (Negative) Urine Urobilinogen (Negative) Ur Leukocyte Esterase (Negative) Urine WBC (Auto) (0-5) /hpf Urine RBC (Auto) (0-2) /hpf U Hyaline Cast (Auto) (0-2) /lpf U Epithel Cells (Auto) (0-2) /hpf Urine Bacteria (Auto) (None Seen) Urine Yeast (None Prsent) Urine Osmolality (500-800) mOsm/kg Diagnostic Findings Chest X-Ray 06/12/23 13:16 XR chest 1V portable HISTORY: Chest pain, nonspecific COMPARISON: Chest 04/25/2023. FINDINGS: No pneumothorax. No pleural effusions. The cardiac silhouette remains top normal in size. There are calcifications within the aortic knob. Low lung volumes with mild elevation the right hemidiaphragm. There are are a few bibasilar densities consistent with subsegmental atelectasis. IMPRESSION: No significant change compared to the prior study. No acute process. ACT 112: Negative or not required by law. Electronically signed by: Norbert Miranda M.D. 06/12/2023 2:02 PM Paracentesis Ultrasound 06/13/23 09:00 ULTRASOUND-GUIDED PARACENTESIS CLINICAL HISTORY: Ascites PROCEDURE: Procedure and risks were explained. Informed consent was obtained. A final timeout was completed. The abdomen was prepped and draped in sterile fashion. 1% buffered lidocaine was utilized for skin anesthesia. Utilizing ultrasound guidance, a 5 [place] safety centesis catheter was advanced into the left lower quadrant pocket of ascites. Ultrasound images were obtained. A total of 5 L of ascites fluid was removed with 1 L sent to the lab. The catheter was removed and Band-Aid applied. The patient tolerated the procedure well. Vital signs will be monitored postprocedure. IMPRESSION: Ultrasound-guided paracentesis as above. Performed, dictated, and signed by Amor Neri PA-C; to be co-signed by Dr. Cayetano Thorpe. Electronically signed by: Cayetano Thorpe M.D. 06/13/2023 3:30 PM PG Care Time/CCT Total # of Minutes Spent Total Time Spent with Patient: Total time spent is greater than 50% in coordination of care (as documented) at patient's floor/unit and/or counseling patient: I spent 65 minutes overall addressing this case: 15 min in medical data review/discussion with referring provider(s) and/or preparation for the visit 20 min in direct interaction with the patient/exam see separate note min in Advance Care Planning/Goals of Care discussions as detailed above in note (must be >16min) 15 min in subsequent review and synthesis of assessment and plan 15 min communicating with other providers regarding the patient's case: Advanced Care Planning 76805 Advanced Care Planning 30 [place] [address] IN/OBS CONSULT LVL 4,60M Patient Type New History Comprehensive Exam Comprehensive Medical Decision Making High Complexity Diagnoses Restlessness and agitation R45.1 Agitation due to dementia F03.911 Advanced care planning/counseling discussion Z71.89 Comfort measures only status Z51.5 Dementia F03.90 Palliative care by specialist Z51.5 Additional Codes Advanced Care Planning - 99941 Advanced Care Planning 30 Min: 29688 Advanced Care Planning 30 Min ([id number])
[2023-06-15] MEDS: SPIRONOLACTONE 12.5 MG TAB PO ONE (09:32)
[2023-06-15] MEDS: POTASSIUM CHLORIDE CRTAB 20 MEQ TABCR PO SCH (09:38)
--- NOTE | 2023-06-15 10:51 | Hospitalist Progress Note ---
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 Decompensated WALSH cirrhosis with ascites Admitted 04/24- for decompensated cirrhosis requiring paracentesis x 2 in setting of BLAYNE Has since had diuretics reduced due to renal function - now on torsemide to 10mg daily and spironolactone 25mg daily with volume overload Has been undergoing outpatient paracentesis 1x/week since discharge (most recently on 06/05 prior to this admission with approx 5L fluid removal) Given 40mg IV lasix in ED Per RN, IR removed 5L via paracentesis on 06/13/23 Got albumin Continue Xifaxan, midodrine for liver disease Worsened confusion overnight Ammonia level is increased to 100 today Lactulose increased to TID Low sodium diet Check MELD labs daily. GI evaluation noted BLAYNE Progression of CKD4 Cr 1.87 on admission Cr is 2.29 today Diuretics being managed by Hydro Sprayer Operator Continue lasix, FR Monitor renal function Continue midodrine Hyperglycemia in setting of DM II A1c 6.8 in April 2023 Jardiance and metformin discontinued in outpatient setting 2/2 renal impairment BSG 458 on presentation Glycemic pharmacy on board for glycemic management BSG AC HS Hyponatremia Na is 134 today Hypervolemic hyponatremia in the setting of decompensated cirrhosis Monitor Low sodium diet Diuretics mgt as above Alzheimer's disease Seems to be at baseline per caregiver Continue Aricept Delirium precautions Hypothyroidism Continue levothyroxine Goals of care Updated , daughter, son, [id number] and sister at bed family services specialist came in for scheduled GOC meeting at the end of my evaluation Palliative care had GOC of with family and they opted for home hospice/comfort care CM to make arrangement Code status: DNR/DNI PCP: Rehana Harris I spent a total of 50 minutes coordinating, documenting, and providing care for this patient excluding time spent in the performance of separately billed services. Admission and Anticipated Discharge Date Admission Date: June 12, 2023 Subjective Patient seen and examined Alert and oriented to person only. Confused Reports abdominal distention and discomfort Reports nausea Has leg swelling and pain Physical Exam Constitutional: + well hydrated; no acute distress Eyes: PERRL, conjunctivae normal, anicteric sclerae ENMT: external ear and nose normal, oropharynx normal Respiratory: normal respiratory effort, lungs clear to auscultation Cardiovascular: Rate/Rhythm: regular rate and regular rhythm S1 S2 +tachycardic Gastrointestinal (Abdomen): Soft, distended, nontender, normal bowel sounds Musculoskeletal: Pitting edema, tender Neurologic: PERRL, EOMI, accommodation nl, no face palsy, no dysarthria Results & Data Results & Data Vital Signs (Past 12 Hours) Vital Signs Temp Pulse Resp BP BP Pulse Ox O2 Del Method 06/15/23 07:32 36.8 C 104 H 83/61 L 96 Room Air 06/15/23 02:49 36.8 C 96 H 21 91/57 L 98 Room Air 06/14/23 22:51 36.5 C 89 22 96/63 L 99 Room Air Laboratory Results Abnormal lab results 06/14/23 06/14/23 06/15/23 Range/Units 11:37 19:58 05:46 RBC 3.15 L (4.20-5.40) M/uL Hgb 10.3 L (12.0-16.0) g/dl Hct 29.1 L (37.0-47.0) % RDW Std Deviation 55.7 H (36.4-46.3) fL RDW Coeff of Colby 16.6 H (11.5-14.5) % MPV 9.3 L (9.4-12.4) fL Sodium 134 L (136-145) mmol/L BUN 42 H (6-23) mg/dl Creatinine 2.29 H (0.6-1.2) mg/dl POC Glucose 165 H 155 H (70-99) mg/dl Total Bilirubin 1.4 H (0.2-1.0) mg/dl Ammonia (18-72) umol/L Total Protein 5.0 L (6.0-8.3) gm/dl Albumin 2.9 L (3.4-5.0) gm/dl Globulin 2.1 L (2.5-4.0) gm/dl 06/15/23 Range/Units 06:47 RBC (4.20-5.40) M/uL Hgb (12.0-16.0) g/dl Hct (37.0-47.0) % RDW Std Deviation (36.4-46.3) fL RDW Coeff of Colby (11.5-14.5) % MPV (9.4-12.4) fL Sodium (136-145) mmol/L BUN (6-23) mg/dl Creatinine (0.6-1.2) mg/dl POC Glucose (70-99) mg/dl Total Bilirubin (0.2-1.0) mg/dl Ammonia 100.0 H (18-72) umol/L Total Protein (6.0-8.3) gm/dl Albumin (3.4-5.0) gm/dl Globulin (2.5-4.0) gm/dl
[2023-06-15] MEDS ORDERED: ACETAMINOPHEN 325 MG TAB PO PRN (11:07)
[2023-06-15] MEDS ORDERED: HYOSCYAMINE SULFATE 0.125 MG TAB SL PRN (11:22)
--- NOTE | 2023-06-15 11:41 | Palliative Family Discussion ---
Date of Service <Eloy Vázquez DO - Last Filed: 06/15/23 11:41> June 15, 2023 Patient Directed Conference <Eloy Vázquez DO - Last Filed: 06/15/23 11:41> Time of Meetin:30 AM Participants: Sherrell Gonzales DNP, Eloy Vázquez DO Patient participation: None Patient Support System: , Daughter, Son, and Caregiver Present Other Healthcare Provider Participation: None Meeting Location: 2nd Floor Family Meeting Room Advanced Directive Available: Yes, reviewed & available in chart.: The patient's surrogate medical decision maker participated: Yes, & Daughter Legally authorized health care proxy: Yes Other surrogate: None A family meeting was held for NAZ JAMES. This meeting was necessary for determining the appropriate course of treatment. Topics of Discussion <Eloy Vázquez DO - Last Filed: 06/15/23 11:41> Topics of Discussion: 1. Patient and family's goals of care 2. Discharge planning, with goal of return to Hospice for comfort measure 3. Patient's preferences, experiences, and life events Other Content of Meetin. Opportunity given for participants to speak and ask questions. 2. Participants were assured of attention to patient comfort. Elected to transition to comfort measures only inpatient. 3. Reassurance provided. 4. Support was provided for informed, good-shira decisions. 5. Emotions expressed by family were acknowledged and addressed. 6. Follow-up Outpatient: None 7. Plan of Care: Patients medical diagnosis of co-existing liver and kidney failure was reviewed and discussed at length with family. Case was reviewed with hospitalist and Online Editor who concurred that patient likely has weeks to months prior to end of life. Patient's family and caregiver expressed understanding with appropriate emotional response. Decision was made to transition Naz to comfort measures only while inpatient. Family's ultimate goal is to transition patient to home and keep her happy and comfortable over the coming weeks. Patient was previously a hospice patient with [facility], case management to reach out and re-active patient's care through hospice services. Patient is anticipated to continue to experience accumulation of ascitic fluid within her abdomen, but it is likely to be of greater risk than benefit for patient to have a drain placed at this time - family was in agreement with not pursing drain placement or additional paracentesis. In leiu of additional interventions regarding ascitic fluid, efforts will be made to manage Naz's pain, agitation, dyspnea, and discomfort. Orders to this effect will be placed today, and continued through hospice once patient is transitioned to home. Family counseled regarding what to expect during the dying process, including increasing dyspnea, oxygen requirement, agitation, confusion, and secretion. Time Involved in Meeting: I spent 70 minutes overall addressing this case: [X] in medical data review/discussion with referring provider(s) and/or preparation for the visit (15 minutes) [X] in direct interaction with the patient [0 minutes] [X] Advance Care Planning/Goals of Care discussions as detailed above in note (30 minutes) [X] in subsequent review and synthesis of assessment and plan (5 minutes) [X] in communicating with other providers regarding the patient's case (20 minutes, Nursing, Care Management, Nephrology, Interventional Radiology & Hospital Medicine) <Sherrell Gonzales, ALVARADO - Last Filed: 06/15/23 20:42> Topics of Discussion: 1. Patient and family's goals of care 2. Discharge planning, with goal of return to Hospice for comfort measure 3. Patient's preferences, experiences, and life events Other Content of Meetin. Opportunity given for participants to speak and ask questions. 2. Participants were assured of attention to patient comfort. Elected to transition to comfort measures only inpatient. 3. Reassurance provided. 4. Support was provided for informed, good-shira decisions. 5. Emotions expressed by family were acknowledged and addressed. 6. Follow-up Outpatient: None 7. Plan of Care: Patients medical diagnosis of co-existing liver and kidney failure was reviewed and discussed at length with family. Case was reviewed with hospitalist and Online Editor who concurred that patient likely has weeks to months prior to end of life. Patient's family and caregiver expressed understanding with appropriate emotional response. Decision was made to transition Naz to comfort measures only while inpatient. Family's ultimate goal is to transition patient to home and keep her happy and comfortable over the coming weeks. Patient was previously a hospice patient with [facility], case management to reach out and re-active patient's care through hospice services. Patient is anticipated to continue to experience accumulation of ascitic fluid within her abdomen, but it is likely to be of greater risk than benefit for patient to have a drain placed at this time - family was in agreement with not pursing drain placement or additional paracentesis. In leiu of additional interventions regarding ascitic fluid, efforts will be made to manage Naz's pain, agitation, dyspnea, and discomfort. Orders to this effect will be placed today, and continued through hospice once patient is transitioned to home. Family counseled regarding what to expect during the dying process, including increasing dyspnea, oxygen requirement, agitation, confusion, and secretion. Time Involved in Meeting: I spent 70 minutes overall addressing this case: [X] in medical data review/discussion with referring provider(s) and/or preparation for the visit (15 minutes) [X] in direct interaction with the patient [0 minutes] [X] Advance Care Planning/Goals of Care discussions as detailed above in note (30 minutes) [X] in subsequent review and synthesis of assessment and plan (5 minutes) [X] in communicating with other providers regarding the patient's case (20 minutes, Nursing, Care Management, Nephrology, Interventional Radiology & Hospital Medicine) Thank you for allowing us to participate in the ongoing care of this patient. Please don't hesitate to call or page with any additional concerns. Dr. Sherrell Gonzales DNP Director, Palliative Care Resident Activity Tracking <Eloy Vázquez, - Last Filed: 06/15/23 11:41> Resident Involvement: Resident Care Provided Care Provided: Adult Hospital Medicine (Palliative)
--- NOTE | 2023-06-15 14:58 | Discharge Summary ---
Date of Service June 15, 2023 Admission HPI Per Admitting Provider This is a 78-year-old female with PMH of WALSH cirrhosis with esophageal varices and h/o hepatic encephalopathy, Alzheimer's disease, DM type II, HTN, HLD, hypothyroidism and other medical problems listed below who presents with volume overload. Was recently admitted to our service for decompensated cirrhosis and BLAYNE. During that admission, Xifaxan BID was started as well as midodrine. Losartan was discontinued due to BLAYNE. At nephrology follow up at the end of April, her diuretics in half (now torsemide to 10mg daily and spironolactone 25mg daily) and Jardiance and metformin were discontinued due to impaired renal function. Presents again today with increased fluid retention from waist down. Per daughter, patient has been undergoing paracentesis 1x / week, most recently last Monday 06/05. Patient is oriented to person only, not to place or time. ROS unobtainable due to cognitive state. Lives at home with her . Admission Exam Per Admitting Provider GENERAL APPEARANCE: AxOx2, pleasant woman HEENT: NC, AT. MMM. EOMI, clear conjunctiva, oropharynx clear. NECK: Supple without lymphadenopathy. No stiffness or restricted ROM. HEART: Normal rate and regular rhythm, ALETA LUNGS: CTAB, moving air well. No crackles or wheezes are heard. ABDOMEN: distended, firm, fluid shift+ nontender EXTREMITIES: Without cyanosis, clubbing. 3+ pitting edema of BLE up to knees NEUROLOGICAL: Grossly nonfocal. Alert and oriented to self and ?situation moving all 4 extremities. CN not formally tested but appear grossly intact Skin: Warm and dry without any rash. Principal Diagnosis Decompensated cirrhosis Worsening kidney function Comfort measure only status Discharge Exam Constitutional + well hydrated; no acute distress Eyes PERRL, conjunctivae normal, anicteric sclerae ENMT external ear and nose normal, oropharynx normal Respiratory normal respiratory effort, lungs clear to auscultation Cardiovascular Rate/Rhythm: regular rate and regular rhythm Gastrointestinal (Abdomen) Soft, distended, nontender, normal bowel sounds Musculoskeletal b/l pedal edema, tender Neurologic PERRL, EOMI, accommodation nl, no face palsy, no dysarthria Psychiatric Alert and oriented to person only Genitourinary Cardozo in situ Discharge Data Allergies Allergy/AdvReac Type Severity Reaction Status Date / Time Iodinated Contrast Media Allergy Intermediate Hives Verified 06/12/23 15:47 oxycodone Allergy Unknown CAN'T Verified 06/12/23 15:47 REMEMBER Consultations 06/12/23 15:17 ED Decision to Admit Stat 06/12/23 16:18 Consult Gastroenterology Routine Consult Nephrology Routine 06/14/23 10:40 Consult Palliative Care Routine Ordered Studies 06/13/23 09:00 IR paracentesis abd w/img US Routine Hospital Course (1) Decompensated hepatic cirrhosis: (2) 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 Decompensated WALSH cirrhosis with ascites Admitted 04/24- for decompensated cirrhosis requiring paracentesis x 2 in setting of BLAYNE Has since had diuretics reduced due to renal function - now on torsemide to 10mg daily and spironolactone 25mg daily with volume overload Has been undergoing outpatient paracentesis 1x/week since discharge (most recently on 06/05 prior to this admission with approx 5L fluid removal) Given 40mg IV lasix in ED Per RN, IR removed 5L via paracentesis on 06/13/23 Got albumin Worsened confusion overnight Ammonia level is increased to 100 today Cr 1.87 on admission Has been worsening overtime Nephrology evaluated while inpatient Had Goals of care with Nephrology, Palliative specialist and family Family opted for comfort care and discharge home today on home hospice Meds changed based on Palliative specialist recommendations Total Time Total Time Spent Total Time Spent (In Minutes): 50 Total Time Includes: Examination of the Patient, Discharge Planning, Medication Reconciliation and Communication With Other Providers Discharge Plan Discharge Items Patient Disposition: Hospice - Home Reason For Visit: DECOMPENSATED CIRRHOSIS Discharge Diagnosis: Decompensated cirrhosis Worsening kidney function Comfort measure only status Activity: Resume your previous activity Non-emergency contact: Primary Care Provider and Manager Field Sales Call non-emergency contact if: you have any medication questions and your symptoms worsen Follow-up/Referrals: Tita Harris, [Primary Care Provider] - Diet: Regular Addtl Attending Provider Instructions: Mrs Kennedy You came to the hospital with worsening abdominal distention. You were also noted to have worsening kidney failure. After meeting with you/your family, your family decided to proceed with Home hospice. You are being discharged home on home hospice. Please contact your hospice agency if you have any questions or concerns while at home. It was a pleasure taking care of you. Pending Studies at Discharge: No Stand-Alone Forms: [facility] Medications and DC Order Prescriptions: New haloperidol 1 mg Tablet 1 mg PO Q4H PRN (Reason: nausea and vomiting) Qty: 30 0RF olanzapine 5 mg Tablet,Disintegrating 5 mg PO BID Qty: 60 0RF oxycodone 20 mg/mL Concentrate 5 mg PO Q2H PRN (Reason: pain or air hunger) Qty: 30 0RF hyoscyamine sulfate [Levsin] 0.125 mg Tablet 0.125 mg sublingual Q4H PRN (Reason: Secretions or pulmonary congestion) Qty: 30 0RF Continued levothyroxine 150 mcg tablet 150 mcg PO DAILYBB Discontinued donepezil 5 mg tablet 5 mg PO QAM torsemide 20 mg tablet 10 mg PO DAILY trazodone 50 mg tablet 50 mg PO HS cyanocobalamin (vitamin B-12) [Vitamin B-12] 1,000 mcg Tablet 1,000 mcg PO DAILY thiamine HCl (vitamin B1) [Vitamin B-1] 100 mg Tablet 100 mg PO QAM clotrimazole 1 % Cream 1 appful VAGINAL HS Rx Instructions: FOR 7 DAYS APPLY TO [facility] FOR ITCHING pantoprazole 20 mg tablet,delayed release (DR/EC) 20 mg PO BID clindamycin phosphate 1 % swab 1 applic TOPICAL BID PRN (Reason: AFFECTED SKIN) ondansetron 4 mg tablet,disintegrating 4 mg translingual Q12H PRN (Reason: NAUSEA/VOMITING) spironolactone 50 mg tablet 25 mg PO QAM lactulose 10 gram/15 mL solution 30 ml PO BID Glucerna 1 Ezequiel 0.04-1 gram-kcal/mL Liquid 1 ea PO BIDM Xifaxan 550 mg Tablet 550 mg PO BID Qty: 60 0RF midodrine 10 mg tablet 5 mg PO TID@0800,1200,1700 Discharge Orders: Discharge Order (Routine); Ordered 06/15/23 Ordered By: Christin Arana Admission Data Admit Date/Time: 06/12/23 16:18 Attending Provider: Christin Arana I. Admit Provider: Farida Miles Primary Care Provider: Tita Harris Other Providers: Annie Recinos; Mo Cleary; Farida Miles; Sherrell Gonzales; [facility] Other Interventions: Discharge Summary Assessment (RN) Last Done: 06/15/23 15:53
[2023-06-15] MEDS: haloperidoL 1 MG TAB PO PRN (15:34)
[2023-06-15] MEDS ORDERED: OLANZapine ZYDIS 5 MG ORALLY DIS. TAB PO SCH (21:00)
== END 2023-06-15 17:09 | disposition hospice, home (50) | DRG 433 ==
LOC: ED 13:07 → SUATTDRO 16:18 → EDINP 16:18 → 2E 06-13 15:39